=== PATIENT | male | born 1940 | race Caucasian/White ===

== ENCOUNTER 2017-05-23 21:26 | Inpatient (IN) | payer MEDICARE, OTHER ==
[~2017-05-23] VITALS: Ht 172.7 cm; Wt 95.2 kg
[~2017-05-23 21:26] MED LIST: AMLO5TAB4 PO; ASPI325T4 PO; BRIM10DR2 OP; CARV3.1238 PO; CLON-230 PO; CLOP75TA19 PO; GABA100C14 PO; GLYB2.5T2 PO; HYDR-3670 PO; ISOS30TA PO; MECLIZINE HCL25 M1 PO; QUET150T PO; RANO10002 PO; VIT1TABL65 PO; ZOLP5TAB PO
--- NOTE | 2017-05-23 22:18 | ERA ---
ER Documentation Chief Complaint Date/Time DATE: 05/23/17 TIME: 22:17 Chief Complaint BIBA RA 81 weakness, slow HR 37,HERR,light-headedness HPI The patient is a 77-year-old male, presenting to the ER because of low heart rate, dizziness intermittently for the last week, worse for the last 3 days. She had fast heart rate about 2 weeks ago when she was hospitalized at [facility] for new onset atrial fibrillation. She had a ASTON then subsequently cardioverted and discharged with Xarelto and amiodarone about a week ago. He has not felt well for the last week, worse for the last 3 days. He denies syncope, near syncope, seizure, neck pain, chest pain, complains of dyspnea, denies abdominal pain, vomiting, dysuria, diarrhea, constipation. He does not smoke nor drink Past medical history: Hypertension, diabetes mellitus, history of CVA, CAD, chronic vertigo, dyslipidemia, atrial fibrillation Past surgical history: Bilateral knee arthroplasty ROS All systems reviewed and are negative except as per history of present illness. Medications Home Meds Reported Medications Amiodarone Hcl* (Amiodarone Hcl*) 200 Mg Tablet, 200 MG PO BID, #60 TAB 05/23/17 Tamsulosin Hcl* (Tamsulosin Hcl*) 0.4 Mg Cap.er.24h, 0.4 MG PO DAILY, CAP 05/23/17 Fenofibrate Nanocrystallized* (Fenofibrate*) 145 Mg Tablet, 145 MG PO DAILY, TAB 05/23/17 [place]-3 Acid Ethyl Esters (Lovaza) 1 Gm Capsule, 1 GM PO BID, CAP 05/23/17 Duloxetine Hcl* (Duloxetine Hcl*) 30 Mg Capsule.dr, 30 MG PO DAILY, #30 CAP 05/23/17 Montelukast Sodium* (Montelukast Sodium*) 10 Mg Tablet, 10 MG PO QHS, #30 TAB 05/23/17 Esomeprazole Magnesium (Esomeprazole Magnesium) 40 Mg Capsule.dr, 40 MG PO BEFORE BREAKFAST, #30 CAP 05/23/17 Diclofenac Sodium* (Voltaren* Gel) 1% -100 Gm Gel, 2 GM TOP QID, #1 TUB 05/23/17 Glipizide* (Glipizide*) 5 Mg Tablet, 5 MG PO AC BREAKFAST, TAB 05/23/17 Calcium/Mag/D3/B12/FA/B6/Foley (Folgard Os Tablet) 1 Each Tablet, 1 EACH PO, TAB 05/23/17 Mupirocin Calcium* (Mupirocin*) 2% - 15 Gram Cream..g., 1 APPLIC TOP TID, #1 TUB 05/23/17 Cholecalciferol (Vitamin D3) 1,000 Unit Capsule, 1000 UNIT PO DAILY, CAP 05/23/17 Rivaroxaban* (Xarelto*) 15 Mg Tablet, 15 MG PO BID, TAB 05/23/17 Aspirin* (Aspirin* EC) 81 Mg Tablet.dr, 81 MG PO DAILY, TAB 05/23/17 Amlodipine Besylate* (Norvasc*) 5 Mg Tablet, 5 MG PO BID 03/13/13 Hydralazine Hcl* (Hydralazine Hcl*) 10 Mg Tablet, 10 MG PO TID 03/13/13 Ranolazine* (Ranexa*) 1,000 Mg Tab.sr.12h, 1000 MG PO BID 03/13/13 Clopidogrel Bisulfate (Plavix) 75 Mg Tablet, 75 MG PO DAILY 03/13/13 Meclizine Hcl (Meclizine Hcl) 25 Mg Tab.chew, 25 MG PO DAILY 03/13/13 Discontinued Reported Medications Brimonidine/Timolol* (Combigan*) 10 Ml Drops, 10 ML OP BID 03/13/13 Zolpidem Tartrate* (Ambien*) 5 Mg Tablet, 5 MG PO HS 03/13/13 Vit D3 & K/Berberine Hcl/Hops (Ostera Tablet) 1 Each Tablet, 1 EACH PO 03/13/13 Glyburide* (Glyburide*) 2.5 Mg Tablet, 2.5 MG PO BID 03/13/13 Clonidine Hcl (Clonidine Hcl) 0.1 Mg Tablet, 0.1 MG PO Q6 03/13/13 Quetiapine Fumarate* (Seroquel* XR) 150 Mg Tab.sr.24h, 150 MG PO DAILY 03/13/13 Carvedilol* (Coreg*) 3.125 Mg Tablet, 3.125 MG PO BID 03/13/13 Isosorbide Mononitrate* (Imdur*) 30 Mg Tab.sr.24h, 30 MG PO DAILY 2/1/13 Glyburide* (Glyburide*) 2.5 Mg Tablet, 2.5 MG PO DAILY 12/25/12 Gabapentin* (Gabapentin*) 100 Mg Capsule, 100 MG PO BID 12/25/12 Aspirin* (Aspirin*) 325 Mg Tablet, 325 MG PO DAILY 12/25/12 Allergies Allergies: Coded Allergies: No Known Allergy (Unverified , 05/23/17) PMhx/Soc History of Surgery: Yes (WANDA TOTAL KNEE REPLACEMENT 2005) Anesthesia Reaction: No Hx Neurological Disorder: Yes (CVA/TIA'S) Hx Respiratory Disorders: No Hx Cardiac Disorders: Yes (HTN, PULMONARY EDEMA) Hx Psychiatric Problems: No Hx Miscellaneous Medical Probl: Yes (vertigo with tinnitus,CAD,htn, hyperlipidemia) Hx Alcohol Use: No Hx Substance Use: No Hx Tobacco Use: No Smoking Status: Never smoker Physical Exam Vitals Vital Signs Date Time Temp Pulse Resp B/P Pulse Ox O2 Delivery O2 Flow Rate FiO2 05/23/17 23:09 2.0 05/23/17 23:07 51 22 97 Nasal Cannula 2.0 05/23/17 22:12 Nasal Cannula 2 05/23/17 21:34 98.1 32 16 130/62 98 Physical Exam Const: No acute distress. Anxious Head: Atraumatic. Eyes: Normal Conjunctiva. ENT: Normal External Ears, Nose and Mouth. Neck: Full range of motion. No meningismus. Resp: Clear to auscultation bilaterally. Cardio: Regular but bradycardic Abd: Soft, non distended, normal bowel sounds, non tender. Skin: No petechiae or rashes. Back: No midline or flank tenderness. Ext: No cyanosis, or edema. Neur: Awake and alert. No focal deficit Psych: Anxious Result Diagram: 05/23/17220405/23/172204 Results 24 hrs Laboratory Tests Test 05/23/17 22:05 05/23/17 22:23 White Blood Count 5.110^3/ul Red Blood Count 3.5010^6/ul Hemoglobin 10.1g/dl Hematocrit 32.1% Mean Corpuscular Volume 91.7fl Mean Corpuscular Hemoglobin 28.9pg Mean Corpuscular Hemoglobin Concent 31.5g/dl Red Cell Distribution Width 15.2% Platelet Count 65226^3/UL Mean Platelet Volume 10.1fl Neutrophils % 58.9% Lymphocytes % 30.0% Monocytes % 9.5% Eosinophils % 0.8% Basophils % 0.4% Nucleated Red Blood Cells % 0.0/100WBC Neutrophils # 3.010^3/ul Lymphocytes # 1.510^3/ul Monocytes # 0.510^3/ul Eosinophils # 0.010^3/ul Basophils # 0.010^3/ul Nucleated Red Blood Cells # 0.010^3/ul Prothrombin Time 20.9Sec Prothrombin Time Ratio 1.6 INR International Normalized Ratio 1.78 Activated Partial Thromboplast Time 47.4Sec Sodium Level 140mmol/L Potassium Level 6.1mmol/L Chloride Level 99mmol/L Carbon Dioxide Level 24mmol/L Anion Gap 23 Blood Urea Nitrogen 43mg/dl Creatinine 2.05mg/dl Glucose Level 166mg/dl Calcium Level 9.1mg/dl Magnesium Level 2.3mg/dl Troponin I 0.025ng/ml Thyroid Stimulating Hormone (TSH) 3.980MIU/L Bedside Glucose 169mg/dL Current Medications Medications (Trade) Dose Ordered Sig/Bobbi Route PRN Reason Start Time Stop Time Status Last Admin Dose Admin Atropine Sulfate (Atropine (Syringe)) 1 mg STK-MED ONCE .ROUTE 05/23/17 22:25 05/23/17 22:26 DC Dextrose (D50w Syringe) 100 ml ONCE ONCE IV 05/23/17 23:00 05/23/17 23:01 DC 05/23/17 23:13 Insulin Human Regular (Novolin-R) 10 unit ONCE ONCE IV 05/23/17 23:00 05/23/17 23:01 Cancel Albuterol (Proventil 0.083% (Neb)) 15 mg ONCE STAT HHN 05/23/17 22:51 05/23/17 22:58 DC 05/23/17 23:07 Sodium Polystyrene Sulfonate 30 gm 30 gm ONCE ONCE PO 05/23/17 23:00 05/23/17 23:01 DC 05/23/17 23:12 Calcium Gluconate/ Sodium Chloride (Ca Gluc/NS) 120 ml @ 60 mls/hr ONCE ONCE IVPB 05/23/17 23:00 05/24/17 00:59 DC 05/23/17 23:13 Insulin Human Regular (Humulin R) 10 unit ONCE ONCE IV 05/23/17 23:03 05/23/17 23:04 DC 05/23/17 23:21 Atropine Sulfate (Atropine) 1 mg ONCE ONCE IV 05/24/17 00:00 05/24/17 00:01 DC 05/23/17 22:25 Atropine Sulfate (Atropine) 1 mg ONCE ONCE IV 05/24/17 00:00 05/24/17 00:01 DC 05/23/17 22:31 Atropine Sulfate (Atropine) 1 mg ONCE ONCE IV 05/24/17 00:00 05/24/17 00:01 DC 05/23/17 22:37 Lorazepam (Ativan) 0.5 mg ONCE ONCE IV 05/24/17 00:30 05/24/17 00:31 DC 05/24/17 00:11 Lorazepam (Ativan) 2 mg STK-MED ONCE .ROUTE 05/24/17 00:20 05/24/17 00:21 DC Procedures/[place] [id number] Radiology Main Line: [phone] DIAGNOSTIC IMAGING REPORT Patient: CATINA SALES : 1940 Age: 77 Sex: M MR #: [id number] DOS: 05/23/17 2133 Ordering MD: GABI VARGAS DO Location: E/R Room/Bed: PROCEDURE: XR Chest. CLINICAL INDICATION: Chest pain. TECHNIQUE: Single frontal view of the chest. COMPARISON: 05/27/2013. FINDINGS: Cardiomegaly. Atherosclerotic calcifications in the thoracic aorta. Dual left lung base transcutaneous cardiac pacing pads. The lungs are clear. No signs of pleural fluid or pneumothorax are seen. The osseous structures and soft tissues are unremarkable. IMPRESSION: Cardiomegaly. RPTAT: UU Physician Re Date Time Electronically viewed and signed by Physician Re on 05/23/2017 22:46 RS/ CC: GABI VARGAS DO EKG: Read by emergency physician Rate/Rhythm: Junctional rhythm at 34 beats/min QRS, ST, T-waves: No ST elevation, no T inversion Impression: Abnormal EKG MEDICAL MAKING DECISION: The patient is a 77-year-old male, presenting with acute bradyarrhythmia due to acute hyperkalemia and acute kidney injury. Accu- Chek on arrival was 169. He was treated with atropine 0.5 mg every 5 minutes 6 with minimal response while awaiting for the blood test to come back. Potassium came back elevated at 6.1. He was immediately treated with calcium gluconate 2 g IV, albuterol 15 mg nebulizer over half an hour, 2 amp D50 IV, 10 units of Regular Insulin IV, Kayexalate 30 g p.o. for acute hyperkalemia with good response The differential diagnoses considered include but are not limited to acute kidney injury, sick sinus syndrome, cardiac arrhythmia, electrolyte imbalance, CHF, PE, ACS Critical Care: Time: 75 minutes excluding all billable procedures. Treatments/Evaluations: Close monitoring and treatment of unstable vital signs, cardiorespiratory, and neurologic status, while maintaining tight balance of fluid, respiratory, and cardiac interventions. Departure Diagnosis: Primary Impression: Hyperkalemia Additional Impressions: Bradyarrhythmia Acute kidney injury Anemia Condition: Critical Comments I discussed the findings with the patient. I discussed the patient with the on- call hospitalist Dr. Montemayor who was made aware of the lab, the treatment, the patient condition. The patient is admitted to ICU at 1150pm ALEK VASQUEZ MD May 23, 2017 22:18
[2017-05-23 22:22] LABS: BASOPHILS % 0.4 % (0.0-2.0); EOSINOPHILS % 0.8 % (0.0-7.0); HEMATOCRIT 32.1 % (42.0-52.0); HEMOGLOBIN 10.1 g/dl (14.0-18.0); LYMPHOCYTES # 1.5 10^3/ul (0.8-2.9); MEAN CORPUSCULAR HEMOGLOBIN 28.9 pg (29.0-33.0); MEAN CORPUSCULAR HGB CONC 31.5 g/dl (32.0-37.0); MEAN CORPUSCULAR VOLUME 91.7 fl (82.0-101.0); MEAN PLATELET VOLUME 10.1 fl (7.4-10.4); MONOCYTE # 0.5 10^3/ul (0.3-0.9); MONOCYTES % 9.5 % (0.0-11.0); NEUTROPHILS % 58.9 % (39.0-77.0); PLATELET COUNT 226 10^3/UL (140-415); RED CELL DISTRIBUTION WIDTH 15.2 % (11.5-14.5); WHITE BLOOD COUNT 5.1 10^3/ul (4.8-10.8)
[2017-05-23 22:24] LABS: ADD SCAN DIFF NO
[2017-05-23] MEDS ORDERED: ATROPINE 1 MG/10 ML SYRINGE ONE (22:25)
[2017-05-23 22:37] LABS: INR 1.78; PROTIME 20.9 Sec (12.2-14.2); PT RATIO 1.6
[2017-05-23 22:38] LABS: PARTIAL THROMBOPLASTIN TIME 47.4 Sec (25.0-35.0)
[2017-05-23 22:42] LABS: CALCIUM 9.1 mg/dl (8.4-10.2); CREATININE 2.05 mg/dl (0.61-1.24); MAGNESIUM 2.3 mg/dl (1.7-2.5)
--- NOTE | 2017-05-23 22:46 | RADRPT ---
PROCEDURE: XR Chest. CLINICAL INDICATION: Chest pain. TECHNIQUE: Single frontal view of the chest. COMPARISON: 05/27/2013. FINDINGS: Cardiomegaly. Atherosclerotic calcifications in the thoracic aorta. Dual left lung base transcutan eous cardiac pacing pads. The lungs are clear. No signs of pleural fluid or pneumothorax are seen. T he osseous structures and soft tissues are unremarkable. IMPRESSION: Cardiomegaly. RPTAT: UU Physician Re Date Time Electronically viewed and signed by Physician Re on 05/23/2017 22:46 RS/
[2017-05-23] MEDS ORDERED: ESOM40CA51 PO (22:48)
[2017-05-23] MEDS ORDERED: RIVA15TA PO (22:48)
[2017-05-23] MEDS ORDERED: FENO145T19 PO (22:48)
[2017-05-23] MEDS ORDERED: DULO30CA47 PO (22:48)
[2017-05-23] MEDS ORDERED: DICL100G37 TOP (22:48)
[2017-05-23] MEDS ORDERED: ASPI-664 PO (22:48)
[2017-05-23] MEDS ORDERED: GLIP5TAB13 PO (22:48)
[2017-05-23] MEDS ORDERED: CHOL10009 PO (22:48)
[2017-05-23] MEDS ORDERED: MUPI15CR9 TOP (22:48)
[2017-05-23] MEDS ORDERED: CAL1TABL PO (22:48)
[2017-05-23] MEDS ORDERED: MONT10TA24 PO (22:48)
[2017-05-23] MEDS ORDERED: OMEG1CAP2 PO (22:48)
[2017-05-23 22:50] LABS: POTASSIUM 6.1 mmol/L (3.5-5.1)
[2017-05-23] MEDS ORDERED: ALBUTEROL 0.083% (NEB) 2.5 MG/3 ML AMP HHN STA (22:51)
[2017-05-23 22:54] LABS: TROPONIN-I 0.025 ng/ml (0.00-0.12)
[2017-05-23] MEDS ORDERED: TAMS0.4C2 PO (22:55)
[2017-05-23] MEDS ORDERED: AMIO200T2 PO (22:57)
[2017-05-23] MEDS ORDERED: DEXTROSE 50% 50 ML SYRINGE IV ONE (23:00)
[2017-05-23] MEDS ORDERED: CALCIUM GLUCONATE 10% 2 GM in SOD CHLORIDE 0.9% 100 ML IVPB ONE (23:00)
[2017-05-23] MEDS ORDERED: NA POLYST SULFON 15 GM/60 ML BTL PO ONE (23:00)
[2017-05-23] MEDS ORDERED: INSULIN REGULAR 10 ML INJ IV ONE (23:00)
[2017-05-23] MEDS ORDERED: INSULIN REGULAR, HUMAN 100 UNIT/1 ML 3ML VIAL IV ONE (23:03)
[2017-05-23 23:13] LABS: THYROID STIMULATING HORMONE 3.98 MIU/L (0.465-4.680)
[2017-05-24] VITALS (18 sets, daily range): BP systolic 103–171; BP diastolic 58–100; PULSE 45–86; RESP 14–19; Ht 172.7 cm; Wt 95.2 kg
[2017-05-24] MEDS ORDERED: ATROPINE 1 MG INJ IV ONE ×3
[2017-05-24] MEDS ORDERED: LORAZEPAM 2 MG INJ ONE (00:20)
[2017-05-24] MEDS ORDERED: LORAZEPAM 2 MG INJ IV ONE (00:30)
[2017-05-24] MEDS ORDERED: ACETAMINOPHEN 650MG/20.3ML CUP PO PRN (02:00)
[2017-05-24] MEDS ORDERED: ONDANSETRON 4 MG INJ IV PRN (02:00)
[2017-05-24] MEDS ORDERED: HALOPERIDOL 5 MG INJ IV ONE (02:30)
[2017-05-24] MEDS: FISH OIL 1,000 MG CAP PO SCH ×3 (05:00→20:46)
--- NOTE | 2017-05-24 05:56 | HP ---
Date/Time of Note Date/Time of Note DATE: 05/24/17 TIME: 05:44 Assessment/Plan VTE Prophylaxis VTE Prophylaxis Intervention: other (xarelto) Lines/Catheters IV Catheter Type (from [facility]): Saline Lock Urinary Cath still in place: Yes Reason Cath still needed: other (indicate) (clincial condition) Assessment/Plan Chief Complaint/Hosp Course This is a 77 a male being admitted to the ICU floor for: #1 symptomatic bradycardia: Patient's heart rate was noted to be in the 30s. He was given atropine in the ED however there is no response. Upon receiving albuterol and insulin and glucose patient heart rate was noted to be rising and remained in the 70s and 80s upon my examination. Patient though did appear very jittery and nervous and tremulous. This likely could have been a reaction to the high-dose albuterol that he received. At the current time we will continue to monitor the patient in the ICU. Consult cardiology. Trend cardiac enzymes. Patient was on amiodarone. Will currently hold amiodarone for right now secondary to his presentation with bradycardia. Will defer further medication management to cardiology. #2 hyperkalemia: Patient presented with a potassium level 6.1. This could have been contributing as well to the patient's bradycardia. He was given albuterol insulin glucose which subsequently resulted in improvement in the patient's heart rate. Patient does have a creatinine of 2. Will consult nephrology for further evaluation. #3 hypertension: We will continue home medications. #4 history of CVA: We will continue aspirin Plavix. #5 atrial fibrillation: Patient currently is normal sinus rhythm. Will continue anti-coagulation with Xarelto. Will hold amiodarone for now. Will refer to cardiology for further management. #6 Diabetes mellitus: Put patient on insulin sliding scale. #7 DVT GI prophylaxis: Patient currently on Xarelto, Protonix Further treatment strategy will be implemented as per the clinical course Greater than 40 minutes of critical care time was spent on the history and physical assessment and plan for this patient. Problems: HPI/ROS Admit Date/Time Admit Date/Time May 24, 2017 at 02:03 Hx of Present Illness Chief complaint: Low heart rate dizziness The patient is a 77-year-old male, presenting to the ER because of low heart rate, dizziness intermittently for the last week, worse for the last 3 days. She had fast heart rate about 2 weeks ago when she was hospitalized at [facility] for new onset atrial fibrillation. She had a ASTON then subsequently cardioverted and discharged with Xarelto and amiodarone about a week ago. He has not felt well for the last week, worse for the last 3 days. He denies syncope, near syncope, seizure, neck pain, chest pain, complains of dyspnea, denies abdominal pain, vomiting, dysuria, diarrhea, constipation. Once patient arrived in the ED he was noted to have a heart rate in the 30s. He was given atropine however he did not show any response to that. Blood work came back to did show hyperkalemia. He was given albuterol as well as insulin and glucose. Upon my examination patient appears to be anxious and nervous and jittery. He states that he notices bugs crawling down his leg. His heart rate at this current time is between the 70s and 80s. Currently denies any chest pain or shortness of breath. Allergies: NKDA Occasions: See GRAYSON TAM Const: As per HPI Eyes : No pain discharge or redness or change in visual acuity ENT: No pain, sore throat, congestion, congestion, dysphagia or discharge Respiratory: Patient Cardiovascular: As per GI : no change in appetite, abdominal pain, nausea, vomiting, diarrhea, constipation, or change in the color his stool Genitourinary: No dysuria, hematuria, flank pain , discharge or CVA tenderness Musculoskeletal: No joint pain, back pain, neck pain, restricted range of motion in neck or joints Skin: No rash, bruising or hives Neuro: As per Endocrine: No polyuria, polydipsia, temperature intolerance Psych: As per HPI PMH/Family/Social Past Medical History Hypertension, diabetes mellitus, history of CVA, CAD, chronic vertigo, dyslipidemia, atrial fibrillation Past Surgical History Bilateral knee arthroplasty Family History Significant Family History: heart disease (Mom) Social History Alcohol Use: none Smoking Status: Former smoker (2 packs per day 40 years, quit 20 years ago) Drug Use: none Exam/Review of Systems Vital Signs Vitals Vital Signs Date Time Temp Pulse Resp B/P Pulse Ox O2 Delivery O2 Flow Rate FiO2 05/24/17 05:21 2.0 05/24/17 05:00 70 14 130/72 96 05/24/17 04:30 98.9 Nasal Cannula Exam Exam General: Patient appears restless and nervous at the bedside, states that he notices bugs crawling on his feet. Patient just received treatment of atropine albuterol and insulin glucose HEENT: Atraumatic, normocephalic. The pupils are equal, round and reactive. Extraocular motor are intact Neck: Supple with full range of motion. No rigidity or meningismus Chest: Nontender Lungs: Clear to auscultation bilaterally no crackles rales or wheezing Heart: Normal S1-S2, Regular rhythm and rate. No heart murmur appreciate Abdomen: Soft , nontender, nondistended , bowel sounds are present. No guarding no rebound tenderness , No masses or organomegaly. No costovertebral temporal angle mass Extremities: Normal to inspection, no edema no cyanosis Neurologic: Patient currently appears anxious and nervous he also does state that he is noticing bugs crawling down his feet. Additional Comments PROCEDURE: XR Chest. CLINICAL INDICATION: Chest pain. TECHNIQUE: Single frontal view of the chest. COMPARISON: 05/27/2013. FINDINGS: Cardiomegaly. Atherosclerotic calcifications in the thoracic aorta. Dual left lung base transcutaneous cardiac pacing pads. The lungs are clear. No signs of pleural fluid or pneumothorax are seen. The osseous structures and soft tissues are unremarkable. IMPRESSION: Cardiomegaly. RPTAT: UU Physician Re Date Time Electronically viewed and signed by Physician Re on 05/23/2017 22:46 RS/ CC: GABI VARGAS DO EKG: Rate/Rhythm: Junctional rhythm at 34 beats/min QRS, ST, T-waves: No ST elevation, no T inversion As per ED physician augmentation Labs Result Diagram: 05/23/17220405/23/172204 Medications Medications Current Medications Ondansetron HCl (Zofran Inj) 4 mg Q6H PRN IV NAUSEA AND/OR VOMITING; Start 05/24 at 02:00 Acetaminophen (Tylenol Liquid) 650 mg Q6H PRN PO PAIN LEVEL 1-3 OR FEVER; Start 05/24/17 at 02:00 Lorazepam (Ativan) 1 mg Q2H PRN IV ANXIETY; Start 05/24/17 at 02:00; Status UNV Pantoprazole (Protonix Iv) 40 mg DAILY@06 IV ; Start 05/24/17 at 06:00 Amlodipine Besylate (Norvasc) 5 mg BID PO ; Start 05/24/17 at 09:00 Aspirin (Halfprin) 81 mg DAILY PO ; Start 05/24/17 at 09:00 Clopidogrel Bisulfate (plaVIX) 75 mg DAILY PO ; Start 05/24/17 at 09:00 Duloxetine HCl (Cymbalta) 30 mg DAILY PO ; Start 05/24/17 at 09:00 Hydralazine HCl (Apresoline) 10 mg TID PO ; Start 05/24/17 at 09:00 Mupirocin (Bactroban) 1 applic TID TOP ; Start 05/24/17 at 09:00 Ranolazine (Ranexa) 1,000 mg BID PO ; Start 05/24/17 at 09:00 Rivaroxaban (Xarelto) 15 mg BID PO ; Start 05/24/17 at 09:00 Tamsulosin HCl (Flomax) 0.4 mg DAILY@21 PO ; Start 05/24/17 at 21:00 Miscellaneous Information 25 mg DAILY PO ; Start 05/24/17 at 09:00; Status UNV Fish Oil (Fish Oil) 1,000 mg BID PO ; Start 05/24/17 at 05:00 MIR IZAGUIRRE May 24, 2017 05:55
[2017-05-24] MEDS ORDERED: PANTOPRAZOLE 40 MG INJ IV SCH (06:00)
[2017-05-24 06:07] LABS: BASOPHILS % 0.4 % (0.0-2.0); EOSINOPHILS % 0.2 % (0.0-7.0); HEMATOCRIT 33.9 % (42.0-52.0); HEMOGLOBIN 10.5 g/dl (14.0-18.0); LYMPHOCYTES # 1.3 10^3/ul (0.8-2.9); LYMPHOCYTES % 22.2 % (15.0-51.0); MEAN CORPUSCULAR HEMOGLOBIN 27.9 pg (29.0-33.0); MEAN CORPUSCULAR VOLUME 89.9 fl (82.0-101.0); MEAN PLATELET VOLUME 10.1 fl (7.4-10.4); MONOCYTE # 0.5 10^3/ul (0.3-0.9); MONOCYTES % 8.5 % (0.0-11.0); NEUTROPHIL # 3.8 10^3/ul (1.6-7.5); NEUTROPHILS % 68.2 % (39.0-77.0); PLATELET COUNT 253 10^3/UL (140-415); RED BLOOD COUNT 3.77 10^6/ul (4.70-6.10); RED CELL DISTRIBUTION WIDTH 15.2 % (11.5-14.5); WHITE BLOOD COUNT 5.6 10^3/ul (4.8-10.8)
[2017-05-24 06:36] LABS: POTASSIUM 4.9 mmol/L (3.5-5.1)
[2017-05-24] MEDS ORDERED: NON-FORMULARY/PATIENT OWN MED (Esomeprazole Magnesium 40 MG) PO SCH (07:00)
[2017-05-24 08:55] LABS: CREATININE 1.69 mg/dl (0.61-1.24)
[2017-05-24] MEDS ORDERED: ASPIRIN (EC) 81 MG TAB PO SCH (09:00)
[2017-05-24] MEDS ORDERED: CLOPIDOGREL 75 MG TAB PO SCH (09:00)
[2017-05-24] MEDS ORDERED: MECLIZINE 25 MG TAB PO SCH (09:00)
[2017-05-24] MEDS ORDERED: RANOLAZINE (SR) 500 MG TAB PO SCH (09:00)
[2017-05-24] MEDS ORDERED: DULOXETINE 30 MG CAP DR PO SCH (09:00)
[2017-05-24] MEDS: AMLODIPINE 5 MG TAB PO SCH ×2 (09:26→20:46)
[2017-05-24] MEDS: MUPIROCIN 2% 15 GM CR TOP SCH ×2 (09:26→12:32)
[2017-05-24] MEDS ORDERED: LORAZEPAM 1 MG TAB PO PRN (09:30)
[2017-05-24] MEDS: RIVAROXABAN 15 MG TABLET PO SCH ×2 (10:06→20:45)
[2017-05-24 10:26] LABS: TROPONIN-I 0.024 ng/ml (0.00-0.12)
[2017-05-24 10:41] LABS: CK-MB 0.89 ng/ml (0.0-2.4)
[2017-05-24 11:26] LABS: TROPONIN-I 0.026 ng/ml (0.00-0.12)
[2017-05-24 11:37] LABS: CK-MB 0.86 ng/ml (0.0-2.4)
--- NOTE | 2017-05-24 12:00 | PN ---
Date/Time of Note Date/Time of Note DATE: 05/24/17 TIME: 11:59 Assessment/Plan VTE Prophylaxis VTE Prophylaxis Intervention: SCD's Lines/Catheters IV Catheter Type (from Nrsg): Saline Lock Urinary Cath still in place: Yes Reason Cath still needed: other (indicate) (will dc) Assessment/Plan Assessment/Plan 77 yo M admitted for symptomatic bradycardia after being started on amiodarone last week to control atrial fibrillation. PLAN tranfer to tele hold amio, HR at goal (<100) cont home meds consider cardiology consult tomorrow if HR consistently <50 off amio DVT prophx: home xarelto Subjective 24 Hr Interval Summary Free Text/Dictation Feeling well. No more hallucinations. HR in 50s Exam/Review of Systems Vital Signs Vitals Vital Signs Date Time Temp Pulse Resp B/P Pulse Ox O2 Delivery O2 Flow Rate FiO2 05/24/17 10:00 62 16 120/58 97 Nasal Cannula 2.0 05/24/17 08:00 98.1 Intake and Output 05/23/17 05/23/17 05/24/17 15:00 23:00 07:00 Output Total 450 ml Balance -450 ml Exam nad, sitting up in bed no mrg lungs clear abd soft no rashes Repeat labs reviewed Results Result Diagram: 05/24/17 0520 05/24/17 0520 Results 24 hrs Laboratory Tests Test 05/23/17 22:05 05/23/17 22:23 05/24/17 05:20 05/24/17 10:38 White Blood Count 5.1 5.6 Red Blood Count 3.50 L 3.77 L Hemoglobin 10.1 L 10.5 L Hematocrit 32.1 L 33.9 L Mean Corpuscular Volume 91.7 89.9 Mean Corpuscular Hemoglobin 28.9 L 27.9 L Mean Corpuscular Hemoglobin Concent 31.5 L 31.0 L Red Cell Distribution Width 15.2 H 15.2 H Platelet Count 226 253 Mean Platelet Volume 10.1 10.1 Neutrophils % 58.9 68.2 Lymphocytes % 30.0 22.2 Monocytes % 9.5 8.5 Eosinophils % 0.8 0.2 Basophils % 0.4 0.4 Nucleated Red Blood Cells % 0.0 0.0 Neutrophils # 3.0 3.8 Lymphocytes # 1.5 1.3 Monocytes # 0.5 0.5 Eosinophils # 0.0 0.0 Basophils # 0.0 0.0 Nucleated Red Blood Cells # 0.0 0.0 Prothrombin Time 20.9 H Prothrombin Time Ratio 1.6 INR International Normalized Ratio 1.78 Activated Partial Thromboplast Time 47.4 H Sodium Level 140 138 Potassium Level 6.1 *H 4.9 Chloride Level 99 102 Carbon Dioxide Level 24 23 Anion Gap 23 H 18 H Blood Urea Nitrogen 43 H 34 H Creatinine 2.05 H 1.69 H Glucose Level 166 150 Calcium Level 9.1 10.0 Magnesium Level 2.3 Troponin I 0.025 0.024 0.026 Thyroid Stimulating Hormone (TSH) 3.980 Bedside Glucose 169 Creatine Kinase 61 60 Creatine Kinase Index 1.5 1.4 Creatinine Kinase MB (Mass) 0.89 0.86 Medications Medications Current Medications Ondansetron HCl (Zofran Inj) 4 mg Q6H PRN IV NAUSEA AND/OR VOMITING; Start 05/24 at 02:00 Acetaminophen (Tylenol Liquid) 650 mg Q6H PRN PO PAIN LEVEL 1-3 OR FEVER; Start 05/24/17 at 02:00 Lorazepam (Ativan) 1 mg Q2H PRN PO ANXIETY; Start 05/24/17 at 09:30 Amlodipine Besylate (Norvasc) 5 mg BID PO Last administered on 05/24/17 09:26; Admin Dose 5 MG; Start 05/24/17 at 09:00 Aspirin (Halfprin) 81 mg DAILY PO Last administered on 05/24/17 09:25; Admin Dose 81 MG; Start 05/24/17 at 09:00 Clopidogrel Bisulfate (plaVIX) 75 mg DAILY PO Last administered on 05/24/17 09: 25; Admin Dose 75 MG; Start 05/24/17 at 09:00 Duloxetine HCl (Cymbalta) 30 mg DAILY PO Last administered on 05/24/17 09:26; Admin Dose 30 MG; Start 05/24/17 at 09:00 Hydralazine HCl (Apresoline) 10 mg TID PO Last administered on 05/24/17 09:25; Admin Dose 10 MG; Start 05/24/17 at 09:00 Mupirocin (Bactroban) 1 applic TID TOP Last administered on 05/24/17 09:26; Admin Dose 1 APPLIC; Start 05/24/17 at 09:00 Ranolazine (Ranexa) 1,000 mg BID PO Last administered on 05/24/17 10:06; Admin Dose 1,000 MG; Start 05/24/17 at 09:00 Rivaroxaban (Xarelto) 15 mg BID PO Last administered on 05/24/17 10:06; Admin Dose 15 MG; Start 05/24/17 at 09:00 Tamsulosin HCl (Flomax) 0.4 mg DAILY@21 PO ; Start 05/24/17 at 21:00 Meclizine HCl (Antivert) 25 mg DAILY PO Last administered on 05/24/17 09:25; Admin Dose 25 MG; Start 05/24/17 at 09:00 Fish Oil (Fish Oil) 1,000 mg BID PO Last administered on 05/24/17 09:25; Admin Dose 1,000 MG; Start 05/24/17 at 05:00 BREN JEAN MD May 24, 2017 12:00
--- NOTE | 2017-05-24 17:37 | CONS ---
Date/Time of Note Date/Time of Note DATE: 05/24/17 TIME: 17:32 Assessment/Plan Assessment/Plan Additional Assessment/Plan 1. symptomatic bradycardia - 77 yo with HTN, CAD ? parox a. 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 2 hyperkalemia: Patient presented with a potassium level 6.1. BETTER now - still marty. 3. hypertension: We will continue home medications. 4. history of CVA: We will continue aspirin Plavix. 5 h/o atrial fibrillation: Patient currently is normal sinus rhythm. Will continue anti-coagulation with Xarelto. Hold amiodarone for now with marty. 6 DVT GI prophylaxis: Patient currently on Xarelto, Protonix Further treatment strategy will be implemented as per the clinical course Greater than 40 minutes of critical care time was spent on the history and physical assessment and plan for this patient. Consultation Date/Type/Reason Admit Date/Time May 24, 2017 at 02:03 Initial Consult Date 24 HR Interval Summary Free Text/Dictation Cardiology Consult CC: bradycardia 77 yo with HTN, CAD ? parox a. 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 PMH: HTN,CAD, tachy-marty syndrome aLL: LORAZEPAM FH: HTN,DM Meds: reviewed Exam/Review of Systems Vital Signs Vitals Vital Signs Date Time Temp Pulse Resp B/P Pulse Ox O2 Delivery O2 Flow Rate FiO2 05/24/17 16:49 45 05/24/17 13:03 98.4 18 158/69 98 05/24/17 10:00 Nasal Cannula 2.0 Intake and Output 05/23/17 05/23/17 05/24/17 15:00 23:00 07:00 Output Total 450 ml Balance -450 ml Exam ROS: No fever, no chills, no nausea, no vomiting, no diarrhea/constipation No recent weight changes No chest pain, no PND, no orthopnea + dizzine with marty No thirst, no heat or cold intolerance General: WN/WD/NAD, AOx 3 HEENT: Unicetric/atraumatic/EOMI (follow commands) NECK: JVD elevated, no thyromegaly Lymph: no lymphadenopathy HEART: regular with no S3, II/ systolic murmur at apex LUNGS: Coarse sounds ABD: soft, NT, ND, +BS : Intact Neuro: non focal SKIN: chronic changes EXT: trace edema Results Result Diagram: 05/24/1751905/24/1720 Results 24 hrs Laboratory Tests Test 05/23/17 22:05 05/23/17 22:23 05/24/17 05:20 05/24/17 10:38 White Blood Count 5.1 5.6 Red Blood Count 3.50 L 3.77 L Hemoglobin 10.1 L 10.5 L Hematocrit 32.1 L 33.9 L Mean Corpuscular Volume 91.7 89.9 Mean Corpuscular Hemoglobin 28.9 L 27.9 L Mean Corpuscular Hemoglobin Concent 31.5 L 31.0 L Red Cell Distribution Width 15.2 H 15.2 H Platelet Count 226 253 Mean Platelet Volume 10.1 10.1 Neutrophils % 58.9 68.2 Lymphocytes % 30.0 22.2 Monocytes % 9.5 8.5 Eosinophils % 0.8 0.2 Basophils % 0.4 0.4 Nucleated Red Blood Cells % 0.0 0.0 Neutrophils # 3.0 3.8 Lymphocytes # 1.5 1.3 Monocytes # 0.5 0.5 Eosinophils # 0.0 0.0 Basophils # 0.0 0.0 Nucleated Red Blood Cells # 0.0 0.0 Prothrombin Time 20.9 H Prothrombin Time Ratio 1.6 INR International Normalized Ratio 1.78 Activated Partial Thromboplast Time 47.4 H Sodium Level 140 138 Potassium Level 6.1 *H 4.9 Chloride Level 99 102 Carbon Dioxide Level 24 23 Anion Gap 23 H 18 H Blood Urea Nitrogen 43 H 34 H Creatinine 2.05 H 1.69 H Glucose Level 166 150 Calcium Level 9.1 10.0 Magnesium Level 2.3 Troponin I 0.025 0.024 0.026 Thyroid Stimulating Hormone (TSH) 3.980 Bedside Glucose 169 Creatine Kinase 61 60 Creatine Kinase Index 1.5 1.4 Creatinine Kinase MB (Mass) 0.89 0.86 Medications Medications Current Medications Ondansetron HCl (Zofran Inj) 4 mg Q6H PRN IV NAUSEA AND/OR VOMITING; Start 05/24 at 02:00 Acetaminophen (Tylenol Liquid) 650 mg Q6H PRN PO PAIN LEVEL 1-3 OR FEVER; Start 05/24/17 at 02:00 Lorazepam (Ativan) 1 mg Q2H PRN PO ANXIETY; Start 05/24/17 at 09:30 Amlodipine Besylate (Norvasc) 5 mg BID PO Last administered on 05/24/17 09:26; Admin Dose 5 MG; Start 05/24/17 at 09:00 Aspirin (Halfprin) 81 mg DAILY PO Last administered on 05/24/17 09:25; Admin Dose 81 MG; Start 05/24/17 at 09:00 Clopidogrel Bisulfate (plaVIX) 75 mg DAILY PO Last administered on 05/24/17 09: 25; Admin Dose 75 MG; Start 05/24/17 at 09:00 Duloxetine HCl (Cymbalta) 30 mg DAILY PO Last administered on 05/24/17 09:26; Admin Dose 30 MG; Start 05/24/17 at 09:00 Hydralazine HCl (Apresoline) 10 mg TID PO Last administered on 05/24/17 12:55; Admin Dose 10 MG; Start 05/24/17 at 09:00 Mupirocin (Bactroban) 1 applic TID TOP Last administered on 05/24/17 12:32; Admin Dose 1 APPLIC; Start 05/24/17 at 09:00 Ranolazine (Ranexa) 1,000 mg BID PO Last administered on 05/24/17 10:06; Admin Dose 1,000 MG; Start 05/24/17 at 09:00 Rivaroxaban (Xarelto) 15 mg BID PO Last administered on 05/24/17 10:06; Admin Dose 15 MG; Start 05/24/17 at 09:00 Tamsulosin HCl (Flomax) 0.4 mg DAILY@21 PO ; Start 05/24/17 at 21:00 Meclizine HCl (Antivert) 25 mg DAILY PO Last administered on 05/24/17 09:25; Admin Dose 25 MG; Start 05/24/17 at 09:00 Fish Oil (Fish Oil) 1,000 mg BID PO Last administered on 05/24/17 09:25; Admin Dose 1,000 MG; Start 05/24/17 at 05:00 MARCELINO BOBO MD May 24, 2017 17:37
--- NOTE | 2017-05-24 18:53 | CONS ---
Date/Time of Note Date/Time of Note DATE: 05/24/17 TIME: 18:42 Assessment/Plan Assessment/Plan Additional Assessment/Plan 1. non-oliguric yan/ckd with bscr 1.5 mg/dl -etiology likely hemodynamics -renal function improved with supportive care plan -check u/a, lytes, renal us -cont treatment plan 2. hyperkalemia 2/2 yan -improved -cont low k diet 3. ckd -currently in yan -cont disease factor modification 4. anemia -monitor h/h 5. bradycardia -etiology ? hyperkalemia, ? cad -cont med/amg -f/u cardiology 6. cad -cont med/roge 5. mineral bone disorder -monitor ca, phos levels 7. htn -cont med/roge 8. h/o atrial fibrillation: Patient currently is normal sinus rhythm. -monitor Thank you for this consult. Will follow the pt with you. Consultation Date/Type/Reason Admit Date/Time May 24, 2017 at 02:03 Reason for Consultation yan Hx of Present Illness The patient is a 77-year-old male, with h/o ckd stage 3 with bscr 1.5 mg/dl who presenting to the ER because of low heart rate, dizziness intermittently for the last week, worse for the last 3 days. He was recently dxed with afib at outside hospital. Over last few days he had dizziness, weakness . He denies syncope, near syncope, seizure, neck pain, chest pain, complains of dyspnea, denies abdominal pain, vomiting, dysuria, diarrhea, constipation. Once patient arrived in the ED he was noted to have a heart rate in the 30s. He was given atropine however he did not show any response to that. Blood work came back to did show hyperkalemia. He was medically managed with improvement of k level per hpi Past Medical History Hypertension, diabetes mellitus, history of CVA, CAD, chronic vertigo, dyslipidemia, atrial fibrillation Past Surgical History Bilateral knee arthroplasty Social History Alcohol Use: none Smoking Status: Former smoker (2 packs per day 40 years, quit 20 years ago) Drug Use: none Exam/Review of Systems Vital Signs Vitals Vital Signs Date Time Temp Pulse Resp B/P Pulse Ox O2 Delivery O2 Flow Rate FiO2 05/24/17 18:18 103/62 05/24/17 17:33 98.0 53 18 98 05/24/17 10:00 Nasal Cannula 2.0 Intake and Output 05/23/17 05/23/17 05/24/17 15:00 23:00 07:00 Output Total 450 ml Balance -450 ml Exam General: nad HEENT: Atraumatic, normocephalic. The pupils are equal, round and reactive. Extraocular motor are intact Neck: Supple with full range of motion. No rigidity or meningismus Chest: Nontender Lungs: Clear to auscultation bilaterally no crackles rales or wheezing Heart: Normal S1-S2, Regular rhythm and rate. No heart murmur appreciate Abdomen: Soft , nontender, nondistended , bowel sounds are present. No guarding no rebound tenderness , No masses or organomegaly. No costovertebral temporal angle mass Extremities: Normal to inspection, no edema no cyanosis Results Result Diagram: 05/24/17 0520 05/24/17 0520 Results 24 hrs Laboratory Tests Test 05/23/17 22:05 05/23/17 22:23 05/24/17 05:20 05/24/17 10:38 White Blood Count 5.1 5.6 Red Blood Count 3.50 L 3.77 L Hemoglobin 10.1 L 10.5 L Hematocrit 32.1 L 33.9 L Mean Corpuscular Volume 91.7 89.9 Mean Corpuscular Hemoglobin 28.9 L 27.9 L Mean Corpuscular Hemoglobin Concent 31.5 L 31.0 L Red Cell Distribution Width 15.2 H 15.2 H Platelet Count 226 253 Mean Platelet Volume 10.1 10.1 Neutrophils % 58.9 68.2 Lymphocytes % 30.0 22.2 Monocytes % 9.5 8.5 Eosinophils % 0.8 0.2 Basophils % 0.4 0.4 Nucleated Red Blood Cells % 0.0 0.0 Neutrophils # 3.0 3.8 Lymphocytes # 1.5 1.3 Monocytes # 0.5 0.5 Eosinophils # 0.0 0.0 Basophils # 0.0 0.0 Nucleated Red Blood Cells # 0.0 0.0 Prothrombin Time 20.9 H Prothrombin Time Ratio 1.6 INR International Normalized Ratio 1.78 Activated Partial Thromboplast Time 47.4 H Sodium Level 140 138 Potassium Level 6.1 *H 4.9 Chloride Level 99 102 Carbon Dioxide Level 24 23 Anion Gap 23 H 18 H Blood Urea Nitrogen 43 H 34 H Creatinine 2.05 H 1.69 H Glucose Level 166 150 Calcium Level 9.1 10.0 Magnesium Level 2.3 Troponin I 0.025 0.024 0.026 Thyroid Stimulating Hormone (TSH) 3.980 Bedside Glucose 169 Creatine Kinase 61 60 Creatine Kinase Index 1.5 1.4 Creatinine Kinase MB (Mass) 0.89 0.86 Medications Medications Current Medications Ondansetron HCl (Zofran Inj) 4 mg Q6H PRN IV NAUSEA AND/OR VOMITING; Start 05/24 at 02:00 Acetaminophen (Tylenol Liquid) 650 mg Q6H PRN PO PAIN LEVEL 1-3 OR FEVER; Start 05/24/17 at 02:00 Lorazepam (Ativan) 1 mg Q2H PRN PO ANXIETY; Start 05/24/17 at 09:30 Amlodipine Besylate (Norvasc) 5 mg BID PO Last administered on 05/24/17 09:26; Admin Dose 5 MG; Start 05/24/17 at 09:00 Aspirin (Halfprin) 81 mg DAILY PO Last administered on 05/24/17 09:25; Admin Dose 81 MG; Start 05/24/17 at 09:00 Clopidogrel Bisulfate (plaVIX) 75 mg DAILY PO Last administered on 05/24/17 09: 25; Admin Dose 75 MG; Start 05/24/17 at 09:00 Duloxetine HCl (Cymbalta) 30 mg DAILY PO Last administered on 05/24/17 09:26; Admin Dose 30 MG; Start 05/24/17 at 09:00 Hydralazine HCl (Apresoline) 10 mg TID PO Last administered on 05/24/17 12:55; Admin Dose 10 MG; Start 05/24/17 at 09:00 Mupirocin (Bactroban) 1 applic TID TOP Last administered on 05/24/17 12:32; Admin Dose 1 APPLIC; Start 05/24/17 at 09:00 Ranolazine (Ranexa) 1,000 mg BID PO Last administered on 05/24/17 10:06; Admin Dose 1,000 MG; Start 05/24/17 at 09:00 Rivaroxaban (Xarelto) 15 mg BID PO Last administered on 05/24/17 10:06; Admin Dose 15 MG; Start 05/24/17 at 09:00 Tamsulosin HCl (Flomax) 0.4 mg DAILY@21 PO ; Start 05/24/17 at 21:00 Meclizine HCl (Antivert) 25 mg DAILY PO Last administered on 05/24/17 09:25; Admin Dose 25 MG; Start 05/24/17 at 09:00 Fish Oil (Fish Oil) 1,000 mg BID PO Last administered on 05/24/17 09:25; Admin Dose 1,000 MG; Start 05/24/17 at 05:00 ALDO ZHAO DO May 24, 2017 18:52
[2017-05-24] MEDS ORDERED: TAMSULOSIN (SR) 0.4 MG CAP PO SCH (21:00)
--- NOTE | 2017-05-25 08:11 | DS ---
Date/Time of Note Date/Time of Note DATE: 05/25/17 TIME: 08:10 Discharge Summary Admission/Discharge Info Admit Date/Time May 24, 2017 at 02:03 Discharge Date/Time May 24, 2017 at 21:20 Discharge Diagnosis bradycardia Patient Condition: Guarded Consults cardiology, nephrology Hx of Present Illness Chief complaint: Low heart rate dizziness The patient is a 77-year-old male, presenting to the ER because of low heart rate, dizziness intermittently for the last week, worse for the last 3 days. She had fast heart rate about 2 weeks ago when she was hospitalized at [facility] for new onset atrial fibrillation. She had a ASTON then subsequently cardioverted and discharged with Xarelto and amiodarone about a week ago. He has not felt well for the last week, worse for the last 3 days. He denies syncope, near syncope, seizure, neck pain, chest pain, complains of dyspnea, denies abdominal pain, vomiting, dysuria, diarrhea, constipation. Once patient arrived in the ED he was noted to have a heart rate in the 30s. He was given atropine however he did not show any response to that. Blood work came back to did show hyperkalemia. He was given albuterol as well as insulin and glucose. Upon my examination patient appears to be anxious and nervous and jittery. He states that he notices bugs crawling down his leg. His heart rate at this current time is between the 70s and 80s. Currently denies any chest pain or shortness of breath. Allergies: NKDA Occasions: See MAR Hospital Course This is a 77 a male being admitted to the ICU floor for: 77 yo M admitted for symptomatic bradycardia after being started on amiodarone last week to control atrial fibrillation. Amio held, HR improved to 40s/50. All other home meds continued. Of note, pt left the hospital with his at 9pm on date of admission. I was off service at the time, etymology teacher notified. unclear if AMA paperwork completed. No discharge planning/med rec done. Home Meds Reported Medications Amiodarone Hcl* (Amiodarone Hcl*) 200 Mg Tablet, 200 MG PO BID, #60 TAB 05/23/17 Tamsulosin Hcl* (Tamsulosin Hcl*) 0.4 Mg Cap.er.24h, 0.4 MG PO DAILY, CAP 05/23/17 Fenofibrate Nanocrystallized* (Fenofibrate*) 145 Mg Tablet, 145 MG PO DAILY, TAB 05/23/17 [place]-3 Acid Ethyl Esters (Lovaza) 1 Gm Capsule, 1 GM PO BID, CAP 05/23/17 Duloxetine Hcl* (Duloxetine Hcl*) 30 Mg Capsule.dr, 30 MG PO DAILY, #30 CAP 05/23/17 Montelukast Sodium* (Montelukast Sodium*) 10 Mg Tablet, 10 MG PO QHS, #30 TAB 05/23/17 Esomeprazole Magnesium (Esomeprazole Magnesium) 40 Mg Capsule.dr, 40 MG PO BEFORE BREAKFAST, #30 CAP 05/23/17 Diclofenac Sodium* (Voltaren* Gel) 1% -100 Gm Gel, 2 GM TOP QID, #1 TUB 05/23/17 Glipizide* (Glipizide*) 5 Mg Tablet, 5 MG PO AC BREAKFAST, TAB 05/23/17 Calcium/Mag/D3/B12/FA/B6/[place] (Folgard Os Tablet) 1 Each Tablet, 1 EACH PO, TAB 05/23/17 Mupirocin Calcium* (Mupirocin*) 2% - 15 Gram Cream..g., 1 APPLIC TOP TID, #1 TUB 05/23/17 Cholecalciferol (Vitamin D3) 1,000 Unit Capsule, 1000 UNIT PO DAILY, CAP 05/23/17 Rivaroxaban* (Xarelto*) 15 Mg Tablet, 15 MG PO BID, TAB 05/23/17 Aspirin* (Aspirin* EC) 81 Mg Tablet.dr, 81 MG PO DAILY, TAB 05/23/17 Amlodipine Besylate* (Norvasc*) 5 Mg Tablet, 5 MG PO BID 03/13/13 Hydralazine Hcl* (Hydralazine Hcl*) 10 Mg Tablet, 10 MG PO TID 03/13/13 Ranolazine* (Ranexa*) 1,000 Mg Tab.sr.12h, 1000 MG PO BID 03/13/13 Clopidogrel Bisulfate (Plavix) 75 Mg Tablet, 75 MG PO DAILY 03/13/13 Meclizine Hcl (Meclizine Hcl) 25 Mg Tab.chew, 25 MG PO DAILY 03/13/13 Discontinued Reported Medications Brimonidine/Timolol* (Combigan*) 10 Ml Drops, 10 ML OP BID 03/13/13 Zolpidem Tartrate* (Ambien*) 5 Mg Tablet, 5 MG PO HS 03/13/13 Vit D3 & K/[place] Hcl/Hops (Ostera Tablet) 1 Each Tablet, 1 EACH PO 03/13/13 Glyburide* (Glyburide*) 2.5 Mg Tablet, 2.5 MG PO BID 03/13/13 Clonidine Hcl (Clonidine Hcl) 0.1 Mg Tablet, 0.1 MG PO Q6 03/13/13 Quetiapine Fumarate* (Seroquel* XR) 150 Mg Tab.sr.24h, 150 MG PO DAILY 03/13/13 Carvedilol* (Coreg*) 3.125 Mg Tablet, 3.125 MG PO BID 03/13/13 Isosorbide Mononitrate* (Imdur*) 30 Mg Tab.sr.24h, 30 MG PO DAILY 12/25/12 Glyburide* (Glyburide*) 2.5 Mg Tablet, 2.5 MG PO DAILY 12/25/12 Gabapentin* (Gabapentin*) 100 Mg Capsule, 100 MG PO BID 12/25/12 Aspirin* (Aspirin*) 325 Mg Tablet, 325 MG PO DAILY 12/25/12 Primary Care Provider Rosalba Langley Time spent on discharge: < 30 minutes Pending Labs Laboratory Tests Test 05/24/17 10:38 Creatine Kinase 60IU/L (23-200) Creatine Kinase Index 1.4 Creatinine Kinase MB (Mass) 0.86ng/ml (0.0-2.4) Troponin I 0.026ng/ml (0.00-0.12) BREN JEAN MD May 25, 2017 08:10 Laboratory Tests Test 05/24/17 10:38 Creatine Kinase 60IU/L (23-200) Creatine Kinase Index 1.4 Creatinine Kinase MB (Mass) 0.86ng/ml (0.0-2.4) Troponin I 0.026ng/ml (0.00-0.12) BREN JEAN MD May 25, 2017 08:10
== END 2017-05-24 21:20 | disposition left against medical advice (07) | DRG 310 ==
LOC: E/R 21:26 → ICU 05-24 02:03 → MS4 05-24 12:25
PROVIDERS: ADMIT Family Medicine; ATTEND Family Medicine
DX: R00.1 Bradycardia, unspecified (principal); E11.22 Type 2 diabetes mellitus with diabetic chronic kidney disease; E87.5 Hyperkalemia; E78.5 Hyperlipidemia, unspecified; I48.91 Unspecified atrial fibrillation; I12.9 Hypertensive chronic kidney disease with stage 1 through stage 4 chronic kidney disease, or unspecified chronic kidney disease; N18.3 Chronic kidney disease, stage 3 (moderate); Z79.82 Long term (current) use of aspirin; Z86.73 Personal history of transient ischemic attack (TIA), and cerebral infarction without residual deficits
CPT/HCPCS: 36415; 71010; 80048; 82550; 82553; 82962; 83735; 84443; 84484; 85025; 85610; 85730; 87081; 93005; 94664; 96374; 96375; C9113; J0461; J0610; J1815; J2060

== ENCOUNTER 2017-09-14 06:31 | Inpatient (IN) | payer MEDICARE, OTHER ==
[2017-09-14] VITALS (9 sets, daily range): BP systolic 120–128; BP diastolic 58–67; PULSE 60–68; RESP 18–20; TEMP 98.3; Ht 170.2 cm; Wt 90.9 kg
[~2017-09-14] VITALS: Ht 170.2 cm; Wt 90.9 kg
[~2017-09-14 06:31] MED LIST changes: +AMIO200T2 PO; +ASPI-664 PO; -ASPI325T4 PO; -BRIM10DR2 OP; +CAL1TABL PO; -CARV3.1238 PO; +CHOL10009 PO; -CLON-230 PO; +DICL100G37 TOP; +DULO30CA47 PO; +ESOM40CA51 PO; +FENO145T19 PO; -GABA100C14 PO; +GLIP5TAB13 PO; -GLYB2.5T2 PO; -ISOS30TA PO; +MONT10TA24 PO; +MUPI15CR9 TOP; +OMEG1CAP2 PO; -QUET150T PO; +RIVA15TA PO; +TAMS0.4C2 PO; -VIT1TABL65 PO; -ZOLP5TAB PO
[2017-09-14] MEDS ORDERED: SOD CHLORIDE 0.9% 500 ML IV STA (06:41)
[2017-09-14] MEDS ORDERED: ONDANSETRON 4 MG INJ IV STA (06:41)
--- NOTE | 2017-09-14 06:56 | ERD ---
ER Documentation Chief Complaint Chief Complaint CHIKIS [id number] FROM HOME,WEAKNESS,DIZZINESS,NAUSEA HPI This is a 77-year-old male with a history of diabetes, hypertension, hyperlipidemia, significant coronary artery disease with reported blockages but not a candidate for operative intervention, congestive heart failure, previous arrhythmia on amiodarone, previous TIAs, on Plavix and Xarelto, who is presenting with worsening shortness of breath, lightheadedness and nausea, worsening over the last 3 days. The patient reports feeling more fatigued than usual and falling asleep more easily. He has not quite felt like himself. He has not fallen or lost consciousness, but he is felt very weak and lightheaded. The patient reportedly has a history of vertigo, but this is not his typical vertiginous dizziness. The patient also endorses a fever with chills at home. He has also had a productive cough. The patient denies chest pain. His shortness of breath is at baseline but worsens with any exertion such as walking down the [place] of his home. He denies abdominal pain. He denies any changes to bowel movements or urination. He does not endorse any focal deficits. He has no weakness or numbness or tingling to the face or extremities. ROS All systems reviewed and are negative except as per history of present illness. Medications Home Meds Reported Medications Amiodarone Hcl* (Amiodarone Hcl*) 200 Mg Tablet, 200 MG PO BID, #60 TAB 05/23/17 Tamsulosin Hcl* (Tamsulosin Hcl*) 0.4 Mg Cap.er.24h, 0.4 MG PO DAILY, CAP 05/23/17 Fenofibrate Nanocrystallized* (Fenofibrate*) 145 Mg Tablet, 145 MG PO DAILY, TAB 05/23/17 [place]-3 Acid Ethyl Esters (Lovaza) 1 Gm Capsule, 1 GM PO BID, CAP 05/23/17 Duloxetine Hcl* (Duloxetine Hcl*) 30 Mg Capsule.dr, 30 MG PO DAILY, #30 CAP 05/23/17 Montelukast Sodium* (Montelukast Sodium*) 10 Mg Tablet, 10 MG PO QHS, #30 TAB 05/23/17 Esomeprazole Magnesium (Esomeprazole Magnesium) 40 Mg Capsule.dr, 40 MG PO BEFORE BREAKFAST, #30 CAP 6/30/17 Diclofenac Sodium* (Voltaren* Gel) 1% -100 Gm Gel, 2 GM TOP QID, #1 TUB 05/23/17 Glipizide* (Glipizide*) 5 Mg Tablet, 5 MG PO AC BREAKFAST, TAB 05/23/17 Calcium/Mag/D3/B12/FA/B6/[place] (Folgard Os Tablet) 1 Each Tablet, 1 EACH PO, TAB 05/23/17 Mupirocin Calcium* (Mupirocin*) 2% - 15 Gram Cream..g., 1 APPLIC TOP TID, #1 TUB 05/23/17 Cholecalciferol (Vitamin D3) 1,000 Unit Capsule, 1000 UNIT PO DAILY, CAP 05/23/17 Rivaroxaban* (Xarelto*) 15 Mg Tablet, 15 MG PO BID, TAB 05/23/17 Aspirin* (Aspirin* EC) 81 Mg Tablet.dr, 81 MG PO DAILY, TAB 05/23/17 Amlodipine Besylate* (Norvasc*) 5 Mg Tablet, 5 MG PO BID 03/13/13 Hydralazine Hcl* (Hydralazine Hcl*) 10 Mg Tablet, 10 MG PO TID 03/13/13 Ranolazine* (Ranexa*) 1,000 Mg Tab.sr.12h, 1000 MG PO BID 03/13/13 Clopidogrel Bisulfate (Plavix) 75 Mg Tablet, 75 MG PO DAILY 03/13/13 Meclizine Hcl (Meclizine Hcl) 25 Mg Tab.chew, 25 MG PO DAILY 03/13/13 Allergies Allergies: Coded Allergies: lorazepam (Verified Adverse Reaction, Severe, SEVERE AGITAION, CONFUSION, HALLUCINATIONS, 05/24/17) PMhx/Soc History of Surgery: Yes (TKR) Anesthesia Reaction: No Hx Neurological Disorder: Yes (TIA) Hx Respiratory Disorders: No Hx Cardiac Disorders: Yes (HTN, HLD, DM, CAD, CHF) Hx Psychiatric Problems: No Hx Miscellaneous Medical Probl: Yes (bradycardia 2 weeks ago) Hx Alcohol Use: No Hx Substance Use: No Hx Tobacco Use: No Smoking Status: Former smoker FmHx Family History: coronary disease Physical Exam Vitals Vital Signs Date Time Temp Pulse Resp B/P Pulse Ox O2 Delivery O2 Flow Rate FiO2 09/14/17 07:24 Nasal Cannula 2.0 09/14/17 07:00 98.3 75 20 113/52 94 Nasal Cannula 5.0 09/14/17 06:38 99.1 64 18 127/59 77 Physical Exam Const: No apparent distress, well-developed, well-nourished Head: Atraumatic Eyes: Normal Conjunctiva. Extraocular movements intact. ENT: Normal External Ears, Nose and Mouth. Neck: Full range of motion. ~ No meningismus. Resp: decreased breath sounds bilaterally, bilateral rales, hypoxic to 78% on RA, 84% on 2L, 90% on 6L Cardio: Regular rate and rhythm, Harsh systolic murmus Abd: Soft, non tender, non distended. Normal bowel sounds Skin: No petechiae or rashes Back: No midline or flank tenderness Ext: No cyanosis, nonpitting BLE edema Neur: Awake and alert, oriented 4. Cranial nerves intact. No facial droop. Normal strength and sensation in all extremities. Coordination with finger to nose normal. Psych: Normal Mood and Affect Result Diagram: 09/14/17 0709/14/17 07 Results 24 hrs Laboratory Tests Test 09/14/17 07:00 09/14/17 07:11 White Blood Count 7.210^3/ul Red Blood Count 3.5510^6/ul Hemoglobin 10.1g/dl Hematocrit 30.9% Mean Corpuscular Volume 87.0fl Mean Corpuscular Hemoglobin 28.5pg Mean Corpuscular Hemoglobin Concent 32.7g/dl Red Cell Distribution Width 16.2% Platelet Count 19497^3/UL Mean Platelet Volume 10.1fl Neutrophils % 72.2% Lymphocytes % 15.7% Monocytes % 10.7% Eosinophils % 0.3% Basophils % 0.4% Nucleated Red Blood Cells % 0.0/100WBC Neutrophils # 5.210^3/ul Lymphocytes # 1.110^3/ul Monocytes # 0.810^3/ul Eosinophils # 0.010^3/ul Basophils # 0.010^3/ul Nucleated Red Blood Cells # 0.010^3/ul Sodium Level 135mmol/L Potassium Level 4.5mmol/L Chloride Level 99mmol/L Carbon Dioxide Level 23mmol/L Anion Gap 18 Blood Urea Nitrogen 38mg/dl Creatinine 2.06mg/dl Glucose Level 159mg/dl Calcium Level 8.9mg/dl Total Bilirubin 0.5mg/dl Direct Bilirubin 0.00mg/dl Indirect Bilirubin 0.5mg/dl Aspartate Amino Transf (AST/SGOT) 52IU/L Alanine Aminotransferase (ALT/SGPT) 58IU/L Alkaline Phosphatase 52IU/L Troponin I 0.061ng/ml B-Type Natriuretic Peptide 2520PG/ML Total Protein 7.8g/dl Albumin 4.2g/dl Globulin 3.60g/dl Albumin/Globulin Ratio 1.16 Lipase 23U/L Bedside Glucose 153mg/dL Current Medications Medications (Trade) Dose Ordered Sig/Bobbi Route PRN Reason Start Time Stop Time Status Last Admin Dose Admin Sodium Chloride (NS) 500 ml @ 500 mls/hr Q1H STAT IV 09/14/17 06:41 09/14/17 07:40 DC 09/14/17 07:17 Ondansetron HCl 4 mg 4 mg ONCE STAT IV 09/14/17 06:41 09/14/17 06:43 DC 09/14/17 07:17 Ceftriaxone Sodium 50 ml @ 100 mls/hr ONCE ONCE IVPB 09/14/17 08:30 09/14/17 08:59 09/14/17 08:36 Azithromycin (Zithromax 500mg/ NS (Pmx)) 250 ml @ 250 mls/hr ONCE ONCE IVPB 09/14/17 08:30 09/14/17 09:29 Ondansetron HCl (Zofran Inj) 4 mg ER BRIDGE PRN IV NAUSEA AND/OR VOMITING 09/14/17 08:30 09/15/17 08:29 Acetaminophen (Tylenol Tab) 650 mg ER BRIDGE PRN PO MILD PAIN/FEVER 09/14/17 08:30 09/15/17 08:29 Procedures/MDM MDM Patient's presentation warrants further investigation. I will complete a cardiopulmonary workup given his history. LABS The patient's blood work was obtained and reviewed. The patient seemed shows no leukocytosis or left shift. The patient is afebrile, and I do not suspect a systemic infection. The patient is anemic today, but he is around his baseline based on previous records. The patient's platelet count is unremarkable. The patient's CMP shows no signs of significant electrolyte abnormality. He has had issues with hyperkalemia previously, but he is not hyperkalemic today. The patient does have chronic kidney disease, but his creatinine appears to be increasing. His creatinine today is 2.06. It was most recently checked in May and was at 1.69. The patient does have an elevated troponin today at 0.061 , up from 0.026 in May. He also has an elevated BNP. EKG EKG read by me: Rate/Rhythm: Regular rate and rhythm at a rate of 76 Intervals: Prolonged PA interval indicating a 1st deg AV block, Normal QRS, QT less than 50% the RR interval [place]: Normal No ST or T wave changes concerning for STEMI Impression: No evidence of ischemia or arrhythmia IMAGING CXR FINDINGS: There is extensive air space disease throughout the right mid and lower lung zones consistent with pneumonia. There is mild left basilar pneumonia. The lungs are otherwise clear. The heart is mildly enlarged. There is a left-sided dual lead permanent pacemaker. There is no pleural effusion. There is no pneumothorax. IMPRESSION: 1. Extensive right mid and lower lung zone pneumonia. 2. Mild left basilar pneumonia. 3. Mild cardiomegaly. 4. Permanent pacemaker. Electronically viewed and signed by .Anand Ybarra MD, MD on 09/14/2017 07:05 TREATMENT/DISPOSITION The patient was found to have pneumonia. This does correlate with many of his symptoms, including his hypoxia and clinical exam. The patient will be started on Rocephin and azithromycin in the emergency department. This is likely what is causing his cardiac stress as well as his increasing creatinine. This will need to be monitored in the hospital. She will require admission to the hospital for his hypoxia and pneumonia. He was admitted to Dr. Kathleen from [facility] as directed per his insurance at 08:17AM. Departure Diagnosis: Primary Impression: Pneumonia Pneumonia type: due to unspecified organism Laterality: right Lung location : middle lobe of lung Qualified Code: J18.1 - Pneumonia of right middle lobe due to infectious organism Additional Impressions: Hypoxia Elevated troponin Heart failure Heart failure type: unspecified heart failure type Heart failure chronicity: unspecified heart failure chronicity Qualified Code: I50.9 - Heart failure, unspecified heart failure chronicity, unspecified heart failure type Acute kidney injury (nontraumatic) Condition: NIKKIE Pham MD Sep 14, 2017 06:56
--- NOTE | 2017-09-14 07:05 | RADRPT ---
PROCEDURE: XR Chest. CLINICAL INDICATION: Shortness of breath. TECHNIQUE: Single frontal view. COMPARISON: 05/23/2017. FINDINGS: There is extensive air space disease throughout the right mid and lower lung zones consistent with p neumonia. There is mild left basilar pneumonia. The lungs are otherwise clear. The heart is mildly enlarged. There is a left-sided dual lead permanent pacemaker. There is no pleural effusion. There is no pneumothorax. IMPRESSION: 1. Extensive right mid and lower lung zone pneumonia. 2. Mild left basilar pneumonia. 3. Mild cardiomegaly. 4. Permanent pacemaker. RPTAT: QQ .Anand Ybarra MD, MD Date Time Electronically viewed and signed by .Anand Ybarra MD, MD on 09/14/2017 07:05 .R/
[2017-09-14] MEDS ORDERED: ACETAMINOPHEN 325 MG TAB PO PRN (08:30)
[2017-09-14] MEDS ORDERED: AZITHROMYCIN 500MG/NS (PMX) 250 ML IVPB ONE (08:30)
[2017-09-14] MEDS ORDERED: ONDANSETRON 4 MG INJ IV PRN ×2 (08:30→13:30)
[2017-09-14] MEDS ORDERED: CEFTRIAXONE 1 GM/50 ML (PMX) 50 ML IVPB ONE (08:30)
[2017-09-14] MEDS ORDERED: HYDR-3672 PO (10:58)
[2017-09-14] MEDS ORDERED: CRES10 PO (10:59)
[2017-09-14] MEDS ORDERED: ERGO500037 PO (11:00)
[2017-09-14] MEDS ORDERED: ONDANSETRON 4 MG TAB PO PRN (13:30)
[2017-09-14] MEDS ORDERED: NACL 0.9% 3 ML SYG IV SCH (13:30)
[2017-09-14] MEDS ORDERED: FUROSEMIDE 20 MG TAB PO ONE (14:00)
--- NOTE | 2017-09-14 15:26 | RADRPT ---
PROCEDURE: Retroperitoneal ultrasound. CLINICAL INDICATION: Acute renal failure TECHNIQUE: Kirk scale and color doppler ultrasound images of the retroperitoneum, kidneys, urinary bladder COMPARISON: Renal ultrasound 03/15/2013 FINDINGS: Kidneys: Right length (cm) : 10.8 Left length (cm) : 10.4 Right cortical thickness: Normal. Left cortical thickness: Normal. Echogenicity: Normal bilaterally. Hydronephrosis: None. Renal calculi: None. Focal lesions: Benign appearing 8 mm cyst in the midportion of the right kidney. Benign appearing 18 mm cyst in the midportion of the left kidney. Free fluid/ascites: None. Abdominal aorta: Not visualized by the diesel inspector. Bladder: No focal lesions. Other findings: None. IMPRESSION: Single small bilateral benign appearing renal cysts. Otherwise normal appearance of both kidneys without hydronephrosis. RPTAT: AADD .Jaciel Toribio MD, MD Date Time Electronically viewed and signed by .Jaciel Toribio MD, on 09/14/2017 15:25 .B/
--- NOTE | 2017-09-14 15:26 | RADRPT ---
PROCEDURE: Retroperitoneal ultrasound. CLINICAL INDICATION: Acute renal failure TECHNIQUE: Kirk scale and color doppler ultrasound images of the retroperitoneum, kidneys, urinary bladder COMPARISON: Renal ultrasound 03/15/2013 FINDINGS: Kidneys: Right length (cm) : 10.8 Left length (cm) : 10.4 Right cortical thickness: Normal. Left cortical thickness: Normal. Echogenicity: Normal bilaterally. Hydronephrosis: None. Renal calculi: None. Focal lesions: Benign appearing 8 mm cyst in the midportion of the right kidney. Benign appearing 18 mm cyst in the midportion of the left kidney. Free fluid/ascites: None. Abdominal aorta: Not visualized by the blending kettle tender. Bladder: No focal lesions. Other findings: None. IMPRESSION: Single small bilateral benign appearing renal cysts. Otherwise normal appearance of both kidneys without hydronephrosis. RPTAT: AADD .Jaciel Toribio MD, MD Date Time Electronically viewed and signed by .Jaciel Toribio MD, on 09/14/2017 15:25 .B/
--- NOTE | 2017-09-14 15:26 | RADRPT ---
PROCEDURE: Retroperitoneal ultrasound. CLINICAL INDICATION: Acute renal failure TECHNIQUE: Kirk scale and color doppler ultrasound images of the retroperitoneum, kidneys, urinary bladder COMPARISON: Renal ultrasound 03/15/2013 FINDINGS: Kidneys: Right length (cm) : 10.8 Left length (cm) : 10.4 Right cortical thickness: Normal. Left cortical thickness: Normal. Echogenicity: Normal bilaterally. Hydronephrosis: None. Renal calculi: None. Focal lesions: Benign appearing 8 mm cyst in the midportion of the right kidney. Benign appearing 18 mm cyst in the midportion of the left kidney. Free fluid/ascites: None. Abdominal aorta: Not visualized by the vocational training director. Bladder: No focal lesions. Other findings: None. IMPRESSION: Single small bilateral benign appearing renal cysts. Otherwise normal appearance of both kidneys without hydronephrosis. RPTAT: AADD .Jaciel Toribio MD, MD Date Time Electronically viewed and signed by .Jaciel Toribio MD, on 09/14/2017 15:25 .B/
[2017-09-14] MEDS: INSULIN ASPART [NOVOLOG] 3 ML PEN SC SCH ×2 (17:09→22:10)
[2017-09-14] MEDS: DICLOFENAC SODIUM 1% GEL 100 GM TUBE TP SCH ×2 (17:36→22:10)
--- NOTE | 2017-09-14 19:42 | HP ---
Date/Time of Note Date/Time of Note DATE: 09/14/17 TIME: 19:32 Assessment/Plan VTE Prophylaxis VTE Prophylaxis Intervention: SCD's Lines/Catheters Urinary Cath still in place: No Assessment/Plan Assessment/Plan 77 yo M with multiple cardiac comorbidities here with SOB, h/o fever in setting of pulm infiltrate. Clinical scenario consistent with CAP. Given elevated BNP, reasonable to eval for acute on chronic systolic heart failure as well. Pt with Cr 2, unclear if this represents JOHN PAUL v CKD PLAN #CAP: ceftriaxone/azithro. PRN nebs #?CHF: sp lasix x 1. check TTE. tele monitoring #?JOHN PAUL: MARCELLA unremarkable. low FeNa. Consider preRenal, however also concern for CHF exacerbation chronic medical problems: #CAD/HL/HTN: cont DAPT, amio, Ranexa, statin, fibrate, fish oil, BP meds #BPH: cont flomax #vitamin D def: Cont vit D HPI/ROS Admit Date/Time Admit Date/Time Sep 14, 2017 at 08:17 Hx of Present Illness CC fever, sob progressive x 1 week HPI 77 yo M with pmhx CAD/DM/HTN/HL/CHF/arrhythmia with PM placement here with 1 week progressive SOB, fatigue, fever. Pt denies cough. No new meds. No LOC. No chest pain. PMH/Family/Social Past Medical History as per [facility] Social History lives in the community with family Smoking Status: Never smoker Exam/Review of Systems Vital Signs Vitals Vital Signs Date Time Temp Pulse Resp B/P Pulse Ox O2 Delivery O2 Flow Rate FiO2 09/14/17 17:30 98.0 62 18 128/67 98 09/14/17 15:05 Non Rebreather 12.0 Exam Exam nad, laying in bed, wearing O2 mask MMM EOMI mod air movement in all dsouza abd soft no rashes no edema moves exts freely labs notable for Cr 2 (1.7-2 previous range on file) BNP >2000 Imaging with pulm infiltrate Labs Result Diagram: 09/14/17 0700 09/14/17 0700 Medications Medications Current Medications Ondansetron HCl (Zofran Tab) 4 mg Q6H PRN PO NAUSEA AND/OR VOMITING; Start at 13:30 Ondansetron HCl (Zofran Inj) 4 mg Q6H PRN IV NAUSEA AND/OR VOMITING; Start at 13:30 Acetaminophen (Tylenol Tab) 650 mg Q6H PRN PO PAIN LEVEL 1-3 OR FEVER; Start 09/14/17 at 13:30 Acetaminophen/ Hydrocodone Bitart ([place] (5/325)) 1 tab Q6H PRN PO MODERATE PAIN LEVEL 4-6; Start 09/14/17 at 13:30 Enoxaparin Sodium 30 mg 30 mg DAILY SC ; Start 09/15/17 at 09:00 Ceftriaxone Sodium (Rocephin) 50 ml @ 100 mls/hr Q24H IVPB ; Start 09/15/17 at 08:30 Amiodarone HCl (Cordarone) 400 mg DAILY PO ; Start 09/15/17 at 09:00 Amlodipine Besylate (Norvasc) 5 mg BID PO ; Start 09/14/17 at 21:00 Aspirin (Halfprin) 81 mg DAILY PO ; Start 09/15/17 at 09:00 Clopidogrel Bisulfate (plaVIX) 75 mg DAILY PO ; Start 09/15/17 at 09:00 Diclofenac Sodium (Voltaren 1% Gel) 2 gm QID TP Last administered on t 17:36; Admin Dose 2 GM; Start 09/14/17 at 17:00 Duloxetine HCl (Cymbalta) 30 mg DAILY PO ; Start 09/15/17 at 09:00 Ergocalciferol (Drisdol) 50,000 unit Q7D PO ; Start 09/15/17 at 09:00 Fenofibrate (Tricor) 145 mg DAILY PO ; Start 09/15/17 at 09:00 Hydralazine HCl (Apresoline) 50 mg DAILY PO ; Start 09/15/17 at 09:00; Status Future Hold Montelukast Sodium (Singulair) 10 mg QHS PO ; Start 09/14/17 at 21:00 Ranolazine (Ranexa) 1,000 mg BID PO ; Start 09/14/17 at 21:00 Tamsulosin HCl (Flomax) 0.4 mg DAILY@21 PO ; Start 09/14/17 at 21:00 Pantoprazole (Protonix Tab) 40 mg DAILY@06 PO ; Start 09/15/17 at 06:00 Meclizine HCl (Antivert) 25 mg DAILY PO ; Start 09/15/17 at 09:00 Fish Oil (Fish Oil) 1 mg BID PO ; Start 09/14/17 at 21:00 Atorvastatin Calcium (Lipitor) 40 mg DAILY@ PO ; Start 09/14/17 at 21:00 Diagnostic Test (Pha) (Accu-Chek) 1 XX ; Start 09/15/17 at 02:00 Influenza Virus Vaccine (Fluzone) 0.5 ml ONCE ONCE IM* ; Start 09/16/17 at 09: 00; Stop 09/16/17 at 09:01 BREN JEAN MD Sep 14, 2017 19:42
[2017-09-14] MEDS: ALBUTEROL/IPRATROPIUM (NEB) 3 ML AMP HHN SCH (21:31)
[2017-09-14] MEDS: AMLODIPINE 5 MG TAB PO SCH (22:03)
[2017-09-14] MEDS: RANOLAZINE (SR) 500 MG TAB PO SCH (22:07)
[2017-09-14] MEDS: TAMSULOSIN (SR) 0.4 MG CAP PO SCH (22:08)
[2017-09-14] MEDS: FISH OIL 1,000 MG CAP PO SCH (22:08)
[2017-09-14] MEDS: ATORVASTATIN 40 MG TAB PO SCH (22:08)
[2017-09-14] MEDS: ACETAMINOPHEN 325 MG TAB PO PRN (22:15)
[2017-09-14] MEDS: MONTELUKAST 10 MG TAB PO SCH (22:41)
[2017-09-15] VITALS (27 sets, daily range): BP systolic 98–130; BP diastolic 52–93; PULSE 59–73; RESP 13–28
[2017-09-15] MEDS: ACCU-CHEK XX SCH (02:37)
[2017-09-15] MEDS: ACETAMINOPHEN 325 MG TAB PO PRN (06:15)
[2017-09-15] MEDS: PANTOPRAZOLE (EC) 40 MG TAB PO SCH (06:15)
[2017-09-15] MEDS: ALBUTEROL/IPRATROPIUM (NEB) 3 ML AMP HHN SCH ×4 (08:41→21:43)
[2017-09-15] MEDS ORDERED: ENOXAPARIN 30 MG/0.3 ML SYG SC SCH (09:00)
[2017-09-15] MEDS ORDERED: CALCIUM PO SCH (09:00)
[2017-09-15] MEDS ORDERED: BORON PO SCH (09:00)
[2017-09-15] MEDS ORDERED: B6 PO SCH (09:00)
[2017-09-15] MEDS ORDERED: MAG PO SCH (09:00)
[2017-09-15] MEDS ORDERED: D3 PO SCH (09:00)
[2017-09-15] MEDS ORDERED: B12 PO SCH (09:00)
[2017-09-15] MEDS ORDERED: [UNRECOGNIZED DRUG - OTHER] PO SCH (09:00)
[2017-09-15] MEDS: INSULIN ASPART [NOVOLOG] 3 ML PEN SC SCH ×3 (09:51→21:00)
[2017-09-15] MEDS: DICLOFENAC SODIUM 1% GEL 100 GM TUBE TP SCH ×4 (09:52→21:00)
[2017-09-15] MEDS: AZITHROMYCIN 250 MG TAB PO SCH (09:52)
[2017-09-15] MEDS: DULOXETINE 30 MG CAP DR PO SCH (09:53)
[2017-09-15] MEDS: ERGOCALCIFEROL 50,000 UNIT CAP PO SCH (09:53)
[2017-09-15] MEDS: CLOPIDOGREL 75 MG TAB PO SCH (09:53)
[2017-09-15] MEDS: RANOLAZINE (SR) 500 MG TAB PO SCH ×2 (09:53→20:06)
[2017-09-15] MEDS: AMIODARONE 200 MG TAB PO SCH (09:54)
[2017-09-15] MEDS: MECLIZINE 25 MG TAB PO SCH (09:57)
[2017-09-15] MEDS: FISH OIL 1,000 MG CAP PO SCH ×2 (09:59→20:15)
[2017-09-15] MEDS: ASPIRIN (EC) 81 MG TAB PO SCH (09:59)
[2017-09-15] MEDS: AMLODIPINE 5 MG TAB PO SCH ×2 (10:00→20:07)
[2017-09-15] MEDS: FENOFIBRATE 145 MG TAB PO SCH (10:00)
--- NOTE | 2017-09-15 13:50 | PN ---
Date/Time of Note Date/Time of Note DATE: 09/15/17 TIME: 13:35 Assessment/Plan VTE Prophylaxis VTE Prophylaxis Intervention: heparin Lines/Catheters IV C[facility] Type [facility]from [facility] [place] Urinary Cath still in place: No Assessment/Plan Chief Complaint/Hosp Course 77 yo M with multiple cardiac comorbidities here with fever and SOB who is being treated for CAP 1. Possible Pneumonia, likely CAP.Chest Xray with Extensive right mid and lower lung zone pneumonia-needs more investigation -Consider chest CT as my suspicion for pulmonary fibrosis is higher than normal based on patient's clinical picture, amiodarone therapy as well as chest x- ray findings. - Patient on ceftriaxone+Zithromax. C -Obtain urine Legionella -Pulmonary consult 2. Hypoxic respiratory failure,likley multifactorial with underlying CHF plus #1 -Obtain ABG/ F/u ECho to reevaluate systolic fxn, f/u chest Xray in AM. -Continue oxygen, around the clock and PRN Duoneb. 3.JOHN PAUL on CKD. Baseline cr=1.7-2.0 range. JOHN PAUL likely 2/2 hemodynamic/ nephrotoxins (lovenox+lasix). -Renal fxn stabilizing. Avoid nephrotoxins and Will monitor. -Consider nephro involvement if renal fxn worsens. 4. Diastolic CHF- Now with elevated BNP. With negative fluid balance. -f/U Echo to reevaluate systolic fxn. 5.Type2 DM-Controlled. -Continue insulin in house. 6.Coronary Artery Disease. -Continue current medical management. 7.Essential HTN. -Continue antihypertensives 8. Hyperlipidemia. -On statin/fish oil/ diet optimization. 9.BPH -cont flomax 10.Vitamin D deficiency - Cont vit D 11.Arrhythmias. -With pacemaker.On amiodarone. -Obtain TSH 12.Anemia,mild. -Obtain Iron panel Prophylaxis: Heparin/PPIs Patient was seen in collaboration with . Problems: Subjective 24 Hr Interval Summary Free Text/Dictation Patient on 100% NRB mask. He reports improvement in SOB. However, unable to tolerate saturation without O2 support.Afebrile. Exam/Review of Systems Vital Signs Vitals Vital Signs Date Time Temp Pulse Resp B/P Pulse Ox O2 Delivery O2 Flow Rate FiO2 09/15/17 13:20 67 20 94 Non Rebreather Mask 15.0 100 09/15/17 11:23 98.5 130/62 Intake and Output 09/14/17 09/14/17 09/15/17 15:00 23:00 07:00 Intake Total 650 ml 400 ml Output Total 700 ml 800 ml Balance -50 ml -400 ml Exam General: Well developed male,in mild respiratory distress. HEENT: Normocephalic, Atraumatic, No laceration or hematoma; Eyes: PEERL, Conjunctiva clear, Anicteric sclera Neck: Supple without any lymphadenopathy, nontender, no JVD, no carotid bruits, trachea midline, no thyromegaly Cardiac: S1, S2 auscultated, regular rhythm and rate, no mumurs or gallop Pulmonary: With wheezing/Rhonchi on right lobes. Mildy increased work of breathing. on 100% NRB. GI: Abdomen normal to inspection. Soft, non- distended, no masses, no rebound tenderness or guarding. Bowel sounds active on all four quadrants Genitourinary: Deferred Extremities: No cyanosis, clubbing, or edema. Pulses [2+] bilaterally. Full ROM on all four extremities. No focal weakness appreciated. Neurologic: Alert to person, place, time, and situation. Affect appropriate, intact sensation. Skin: Clean,dry, and intact. No ecchymosis, no rashes, or lesions Results Result Diagram: 09/14/17 0700 09/15/17 0715 Results 24 hrs Laboratory Tests Test 09/14/17 17:09 09/14/17 22:06 09/15/17 02:36 09/15/17 07:15 Bedside Glucose 117 198 145 Sodium Level 138 Potassium Level 4.1 Chloride Level 101 Carbon Dioxide Level 25 Anion Gap 16 Blood Urea Nitrogen 38 H Creatinine 1.77 H Glucose Level 122 Calcium Level 8.7 Test 09/15/17 08:22 09/15/17 11:53 Bedside Glucose 148 150 Medications Medications Current Medications Ondansetron HCl (Zofran Tab) 4 mg Q6H PRN PO NAUSEA AND/OR VOMITING; Start at 13:30 Ondansetron HCl (Zofran Inj) 4 mg Q6H PRN IV NAUSEA AND/OR VOMITING; Start at 13:30 Acetaminophen (Tylenol Tab) 650 mg Q6H PRN PO PAIN LEVEL 1-3 OR FEVER Last administered on 09/15/17 06:15; Admin Dose 650 MG; Start 09/14/17 at 13:30 Acetaminophen/ Hydrocodone Bitart 1 tab 1 tab Q6H PRN PO MODERATE PAIN LEVEL 4- 6; Start 09/14/17 at 13:30 Ceftriaxone Sodium (Rocephin) 50 ml @ 100 mls/hr Q24H IVPB ; Start 09/15/17 at 08:30 Amiodarone HCl (Cordarone) 400 mg DAILY PO Last administered on 09/15/17 09: 54; Admin Dose 400 MG; Start 09/15/17 at 09:00 Amlodipine Besylate (Norvasc) 5 mg BID PO Last administered on 09/15/17 10:00 ; Admin Dose 5 MG; Start 09/14/17 at 21:00 Aspirin (Halfprin) 81 mg DAILY PO Last administered on 09/15/17 09:59; Admin Dose 81 MG; Start 09/15/17 at 09:00 Clopidogrel Bisulfate (plaVIX) 75 mg DAILY PO Last administered on 09/15/17 09:53; Admin Dose 75 MG; Start 09/15/17 at 09:00 Diclofenac Sodium (Voltaren 1% Gel) 2 gm QID TP Last administered on 09:52; Admin Dose 2 GM; Start 09/14/17 at 17:00 Duloxetine HCl (Cymbalta) 30 mg DAILY PO Last administered on 09/15/17 09:53 ; Admin Dose 30 MG; Start 09/15/17 at 09:00 Ergocalciferol (Drisdol) 50,000 unit Q7D PO Last administered on 09/15/17 09: 53; Admin Dose 50,000 UNIT; Start 09/15/17 at 09:00 Fenofibrate (Tricor) 145 mg DAILY PO Last administered on 09/15/17 10:00; Admin Dose 145 MG; Start 09/15/17 at 09:00 Hydralazine HCl (Apresoline) 50 mg DAILY PO ; Start 09/15/17 at 09:00; Status Future Hold Montelukast Sodium (Singulair) 10 mg QHS PO Last administered on 09/14/17 22: 41; Admin Dose 10 MG; Start 09/14/17 at 21:00 Ranolazine (Ranexa) 1,000 mg BID PO Last administered on 09/15/17 09:53; Admin Dose 1,000 MG; Start 09/14/17 at 21:00 Tamsulosin HCl (Flomax) 0.4 mg DAILY@21 PO Last administered on 09/14/17 22: 08; Admin Dose 0.4 MG; Start 09/14/17 at 21:00 Pantoprazole (Protonix Tab) 40 mg DAILY@06 PO Last administered on 09/15/17 06:15; Admin Dose 40 MG; Start 09/15/17 at 06:00 Meclizine HCl (Antivert) 25 mg DAILY PO Last administered on 09/15/17 09:57; Admin Dose 25 MG; Start 09/15/17 at 09:00 Fish Oil (Fish Oil) 1 mg BID PO Last administered on 09/15/17 09:59; Admin Dose 1 MG; Start 09/14/17 at 21:00 Atorvastatin Calcium (Lipitor) 40 mg DAILY@21 PO Last administered on 22:08; Admin Dose 40 MG; Start 09/14/17 at 21:00 Diagnostic Test (Pha) (Accu-Chek) 1 ea 02 XX Last administered on 09/15/17 02 :37; Admin Dose 1 EA; Start 09/15/17 at 02:00 Influenza Virus Vaccine (Fluzone) 0.5 ml ONCE ONCE IM* ; Start 09/16/17 at 09: 00; Stop 09/16/17 at 09:01 Azithromycin (Zithromax) 500 mg DAILY PO Last administered on 09/15/17 09:52 ; Admin Dose 500 MG; Start 09/15/17 at 09:00; Stop 09/21/17 at 08:59 Heparin Sodium (Porcine) (Heparin (5000 Units/0.5 ml)) 5,000 unit BID SC ; Start 09/15/17 at 21:00 MANUEL VELOZ NP Sep 15, 2017 13:46
[2017-09-15] MEDS ORDERED: ALBUTEROL/IPRATROPIUM (NEB) 3 ML AMP HHN PRN (14:00)
[2017-09-15] MEDS: CEFTRIAXONE 1 GM/50 ML (PMX) 50 ML IVPB SCH (14:01)
[2017-09-15] MEDS: FUROSEMIDE 40 MG INJ IV SCH (15:35)
--- NOTE | 2017-09-15 16:02 | RADRPT ---
PROCEDURE: XR Chest. CLINICAL INDICATION: Shortness of breath. TECHNIQUE: Single frontal view. COMPARISON: 09/14/2017. FINDINGS: There is extensive air space disease throughout the right lung consistent with pneumonia, worse than seen previously. Mild left basilar pneumonia is unchanged. The lungs are otherwise clear. The heart is mildly enlarged. There is a left-sided dual lead permanent pacemaker. There is no pleural effusion. There is no pneumothorax. IMPRESSION: 1. Worse appearance of the diffuse right lung pneumonia. 2. No other change from 09/14/2017. RPTAT: QQ .Anand Ybarra MD, MD Date Time Electronically viewed and signed by .Anand Ybarra MD, MD on 09/15/2017 16:01 .R/
[2017-09-15] MEDS: TAMSULOSIN (SR) 0.4 MG CAP PO SCH (20:06)
[2017-09-15] MEDS: ATORVASTATIN 40 MG TAB PO SCH (20:06)
[2017-09-15] MEDS: MONTELUKAST 10 MG TAB PO SCH (20:06)
[2017-09-15] MEDS: HEPARIN 5,000 UNIT/0.5 ML VIAL SC SCH (23:27)
[2017-09-16] VITALS (45 sets, daily range): BP systolic 68–120; BP diastolic 43–72; PULSE 60–71; RESP 0–29
[2017-09-16] MEDS: ACETAMINOPHEN 325 MG TAB PO PRN ×2 (00:13→22:03)
[2017-09-16] MEDS: ACCU-CHEK XX SCH (02:00)
--- NOTE | 2017-09-16 04:44 | CONS ---
DATE OF ADMISSION: 09/14/2017 DATE OF CONSULTATION: TYPE OF CONSULTATION: Pulmonary. REASON FOR CONSULTATION: Shortness of breath. Thank you, ____, for this consultation. HISTORY OF PRESENT ILLNESS: This is a 77-year-old gentleman with multiple medical problems includin g coronary artery disease, congestive cardiac failure, hypertension, hyperlipidemia, presented with several-day history of increasing shortness of breath, orthopnea, PND and fevers, was found on admis humphrey to have bilateral infiltrates. Chest x-ray today demonstrating worsening right lower lobe pneu monia. The patient on nonrebreather requiring transfer to intensive care unit. PAST MEDICAL HISTORY: As above. MEDICATIONS: Per chart. SOCIAL HISTORY: Ex-smoker, no alcohol, no history of drug use. ALLERGIES: LORAZEPAM. PHYSICAL EXAMINATION: GENERAL: Elderly Hungarian gentleman, who is easily arousable, nods to questions. VITAL SIGNS: Temperature 98, pulse is 60, blood pressure 116/52, O2 saturation is 90% on nonrebreat her. NECK: Supple. No JVD or lymphadenopathy. CARDIAC: S1, S2, no added sounds or murmurs. CHEST: Bilateral rhonchi. ABDOMEN: Soft, nontender. No guarding or rebound. EXTREMITIES: No cyanosis, clubbing or edema. NEUROLOGIC: Generalized weakness. LABORATORY DATA: White count 7.2, hemoglobin 10.1, platelets of 206, BUN 38, creatinine 1.77. BNP 2520. Arterial blood gas pH 7.39, pCO2 of 41, pO2 of 51 on nonrebreather. DIAGNOSTIC DATA: Chest x-ray as above. EKG shows no acute ischemic changes. IMPRESSION AND PLAN: 1. Acute hypoxemic respiratory failure. 2. Likely community-acquired pneumonia. 3. Pulmonary edema. 4. Underlying coronary artery disease. The patient will require: 1. Continued diuresis. 2. Trial of noninvasive positive pressure ventilation. 3. Continued antibiotics for community-acquired pneumonia. 4. Cardiology consultation. 5. DVT and GI prophylaxis. Dictated By: ASTER GAMINO/ELANA Conf#: [id number] DID#: [id number]
[2017-09-16] MEDS: PANTOPRAZOLE (EC) 40 MG TAB PO SCH (06:17)
[2017-09-16] MEDS: INSULIN ASPART [NOVOLOG] 3 ML PEN SC SCH ×4 (07:35→22:09)
[2017-09-16] MEDS: CEFTRIAXONE 1 GM/50 ML (PMX) 50 ML IVPB SCH (08:42)
[2017-09-16] MEDS: RANOLAZINE (SR) 500 MG TAB PO SCH ×2 (08:43→21:00)
[2017-09-16] MEDS: FISH OIL 1,000 MG CAP PO SCH ×2 (08:43→22:03)
[2017-09-16] MEDS: AMIODARONE 200 MG TAB PO SCH (08:43)
[2017-09-16] MEDS: ASPIRIN (EC) 81 MG TAB PO SCH (08:43)
[2017-09-16] MEDS: DULOXETINE 30 MG CAP DR PO SCH (08:43)
[2017-09-16] MEDS: FENOFIBRATE 145 MG TAB PO SCH (08:43)
[2017-09-16] MEDS: CLOPIDOGREL 75 MG TAB PO SCH (08:43)
[2017-09-16] MEDS: FUROSEMIDE 40 MG INJ IV SCH (08:46)
[2017-09-16] MEDS: AZITHROMYCIN 250 MG TAB PO SCH (08:46)
[2017-09-16] MEDS: HEPARIN 5,000 UNIT/0.5 ML VIAL SC SCH ×2 (08:49→22:09)
[2017-09-16] MEDS: AMLODIPINE 5 MG TAB PO SCH ×2 (08:51→21:00)
[2017-09-16] MEDS: MECLIZINE 25 MG TAB PO SCH (08:56)
[2017-09-16] MEDS ORDERED: INFLUENZA VIRUS VACCINE 0.5 ML (DISPENSING) IM* ONE (09:00)
[2017-09-16] MEDS: DICLOFENAC SODIUM 1% GEL 100 GM TUBE TP SCH ×4 (09:00→22:10)
--- NOTE | 2017-09-16 10:52 | CONS ---
Date/Time of Note Date/Time of Note DATE: 09/16/17 TIME: 10:51 Consult Date/Type/Reason Admit Date/Time Sep 14, 2017 at 08:17 Initial Consult Date Type of Consultation: Pulmonary Subjective Patient more alert this morning. Continue supplemental O2 Via Ventimask. Remains hemodynamically stable. Objective Vital Signs Date Time Temp Pulse Resp B/P Pulse Ox O2 Delivery O2 Flow Rate FiO2 09/16/17 08:00 68 09/16/17 06:30 21 100 09/16/17 06:00 79/58 BIPAP 09/16/17 05:32 70 09/16/17 04:30 99.5 09/15/17 16:53 15.0 Intake and Output 09/15/17 09/15/17 09/16/17 15:00 23:00 07:00 Intake Total 50 ml 800 ml Output Total 103 ml 625 ml Balance 50 ml 697 ml -625 ml Exam PHYSICAL EXAMINATION: GENERAL: Elderly [place]ive[place] gentleman, who is easily arousable, nods to questions. VITAL SIGNS: As above NECK: Supple. No JVD or lymphadenopathy. CARDIAC: S1, S2, no added sounds or murmurs. CHEST: Bilateral rhonchi. ABDOMEN: Soft, nontender. No guarding or rebound. EXTREMITIES: No cyanosis, clubbing or edema. NEUROLOGIC: Generalized weakness. Results/Medications Result Diagram: 09/14/17 0700 09/16/17 0623 Results 24 hrs Chest x-ray Persistent bilateral infiltrates Laboratory Tests Test 09/15/17 11:53 09/15/17 15:20 09/15/17 17:08 09/15/17 19:26 Bedside Glucose 150 136 149 Blood Gas Specimen Source Blood arterial Arterial Blood Date Drawn 09/15/2017 3:31:32 PM Arterial Blood pH (Temp corrected) 7.399 Arterial Blood pCO2 (Temp correct) 41.8 Arterial Blood pO2 (Temp corrected) 51.3 *L Arterial Blood HCO3 25.3 Arterial Blood Base Excess 0.4 Arterial Blood Oxygen Saturation 86.1 L Star Test ACCEPTAB Arterial Blood Gas Puncture Site Left Radial Arterial Blood Carboxyhemoglobin 0.8 Arterial Blood Methemoglobin 0.3 Blood Gas A-a O2 Differential 619.9 H Oxyhemoglobin Percent 85.2 L Total Hemoglobin 9.6 L Blood Gas Temperature 37.0 Blood Gas Modality MASK - NRB FiO2 100.0 Blood Gas Critical Value Read Back RADHA ATKINS Blood Gas Notified Whom Blood Gas Notified Time 09/15/2017 3:40:09 PM Test 09/15/17 23:23 09/16/17 06:00 09/16/17 06:23 09/16/17 08:22 Bedside Glucose 138 126 Blood Gas Specimen Source Blood arterial Arterial Blood Date Drawn 09/16/2017 6:30:55 AM Arterial Blood pH (Temp corrected) 7.428 Arterial Blood pCO2 (Temp correct) 38.9 Arterial Blood pO2 (Temp corrected) 100.2 H Arterial Blood HCO3 25.1 Arterial Blood Base Excess 0.8 Arterial Blood Oxygen Saturation 96.7 Star Test ACCEPTAB Arterial Blood Gas Puncture Site Right Radial Arterial Blood Carboxyhemoglobin 0.5 Arterial Blood Methemoglobin 0.3 Blood Gas A-a O2 Differential 357.1 H Oxyhemoglobin Percent 95.9 Total Hemoglobin 9.4 L Blood Gas Temperature 37.0 Blood Gas Respiration Rate 18.0 Blood Gas Actual Respiration Rate 22 Blood Gas Modality MASK - BIPAP FiO2 70.0 Blood Gas IPAP/EPAP Ratio 16/6 Blood Gas Notified Whom [place] [employer] Blood Gas Notified Time 09/16/2017 6:43:21 AM Sodium Level 140 Potassium Level 4.4 Chloride Level 102 Carbon Dioxide Level 29 Anion Gap 13 Blood Urea Nitrogen 45 H Creatinine 2.18 H Glucose Level 118 Calcium Level 9.0 Medications Current Medications Ondansetron HCl (Zofran Tab) 4 mg Q6H PRN PO NAUSEA AND/OR VOMITING; Start at 13:30 Ondansetron HCl (Zofran Inj) 4 mg Q6H PRN IV NAUSEA AND/OR VOMITING; Start at 13:30 Acetaminophen (Tylenol Tab) 650 mg Q6H PRN PO PAIN LEVEL 1-3 OR FEVER Last administered on 09/16/17 00:13; Admin Dose 650 MG; Start 09/14/17 at 13:30 Acetaminophen/ Hydrocodone Bitart 1 tab 1 tab Q6H PRN PO MODERATE PAIN LEVEL 4- 6; Start 09/14/17 at 13:30 Ceftriaxone Sodium (Rocephin) 50 ml @ 100 mls/hr Q24H IVPB Last administered on 09/16/17 08:42; Admin Dose 100 MLS/HR; Start 09/15/17 at 08:30 Amiodarone HCl (Cordarone) 400 mg DAILY PO Last administered on 09/16/17 08: 43; Admin Dose 400 MG; Start 09/15/17 at 09:00 Amlodipine Besylate (Norvasc) 5 mg BID PO Last administered on 09/15/17 20:07 ; Admin Dose 5 MG; Start 09/14/17 at 21:00 Aspirin (Halfprin) 81 mg DAILY PO Last administered on 09/16/17 08:43; Admin Dose 81 MG; Start 09/15/17 at 09:00 Clopidogrel Bisulfate (plaVIX) 75 mg DAILY PO Last administered on 09/16/17 08:43; Admin Dose 75 MG; Start 09/15/17 at 09:00 Diclofenac Sodium (Voltaren 1% Gel) 2 gm QID TP Last administered on 14:02; Admin Dose 2 GM; Start 09/14/17 at 17:00 Duloxetine HCl (Cymbalta) 30 mg DAILY PO Last administered on 09/16/17 08:43 ; Admin Dose 30 MG; Start 09/15/17 at 09:00 Ergocalciferol (Drisdol) 50,000 unit Q7D PO Last administered on 09/15/17 09: 53; Admin Dose 50,000 UNIT; Start 09/15/17 at 09:00 Fenofibrate (Tricor) 145 mg DAILY PO Last administered on 09/16/17 08:43; Admin Dose 145 MG; Start 09/15/17 at 09:00 Hydralazine HCl (Apresoline) 50 mg DAILY PO ; Start 09/15/17 at 09:00; Status Future Hold Montelukast Sodium (Singulair) 10 mg QHS PO Last administered on 09/15/17 20: 06; Admin Dose 10 MG; Start 09/14/17 at 21:00 Ranolazine (Ranexa) 1,000 mg BID PO Last administered on 09/16/17 08:43; Admin Dose 1,000 MG; Start 09/14/17 at 21:00 Tamsulosin HCl (Flomax) 0.4 mg DAILY@21 PO Last administered on 09/15/17 20: 06; Admin Dose 0.4 MG; Start 09/14/17 at 21:00 Pantoprazole (Protonix Tab) 40 mg DAILY@06 PO Last administered on 09/16/17 06:17; Admin Dose 40 MG; Start 09/15/17 at 06:00 Meclizine HCl (Antivert) 25 mg DAILY PO Last administered on 09/16/17 08:56; Admin Dose 25 MG; Start 09/15/17 at 09:00 Atorvastatin Calcium (Lipitor) 40 mg DAILY@21 PO Last administered on 20:06; Admin Dose 40 MG; Start 09/14/17 at 21:00 Diagnostic Test (Pha) (Accu-Chek) 1 ea 02 XX Last administered on 09/15/17 02 :37; Admin Dose 1 EA; Start 09/15/17 at 02:00 Azithromycin (Zithromax) 500 mg DAILY PO Last administered on 09/16/17 08:46 ; Admin Dose 500 MG; Start 09/15/17 at 09:00; Stop 09/21/17 at 08:59 Heparin Sodium (Porcine) (Heparin (5000 Units/0.5 ml)) 5,000 unit BID SC Last administered on 09/16/17 08:49; Admin Dose 5,000 UNIT; Start 09/15/17 at 21: 00 Furosemide (Lasix) 40 mg DAILY IV Last administered on 09/16/17 08:46; Admin Dose 40 MG; Start 09/15/17 at 15:30 Fish Oil (Fish Oil) 1,000 mg BID PO ; Start 09/16/17 at 21:00 Assessment/Plan Chief Complaint/Hosp Course IMPRESSION AND PLAN: 1. Acute hypoxemic respiratory failure. 2. Likely community-acquired pneumonia. 3. Pulmonary edema. 4. Underlying coronary artery disease. The patient will require: 1. Continued diuresis. May require steroids for pneumonitis. 2. Trial of Vapotherm oxygen 3. Continued antibiotics for community-acquired pneumonia. 4. Cardiology consultation. 5. DVT and GI prophylaxis. Problems: ASTER SHAVER MD, [facility] Sep 16, 2017 10:52
[2017-09-16] MEDS ORDERED: DOCUSATE SODIUM 100 MG CAP PO PRN (11:30)
[2017-09-16] MEDS ORDERED: BISACODYL 10 MG SUPP PR PRN (11:30)
--- NOTE | 2017-09-16 11:33 | PN ---
Date/Time of Note Date/Time of Note DATE: 09/16/17 TIME: 11:29 Assessment/Plan VTE Prophylaxis VTE Prophylaxis Intervention: heparin Lines/Catheters IV C[facility] Type [facility] Saline Lock Urinary Cath still in place: No Assessment/Plan Chief Complaint/Hosp Course 77 yo M with multiple cardiac comorbidities here with fever and SOB 1. Possible Pneumonia, likely CAP.Chest Xray with Extensive right mid and lower lung zone pneumonia. -F/u chest CT as my suspicion for pulmonary fibrosis is higher than normal based on patient's clinical picture, amiodarone therapy as well as chest x-ray findings. Patient on ceftriaxone+Zithromax. -F/u BC, Resp cultures and urine Legionella 2. Hypoxic respiratory failure,likley multifactorial with underlying CHF plus #1 -Pulmonary eval greatly appreciated. -F/u ECho to reevaluate systolic fxn, f/u chest Xray, ABGs -Continue oxygen, around the clock and PRN Duoneb. 3.JOHN PAUL on CKD. Baseline cr=1.7-2.0 range. JOHN PAUL likely 2/2 hemodynamic/ nephrotoxins (lovenox+lasix).Today creatine uptrended. -Nephrology consult. - Avoid nephrotoxins and Will monitor. 4. Diastolic CHF- Now with elevated BNP. With negative fluid balance. -f/U Echo to reevaluate systolic fxn. 5.Type2 DM-Controlled. -Continue insulin in house. 6.Coronary Artery Disease. -Continue current medical management. 7.Essential HTN. -Continue antihypertensives 8. Hyperlipidemia. -On statin/fish oil/ diet optimization. 9.BPH -cont flomax 10.Vitamin D deficiency - Cont vit D 11.Arrhythmias. -With pacemaker.On amiodarone. -Obtain TSH 12.Anemia,mild, with iron deficiency -Start oral iron replacement 12.Constipation -Stool softners/PRN laxatives Prophylaxis: Heparin/PPIs >30mins Critical care time spent Continue ICU care, F/u with healthcare consultant's recs. Patient was seen in collaboration with . Problems: Subjective 24 Hr Interval Summary Free Text/Dictation Patient in ICU following desaturation requiring noninvasive pressure ventilation.Currently on 90% high flow nasal O2. Awake and reports feeling better. No pressors. Complains constipation. Exam/Review of Systems Vital Signs Vitals Vital Signs Date Time Temp Pulse Resp B/P Pulse Ox O2 Delivery O2 Flow Rate FiO2 09/16/17 10:30 70 23 99 09/16/17 10:00 120/64 Mask 09/16/17 08:00 98.5 09/16/17 05:32 70 09/15/17 16:53 15.0 Intake and Output 09/15/17 09/15/17 09/16/17 15:00 23:00 07:00 Intake Total 50 ml 800 ml Output Total 103 ml 625 ml Balance 50 ml 697 ml -625 ml Exam General: Well developed male,in mild respiratory distress. HEENT: Normocephalic, Atraumatic, No laceration or hematoma; Eyes: PEERL, Conjunctiva clear, Anicteric sclera Neck: Supple without any lymphadenopathy, nontender, no JVD, no carotid bruits, trachea midline, no thyromegaly Cardiac: S1, S2 auscultated, regular rhythm and rate, no mumurs or gallop Pulmonary: With wheezing/Rhonchi on right lobes. Mildy increased work of breathing. on 100% NRB. GI: Abdomen normal to inspection. Soft, non- distended, no masses, no rebound tenderness or guarding. Bowel sounds active on all four quadrants Genitourinary: Deferred Extremities: No cyanosis, clubbing, or edema. Pulses [2+] bilaterally. Full ROM on all four extremities. No focal weakness appreciated. Neurologic: Alert to person, place, time, and situation. Affect appropriate, intact sensation. Skin: Clean,dry, and intact. No ecchymosis, no rashes, or lesions Results Result Diagram: 09/14/17 0700 09/16/17 0623 Results 24 hrs Laboratory Tests Test 09/15/17 11:53 09/15/17 15:20 09/15/17 17:08 09/15/17 19:26 Bedside Glucose 150 136 149 Blood Gas Specimen Source Blood arterial Arterial Blood Date Drawn 09/15/2017 3:31:32 PM Arterial Blood pH (Temp corrected) 7.399 Arterial Blood pCO2 (Temp correct) 41.8 Arterial Blood pO2 (Temp corrected) 51.3 *L Arterial Blood HCO3 25.3 Arterial Blood Base Excess 0.4 Arterial Blood Oxygen Saturation 86.1 L Star Test ACCEPTAB Arterial Blood Gas Puncture Site Left Radial Arterial Blood Carboxyhemoglobin 0.8 Arterial Blood Methemoglobin 0.3 Blood Gas A-a O2 Differential 619.9 H Oxyhemoglobin Percent 85.2 L Total Hemoglobin 9.6 L Blood Gas Temperature 37.0 Blood Gas Modality MASK - NRB FiO2 100.0 Blood Gas Critical Value Read Back RADHA ATKINS Blood Gas Notified Whom Blood Gas Notified Time 09/15/2017 3:40:09 PM Test 09/15/17 23:23 09/16/17 06:00 09/16/17 06:23 09/16/17 08:22 Bedside Glucose 138 126 Blood Gas Specimen Source Blood arterial Arterial Blood Date Drawn 09/16/2017 6:30:55 AM Arterial Blood pH (Temp corrected) 7.428 Arterial Blood pCO2 (Temp correct) 38.9 Arterial Blood pO2 (Temp corrected) 100.2 H Arterial Blood HCO3 25.1 Arterial Blood Base Excess 0.8 Arterial Blood Oxygen Saturation 96.7 Star Test ACCEPTAB Arterial Blood Gas Puncture Site Right Radial Arterial Blood Carboxyhemoglobin 0.5 Arterial Blood Methemoglobin 0.3 Blood Gas A-a O2 Differential 357.1 H Oxyhemoglobin Percent 95.9 Total Hemoglobin 9.4 L Blood Gas Temperature 37.0 Blood Gas Respiration Rate 18.0 Blood Gas Actual Respiration Rate 22 Blood Gas Modality MASK - BIPAP FiO2 70.0 Blood Gas IPAP/EPAP Ratio 16/6 Blood Gas Notified Whom [facility] Blood Gas Notified Time 09/16/2017 6:43:21 AM Sodium Level 140 Potassium Level 4.4 Chloride Level 102 Carbon Dioxide Level 29 Anion Gap 13 Blood Urea Nitrogen 45 H Creatinine 2.18 H Glucose Level 118 Calcium Level 9.0 Medications Medications Current Medications Ondansetron HCl (Zofran Tab) 4 mg Q6H PRN PO NAUSEA AND/OR VOMITING; Start at 13:30 Ondansetron HCl (Zofran Inj) 4 mg Q6H PRN IV NAUSEA AND/OR VOMITING; Start at 13:30 Acetaminophen (Tylenol Tab) 650 mg Q6H PRN PO PAIN LEVEL 1-3 OR FEVER Last administered on 09/16/17t 00:13; Admin Dose 650 MG; Start 09/14/17 at 13:30 Acetaminophen/ Hydrocodone Bitart 1 tab 1 tab Q6H PRN PO MODERATE PAIN LEVEL 4- 6; Start 09/14/17 at 13:30 Ceftriaxone Sodium (Rocephin) 50 ml @ 100 mls/hr Q24H IVPB Last administered on 09/16/17 08:42; Admin Dose 100 MLS/HR; Start 09/15/17 at 08:30 Amiodarone HCl (Cordarone) 400 mg DAILY PO Last administered on 09/16/17 08: 43; Admin Dose 400 MG; Start 09/15/17 at 09:00 Amlodipine Besylate (Norvasc) 5 mg BID PO Last administered on 09/15/17 20:07 ; Admin Dose 5 MG; Start 09/14/17 at 21:00 Aspirin (Halfprin) 81 mg DAILY PO Last administered on 09/16/17 08:43; Admin Dose 81 MG; Start 09/15/17 at 09:00 Clopidogrel Bisulfate (plaVIX) 75 mg DAILY PO Last administered on 09/16/17 08:43; Admin Dose 75 MG; Start 09/15/17 at 09:00 Diclofenac Sodium (Voltaren 1% Gel) 2 gm QID TP Last administered on 14:02; Admin Dose 2 GM; Start 09/14/17 at 17:00 Duloxetine HCl (Cymbalta) 30 mg DAILY PO Last administered on 09/16/17 08:43 ; Admin Dose 30 MG; Start 09/15/17 at 09:00 Ergocalciferol (Drisdol) 50,000 unit Q7D PO Last administered on 09/15/17 09: 53; Admin Dose 50,000 UNIT; Start 09/15/17 at 09:00 Fenofibrate (Tricor) 145 mg DAILY PO Last administered on 09/16/17 08:43; Admin Dose 145 MG; Start 09/15/17 at 09:00 Hydralazine HCl (Apresoline) 50 mg DAILY PO ; Start 09/15/17 at 09:00; Status Future Hold Montelukast Sodium (Singulair) 10 mg QHS PO Last administered on 09/15/17 20: 06; Admin Dose 10 MG; Start 09/14/17 at 21:00 Ranolazine (Ranexa) 1,000 mg BID PO Last administered on 09/16/17 08:43; Admin Dose 1,000 MG; Start 09/14/17 at 21:00 Tamsulosin HCl (Flomax) 0.4 mg DAILY@21 PO Last administered on 09/15/17 20: 06; Admin Dose 0.4 MG; Start 09/14/17 at 21:00 Pantoprazole (Protonix Tab) 40 mg DAILY@06 PO Last administered on 09/16/17 06:17; Admin Dose 40 MG; Start 09/15/17 at 06:00 Meclizine HCl (Antivert) 25 mg DAILY PO Last administered on 09/16/17 08:56; Admin Dose 25 MG; Start 09/15/17 at 09:00 Atorvastatin Calcium (Lipitor) 40 mg DAILY@21 PO Last administered on 20:06; Admin Dose 40 MG; Start 09/14/17 at 21:00 Diagnostic Test (Pha) (Accu-Chek) 1 ea 02 XX Last administered on 09/15/17 02 :37; Admin Dose 1 EA; Start 09/15/17 at 02:00 Azithromycin (Zithromax) 500 mg DAILY PO Last administered on 09/16/17 08:46 ; Admin Dose 500 MG; Start 09/15/17 at 09:00; Stop 09/21/17 at 08:59 Heparin Sodium (Porcine) (Heparin (5000 Units/0.5 ml)) 5,000 unit BID SC Last administered on 09/16/17 08:49; Admin Dose 5,000 UNIT; Start 09/15/17 at 21: 00 Furosemide (Lasix) 40 mg DAILY IV Last administered on 09/16/17 08:46; Admin Dose 40 MG; Start 09/15/17 at 15:30 Fish Oil (Fish Oil) 1,000 mg BID PO ; Start 09/16/17 at 21:00 MANUEL VELOZ NP Sep 16, 2017 11:33
--- NOTE | 2017-09-16 11:47 | RADRPT ---
Echocardiogram Report Patient Name: CATINA SALES Gender: Male Date: 1940 Study Date: 15-Sep-2017 Commercial Production Editor: NENA Location: [id number] Ref. Physician: BREN JEAN Quality: Good Procedures: Transthoracic echocardiogram with complete 2D, M-Mode, and doppler examination. Indications: Congestive Heart Failure. 2D/M Mode Doppler Measurement Value Normal Ranges Measurement Value Normal Ranges AoR Diam MM 3.1 cm IRA Vmax 1.0 cm2 LA/Ao MM 1.3 IRA VTI 1.0 cm2 LA Dimen MM 4.2 cm AV Mean Vern 2.5 m/sec LVIDd 2D 5.0 3.5 - 5.6 cm AV Mean PG 27.4 mmHg LVIDs 2D 3.2 2.1 - 4.1 cm AV Peak Vern 3.4 m/sec LVPWd 2D 1.3 0.6 - 1.1 cm AV Peak PG 45.5 mmHg IVSd 2D 1.3 0.6 - 1.1 cm AV VTI 71.7 cm EDV 2D 119.1 cm3 AI Peak PG 25.8 mmHg ESV 2D 33.0 cm3 AI Peak Vern 2.5 m/sec EF 2D 65.0 50.0 - 65.0 % AI PHT 409.3 msec LVOT Diam 2.0 cm LVOT Mean Vern 0.8 m/sec LVOT Mean PG 3.2 mmHg LVOT Peak Vern 1.1 m/sec LVOT Peak PG 5.2 mmHg LVOT VTI 25.4 cm MV E Peak Vern 1.5 m/sec MV A Peak Vern 0.6 m/sec MV E/A 2.5 MV Decel Time 332 msec MV Decel Stafford 4 MV E/A 2.5 TR Peak Vern 3.0 m/sec TR Peak PG 37.0 mmHg RVSP 40.0 mmHg RA Pressure 3.0 Findings Left Ventricle: Normal left ventricular systolic function. Normal left ventricular cavity size. Mild concentric left ventricular hypertrophy. Ejection fraction is visually estimated at 55 %. Right Ventricle: Normal right ventricular size. Normal right ventricular systolic function. Left Atrium: There is mild enlargement of left atrium. Right Atrium: The right atrium is normal in size. Atrial Septum: Normal atrial septum. Mitral Valve: Mild posterior mitral leaflet calcification. Mild mitral annular calcification. Mild to moderate mitral valve regurgitation. Aortic Valve: Moderate aortic stenosis. Aortic valve Max velocity 3.37 m/sec. Max PG 45.50 mmHg. Mean PG 27.40 mmHg. Aortic valve area 1.10 cm2. Aortic cusps appear moderately restricted. Trileaflet aortic valve. Mild aortic valve regurgitation. Tricuspid Valve: Normal appearance of the tricuspid valve. Estimated peak PA systolic pressure 40 mmHg. There is mild tricuspid regurgitation. Pulmonic Valve: Normal pulmonic valve appearance. There is trace pulmonic regurgitation. Pericardium: Normal pericardium with no significant pericardial effusion. Aorta: Normal aortic root. IVC: Normal size and normal respiratory collapse consistent with normal right atrial pressure. Conclusions 1.Normal left ventricular systolic function. Normal left ventricular cavity size. Mild concentric left ventricular hypertrophy. Ejection fraction is visually estimated at 55 %. 2.There is mild enlargement of left atrium. 3.Mild posterior mitral leaflet calcification. Mild mitral annular calcification. Mild to moderate mitral valve regurgitation. 4.Moderate aortic stenosis. Aortic valve Max velocity 3.37 m/sec. Max PG 45.50 mmHg. Mean PG 27.40 mmHg. Aortic valve area 1.10 cm2. Aortic cusps appear moderately restricted. Trileaflet aortic valve. Mild aortic valve regurgitation. 5.Normal appearance of the tricuspid valve. Estimated peak PA systolic pressure 40 mmHg. There is mild tricuspid regurgitation. Electronically Signed By: Austin Lamb 16-Sep-2017 11:47:12 -0700 Patient Name: CATINA SALES Study Date: 15-Sep-2017 [id number]
--- NOTE | 2017-09-16 12:18 | RADRPT ---
PROCEDURE: XR Chest. CLINICAL INDICATION: Pneumonia TECHNIQUE: Single AP portable chest. COMPARISON: 05/27/2013 Chest x-ray FINDINGS: The cardiac silhouette is mildly enlarged. Patchy interstitial and alveolar air space opacity throug hout the lungs bilaterally greatest in the upper lobes. Dual chamber left chest pacemaker in place. Atherosclerotic calcification of the aorta. The lungs are clear without pleural effusion or focal consolidation. No pneumothorax. The osseous structures and soft tissues are unremarkable. IMPRESSION: 1. Bilateral patchy interstitial and alveolar air space disease suggestive of multifocal pneumonia v ersus pulmonary edema. Correlate clinically. RPTAT:AAJJ Alphonse Bloom Physician Date Time Electronically viewed and signed by Physician Crystal on 09/16/2017 12:17 JAMAL/
[2017-09-16] MEDS: ALBUTEROL/IPRATROPIUM (NEB) 3 ML AMP HHN SCH ×2 (13:00→17:00)
--- NOTE | 2017-09-16 16:58 | RADRPT ---
PROCEDURE: CT Chest without contrast. CLINICAL INDICATION: Hypoxic respiratory failure TECHNIQUE: CT scan of the chest without contrast was performed on a multidetector high-resolution CT scanner. Coronal and sagittal reformatted images were obtained from the axial source images. The total exam CTDI equals 16.11 mGy and the total exam DLP equals 623.86 mGy-cm. One or more of the following dose reduction techniques were used: Automated exposure control. Adjustment of the mA and/or kV according to patient size. Use of iterative reconstruction technique. COMPARISON: None FINDINGS: There are extensive ground-glass densities thickening along the bronchovascular bundles in bilateral lungs. Trace pleural effusions are present. The tracheobronchial tree is clear. There is no pneumot horax. There is mild emphysema in the lung apices. No mass lesion to suggest neoplasm is identified. The central tracheobronchial tree is clear. The mediastinum is unremarkable without evidence for mass or lymphadenopathy. Left-sided pacemaker i s in place with leads in the right heart. The vascular structures of the mediastinum are normal in c ourse and caliber. Aortic vascular calcifications and coronary artery calcifications are present. The heart size is enlarged without evidence for pericardial thickening or effusion. The axillary regions, subpectoral regions, and supraclavicular regions are all unremarkable. Imagin g obtained through the upper abdomen reveals no acute abnormality. The surrounding osseous structur es are remarkable for degenerative spondylosis of the spine. No osteolytic or osteoblastic lesion i s detected. IMPRESSION: 1. Extensive bilateral ground-glass densities and thickening of the bronchovascular bundle suggesti ng alveolar and interstitial pulmonary edema. Superimposed infection is difficult to exclude. 2. Trace bilateral pleural effusions and mild bibasilar atelectasis. 3. Mild emphysema in the lung apices. 4. Cardiomegaly. 5. Scattered aortic and coronary artery vascular calcifications. RPTAT: BB .Monika Beckman MD, Date Time Electronically viewed and signed by .Monika Beckman MD, MD on 09/16/2017 16:58 .O/
--- NOTE | 2017-09-16 17:31 | CONS ---
Date/Time of Note Date/Time of Note DATE: 09/16/17 TIME: 17:31 Assessment/Plan Assessment/Plan Chief Complaint/Hosp Course Assessment: Acute hypoxic respiratory failure - primarily due to pneumonia with component of congestive heart failure, on intermittent BiPAP per pulmonology Pneumonia - on antibiotics Acute on chronic diastolic heart failure - echocardiogram reported LVEF 55% Moderate aortic stenosis Coronary artery disease - anatomy unknown, apparently he has not been revascularized in the past Paroxysmal atrial fibrillation - currently maintained in sinus rhythm on amiodarone Permanent pacemaker - details unknown Hypertension Dyslipidemia Acute kidney injury on chronic kidney disease History of stroke Recommendations: -continue Lasix 40mg IV daily -continue outpatient aspirin 81mg and clopidogrel daily (though would consider anticoagulation instead of dual-antiplatelet therapy due to atrial fibrillation and history of stroke - defer to outpatient marketing analytics lead) -continue outpatient amiodarone 400mg daily -continue amlodipine, ranolazine -continue statin Problems: Consultation Date/Type/Reason Admit Date/Time Sep 14, 2017 at 08:17 Type of Consultation: Cardiology Reason for Consultation congestive heart failure Hx of Present Illness The patient is a 77 year-old male who presented with worsening shortness of breath and was found to have right lower lobe pneumonia. Chest imaging also suggests pulmonary edema. He has been admitted to the intensive care unit and is intermittently requiring BiPAP. His cardiac history is notable for congestive heart failure, coronary artery disease, paroxysmal atrial fibrillation, and permanent pacemaker. Unable to obtain review of systems due to patient's current condition. Past Medical History Congestive heart failure Coronary artery disease - anatomy unknown, apparently he has not been revascularized in the past Paroxysmal atrial fibrillation Permanent pacemaker - details unknown Hypertension Dyslipidemia Chronic kidney disease History of stroke Past Surgical History Past Surgical Hx: other (bilateral knee replacements) Family History Significant Family History: no pertinent family hx Social History Alcohol Use: none Smoking Status: Former smoker Drug Use: none Exam/Review of Systems Vital Signs Vitals Vital Signs Date Time Temp Pulse Resp B/P Pulse Ox O2 Delivery O2 Flow Rate FiO2 09/16/17 17:18 100.6 09/16/17 17:00 61 21 107/72 86 BIPAP High Flow 09/16/17 14:50 90 09/15/17 16:53 15.0 Intake and Output 09/15/17 09/15/17 09/16/17 15:00 23:00 07:00 Intake Total 50 ml 800 ml Output Total 103 ml 625 ml Balance 50 ml 697 ml -625 ml Exam Constitutional: alert, well developed Psych: nl mood/affect, no complaints Head: atraumatic, normocephalic Eyes: nl conjunctiva, nl lids ENMT: nl external ears & nose, nl nasal mucosa & septum Neck: non-tender, supple Respiratory: crackles/rales, diminished breath sounds Cardiovascular: regular rate and rhythm Gastrointestinal: non-tender, soft Musculoskeletal: nl extremities to inspection Extremities: No clubbing, No cyanosis, No edema Neurological: No nl mental status, No nl speech Skin: nl turgor Results Result Diagram: 09/14/17 0700 09/16/17 0623 Results 24 hrs Laboratory Tests Test 09/15/17 19:26 09/15/17 23:23 09/16/17 06:00 09/16/17 06:19 Bedside Glucose 149 138 Blood Gas Specimen Source Blood arterial Arterial Blood Date Drawn 09/16/2017 6:30:55 AM Arterial Blood pH (Temp corrected) 7.428 Arterial Blood pCO2 (Temp correct) 38.9 Arterial Blood pO2 (Temp corrected) 100.2 H Arterial Blood HCO3 25.1 Arterial Blood Base Excess 0.8 Arterial Blood Oxygen Saturation 96.7 Star Test ACCEPTAB Arterial Blood Gas Puncture Site Right Radial Arterial Blood Carboxyhemoglobin 0.5 Arterial Blood Methemoglobin 0.3 Blood Gas A-a O2 Differential 357.1 H Oxyhemoglobin Percent 95.9 Total Hemoglobin 9.4 L Blood Gas Temperature 37.0 Blood Gas Respiration Rate 18.0 Blood Gas Actual Respiration Rate 22 Blood Gas Modality MASK - BIPAP FiO2 70.0 Blood Gas IPAP/EPAP Ratio 16/6 Blood Gas Notified Whom [place] DECISION SCIENCE ANALYST Blood Gas Notified Time 09/16/2017 6:43:21 AM Thyroid Stimulating Hormone (TSH) 4.650 Test 09/16/17 06:23 09/16/17 08:22 09/16/17 14:00 Sodium Level 140 Potassium Level 4.4 Chloride Level 102 Carbon Dioxide Level 29 Anion Gap 13 Blood Urea Nitrogen 45 H Creatinine 2.18 H Glucose Level 118 Calcium Level 9.0 Bedside Glucose 126 164 Medications Medications Current Medications Ondansetron HCl (Zofran Tab) 4 mg Q6H PRN PO NAUSEA AND/OR VOMITING; Start at 13:30 Ondansetron HCl (Zofran Inj) 4 mg Q6H PRN IV NAUSEA AND/OR VOMITING; Start at 13:30 Acetaminophen (Tylenol Tab) 650 mg Q6H PRN PO PAIN LEVEL 1-3 OR FEVER Last administered on 09/16/17 00:13; Admin Dose 650 MG; Start 09/14/17 at 13:30 Acetaminophen/ Hydrocodone Bitart 1 tab 1 tab Q6H PRN PO MODERATE PAIN LEVEL 4- 6; Start 09/14/17 at 13:30 Ceftriaxone Sodium (Rocephin) 50 ml @ 100 mls/hr Q24H IVPB Last administered on 09/16/17 08:42; Admin Dose 100 MLS/HR; Start 09/15/17 at 08:30 Amiodarone HCl (Cordarone) 400 mg DAILY PO Last administered on 09/16/17 08: 43; Admin Dose 400 MG; Start 09/15/17 at 09:00 Amlodipine Besylate (Norvasc) 5 mg BID PO Last administered on 09/15/17 20:07 ; Admin Dose 5 MG; Start 09/14/17 at 21:00 Aspirin (Halfprin) 81 mg DAILY PO Last administered on 09/16/17 08:43; Admin Dose 81 MG; Start 09/15/17 at 09:00 Clopidogrel Bisulfate (plaVIX) 75 mg DAILY PO Last administered on 09/16/17 08:43; Admin Dose 75 MG; Start 09/15/17 at 09:00 Diclofenac Sodium (Voltaren 1% Gel) 2 gm QID TP Last administered on 14:02; Admin Dose 2 GM; Start 09/14/17 at 17:00 Duloxetine HCl (Cymbalta) 30 mg DAILY PO Last administered on 09/16/17 08:43 ; Admin Dose 30 MG; Start 09/15/17 at 09:00 Ergocalciferol (Drisdol) 50,000 unit Q7D PO Last administered on 09/15/17 09: 53; Admin Dose 50,000 UNIT; Start 09/15/17 at 09:00 Fenofibrate (Tricor) 145 mg DAILY PO Last administered on 09/16/17 08:43; Admin Dose 145 MG; Start 09/15/17 at 09:00 Hydralazine HCl (Apresoline) 50 mg DAILY PO ; Start 09/15/17 at 09:00; Status Future Hold Montelukast Sodium (Singulair) 10 mg QHS PO Last administered on 09/15/17 20: 06; Admin Dose 10 MG; Start 09/14/17 at 21:00 Ranolazine (Ranexa) 1,000 mg BID PO Last administered on 09/16/17 08:43; Admin Dose 1,000 MG; Start 09/14/17 at 21:00 Tamsulosin HCl (Flomax) 0.4 mg DAILY@21 PO Last administered on 09/15/17 20: 06; Admin Dose 0.4 MG; Start 09/14/17 at 21:00 Pantoprazole (Protonix Tab) 40 mg DAILY@06 PO Last administered on 09/16/17 06:17; Admin Dose 40 MG; Start 09/15/17 at 06:00 Meclizine HCl (Antivert) 25 mg DAILY PO Last administered on 09/16/17 08:56; Admin Dose 25 MG; Start 09/15/17 at 09:00 Atorvastatin Calcium (Lipitor) 40 mg DAILY@21 PO Last administered on 20:06; Admin Dose 40 MG; Start 09/14/17 at 21:00 Diagnostic Test (Pha) (Accu-Chek) 1 ea 02 XX Last administered on 09/15/17 02 :37; Admin Dose 1 EA; Start 09/15/17 at 02:00 Azithromycin (Zithromax) 500 mg DAILY PO Last administered on 09/16/17 08:46 ; Admin Dose 500 MG; Start 09/15/17 at 09:00; Stop 09/21/17 at 08:59 Heparin Sodium (Porcine) (Heparin (5000 Units/0.5 ml)) 5,000 unit BID SC Last administered on 09/16/17 08:49; Admin Dose 5,000 UNIT; Start 09/15/17 at 21: 00 Furosemide (Lasix) 40 mg DAILY IV Last administered on 09/16/17 08:46; Admin Dose 40 MG; Start 09/15/17 at 15:30 Fish Oil (Fish Oil) 1,000 mg BID PO ; Start 09/16/17 at 21:00 Ferrous Sulfate (Ferrous Sulfate (Ec)) 325 mg BID PO ; Start 09/16/17 at 21:00 Docusate Sodium (Colace) 100 mg BID PRN PO CONSTIPATION; Start 09/16/17 at 11: 30 Bisacodyl (Dulcolax Supp) 10 mg DAILY PRN ND CONSTIPATION; Start 09/16/17 at 11:30 GURMEET ARMSTRONG MD Sep 16, 2017 17:31
[2017-09-16] MEDS: TAMSULOSIN (SR) 0.4 MG CAP PO SCH (22:03)
[2017-09-16] MEDS: ATORVASTATIN 40 MG TAB PO SCH (22:03)
[2017-09-16] MEDS: MONTELUKAST 10 MG TAB PO SCH (22:03)
[2017-09-16] MEDS: FERROUS SULFATE (EC) 325 MG TAB PO SCH (22:03)
[2017-09-17] VITALS (25 sets, daily range): BP systolic 88–124; BP diastolic 41–79; PULSE 60–74; RESP 13–33
--- NOTE | 2017-09-17 01:39 | CONS ---
DATE OF ADMISSION: 09/14/2017 DATE OF CONSULTATION: NEPHROLOGY CONSULTATION REASON FOR CONSULTATION: Acute kidney injury, chronic kidney disease. PHYSICIAN REQUESTING CONSULTATION: HISTORY OF PRESENT ILLNESS: This is a 77-year-old male with a past medical history of chronic kidne y disease stage III, with a previous baseline creatinine of around 1.5 to 2.0 mg/dL, a history of hy pertension, diabetes, dyslipidemia, coronary artery disease, history of CHF, history of arrhythmia, who presents to [facility] with worsening shortness of breath, lightheadedness and nausea over the past 3 days. The patient reports feeling more fatigued than usual, and being more tired. The patient also describes worsening shortness of breath. The patient also describes a coug h. The patient, upon arrival to the emergency room, was diagnosed with pneumonia, CHF and was trans ferred to the intensive care unit. The patient, while in intensive care unit, has been receiving IV antibiotics. The patient had imaging studies including CT scan of the chest, which showed findings of possible multifocal pneumonia, interstitial edema. The patient has received diuretic therapy du ring the hospital course. In terms of the patient's renal history, upon arrival, the patient had a creatinine of 2.0 mg/dL. D uring the hospital course, the patient's creatinine has been fluctuating around 2 mg/dL. There have been no reports of any hemoptysis, hematemesis, any hematochezia. No reports of any frothy urine. PAST MEDICAL HISTORY: As stated above, history of hypertension, history of diabetes, history of chr onic kidney disease, history of arrhythmia, history of dyslipidemia, history of CHF. MEDICATIONS: The patient's medications have been reviewed. ALLERGIES: BENZODIAZEPINES. FAMILY HISTORY: Noncontributory. SOCIAL HISTORY: Does not drink, smoke or do drugs. PAST SURGICAL HISTORY: None. REVIEW OF SYSTEMS: A 14-point review of systems was conducted. Pertinent positives stated in the H PI, otherwise negative. PHYSICAL EXAMINATION: VITAL SIGNS: Blood pressure is 107/72, respirations 21, pulse 61, temperature 100.6. HEENT: Head is normocephalic. NECK: Supple. HEART: Regular rate. LUNGS: Show diminished breath sounds at base. Positive rhonchi and crackles. ABDOMEN: Soft, nontender to palpation. No rebound or guarding. EXTREMITIES: Negative for clubbing, cyanosis. Trace edema. DERMATOLOGIC: No rashes. MUSCULOSKELETAL: No joint effusions. NEUROLOGIC: Limited exam, but no obvious focal deficits. LABORATORY DATA: Shows a sodium 140, potassium 4.4, chloride 102, bicarbonate 29, BUN 45, creatinin e 2.18. Urinalysis shows a FENa of approximately 1%, no proteinuria. White count 7.2, hemoglobin 1 0.1, hematocrit of 30.9, platelet count 206. IMAGING STUDIES: As stated in HPI. ASSESSMENT AND PLAN: This is a 77-year-old male who presents with: 1. Nonoliguric acute kidney injury on top of chronic kidney disease with previous baseline creatini ne around 1.7 to 2 mg/dL. Etiology of acute kidney injury is likely due to hemodynamics. The patie nt's urinalysis was bland, no evidence of active sediment. Renal ultrasound shows no evidence of ob struction, hydronephrosis and normal renal parenchyma. At this point, would continue current treatm ent plan, continue to treat underlying sepsis with IV antibiotics. Continue current diuretic regime n. Would monitor renal function closely. Otherwise, continue supportive care, renally dose all med s, avoid nephrotoxins. 2. Anemia. We will monitor hemoglobin and hematocrit levels. 3. Mineral bone disorder. Monitor calcium and phosphorus levels. 4. Sepsis secondary to pneumonia. Continue current antibiotic regimen. 5. Acute hypoxic respiratory failure secondary to pneumonia and congestive heart failure. Continue current treatment plan. 6. Volume overload, acute congestive heart failure exacerbation. The patient is currently receivin g diuretic therapy. Follow up 2D echo. Follow up with cardiology. 7. History of coronary artery disease. Continue medical management. 8. Hypertension. Continue current blood pressure regimen. Thank you, , for this interesting consult. It will be a pleasure to follow patient with yo u throughout the hospital course. Dictated By: ALDO ROSARIO/ELANA Conf#: [id number] DID#: [id number] CC: ; LEILA CALLAHAN;*EndCC*
[2017-09-17] MEDS: ACCU-CHEK XX SCH (02:00)
[2017-09-17] MEDS ORDERED: traMADol 50 MG TAB PO PRN (06:00)
[2017-09-17] MEDS ORDERED: morphine 2 MG INJ IV PRN (06:00)
[2017-09-17] MEDS: PANTOPRAZOLE (EC) 40 MG TAB PO SCH (06:25)
[2017-09-17] MEDS: INSULIN ASPART [NOVOLOG] 3 ML PEN SC SCH ×4 (07:35→21:27)
[2017-09-17] MEDS: CEFTRIAXONE 1 GM/50 ML (PMX) 50 ML IVPB SCH (07:45)
[2017-09-17] MEDS: HYDROCODONE/APAP (5/325) TAB PO PRN (07:45)
[2017-09-17] MEDS: ALBUTEROL/IPRATROPIUM (NEB) 3 ML AMP HHN SCH ×5 (08:06→20:17)
--- NOTE | 2017-09-17 08:12 | PN ---
Date/Time of Note Date/Time of Note DATE: 09/17/17 TIME: 08:11 Assessment/Plan VTE Prophylaxis VTE Prophylaxis Intervention: heparin Lines/Catheters IV Catheter Type (from [facility]): Peripheral IV Urinary Cath still in place: No Assessment/Plan Chief Complaint/Hosp Course 77 yo M with multiple cardiac comorbidities here with fever and SOB 1. 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 -I discussed this finding with patient's pipe welder and will await further recommendations.Will discuss with cardiology regarding alternative for amiodarone once pulmonary fibrosis is ruled in. 2.Possible superimposed Pneumonia, likely CAP. -Patient on ceftriaxone+Zithromax. 3. Hypoxic respiratory failure,likley multifactorial with underlying CHF plus #1 ,#2. - f/u chest Xray, ABGs -Continue oxygen, around the clock and PRN Duoneb.Follow-up with pulmonary recommendations. 4.JOHN PAUL on CKD. Baseline cr=1.7-2.0 range. JOHN PAUL likely 2/2 hemodynamics -Follow-up with nephrology recommendations. - Avoid nephrotoxins and Will monitor. 5. Diastolic CHF. Ejection fraction 55%. -On Lasix.Follow-up with cardiology recommendations 6.Coronary Artery Disease. -Continue current medical management. 7.Essential HTN. -Continue antihypertensives 8. Hyperlipidemia. -On statin/fish oil/ diet optimization. 9.BPH -cont flomax 10.Vitamin D deficiency - Cont vit D 11.History of paroxysmal atrial fibrillation. -With pacemaker.On amiodarone-Will consider switching to alternatives if pulmonary fibrosis is diagnosed. -Defer outpatient follow-up for consider switching to systemic anticoagulation. 12.Anemia,mild, with iron deficiency -on oral iron replacement 13.Constipation -Stool softners/PRN laxatives Prophylaxis: Heparin/PPIs >30mins Critical care time spent Continue ICU care, F/u with senior market intelligence consultant's recs. Patient was seen in collaboration with . Problems: Subjective 24 Hr Interval Summary Free Text/Dictation Patient remains on high flow oxygen 35 L, 100%. Exam/Review of Systems Vital Signs Vitals Vital Signs Date Time Temp Pulse Resp B/P Pulse Ox O2 Delivery O2 Flow Rate FiO2 09/17/17 07:00 68 20 105/79 97 09/17/17 04:52 100 09/17/17 04:00 99.3 09/16/17 19:00 High Flow 09/15/17 16:53 15.0 Intake and Output 09/16/17 09/16/17 09/17/17 15:00 23:00 07:00 Intake Total 240 ml 820 ml 100 ml Output Total 675 ml 275 ml 350 ml Balance -435 ml 545 ml -250 ml Exam General: Well developed male,in mild respiratory distress. HEENT: Normocephalic, Atraumatic, No laceration or hematoma; Eyes: PEERL, Conjunctiva clear, Anicteric sclera Neck: Supple without any lymphadenopathy, nontender, no JVD, no carotid bruits, trachea midline, no thyromegaly Cardiac: S1, S2 auscultated, regular rhythm and rate, no mumurs or gallop Pulmonary: Diminished breath sound bibasilar. Patient is on high flow oxygen. GI: Abdomen normal to inspection. Soft, non- distended, no masses, no rebound tenderness or guarding. Bowel sounds active on all four quadrants Genitourinary: Deferred Extremities: No cyanosis, clubbing, or edema. Pulses [2+] bilaterally. Full ROM on all four extremities. No focal weakness appreciated. Neurologic: Alert to person, place, time, and situation. Affect appropriate, intact sensation. Skin: Clean,dry, and intact. No ecchymosis, no rashes, or lesions Results Result Diagram: 09/17/17 0543 09/17/17 0543 Results 24 hrs Laboratory Tests Test 09/16/17 08:22 09/16/17 14:00 09/16/17 17:29 09/16/17 22:01 Bedside Glucose 126 164 167 161 Test 09/17/17 03:26 09/17/17 05:43 09/17/17 07:00 Bedside Glucose 108 White Blood Count 6.4 Red Blood Count 3.06 L Hemoglobin 8.6 L Hematocrit 26.5 L Mean Corpuscular Volume 86.6 Mean Corpuscular Hemoglobin 28.1 L Mean Corpuscular Hemoglobin Concent 32.5 Red Cell Distribution Width 16.1 H Platelet Count 230 Mean Platelet Volume 9.8 Neutrophils % 73.8 Lymphocytes % 15.4 Monocytes % 8.1 Eosinophils % 1.4 Basophils % 0.5 Nucleated Red Blood Cells % 0.0 Neutrophils # 4.7 Lymphocytes # 1.0 Monocytes # 0.5 Eosinophils # 0.1 Basophils # 0.0 Nucleated Red Blood Cells # 0.0 Sodium Level 136 Potassium Level 4.4 Chloride Level 97 Carbon Dioxide Level 32 H Anion Gap 11 Blood Urea Nitrogen 57 H Creatinine 2.11 H Glucose Level 113 Calcium Level 9.0 Magnesium Level 2.2 Blood Gas Specimen Source Blood arterial Arterial Blood Date Drawn 09/17/2017 7:08:51 AM Arterial Blood pH (Temp corrected) 7.421 Arterial Blood pCO2 (Temp correct) 39.9 Arterial Blood pO2 (Temp corrected) 78.2 L Arterial Blood HCO3 25.4 Arterial Blood Base Excess 0.9 Arterial Blood Oxygen Saturation 94.4 L Star Test ACCEPTAB Arterial Blood Gas Puncture Site Left Radial Arterial Blood Carboxyhemoglobin 1.1 Arterial Blood Methemoglobin 0.3 Blood Gas A-a O2 Differential 594.9 H Oxyhemoglobin Percent 93.1 Total Hemoglobin 8.5 L Blood Gas Temperature 37.0 Blood Gas Modality HFNC FiO2 100.0 Blood Gas Notified Whom JLD Blood Gas Notified Time 09/17/2017 8:01:35 AM Medications Medications Current Medications Ondansetron HCl (Zofran Tab) 4 mg Q6H PRN PO NAUSEA AND/OR VOMITING; Start at 13:30 Ondansetron HCl (Zofran Inj) 4 mg Q6H PRN IV NAUSEA AND/OR VOMITING; Start at 13:30 Acetaminophen (Tylenol Tab) 650 mg Q6H PRN PO PAIN LEVEL 1-3 OR FEVER Last administered on 09/16/17 22:03; Admin Dose 650 MG; Start 09/14/17 at 13:30 Acetaminophen/ Hydrocodone Bitart 1 tab 1 tab Q6H PRN PO MODERATE PAIN LEVEL 4- 6 Last administered on 09/17/17 07:45; Admin Dose 1 TAB; Start 09/14/17 at 13 :30 Ceftriaxone Sodium (Rocephin) 50 ml @ 100 mls/hr Q24H IVPB Last administered on 09/17/17 07:45; Admin Dose 100 MLS/HR; Start 09/15/17 at 08:30 Amiodarone HCl (Cordarone) 400 mg DAILY PO Last administered on 09/16/17 08: 43; Admin Dose 400 MG; Start 09/15/17 at 09:00 Amlodipine Besylate (Norvasc) 5 mg BID PO Last administered on 09/15/17 20:07 ; Admin Dose 5 MG; Start 09/14/17 at 21:00 Aspirin (Halfprin) 81 mg DAILY PO Last administered on 09/16/17 08:43; Admin Dose 81 MG; Start 09/15/17 at 09:00 Clopidogrel Bisulfate (plaVIX) 75 mg DAILY PO Last administered on 09/16/17 08:43; Admin Dose 75 MG; Start 09/15/17 at 09:00 Diclofenac Sodium (Voltaren 1% Gel) 2 gm QID TP Last administered on 22:10; Admin Dose 2 GM; Start 09/14/17 at 17:00 Duloxetine HCl (Cymbalta) 30 mg DAILY PO Last administered on 09/16/17 08:43 ; Admin Dose 30 MG; Start 09/15/17 at 09:00 Ergocalciferol (Drisdol) 50,000 unit Q7D PO Last administered on 09/15/17 09: 53; Admin Dose 50,000 UNIT; Start 09/15/17 at 09:00 Fenofibrate (Tricor) 145 mg DAILY PO Last administered on 09/16/17 08:43; Admin Dose 145 MG; Start 09/15/17 at 09:00 Hydralazine HCl (Apresoline) 50 mg DAILY PO ; Start 09/15/17 at 09:00; Status Future Hold Montelukast Sodium (Singulair) 10 mg QHS PO Last administered on 09/16/17 22: 03; Admin Dose 10 MG; Start 09/14/17 at 21:00 Ranolazine (Ranexa) 1,000 mg BID PO Last administered on 09/16/17 21:00; Admin Dose 1,000 MG; Start 09/14/17 at 21:00 Tamsulosin HCl (Flomax) 0.4 mg DAILY@21 PO Last administered on 09/16/17 22: 03; Admin Dose 0.4 MG; Start 09/14/17 at 21:00 Pantoprazole (Protonix Tab) 40 mg DAILY@06 PO Last administered on 09/17/17 06:25; Admin Dose 40 MG; Start 09/15/17 at 06:00 Meclizine HCl (Antivert) 25 mg DAILY PO Last administered on 09/16/17 08:56; Admin Dose 25 MG; Start 09/15/17 at 09:00 Atorvastatin Calcium (Lipitor) 40 mg DAILY@21 PO Last administered on 22:03; Admin Dose 40 MG; Start 09/14/17 at 21:00 Diagnostic Test (Pha) (Accu-Chek) 1 ea 02 XX Last administered on 09/15/17 02 :37; Admin Dose 1 EA; Start 09/15/17 at 02:00 Azithromycin (Zithromax) 500 mg DAILY PO Last administered on 09/16/17 08:46 ; Admin Dose 500 MG; Start 09/15/17 at 09:00; Stop 09/21/17 at 08:59 Heparin Sodium (Porcine) (Heparin (5000 Units/0.5 ml)) 5,000 unit BID SC Last administered on 09/16/17 22:09; Admin Dose 5,000 UNIT; Start 09/15/17 at 21: 00 Furosemide (Lasix) 40 mg DAILY IV Last administered on 09/16/17 08:46; Admin Dose 40 MG; Start 09/15/17 at 15:30 Fish Oil (Fish Oil) 1,000 mg BID PO Last administered on 09/16/17 22:03; Admin Dose 1,000 MG; Start 09/16/17 at 21:00 Ferrous Sulfate (Ferrous Sulfate (Ec)) 325 mg BID PO Last administered on 09/16 22:03; Admin Dose 325 MG; Start 09/16/17 at 21:00 Docusate Sodium (Colace) 100 mg BID PRN PO CONSTIPATION; Start 09/16/17 at 11: 30 Bisacodyl (Dulcolax Supp) 10 mg DAILY PRN MD CONSTIPATION; Start 09/16/17 at 11:30 Morphine Sulfate (morphine) 1 mg Q4H PRN IV pain Last administered on 06:26; Admin Dose 1 MG; Start 09/17/17 at 06:00 Tramadol HCl (Ultram) 50 mg Q6H PRN PO pain; Start 09/17/17 at 06:00 MANUEL VELOZ NP Sep 17, 2017 08:12
--- NOTE | 2017-09-17 08:27 | PN ---
DATE: 09/17/2017 SUBJECTIVE: The patient overnight has been clinically stable. No other acute events noted. No hem optysis, hematemesis or hematochezia. OBJECTIVE: VITAL SIGNS: Blood pressure 105/79, respirations 20, pulse 68, temperature 99.3. INPUT AND OUTPUT: The patient had 1 liter in, 1.5 liters out. HEENT: Head is normocephalic. NECK: Supple. HEART: Regular rate. LUNGS: Show diminished breath sounds at base. ABDOMEN: Soft, nontender to palpation. No rebound, guarding. EXTREMITIES: Negative for clubbing, cyanosis. Trace edema. DERMATOLOGIC: No rashes. MUSCULOSKELETAL: No joint effusion. NEUROLOGIC: No change in exam. MEDICATIONS: The patient's medications have been reviewed. LABORATORY DATA: Shows sodium 136, potassium 4.4, chloride 97, BUN 37, creatinine 2.11. White coun t 6.4, hemoglobin 8.6, and platelet count is 16.1. ASSESSMENT AND PLAN: 1. Nonoliguric acute kidney injury on top of chronic kidney disease with previous baseline creatini ne of 1.7 to 2.0 mg/dL. Etiology of current acute kidney injury is secondary to hemodynamics. Leidy l function is fluctuating, but has been overall stable during the hospital course. The patient's ur inalysis and renal ultrasound reviewed. No evidence of active sediment and no evidence of obstructi on. At this point, continue current treatment plan, supportive care. Continue IV antibiotics, cont inue diuretic therapy, monitor renal function closely. 2. Anemia. Monitor hemoglobin and hematocrit levels. 3. Mineral bone disorder, monitor calcium and phosphorus levels. 4. Alkalosis. Etiology is possibly compensatory versus diuretic therapy. We will continue to [facility]. 5. Sepsis secondary to pneumonia. Continue current antibiotic regimen. 6. Acute hypoxemic respiratory failure secondary to pneumonia and congestive heart failure. Contin ue current treatment plan. 7. Volume overload, acute congestive heart failure exacerbation. Continue current diuretic regimen and follow up with cardiology. 8. Chronic disease. Continue medical management. 9. Hypertension. Continue current blood pressure regimen. Dictated By: ALDO ZHAO DO NR/NTS Conf#: [id number] DID#: [id number]
[2017-09-17] MEDS: DICLOFENAC SODIUM 1% GEL 100 GM TUBE TP SCH ×4 (09:00→21:27)
[2017-09-17] MEDS: AMLODIPINE 5 MG TAB PO SCH ×2 (09:00→21:00)
[2017-09-17] MEDS: MECLIZINE 25 MG TAB PO SCH (09:10)
[2017-09-17] MEDS: AMIODARONE 200 MG TAB PO SCH (09:12)
[2017-09-17] MEDS: FENOFIBRATE 145 MG TAB PO SCH (09:12)
[2017-09-17] MEDS: AZITHROMYCIN 250 MG TAB PO SCH (09:13)
[2017-09-17] MEDS: FISH OIL 1,000 MG CAP PO SCH ×2 (09:13→21:23)
[2017-09-17] MEDS: CLOPIDOGREL 75 MG TAB PO SCH (09:13)
[2017-09-17] MEDS: RANOLAZINE (SR) 500 MG TAB PO SCH (09:13)
[2017-09-17] MEDS: ASPIRIN (EC) 81 MG TAB PO SCH (09:13)
[2017-09-17] MEDS: FERROUS SULFATE (EC) 325 MG TAB PO SCH ×2 (09:13→21:23)
[2017-09-17] MEDS: HEPARIN 5,000 UNIT/0.5 ML VIAL SC SCH ×2 (09:17→21:26)
[2017-09-17] MEDS: DULOXETINE 30 MG CAP DR PO SCH (09:18)
[2017-09-17] MEDS: FUROSEMIDE 40 MG INJ IV SCH (09:19)
--- NOTE | 2017-09-17 11:37 | CONS ---
Date/Time of Note Date/Time of Note DATE: 09/17/17 TIME: 11:35 Assessment/Plan Assessment/Plan Additional Assessment/Plan Assessment recommendations; 1. Patient admitted with shortness of breath for chest x-ray findings showing diffuse pulmonary fibrosis, possibly amiodarone toxicity. 2. Difficult to rule out superimposed pneumonia. 3. Chronic renal insufficiency. Continue current treatment. Add Solu-Medrol 40 mg every 6 hours. Consider switching amiodarone to another antiarrhythmic. Obtain follow-up chest x-ray in 48 hours. Add Levaquin 250 mg IV every 4 hours. Consultation Date/Type/Reason Admit Date/Time Sep 14, 2017 at 08:17 Initial Consult Date Type of Consultation: Pulmonary/critical care 24 HR Interval Summary Free Text/Dictation Patient's condition is stable. Remains awake and alert. Eating breakfast. Denies any chest pain, fever, coughing. General exam; elderly male, awake and alert. Currently in no distress. Exam/Review of Systems Vital Signs Vitals Vital Signs Date Time Temp Pulse Resp B/P Pulse Ox O2 Delivery O2 Flow Rate FiO2 09/17/17 09:00 65 16 96/41 93 09/17/17 08:00 100.0 09/17/17 04:52 100 09/16/17 19:00 High Flow 09/15/17 16:53 15.0 Intake and Output 09/16/17 09/16/17 09/17/17 15:00 23:00 07:00 Intake Total 240 ml 820 ml 100 ml Output Total 675 ml 275 ml 350 ml Balance -435 ml 545 ml -250 ml Exam HEENT exam; supple neck, no JVD. No lymphadenopathy. Midline trachea. No thyromegaly. Patient has bilateral intraocular lens implants. Patient is edentulous and wears dentures. Chest exam; diminished but clear breath sounds. S1-S2 audible, no murmurs. Irregular rhythm. Abdomen exam; soft, nontender. Bowel sounds audible. No organomegaly. Extremity exam; no peripheral edema. [employer] exam; no focal motor deficit. Results Result Diagram: 09/17/17 0543 09/17/17 0543 Results 24 hrs Laboratory Tests Test 09/16/17 14:00 09/16/17 17:29 09/16/17 22:01 09/17/17 03:26 Bedside Glucose 164 167 161 108 Test 09/17/17 05:43 09/17/17 07:00 09/17/17 08:47 09/17/17 09:34 White Blood Count 6.4 Red Blood Count 3.06 L Hemoglobin 8.6 L Hematocrit 26.5 L Mean Corpuscular Volume 86.6 Mean Corpuscular Hemoglobin 28.1 L Mean Corpuscular Hemoglobin Concent 32.5 Red Cell Distribution Width 16.1 H Platelet Count 230 Mean Platelet Volume 9.8 Neutrophils % 73.8 Lymphocytes % 15.4 Monocytes % 8.1 Eosinophils % 1.4 Basophils % 0.5 Nucleated Red Blood Cells % 0.0 Neutrophils # 4.7 Lymphocytes # 1.0 Monocytes # 0.5 Eosinophils # 0.1 Basophils # 0.0 Nucleated Red Blood Cells # 0.0 Sodium Level 136 Potassium Level 4.4 Chloride Level 97 Carbon Dioxide Level 32 H Anion Gap 11 Blood Urea Nitrogen 57 H Creatinine 2.11 H Glucose Level 113 Calcium Level 9.0 Magnesium Level 2.2 Blood Gas Specimen Source Blood arterial Arterial Blood Date Drawn 09/17/2017 7:08:51 AM Arterial Blood pH (Temp corrected) 7.421 Arterial Blood pCO2 (Temp correct) 39.9 Arterial Blood pO2 (Temp corrected) 78.2 L Arterial Blood HCO3 25.4 Arterial Blood Base Excess 0.9 Arterial Blood Oxygen Saturation 94.4 L Star Test ACCEPTAB Arterial Blood Gas Puncture Site Left Radial Arterial Blood Carboxyhemoglobin 1.1 Arterial Blood Methemoglobin 0.3 Blood Gas A-a O2 Differential 594.9 H Oxyhemoglobin Percent 93.1 Total Hemoglobin 8.5 L Blood Gas Temperature 37.0 Blood Gas Modality HFNC FiO2 100.0 Blood Gas Notified Whom JLD Blood Gas Notified Time 09/17/2017 8:01:35 AM Lab Scanned Report REFERENCE LAB Bedside Glucose 116 Medications Medications Current Medications Ondansetron HCl (Zofran Tab) 4 mg Q6H PRN PO NAUSEA AND/OR VOMITING; Start at 13:30 Ondansetron HCl (Zofran Inj) 4 mg Q6H PRN IV NAUSEA AND/OR VOMITING; Start at 13:30 Acetaminophen (Tylenol Tab) 650 mg Q6H PRN PO PAIN LEVEL 1-3 OR FEVER Last administered on 09/16/17t 22:03; Admin Dose 650 MG; Start 09/14/17 at 13:30 Acetaminophen/ Hydrocodone Bitart 1 tab 1 tab Q6H PRN PO MODERATE PAIN LEVEL 4- 6 Last administered on 09/17/17 07:45; Admin Dose 1 TAB; Start 09/14/17 at 13 :30 Ceftriaxone Sodium (Rocephin) 50 ml @ 100 mls/hr Q24H IVPB Last administered on 09/17/17 07:45; Admin Dose 100 MLS/HR; Start 09/15/17 at 08:30 Amiodarone HCl (Cordarone) 400 mg DAILY PO Last administered on 09/17/17 09: 12; Admin Dose 400 MG; Start 09/15/17 at 09:00 Amlodipine Besylate (Norvasc) 5 mg BID PO Last administered on 09/15/17 20:07 ; Admin Dose 5 MG; Start 09/14/17 at 21:00 Aspirin (Halfprin) 81 mg DAILY PO Last administered on 09/17/17 09:13; Admin Dose 81 MG; Start 09/15/17 at 09:00 Clopidogrel Bisulfate (plaVIX) 75 mg DAILY PO Last administered on 09/17/17 09:13; Admin Dose 75 MG; Start 09/15/17 at 09:00 Diclofenac Sodium (Voltaren 1% Gel) 2 gm QID TP Last administered on 22:10; Admin Dose 2 GM; Start 09/14/17 at 17:00 Duloxetine HCl (Cymbalta) 30 mg DAILY PO Last administered on 09/17/17 09:18 ; Admin Dose 30 MG; Start 09/15/17 at 09:00 Ergocalciferol (Drisdol) 50,000 unit Q7D PO Last administered on 09/15/17 09: 53; Admin Dose 50,000 UNIT; Start 09/15/17 at 09:00 Fenofibrate (Tricor) 145 mg DAILY PO Last administered on 09/17/17 09:12; Admin Dose 145 MG; Start 09/15/17 at 09:00 Hydralazine HCl (Apresoline) 50 mg DAILY PO ; Start 09/15/17 at 09:00; Status Future Hold Montelukast Sodium (Singulair) 10 mg QHS PO Last administered on 09/16/17 22: 03; Admin Dose 10 MG; Start 09/14/17 at 21:00 Ranolazine (Ranexa) 1,000 mg BID PO Last administered on 09/17/17 09:13; Admin Dose 1,000 MG; Start 09/14/17 at 21:00 Tamsulosin HCl (Flomax) 0.4 mg DAILY@21 PO Last administered on 09/16/17 22: 03; Admin Dose 0.4 MG; Start 09/14/17 at 21:00 Pantoprazole (Protonix Tab) 40 mg DAILY@06 PO Last administered on 09/17/17 06:25; Admin Dose 40 MG; Start 09/15/17 at 06:00 Meclizine HCl (Antivert) 25 mg DAILY PO Last administered on 09/17/17 09:10; Admin Dose 25 MG; Start 09/15/17 at 09:00 Atorvastatin Calcium (Lipitor) 40 mg DAILY@21 PO Last administered on 22:03; Admin Dose 40 MG; Start 09/14/17 at 21:00 Diagnostic Test (Pha) (Accu-Chek) 1 ea 02 XX Last administered on 09/15/17 02 :37; Admin Dose 1 EA; Start 09/15/17 at 02:00 Azithromycin (Zithromax) 500 mg DAILY PO Last administered on 09/17/17 09:13 ; Admin Dose 500 MG; Start 09/15/17 at 09:00; Stop 09/21/17 at 08:59 Heparin Sodium (Porcine) (Heparin (5000 Units/0.5 ml)) 5,000 unit BID SC Last administered on 09/17/17 09:17; Admin Dose 5,000 UNIT; Start 09/15/17 at 21: 00 Furosemide (Lasix) 40 mg DAILY IV Last administered on 09/17/17 09:19; Admin Dose 40 MG; Start 09/15/17 at 15:30 Fish Oil (Fish Oil) 1,000 mg BID PO Last administered on 09/17/17 09:13; Admin Dose 1,000 MG; Start 09/16/17 at 21:00 Ferrous Sulfate (Ferrous Sulfate (Ec)) 325 mg BID PO Last administered on 09/17 09:13; Admin Dose 325 MG; Start 09/16/17 at 21:00 Docusate Sodium (Colace) 100 mg BID PRN PO CONSTIPATION; Start 09/16/17 at 11: 30 Bisacodyl (Dulcolax Supp) 10 mg DAILY PRN [place] CONSTIPATION; Start 09/16/17 at 11:30 Morphine Sulfate (morphine) 1 mg Q4H PRN IV pain Last administered on t 06:26; Admin Dose 1 MG; Start 09/17/17 at 06:00 Tramadol HCl (Ultram) 50 mg Q6H PRN PO pain; Start 09/17/17 at 06:00 MELISSA AGUERO Sep 17, 2017 11:37
[2017-09-17] MEDS: METHYLPREDNISOLONE 40 MG INJ IV SCH ×2 (12:24→17:45)
[2017-09-17] MEDS: LEVOFLOXACIN 250MG/D5W (PMX) 50 ML IVPB SCH (12:24)
--- NOTE | 2017-09-17 16:28 | RADRPT ---
PROCEDURE: XR Chest. CLINICAL INDICATION: Shortness of breath. TECHNIQUE: Single frontal view. COMPARISON: 09/16/2017. FINDINGS: There is bilateral air space disease consistent with pulmonary edema with right side worse than left side. The appearance is worse than 09/16/2017. The heart is enlarged. There is a permanent pacemaker. Calcification is present in the aorta consist ent with atherosclerosis. There is no pleural effusion. There is no pneumothorax. IMPRESSION: 1. Worsening pulmonary edema. 2. Cardiomegaly and atherosclerosis. 3. Permanent pacemaker. RPTAT: QQ .Anand Ybarra MD, MD Date Time Electronically viewed and signed by .Anand Ybarra MD, MD on 09/17/2017 16:28 .R/
--- NOTE | 2017-09-17 21:04 | CONS ---
Date/Time of Note Date/Time of Note DATE: 09/17/17 TIME: 20:57 Assessment/Plan Assessment/Plan Chief Complaint/Hosp Course Assessment: Acute hypoxic respiratory failure - primarily due pulmonary with component of congestive heart failure, on intermittent BiPAP per pulmonology Suspected pulmonary fibrosis Possible pneumonia - on antibiotics Acute on chronic diastolic heart failure - echocardiogram reported LVEF 55% Moderate aortic stenosis Coronary artery disease - anatomy unknown, apparently he has not been revascularized in the past Paroxysmal atrial fibrillation - currently sinus rhythm Permanent pacemaker - details unknown Hypertension Dyslipidemia Acute kidney injury on chronic kidney disease History of stroke Recommendations: -discontinue amiodarone due to concern for pulmonary toxicity -start sotalol 80mg Q24hr (renally dosed), monitor QT interval on telemetry and with daily EKGs -discontinue amlodipine (low blood pressures) and ranolazine (increased QT prolongation with sotalol) -continue Lasix 40mg IV daily, additional Lasix 40mg IV x 1 now -continue outpatient aspirin 81mg and clopidogrel daily (though would consider anticoagulation instead of dual-antiplatelet therapy due to atrial fibrillation and history of stroke - 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 Pulmonology concerned about pulmonary fibrosis based on imaging results. Detailed Summary Additional Comments Unable to obtain review of systems due to patient's current condition. Exam/Review of Systems Vital Signs Vitals Vital Signs Date Time Temp Pulse Resp B/P Pulse Ox O2 Delivery O2 Flow Rate FiO2 09/17/17 19:30 72 98 80 09/17/17 18:00 21 100/59 09/17/17 16:00 99.6 09/17/17 14:26 Nasal Cannula 09/15/17 16:53 15.0 Intake and Output 09/16/17 09/16/17 09/17/17 14:59 22:59 06:59 Intake Total 240 ml 820 ml 100 ml Output Total 875 ml 275 ml 350 ml Balance -635 ml 545 ml -250 ml Exam Constitutional: alert, well developed Psych: nl mood/affect, no complaints Head: atraumatic, normocephalic Eyes: nl conjunctiva, nl lids ENMT: nl external ears & nose, nl nasal mucosa & septum Neck: non-tender, supple Respiratory: crackles/rales, diminished breath sounds Cardiovascular: regular rate and rhythm Gastrointestinal: non-tender, soft Musculoskeletal: nl extremities to inspection Extremities: No clubbing, No cyanosis, No edema Neurological: No nl mental status, No nl speech Skin: nl turgor Results Result Diagram: 09/17/17 0543 09/17/17 0543 Results 24 hrs Laboratory Tests Test 09/16/17 22:01 09/17/17 03:26 09/17/17 05:43 09/17/17 07:00 Bedside Glucose 161 108 White Blood Count 6.4 Red Blood Count 3.06 L Hemoglobin 8.6 L Hematocrit 26.5 L Mean Corpuscular Volume 86.6 Mean Corpuscular Hemoglobin 28.1 L Mean Corpuscular Hemoglobin Concent 32.5 Red Cell Distribution Width 16.1 H Platelet Count 230 Mean Platelet Volume 9.8 Neutrophils % 73.8 Lymphocytes % 15.4 Monocytes % 8.1 Eosinophils % 1.4 Basophils % 0.5 Nucleated Red Blood Cells % 0.0 Neutrophils # 4.7 Lymphocytes # 1.0 Monocytes # 0.5 Eosinophils # 0.1 Basophils # 0.0 Nucleated Red Blood Cells # 0.0 Sodium Level 136 Potassium Level 4.4 Chloride Level 97 Carbon Dioxide Level 32 H Anion Gap 11 Blood Urea Nitrogen 57 H Creatinine 2.11 H Glucose Level 113 Calcium Level 9.0 Magnesium Level 2.2 Blood Gas Specimen Source Blood arterial Arterial Blood Date Drawn 09/17/2017 7:08:51 AM Arterial Blood pH (Temp corrected) 7.421 Arterial Blood pCO2 (Temp correct) 39.9 Arterial Blood pO2 (Temp corrected) 78.2 L Arterial Blood HCO3 25.4 Arterial Blood Base Excess 0.9 Arterial Blood Oxygen Saturation 94.4 L Star Test ACCEPTAB Arterial Blood Gas Puncture Site Left Radial Arterial Blood Carboxyhemoglobin 1.1 Arterial Blood Methemoglobin 0.3 Blood Gas A-a O2 Differential 594.9 H Oxyhemoglobin Percent 93.1 Total Hemoglobin 8.5 L Blood Gas Temperature 37.0 Blood Gas Modality HFNC FiO2 100.0 Blood Gas Notified Whom JLD Blood Gas Notified Time 09/17/2017 8:01:35 AM Test 09/17/17 08:47 09/17/17 09:34 09/17/17 12:07 09/17/17 17:33 Lab Scanned Report REFERENCE LAB Bedside Glucose 116 185 125 Medications Medications Current Medications Ondansetron HCl (Zofran Tab) 4 mg Q6H PRN PO NAUSEA AND/OR VOMITING; Start at 13:30 Ondansetron HCl (Zofran Inj) 4 mg Q6H PRN IV NAUSEA AND/OR VOMITING; Start at 13:30 Acetaminophen (Tylenol Tab) 650 mg Q6H PRN PO PAIN LEVEL 1-3 OR FEVER Last administered on 09/16/17 22:03; Admin Dose 650 MG; Start 09/14/17 at 13:30 Acetaminophen/ Hydrocodone Bitart 1 tab 1 tab Q6H PRN PO MODERATE PAIN LEVEL 4- 6 Last administered on 09/17/17 07:45; Admin Dose 1 TAB; Start 09/14/17 at 13 :30 Ceftriaxone Sodium (Rocephin) 50 ml @ 100 mls/hr Q24H IVPB Last administered on 09/17/17 07:45; Admin Dose 100 MLS/HR; Start 09/15/17 at 08:30 Amiodarone HCl (Cordarone) 400 mg DAILY PO Last administered on 09/17/17 09: 12; Admin Dose 400 MG; Start 09/15/17 at 09:00 Amlodipine Besylate (Norvasc) 5 mg BID PO Last administered on 09/15/17 20:07 ; Admin Dose 5 MG; Start 09/14/17 at 21:00 Aspirin (Halfprin) 81 mg DAILY PO Last administered on 09/17/17 09:13; Admin Dose 81 MG; Start 09/15/17 at 09:00 Clopidogrel Bisulfate (plaVIX) 75 mg DAILY PO Last administered on 09/17/17 09:13; Admin Dose 75 MG; Start 09/15/17 at 09:00 Diclofenac Sodium (Voltaren 1% Gel) 2 gm QID TP Last administered on 22:10; Admin Dose 2 GM; Start 09/14/17 at 17:00 Duloxetine HCl (Cymbalta) 30 mg DAILY PO Last administered on 09/17/17 09:18 ; Admin Dose 30 MG; Start 09/15/17 at 09:00 Ergocalciferol (Drisdol) 50,000 unit Q7D PO Last administered on 09/15/17 09: 53; Admin Dose 50,000 UNIT; Start 09/15/17 at 09:00 Fenofibrate (Tricor) 145 mg DAILY PO Last administered on 09/17/17 09:12; Admin Dose 145 MG; Start 09/15/17 at 09:00 Hydralazine HCl (Apresoline) 50 mg DAILY PO ; Start 09/15/17 at 09:00; Status Future Hold Montelukast Sodium (Singulair) 10 mg QHS PO Last administered on 09/16/17 22: 03; Admin Dose 10 MG; Start 09/14/17 at 21:00 Ranolazine (Ranexa) 1,000 mg BID PO Last administered on 09/17/17 09:13; Admin Dose 1,000 MG; Start 09/14/17 at 21:00 Tamsulosin HCl (Flomax) 0.4 mg DAILY@21 PO Last administered on 09/16/17 22: 03; Admin Dose 0.4 MG; Start 09/14/17 at 21:00 Pantoprazole (Protonix Tab) 40 mg DAILY@06 PO Last administered on 09/17/17 06:25; Admin Dose 40 MG; Start 09/15/17 at 06:00 Meclizine HCl (Antivert) 25 mg DAILY PO Last administered on 09/17/17 09:10; Admin Dose 25 MG; Start 09/15/17 at 09:00 Atorvastatin Calcium (Lipitor) 40 mg DAILY@21 PO Last administered on 22:03; Admin Dose 40 MG; Start 09/14/17 at 21:00 Diagnostic Test (Pha) (Accu-Chek) 1 ea 02 XX Last administered on 09/15/17 02 :37; Admin Dose 1 EA; Start 09/15/17 at 02:00 Azithromycin (Zithromax) 500 mg DAILY PO Last administered on 09/17/17 09:13 ; Admin Dose 500 MG; Start 09/15/17 at 09:00; Stop 09/21/17 at 08:59 Heparin Sodium (Porcine) (Heparin (5000 Units/0.5 ml)) 5,000 unit BID SC Last administered on 09/17/17 09:17; Admin Dose 5,000 UNIT; Start 09/15/17 at 21: 00 Furosemide (Lasix) 40 mg DAILY IV Last administered on 09/17/17 09:19; Admin Dose 40 MG; Start 09/15/17 at 15:30 Fish Oil (Fish Oil) 1,000 mg BID PO Last administered on 09/17/17 09:13; Admin Dose 1,000 MG; Start 09/16/17 at 21:00 Ferrous Sulfate (Ferrous Sulfate (Ec)) 325 mg BID PO Last administered on 09/17 09:13; Admin Dose 325 MG; Start 09/16/17 at 21:00 Docusate Sodium (Colace) 100 mg BID PRN PO CONSTIPATION; Start 09/16/17 at 11: 30 Bisacodyl (Dulcolax Supp) 10 mg DAILY PRN [place] CONSTIPATION Last administered on 09/17/17 15:46; Admin Dose 10 MG; Start 09/16/17 at 11:30 Morphine Sulfate (morphine) 1 mg Q4H PRN IV pain Last administered on 06:26; Admin Dose 1 MG; Start 09/17/17 at 06:00 Tramadol HCl (Ultram) 50 mg Q6H PRN PO pain; Start 09/17/17 at 06:00 Methylprednisolone Sodium Succinate 40 mg 40 mg Q6 IV Last administered on 17:45; Admin Dose 40 MG; Start 09/17/17 at 12:00 Levofloxacin/ Dextrose (Levaquin 250 Mg/ D5W 50 ml (Pmx)) 50 ml @ 50 mls/hr Q24H IVPB Last administered on 09/17/17 12:24; Admin Dose 50 MLS/HR; Start 09/17/17 at 12:00 GURMEET ARMSTRONG MD Sep 17, 2017 21:04
[2017-09-17] MEDS: TAMSULOSIN (SR) 0.4 MG CAP PO SCH (21:23)
[2017-09-17] MEDS: MONTELUKAST 10 MG TAB PO SCH (21:23)
[2017-09-17] MEDS: ATORVASTATIN 40 MG TAB PO SCH (21:23)
[2017-09-17] MEDS ORDERED: FUROSEMIDE 40 MG INJ IV ONE (21:30)
[2017-09-18] VITALS (28 sets, daily range): BP systolic 93–115; BP diastolic 47–65; PULSE 60–70; RESP 12–28
[2017-09-18] MEDS: METHYLPREDNISOLONE 40 MG INJ IV SCH ×4 (01:13→20:28)
[2017-09-18] MEDS: ALBUTEROL/IPRATROPIUM (NEB) 3 ML AMP HHN SCH ×4 (01:54→21:11)
[2017-09-18] MEDS: ACCU-CHEK XX SCH (04:50)
[2017-09-18] MEDS: PANTOPRAZOLE (EC) 40 MG TAB PO SCH (05:50)
--- NOTE | 2017-09-18 08:43 | PN ---
DATE: 09/18/2017 SUBJECTIVE: The patient remains in serious but stable condition, currently on BiPAP. No other acut e events overnight. No hemoptysis, hematemesis or hematochezia. OBJECTIVE: VITAL SIGNS: Blood pressure is 104/56, respiration 19, pulse 64, temperature 97.6. I's AND O'S: The patient had 3 L in, 1.7 L out. HEENT: Head is normocephalic. NECK: Supple. HEART: Regular rate. LUNGS: Show diminished breath sounds at the base. ABDOMEN: Soft, nontender to palpation. No rebound or guarding. EXTREMITIES: Negative for clubbing, cyanosis. Trace edema. DERMATOLOGIC: No rashes. MUSCULOSKELETAL: No joint effusions. NEUROLOGIC: No change in exam. MEDICATIONS: The patient's medications have been reviewed. LABORATORY DATA: Shows a white count 4.2, hemoglobin 8.9, hematocrit 27.1, platelet count is 280. Sodium 136, potassium 3.8, chloride 96, BUN 70, creatinine 2.18, glucose 2.18. The patient's chest x-ray from 09/17/2017 shows worsening pulmonary edema. ASSESSMENT AND PLAN: 1. Nonoliguric acute kidney injury on top of chronic kidney disease with previous baseline creatini ne of 1.7 to 2.0 mg/dL. Etiology of acute kidney injury is secondary to hemodynamics. The patient' s renal function has been fluctuating but overall stable. This is likely from diuretic therapy. Th e patient does have a progressive azotemia which is multifactorial secondary to hypercatabolic state , acute kidney injury, steroids. At this point, continue current treatment plan, supportive care, r enally dose all meds, monitor renal function closely on diuretic therapy. 2. Volume overload, acute congestive heart failure exacerbation. Continue diuretics. I would inte nsify Lasix 40 mg b.i.d., monitor closely. Follow up with cardiology. 3. Anemia. Monitor hemoglobin and hematocrit levels. 4. Mineral bone disorder. Monitor calcium and phosphorus levels. 5. Metabolic alkalosis. The patient is currently compensated. Continue to monitor. 6. Sepsis secondary to pneumonia. Continue current antibiotic regimen. 7. Acute hypoxemic respiratory failure secondary to congestive heart failure, pneumonia. Continue current treatment plan. Continue antibiotics, diuretics. Continue BiPAP. 8. Hypertension. Continue current pain regimen. 9. Paroxysmal atrial fibrillation, currently in sinus rhythm. Continue to monitor. Dictated By: ALDO ROSARIO/ELANA Conf#: [id number] DID#: [id number]
[2017-09-18] MEDS: MECLIZINE 25 MG TAB PO SCH (08:46)
[2017-09-18] MEDS: FISH OIL 1,000 MG CAP PO SCH ×2 (08:46→20:28)
[2017-09-18] MEDS: FENOFIBRATE 145 MG TAB PO SCH (08:46)
[2017-09-18] MEDS: AZITHROMYCIN 250 MG TAB PO SCH (08:46)
[2017-09-18] MEDS: CLOPIDOGREL 75 MG TAB PO SCH (08:46)
[2017-09-18] MEDS: SOTALOL 80 MG TAB PO SCH (08:46)
[2017-09-18] MEDS: DULOXETINE 30 MG CAP DR PO SCH (08:46)
[2017-09-18] MEDS: FERROUS SULFATE (EC) 325 MG TAB PO SCH ×2 (08:46→20:28)
[2017-09-18] MEDS: ASPIRIN (EC) 81 MG TAB PO SCH (08:46)
[2017-09-18] MEDS: CEFTRIAXONE 1 GM/50 ML (PMX) 50 ML IVPB SCH (08:47)
[2017-09-18] MEDS: DICLOFENAC SODIUM 1% GEL 100 GM TUBE TP SCH ×5 (08:47→20:30)
[2017-09-18] MEDS: HEPARIN 5,000 UNIT/0.5 ML VIAL SC SCH ×2 (08:54→20:33)
[2017-09-18] MEDS: INSULIN ASPART [NOVOLOG] 3 ML PEN SC SCH ×4 (08:55→20:32)
[2017-09-18] MEDS ORDERED: ACCU-CHEK XX SCH (09:00)
[2017-09-18] MEDS ORDERED: DEXTROSE 50% 50 ML SYRINGE IV PRN ×4 (09:00→09:30)
[2017-09-18] MEDS: FUROSEMIDE 40 MG INJ IV SCH ×2 (09:13→18:40)
--- NOTE | 2017-09-18 09:24 | PN ---
Date/Time of Note Date/Time of Note DATE: 09/18/17 TIME: 09:20 Assessment/Plan VTE Prophylaxis VTE Prophylaxis Intervention: heparin Lines/Catheters IV Catheter Type (from Nrs): Peripheral IV Urinary Cath still in place: No Assessment/Plan Chief Complaint/Hosp Course 77 yo M with multiple cardiac comorbidities here with fever and SOB 1. 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 -Pulmonary on board-Amio dcd. On steroids. 2.Possible superimposed Pneumonia, likely CAP. -Patient on ceftriaxone+Zithromax. 3. Hypoxic respiratory failure requiring non-invasive pressure ventilation, likely multifactorial with underlying CHF plus #1,#2. - f/u chest Xray, ABGs -Continue oxygen, around the clock and PRN Duoneb.Follow-up with ABGs/Xrays/ pulmonary recommendations. 4.JOHN PAUL on CKD. Baseline cr=1.7-2.0 range. JOHN PAUL likely 2/2 hemodynamics -Follow-up with nephrology recommendations. - Avoid nephrotoxins and Will monitor. 5. Acute on chronic Diastolic CHF. Ejection fraction 55%. -On Lasix.Follow-up with cardiology recommendations 5.Type2 DM. Now with hyperglycemia with steroids. -Start NPH Q12H while receiving steroids. Will start premeal if he is able to tolerate diet. - Will reassess in AM and consider insulin drip if indicated. -Continue accuchecks/ISS. 6.Coronary Artery Disease. -Continue current medical management. 7.Essential HTN. -Continue antihypertensives with parameters. 8. Hyperlipidemia. -On statin/fish oil/ diet optimization. 9.BPH -cont flomax 10.Vitamin D deficiency - Cont vit D 11.History of paroxysmal atrial fibrillation. -With pacemaker. Now on Betapace 2/2 possible amiodarone toxicity -Defer outpatient follow-up for consider switching to systemic anticoagulation. 12.Anemia,mild, with iron deficiency -on oral iron replacement 13.Constipation.Resolved -Stool softners/PRN laxatives Prophylaxis: Heparin/PPIs >30mins Critical care time spent Continue ICU care, F/u with marketing sales consultant's recs. Patient was seen in collaboration with . Problems: Subjective 24 Hr Interval Summary Free Text/Dictation On BIPAP 50%. With elevated blood sugars.On steroids. Exam/Review of Systems Vital Signs Vitals Vital Signs Date Time Temp Pulse Resp B/P Pulse Ox O2 Delivery O2 Flow Rate FiO2 09/18/17 08:00 60 09/18/17 06:00 19 104/56 100 09/18/17 05:20 100 09/18/17 04:00 97.6 09/18/17 02:05 15.0 09/17/17 14:26 Nasal Cannula Intake and Output 09/17/17 09/17/17 09/18/17 14:59 22:59 06:59 Intake Total 2780 ml 320 ml 220 ml Output Total 640 ml 765 ml 325 ml Balance 2140 ml -445 ml -105 ml Exam General: Well developed male,in mild respiratory distress. HEENT: Normocephalic, Atraumatic, No laceration or hematoma; Eyes: PEERL, Conjunctiva clear, Anicteric sclera Neck: Supple without any lymphadenopathy, nontender, no JVD, no carotid bruits, trachea midline, no thyromegaly Cardiac: S1, S2 auscultated, regular rhythm and rate, no mumurs or gallop Pulmonary: Diminished breath sound bibasilar. Patient is on high flow oxygen. GI: Abdomen normal to inspection. Soft, non- distended, no masses, no rebound tenderness or guarding. Bowel sounds active on all four quadrants Genitourinary: Deferred Extremities: No cyanosis, clubbing, or edema. Pulses [2+] bilaterally. Full ROM on all four extremities. No focal weakness appreciated. Neurologic: Alert to person, place, time, and situation. Affect appropriate, intact sensation. Skin: Clean,dry, and intact. No ecchymosis, no rashes, or lesions Results Result Diagram: 09/18/1715 09/18/1715 Results 24 hrs Laboratory Tests Test 09/17/17 09:34 09/17/17 12:07 09/17/17 17:33 09/17/17 21:18 Bedside Glucose 116 185 125 179 Test 09/18/17 05:47 09/18/17 06:15 09/18/17 08:41 Bedside Glucose 284 H 391 H White Blood Count 4.2 #L Red Blood Count 3.14 L Hemoglobin 8.9 L Hematocrit 27.1 L Mean Corpuscular Volume 86.3 Mean Corpuscular Hemoglobin 28.3 L Mean Corpuscular Hemoglobin Concent 32.8 Red Cell Distribution Width 15.9 H Platelet Count 280 # Mean Platelet Volume 10.3 Neutrophils % 84.3 H Lymphocytes % 11.2 L Monocytes % 4.0 Eosinophils % 0.0 Basophils % 0.0 Nucleated Red Blood Cells % 0.0 Neutrophils # 3.6 Lymphocytes # 0.5 L Monocytes # 0.2 L Eosinophils # 0.0 Basophils # 0.0 Nucleated Red Blood Cells # 0.0 Sodium Level 137 Potassium Level 3.8 Chloride Level 96 L Carbon Dioxide Level 25 Anion Gap 20 #H Blood Urea Nitrogen 70 H Creatinine 2.18 H Glucose Level 354 #H Calcium Level 8.7 Phosphorus Level 5.4 H Magnesium Level 2.4 Medications Medications Current Medications Ondansetron HCl (Zofran Tab) 4 mg Q6H PRN PO NAUSEA AND/OR VOMITING; Start at 13:30 Ondansetron HCl (Zofran Inj) 4 mg Q6H PRN IV NAUSEA AND/OR VOMITING; Start at 13:30 Acetaminophen (Tylenol Tab) 650 mg Q6H PRN PO PAIN LEVEL 1-3 OR FEVER Last administered on 09/16/17 22:03; Admin Dose 650 MG; Start 09/14/17 at 13:30 Acetaminophen/ Hydrocodone Bitart 1 tab 1 tab Q6H PRN PO MODERATE PAIN LEVEL 4- 6 Last administered on 09/17/17 07:45; Admin Dose 1 TAB; Start 09/14/17 at 13 :30 Ceftriaxone Sodium (Rocephin) 50 ml @ 100 mls/hr Q24H IVPB Last administered on 09/18/17 08:47; Admin Dose 100 MLS/HR; Start 09/15/17 at 08:30 Aspirin (Halfprin) 81 mg DAILY PO Last administered on 09/18/17 08:46; Admin Dose 81 MG; Start 09/15/17 at 09:00 Clopidogrel Bisulfate (plaVIX) 75 mg DAILY PO Last administered on 09/18/17 08:46; Admin Dose 75 MG; Start 09/15/17 at 09:00 Diclofenac Sodium (Voltaren 1% Gel) 2 gm QID TP Last administered on 08:47; Admin Dose 2 GM; Start 09/14/17 at 17:00 Duloxetine HCl (Cymbalta) 30 mg DAILY PO Last administered on 09/18/17 08:46 ; Admin Dose 30 MG; Start 09/15/17 at 09:00 Ergocalciferol (Drisdol) 50,000 unit Q7D PO Last administered on 09/15/17 09: 53; Admin Dose 50,000 UNIT; Start 09/15/17 at 09:00 Fenofibrate (Tricor) 145 mg DAILY PO Last administered on 09/18/17 08:46; Admin Dose 145 MG; Start 09/15/17 at 09:00 Montelukast Sodium (Singulair) 10 mg QHS PO Last administered on 09/17/17 21: 23; Admin Dose 10 MG; Start 09/14/17 at 21:00 Tamsulosin HCl (Flomax) 0.4 mg DAILY@21 PO Last administered on 09/17/17 21: 23; Admin Dose 0.4 MG; Start 09/14/17 at 21:00 Pantoprazole (Protonix Tab) 40 mg DAILY@06 PO Last administered on 09/18/17 05:50; Admin Dose 40 MG; Start 09/15/17 at 06:00 Meclizine HCl (Antivert) 25 mg DAILY PO Last administered on 09/18/17 08:46; Admin Dose 25 MG; Start 09/15/17 at 09:00 Atorvastatin Calcium (Lipitor) 40 mg DAILY@21 PO Last administered on 21:23; Admin Dose 40 MG; Start 09/14/17 at 21:00 Azithromycin (Zithromax) 500 mg DAILY PO Last administered on 09/18/17 08:46 ; Admin Dose 500 MG; Start 09/15/17 at 09:00; Stop 09/21/17 at 08:59 Heparin Sodium (Porcine) (Heparin (5000 Units/0.5 ml)) 5,000 unit BID SC Last administered on 09/18/17 08:54; Admin Dose 5,000 UNIT; Start 09/15/17 at 21: 00 Fish Oil (Fish Oil) 1,000 mg BID PO Last administered on 09/18/17 08:46; Admin Dose 1,000 MG; Start 09/16/17 at 21:00 Ferrous Sulfate (Ferrous Sulfate (Ec)) 325 mg BID PO Last administered on 09/18 08:46; Admin Dose 325 MG; Start 09/16/17 at 21:00 Docusate Sodium (Colace) 100 mg BID PRN PO CONSTIPATION; Start 09/16/17 at 11: 30 Bisacodyl (Dulcolax Supp) [address] CONSTIPATION Last administered on 09/17/17 15:46; Admin Dose 10 MG; Start 09/16/17 at 11:30 Morphine Sulfate (morphine) 1 mg Q4H PRN IV pain Last administered on 06:26; Admin Dose 1 MG; Start 09/17/17 at 06:00 Tramadol HCl (Ultram) 50 mg Q6H PRN PO pain; Start 09/17/17 at 06:00 Methylprednisolone Sodium Succinate 40 mg 40 mg Q6 IV Last administered on 05:50; Admin Dose 40 MG; Start 09/17/17 at 12:00 Levofloxacin/ Dextrose (Levaquin 250 Mg/ D5W 50 ml (Pmx)) 50 ml @ 50 mls/hr Q24H IVPB Last administered on 09/17/17 12:24; Admin Dose 50 MLS/HR; Start 09/17/17 at 12:00 Sotalol HCl (Betapace) 80 mg DAILY PO Last administered on 09/18/17 08:46; Admin Dose 80 MG; Start 09/18/17 at 09:00 Diagnostic Test (Pha) (Accu-Chek) 1 ea Q1H XX ; Start 09/18/17 at 09:00 Dextrose (D50w Syringe) 25 ml Q15M PRN IV Till BS 80 mg/dL or above x2; Start 09/18/17 at 09:00 Dextrose (D50w Syringe) 50 ml Q15M PRN IV Till BS 80 mg/dL or above x2; Start 09/18/17 at 09:00 MANUEL VELOZ NP Sep 18, 2017 09:24
[2017-09-18] MEDS ORDERED: GLUCAGON 1 MG INJ IM PRN (09:30)
[2017-09-18] MEDS ORDERED: GLUCOSE GEL 15 GRAM TUBE PO PRN ×2 (09:30)
[2017-09-18] MEDS ORDERED: GLUCOSE GEL 15 GRAM TUBE BUCCAL PRN (09:30)
[2017-09-18] MEDS ORDERED: INSULIN HUMAN REGULAR 100 UNIT in SOD CHLORIDE 0.9% 99 ML IV SCH (10:00)
--- NOTE | 2017-09-18 11:05 | CONS ---
Date/Time of Note Date/Time of Note DATE: 09/18/17 TIME: 11:02 Assessment/Plan Assessment/Plan Additional Assessment/Plan Chest x-ray showing increasing pulmonary edema. BiPAP settings; 16/6, 50% FiO2. Assessment and recommendations; next 1. 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 Patient started on Solu-Medrol yesterday. 2. Likely superimposed pneumonia as well as pulmonary edema. Patient on Levaquin day #2. 3. History of cardiac arrhythmia. 4. Chronic renal insufficiency. 5. Diabetes. Increased blood sugars due to Solu-Medrol. Patient started on insulin coverage. Continue current treatment. Agree with increasing Lasix to 40 mg IV every 12 hours. Amiodarone has been discontinued. Repeat chest x-ray in 48 hours. Consultation Date/Type/Reason Admit Date/Time Sep 14, 2017 at 08:17 Type of Consultation: Pulmonary/critical care 24 HR Interval Summary Free Text/Dictation Patient's condition is tenuous at best. Still requiring BiPAP at 50% FiO2. Patient however remains completely awake and alert and denies any shortness of breath, chest pain, wheezing or cough. General exam; elderly male, awake and alert. Currently in no distress. Exam/Review of Systems Vital Signs Vitals Vital Signs Date Time Temp Pulse Resp B/P Pulse Ox O2 Delivery O2 Flow Rate FiO2 09/18/17 09:07 61 98 50 09/18/17 09:07 15 09/18/17 09:00 99/52 09/18/17 08:00 97.5 09/18/17 02:05 15.0 09/17/17 14:26 Nasal Cannula Intake and Output 09/17/17 09/17/17 09/18/17 15:00 23:00 07:00 Intake Total 2780 ml 320 ml 220 ml Output Total 640 ml 685 ml 325 ml Balance 2140 ml -365 ml -105 ml Exam HEENT exam; supple neck, positive JVD. No lymphadenopathy. Midline trachea. No thyromegaly. Patient has a multiple carious teeth. Pupils are small bilaterally. Chest exam; scattered crackles bilaterally. S1-S2 audible, irregular rhythm. Pacemaker in left chest wall. No murmurs. Abdomen exam; soft, nondistended. No organomegaly. Bowel sounds audible. Next Extremity exam; no edema. DATA SERVICES DEVELOPER exam; no focal deficit. Results Result Diagram: 09/18/17 0615 09/18/17 0615 Results 24 hrs Laboratory Tests Test 09/17/17 12:07 09/17/17 17:33 09/17/17 21:18 09/18/17 05:47 Bedside Glucose 185 125 179 284 H Test 09/18/17 06:15 09/18/17 08:41 09/18/17 08:56 White Blood Count 4.2 #L Red Blood Count 3.14 L Hemoglobin 8.9 L Hematocrit 27.1 L Mean Corpuscular Volume 86.3 Mean Corpuscular Hemoglobin 28.3 L Mean Corpuscular Hemoglobin Concent 32.8 Red Cell Distribution Width 15.9 H Platelet Count 280 # Mean Platelet Volume 10.3 Neutrophils % 84.3 H Lymphocytes % 11.2 L Monocytes % 4.0 Eosinophils % 0.0 Basophils % 0.0 Nucleated Red Blood Cells % 0.0 Neutrophils # 3.6 Lymphocytes # 0.5 L Monocytes # 0.2 L Eosinophils # 0.0 Basophils # 0.0 Nucleated Red Blood Cells # 0.0 Sodium Level 137 Potassium Level 3.8 Chloride Level 96 L Carbon Dioxide Level 25 Anion Gap 20 #H Blood Urea Nitrogen 70 H Creatinine 2.18 H Glucose Level 354 #H Calcium Level 8.7 Phosphorus Level 5.4 H Magnesium Level 2.4 Bedside Glucose 391 H Blood Gas Specimen Source Blood arterial Arterial Blood Date Drawn 09/18/2017 9:40:51 AM Arterial Blood pH (Temp corrected) 7.381 Arterial Blood pCO2 (Temp correct) 48.5 H Arterial Blood pO2 (Temp corrected) 94.4 H Arterial Blood HCO3 28.1 H Arterial Blood Base Excess 2.5 Arterial Blood Oxygen Saturation 96.3 Star Test ACCEPTAB Arterial Blood Gas Puncture Site Right Radial Arterial Blood Carboxyhemoglobin 0.2 Arterial Blood Methemoglobin 0.3 Blood Gas A-a O2 Differential 207.5 H Oxyhemoglobin Percent 95.8 Total Hemoglobin 10.1 L Blood Gas Temperature 37.0 Blood Gas Respiration Rate 20.0 Blood Gas Actual Respiration Rate 25 Blood Gas Modality MASK - BIPAP FiO2 50.0 Blood Gas IPAP/EPAP Ratio 16/6 Blood Gas Notified Whom JLD Blood Gas Notified Time 09/18/2017 10:01:34 AM Medications Medications Current Medications Ondansetron HCl (Zofran Tab) 4 mg Q6H PRN PO NAUSEA AND/OR VOMITING; Start at 13:30 Ondansetron HCl (Zofran Inj) 4 mg Q6H PRN IV NAUSEA AND/OR VOMITING; Start at 13:30 Acetaminophen (Tylenol Tab) 650 mg Q6H PRN PO PAIN LEVEL 1-3 OR FEVER Last administered on 09/16/17 22:03; Admin Dose 650 MG; Start 09/14/17 at 13:30 Acetaminophen/ Hydrocodone Bitart 1 tab 1 tab Q6H PRN PO MODERATE PAIN LEVEL 4- 6 Last administered on 09/17/17 07:45; Admin Dose 1 TAB; Start 09/14/17 at 13 :30 Ceftriaxone Sodium (Rocephin) 50 ml @ 100 mls/hr Q24H IVPB Last administered on 09/18/17 08:47; Admin Dose 100 MLS/HR; Start 09/15/17 at 08:30 Aspirin (Halfprin) 81 mg DAILY PO Last administered on 09/18/17 08:46; Admin Dose 81 MG; Start 09/15/17 at 09:00 Clopidogrel Bisulfate (plaVIX) 75 mg DAILY PO Last administered on 09/18/17 08:46; Admin Dose 75 MG; Start 09/15/17 at 09:00 Diclofenac Sodium (Voltaren 1% Gel) 2 gm QID TP Last administered on 21:27; Admin Dose 2 GM; Start 09/14/17 at 17:00 Duloxetine HCl (Cymbalta) 30 mg DAILY PO Last administered on 09/18/17 08:46 ; Admin Dose 30 MG; Start 09/15/17 at 09:00 Ergocalciferol (Drisdol) 50,000 unit Q7D PO Last administered on 09/15/17 09: 53; Admin Dose 50,000 UNIT; Start 09/15/17 at 09:00 Fenofibrate (Tricor) 145 mg DAILY PO Last administered on 09/18/17 08:46; Admin Dose 145 MG; Start 09/15/17 at 09:00 Montelukast Sodium (Singulair) 10 mg QHS PO Last administered on 09/17/17 21: 23; Admin Dose 10 MG; Start 09/14/17 at 21:00 Tamsulosin HCl (Flomax) 0.4 mg DAILY@21 PO Last administered on 09/17/17 21: 23; Admin Dose 0.4 MG; Start 09/14/17 at 21:00 Pantoprazole (Protonix Tab) 40 mg DAILY@06 PO Last administered on 09/18/17 05:50; Admin Dose 40 MG; Start 09/15/17 at 06:00 Meclizine HCl (Antivert) 25 mg DAILY PO Last administered on 09/18/17 08:46; Admin Dose 25 MG; Start 09/15/17 at 09:00 Atorvastatin Calcium (Lipitor) 40 mg DAILY@21 PO Last administered on 21:23; Admin Dose 40 MG; Start 09/14/17 at 21:00 Azithromycin (Zithromax) 500 mg DAILY PO Last administered on 09/18/17 08:46 ; Admin Dose 500 MG; Start 09/15/17 at 09:00; Stop 09/21/17 at 08:59 Heparin Sodium (Porcine) (Heparin (5000 Units/0.5 ml)) 5,000 unit BID SC Last administered on 09/18/17 08:54; Admin Dose 5,000 UNIT; Start 09/15/17 at 21: 00 Fish Oil (Fish Oil) 1,000 mg BID PO Last administered on 09/18/17 08:46; Admin Dose 1,000 MG; Start 09/16/17 at 21:00 Ferrous Sulfate (Ferrous Sulfate (Ec)) 325 mg BID PO Last administered on 09/18 08:46; Admin Dose 325 MG; Start 09/16/17 at 21:00 Docusate Sodium (Colace) 100 mg BID PRN PO CONSTIPATION; Start 09/16/17 at 11: 30 Bisacodyl (Dulcolax Supp) 10 mg DAILY PRN [place] CONSTIPATION Last administered on 09/17/17 15:46; Admin Dose 10 MG; Start 09/16/17 at 11:30 Morphine Sulfate (morphine) 1 mg Q4H PRN IV pain Last administered on 06:26; Admin Dose 1 MG; Start 09/17/17 at 06:00 Tramadol HCl (Ultram) 50 mg Q6H PRN PO pain; Start 09/17/17 at 06:00 Methylprednisolone Sodium Succinate 40 mg 40 mg Q6 IV Last administered on 05:50; Admin Dose 40 MG; Start 09/17/17 at 12:00 Levofloxacin/ Dextrose (Levaquin 250 Mg/ D5W 50 ml (Pmx)) 50 ml @ 50 mls/hr Q24H IVPB Last administered on 09/17/17 12:24; Admin Dose 50 MLS/HR; Start 09/17/17 at 12:00 Sotalol HCl (Betapace) 80 mg DAILY PO Last administered on 09/18/17 08:46; Admin Dose 80 MG; Start 09/18/17 at 09:00 Diagnostic Test (Pha) (Accu-Chek) 1 ea 02 XX ; Start 09/19/17 at 02:00 Insulin Human NPH (Humulin N) 15 unit BID@08,20 SC ; Start 09/18/17 at 09:30 Miscellaneous Information 1 ea NOTE XX ; Start 09/18/17 at 09:30 Glucose (Glutose) 15 gm Q15M PRN PO DECREASED GLUCOSE; Start 09/18/17 at 09:30 Glucose (Glutose) 22.5 gm Q15M PRN PO DECREASED GLUCOSE; Start 09/18/17 at 09: 30 Dextrose (D50w Syringe) 25 ml Q15M PRN IV DECREASED GLUCOSE; Start 09/18/17 at 09:30 Dextrose (D50w Syringe) 50 ml Q15M PRN IV DECREASED GLUCOSE; Start 09/18/17 at 09:30 Glucagon (Glucagen) 1 mg Q15M PRN IM DECREASED GLUCOSE; Start 09/18/17 at 09: 30 Glucose (Glutose) 15 gm Q15M PRN BUCCAL DECREASED GLUCOSE; Start 09/18/17 at 09:30 MELISSA AGUERO Sep 18, 2017 11:05
[2017-09-18] MEDS: LEVOFLOXACIN 250MG/D5W (PMX) 50 ML IVPB SCH (12:22)
[2017-09-18] MEDS: NPH, HUMAN INSULIN ISOPHANE 3ML VIAL SC SCH ×2 (12:30→20:33)
--- NOTE | 2017-09-18 13:36 | RADRPT ---
Vent Rate: 60 bpm RR Interval: 0 msec CA Interval: 294 msec QRS Duration: 116 msec QT Interval: 520 msec QTC Interval: 520 msec P-R-T [place]: 0 - 52 - 47 degrees Electronic atrial pacemaker Prolonged QT Abnormal ECG Electronically Signed By: Junior Arzola [id number]
--- NOTE | 2017-09-18 13:36 | RADRPT ---
Vent Rate: 60 bpm RR Interval: 0 msec [place] Interval: 294 msec QRS Duration: 116 msec QT Interval: 520 msec QTC Interval: 520 msec P-R-T [place]: 0 - 52 - 47 degrees Electronic atrial pacemaker Prolonged QT Abnormal ECG Electronically Signed By: Junior Arzola [id number]
--- NOTE | 2017-09-18 13:36 | RADRPT ---
Vent Rate: 60 bpm RR Interval: 0 msec CO Interval: 294 msec QRS Duration: 116 msec QT Interval: 520 msec QTC Interval: 520 msec P-R-T [place]: 0 - 52 - 47 degrees Electronic atrial pacemaker Prolonged QT Abnormal ECG Electronically Signed By: Junior Arzola [id number]
--- NOTE | 2017-09-18 14:59 | CONS ---
Date/Time of Note Date/Time of Note DATE: 09/18/17 TIME: 14:57 Assessment/Plan Assessment/Plan Chief Complaint/Hosp Course Assessment: Acute hypoxic respiratory failure - primarily pulmonary with component of congestive heart failure, on intermittent BiPAP per pulmonology Suspected pulmonary fibrosis Possible pneumonia - on antibiotics Acute on chronic diastolic heart failure - echocardiogram reported LVEF 55% Moderate aortic stenosis Coronary artery disease - anatomy unknown, apparently he has not been revascularized in the past Paroxysmal atrial fibrillation - currently sinus rhythm Permanent pacemaker - details unknown Hypertension Dyslipidemia Acute kidney injury on chronic kidney disease History of stroke Recommendations: -Lasix has been increased to 40mg IV BID -amiodarone was discontinued due to concern for pulmonary toxicity -continue sotalol 80mg Q24hr (renally dosed), monitor QT interval on telemetry and with daily EKGs -continue outpatient aspirin 81mg and clopidogrel daily (though would consider anticoagulation instead of dual-antiplatelet therapy due to atrial fibrillation and history of stroke - defer to outpatient technician biological health) -continue statin Problems: Consultation Date/Type/Reason Admit Date/Time Sep 14, 2017 at 08:17 Type of Consultation: Cardiology 24 HR Interval Summary Free Text/Dictation On high flow mask. Sinus rhythm on telemetry. Detailed Summary Additional Comments Unable to obtain review of systems due to patient's current condition. Exam/Review of Systems Vital Signs Vitals Vital Signs Date Time Temp Pulse Resp B/P Pulse Ox O2 Delivery O2 Flow Rate FiO2 09/18/17 14:36 98 50 09/18/17 14:36 61 17 09/18/17 13:00 115/60 09/18/17 12:00 97.6 High Flow 09/18/17 02:05 15.0 Intake and Output 09/17/17 09/17/17 09/18/17 15:00 23:00 07:00 Intake Total 2780 ml 320 ml 220 ml Output Total 640 ml 685 ml 325 ml Balance 2140 ml -365 ml -105 ml Exam Constitutional: alert, well developed Psych: nl mood/affect, no complaints Head: atraumatic, normocephalic Eyes: nl conjunctiva, nl lids ENMT: nl external ears & nose, nl nasal mucosa & septum Neck: non-tender, supple Respiratory: crackles/rales, diminished breath sounds Cardiovascular: regular rate and rhythm Gastrointestinal: non-tender, soft Musculoskeletal: nl extremities to inspection Extremities: No clubbing, No cyanosis, No edema Neurological: No nl mental status, No nl speech Skin: nl turgor Results Result Diagram: 09/18/17 0615 09/18/17 0615 Results 24 hrs Laboratory Tests Test 09/17/17 17:33 09/17/17 21:18 09/18/17 05:47 09/18/17 06:15 Bedside Glucose 125 179 284 H White Blood Count 4.2 #L Red Blood Count 3.14 L Hemoglobin 8.9 L Hematocrit 27.1 L Mean Corpuscular Volume 86.3 Mean Corpuscular Hemoglobin 28.3 L Mean Corpuscular Hemoglobin Concent 32.8 Red Cell Distribution Width 15.9 H Platelet Count 280 # Mean Platelet Volume 10.3 Neutrophils % 84.3 H Lymphocytes % 11.2 L Monocytes % 4.0 Eosinophils % 0.0 Basophils % 0.0 Nucleated Red Blood Cells % 0.0 Neutrophils # 3.6 Lymphocytes # 0.5 L Monocytes # 0.2 L Eosinophils # 0.0 Basophils # 0.0 Nucleated Red Blood Cells # 0.0 Sodium Level 137 Potassium Level 3.8 Chloride Level 96 L Carbon Dioxide Level 25 Anion Gap 20 #H Blood Urea Nitrogen 70 H Creatinine 2.18 H Glucose Level 354 #H Calcium Level 8.7 Phosphorus Level 5.4 H Magnesium Level 2.4 Test 09/18/17 08:41 09/18/17 08:56 09/18/17 12:25 Bedside Glucose 391 H 398 H Blood Gas Specimen Source Blood arterial Arterial Blood Date Drawn 09/18/2017 9:40:51 AM Arterial Blood pH (Temp corrected) 7.381 Arterial Blood pCO2 (Temp correct) 48.5 H Arterial Blood pO2 (Temp corrected) 94.4 H Arterial Blood HCO3 28.1 H Arterial Blood Base Excess 2.5 Arterial Blood Oxygen Saturation 96.3 Star Test ACCEPTAB Arterial Blood Gas Puncture Site Right Radial Arterial Blood Carboxyhemoglobin 0.2 Arterial Blood Methemoglobin 0.3 Blood Gas A-a O2 Differential 207.5 H Oxyhemoglobin Percent 95.8 Total Hemoglobin 10.1 L Blood Gas Temperature 37.0 Blood Gas Respiration Rate 20.0 Blood Gas Actual Respiration Rate 25 Blood Gas Modality MASK - BIPAP FiO2 50.0 Blood Gas IPAP/EPAP Ratio 16/6 Blood Gas Notified Whom ABDIELD Blood Gas Notified Time 09/18/2017 10:01:34 AM Medications Medications Current Medications Ondansetron HCl (Zofran Tab) 4 mg Q6H PRN PO NAUSEA AND/OR VOMITING; Start at 13:30 Ondansetron HCl (Zofran Inj) 4 mg Q6H PRN IV NAUSEA AND/OR VOMITING; Start at 13:30 Acetaminophen (Tylenol Tab) 650 mg Q6H PRN PO PAIN LEVEL 1-3 OR FEVER Last administered on 09/16/17 22:03; Admin Dose 650 MG; Start 09/14/17 at 13:30 Acetaminophen/ Hydrocodone Bitart 1 tab 1 tab Q6H PRN PO MODERATE PAIN LEVEL 4- 6 Last administered on 09/17/17 07:45; Admin Dose 1 TAB; Start 09/14/17 at 13 :30 Ceftriaxone Sodium (Rocephin) 50 ml @ 100 mls/hr Q24H IVPB Last administered on 09/18/17 08:47; Admin Dose 100 MLS/HR; Start 09/15/17 at 08:30 Aspirin (Halfprin) 81 mg DAILY PO Last administered on 09/18/17 08:46; Admin Dose 81 MG; Start 09/15/17 at 09:00 Clopidogrel Bisulfate (plaVIX) 75 mg DAILY PO Last administered on 09/18/17 08:46; Admin Dose 75 MG; Start 09/15/17 at 09:00 Diclofenac Sodium (Voltaren 1% Gel) 2 gm QID TP Last administered on 21:27; Admin Dose 2 GM; Start 09/14/17 at 17:00 Duloxetine HCl (Cymbalta) 30 mg DAILY PO Last administered on 09/18/17 08:46 ; Admin Dose 30 MG; Start 09/15/17 at 09:00 Ergocalciferol (Drisdol) 50,000 unit Q7D PO Last administered on 09/15/17 09: 53; Admin Dose 50,000 UNIT; Start 09/15/17 at 09:00 Fenofibrate (Tricor) 145 mg DAILY PO Last administered on 09/18/17 08:46; Admin Dose 145 MG; Start 09/15/17 at 09:00 Montelukast Sodium (Singulair) 10 mg QHS PO Last administered on 09/17/17 21: 23; Admin Dose 10 MG; Start 09/14/17 at 21:00 Tamsulosin HCl (Flomax) 0.4 mg DAILY@21 PO Last administered on 09/17/17 21: 23; Admin Dose 0.4 MG; Start 09/14/17 at 21:00 Pantoprazole (Protonix Tab) 40 mg DAILY@06 PO Last administered on 09/18/17 05:50; Admin Dose 40 MG; Start 09/15/17 at 06:00 Meclizine HCl (Antivert) 25 mg DAILY PO Last administered on 09/18/17 08:46; Admin Dose 25 MG; Start 09/15/17 at 09:00 Atorvastatin Calcium (Lipitor) 40 mg DAILY@21 PO Last administered on 21:23; Admin Dose 40 MG; Start 09/14/17 at 21:00 Azithromycin (Zithromax) 500 mg DAILY PO Last administered on 09/18/17 08:46 ; Admin Dose 500 MG; Start 09/15/17 at 09:00; Stop 09/21/17 at 08:59 Heparin Sodium (Porcine) (Heparin (5000 Units/0.5 ml)) 5,000 unit BID SC Last administered on 09/18/17 08:54; Admin Dose 5,000 UNIT; Start 09/15/17 at 21: 00 Fish Oil (Fish Oil) 1,000 mg BID PO Last administered on 09/18/17 08:46; Admin Dose 1,000 MG; Start 09/16/17 at 21:00 Ferrous Sulfate (Ferrous Sulfate (Ec)) 325 mg BID PO Last administered on 09/18 08:46; Admin Dose 325 MG; Start 09/16/17 at 21:00 Docusate Sodium (Colace) 100 mg BID PRN PO CONSTIPATION; Start 09/16/17 at 11: 30 Bisacodyl (Dulcolax Supp) 10 mg DAILY PRN [place] CONSTIPATION Last administered on 09/17/17 15:46; Admin Dose 10 MG; Start 09/16/17 at 11:30 Morphine Sulfate (morphine) 1 mg Q4H PRN IV pain Last administered on 06:26; Admin Dose 1 MG; Start 09/17/17 at 06:00 Tramadol HCl (Ultram) 50 mg Q6H PRN PO pain; Start 09/17/17 at 06:00 Methylprednisolone Sodium Succinate 40 mg 40 mg Q6 IV Last administered on 12:22; Admin Dose 40 MG; Start 09/17/17 at 12:00 Levofloxacin/ Dextrose (Levaquin 250 Mg/ D5W 50 ml (Pmx)) 50 ml @ 50 mls/hr Q24H IVPB Last administered on 09/18/17 12:22; Admin Dose 50 MLS/HR; Start 09/17/17 at 12:00 Sotalol HCl (Betapace) 80 mg DAILY PO Last administered on 09/18/17 08:46; Admin Dose 80 MG; Start 09/18/17 at 09:00 Diagnostic Test (Pha) (Accu-Chek) 1 ea 02 XX ; Start 09/19/17 at 02:00 Insulin Human NPH (Humulin N) 15 unit BID@08,20 SC Last administered on 12:30; Admin Dose 15 UNIT; Start 09/18/17 at 09:30 Miscellaneous Information 1 ea NOTE XX ; Start 09/18/17 at 09:30 Glucose (Glutose) 15 gm Q15M PRN PO DECREASED GLUCOSE; Start 09/18/17 at 09:30 Glucose (Glutose) 22.5 gm Q15M PRN PO DECREASED GLUCOSE; Start 09/18/17 at 09: 30 Dextrose (D50w Syringe) 25 ml Q15M PRN IV DECREASED GLUCOSE; Start 09/18/17 at 09:30 Dextrose (D50w Syringe) 50 ml Q15M PRN IV DECREASED GLUCOSE; Start 09/18/17 at 09:30 Glucagon (Glucagen) 1 mg Q15M PRN IM DECREASED GLUCOSE; Start 09/18/17 at 09: 30 Glucose (Glutose) 15 gm Q15M PRN BUCCAL DECREASED GLUCOSE; Start 09/18/17 at 09:30 GURMEET ARMSTRONG MD Sep 18, 2017 14:59
[2017-09-18] MEDS: ATORVASTATIN 40 MG TAB PO SCH (20:28)
[2017-09-18] MEDS: TAMSULOSIN (SR) 0.4 MG CAP PO SCH (20:28)
[2017-09-18] MEDS: MONTELUKAST 10 MG TAB PO SCH (22:18)
[2017-09-19] VITALS (25 sets, daily range): BP systolic 77–120; BP diastolic 36–70; PULSE 60–63; RESP 13–24
[2017-09-19] MEDS: ACCU-CHEK XX SCH (02:00)
[2017-09-19] MEDS: METHYLPREDNISOLONE 40 MG INJ IV SCH ×4 (02:00→20:50)
[2017-09-19] MEDS: ALBUTEROL/IPRATROPIUM (NEB) 3 ML AMP HHN SCH ×4 (02:22→19:15)
[2017-09-19] MEDS: PANTOPRAZOLE (EC) 40 MG TAB PO SCH (05:59)
[2017-09-19] MEDS: FUROSEMIDE 40 MG INJ IV SCH ×2 (05:59→18:52)
--- NOTE | 2017-09-19 08:27 | PN ---
Date/Time of Note Date/Time of Note DATE: 09/19/17 TIME: 08:25 Assessment/Plan VTE Prophylaxis VTE Prophylaxis Intervention: heparin Lines/Catheters IV Catheter Type (from Nrs): Peripheral IV Assessment/Plan Chief Complaint/Hosp Course 77 yo M with multiple cardiac comorbidities here with fever and SOB 1. 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 -Pulmonary on board-Amio dcd. On steroids. 2.Possible superimposed Pneumonia, likely CAP. -Patient on ceftriaxone+Zithromax. 3. Hypoxic respiratory failure requiring non-invasive pressure ventilation, likely multifactorial with underlying CHF plus #1,#2. Slowly improving. - f/u chest Xray, ABGs -Continue oxygen-titrate per pulmo/RT, around the clock and PRN Duoneb.Follow- up with ABGs/Xrays/ pulmonary recommendations. 4.JOHN PAUL on CKD. Baseline cr=1.7-2.0 range. JOHN PAUL likely 2/2 hemodynamics -Follow-up with nephrology recommendations. - Avoid nephrotoxins and Will monitor. 5. Acute on chronic Diastolic CHF. Ejection fraction 55%. -On Lasix.Follow-up with cardiology recommendations 5.Type2 DM. Now with hyperglycemia with steroids. -Start Premeal 6 units TD, continue NPH Q12H while receiving steroids-Will titrate as indicated. -Continue accuchecks/ISS. 6.Coronary Artery Disease. -Continue current medical management. 7.Essential HTN. -Continue antihypertensives with parameters. 8. Hyperlipidemia. -On statin/fish oil/ diet optimization. 9.BPH -cont flomax 10.Vitamin D deficiency - Cont vit D 11.History of paroxysmal atrial fibrillation.No in sinus rhythm -With pacemaker. On Betapace 2/2 possible amiodarone toxicity-Today EKG with prolonged QT-Defer to cardiology. -Defer outpatient follow-up for consider switching to systemic anticoagulation. 12.Anemia,mild, with iron deficiency -on oral iron replacement Prophylaxis: Heparin/PPIs >30mins Critical care time spent Continue ICU care, F/u with business operations consultant's recs. Patient was seen in collaboration with . Problems: Subjective 24 Hr Interval Summary Free Text/Dictation Overall improving gradually with lesser Oxygen demand. currently on High flow NC with 40% Fio2,20L Exam/Review of Systems Vital Signs Vitals Vital Signs Date Time Temp Pulse Resp B/P Pulse Ox O2 Delivery O2 Flow Rate FiO2 09/19/17 07:00 63 13 115/70 98 High Flow 09/19/17 05:13 45 09/19/17 04:00 98.0 09/18/17 02:05 15.0 Intake and Output 09/18/17 09/18/17 09/19/17 14:59 22:59 06:59 Intake Total 500 ml 400 ml 400 ml Output Total 950 ml 750 ml 1100 ml Balance -450 ml -350 ml -700 ml Exam General: Well developed male,in mild respiratory distress. HEENT: Normocephalic, Atraumatic, No laceration or hematoma; Eyes: PEERL, Conjunctiva clear, Anicteric sclera Neck: Supple without any lymphadenopathy, nontender, no JVD, no carotid bruits, trachea midline, no thyromegaly Cardiac: S1, S2 auscultated, regular rhythm and rate, no mumurs or gallop Pulmonary: Diminished breath sound bibasilar. Patient is on high flow oxygen. GI: Abdomen normal to inspection. Soft, non- distended, no masses, no rebound tenderness or guarding. Bowel sounds active on all four quadrants Genitourinary: Deferred Extremities: No cyanosis, clubbing, or edema. Pulses [2+] bilaterally. Full ROM on all four extremities. No focal weakness appreciated. Neurologic: Alert to person, place, time, and situation. Affect appropriate, intact sensation. Skin: Clean,dry, and intact. No ecchymosis, no rashes, or lesions Results Result Diagram: 09/19/17 0514 09/19/17 0514 Results 24 hrs Laboratory Tests Test 09/18/17 08:41 09/18/17 08:56 09/18/17 12:25 09/18/17 17:45 Bedside Glucose 391 H 398 H 339 H Blood Gas Specimen Source Blood arterial Arterial Blood Date Drawn 09/18/2017 9:40:51 AM Arterial Blood pH (Temp corrected) 7.381 Arterial Blood pCO2 (Temp correct) 48.5 H Arterial Blood pO2 (Temp corrected) 94.4 H Arterial Blood HCO3 28.1 H Arterial Blood Base Excess 2.5 Arterial Blood Oxygen Saturation 96.3 Star Test ACCEPTAB Arterial Blood Gas Puncture Site Right Radial Arterial Blood Carboxyhemoglobin 0.2 Arterial Blood Methemoglobin 0.3 Blood Gas A-a O2 Differential 207.5 H Oxyhemoglobin Percent 95.8 Total Hemoglobin 10.1 L Blood Gas Temperature 37.0 Blood Gas Respiration Rate 20.0 Blood Gas Actual Respiration Rate 25 Blood Gas Modality MASK - BIPAP FiO2 50.0 Blood Gas IPAP/EPAP Ratio 16/6 Blood Gas Notified Whom JLD Blood Gas Notified Time 09/18/2017 10:01:34 AM Test 09/18/17 20:30 09/19/17 02:01 09/19/17 05:14 Bedside Glucose 393 H 366 H White Blood Count 6.9 # Red Blood Count 3.16 L Hemoglobin 8.6 L Hematocrit 26.8 L Mean Corpuscular Volume 84.8 Mean Corpuscular Hemoglobin 27.2 L Mean Corpuscular Hemoglobin Concent 32.1 Red Cell Distribution Width 15.4 H Platelet Count 315 Mean Platelet Volume 10.3 Neutrophils % 86.7 H Lymphocytes % 7.2 L Monocytes % 5.4 Eosinophils % 0.0 Basophils % 0.0 Nucleated Red Blood Cells % 0.0 Neutrophils # 6.0 Lymphocytes # 0.5 L Monocytes # 0.4 Eosinophils # 0.0 Basophils # 0.0 Nucleated Red Blood Cells # 0.0 Sodium Level 136 Potassium Level 3.5 Chloride Level 93 L Carbon Dioxide Level 31 Anion Gap 16 Blood Urea Nitrogen 89 H Creatinine 2.13 H Glucose Level 293 H Calcium Level 8.6 Phosphorus Level 3.5 Magnesium Level 2.5 Medications Medications Current Medications Ondansetron HCl (Zofran Tab) 4 mg Q6H PRN PO NAUSEA AND/OR VOMITING; Start at 13:30 Ondansetron HCl (Zofran Inj) 4 mg Q6H PRN IV NAUSEA AND/OR VOMITING; Start at 13:30 Acetaminophen (Tylenol Tab) 650 mg Q6H PRN PO PAIN LEVEL 1-3 OR FEVER Last administered on 09/16/17 22:03; Admin Dose 650 MG; Start 09/14/17 at 13:30 Acetaminophen/ Hydrocodone Bitart 1 tab 1 tab Q6H PRN PO MODERATE PAIN LEVEL 4- 6 Last administered on 09/17/17 07:45; Admin Dose 1 TAB; Start 09/14/17 at 13 :30 Ceftriaxone Sodium (Rocephin) 50 ml @ 100 mls/hr Q24H IVPB Last administered on 09/18/17 08:47; Admin Dose 100 MLS/HR; Start 09/15/17 at 08:30 Aspirin (Halfprin) 81 mg DAILY PO Last administered on 09/18/17 08:46; Admin Dose 81 MG; Start 09/15/17 at 09:00 Clopidogrel Bisulfate (plaVIX) 75 mg DAILY PO Last administered on 09/18/17 08:46; Admin Dose 75 MG; Start 09/15/17 at 09:00 Diclofenac Sodium (Voltaren 1% Gel) 2 gm QID TP Last administered on 20:30; Admin Dose 2 GM; Start 09/14/17 at 17:00 Duloxetine HCl (Cymbalta) 30 mg DAILY PO Last administered on 09/18/17 08:46 ; Admin Dose 30 MG; Start 09/15/17 at 09:00 Ergocalciferol (Drisdol) 50,000 unit Q7D PO Last administered on 09/15/17 09: 53; Admin Dose 50,000 UNIT; Start 09/15/17 at 09:00 Fenofibrate (Tricor) 145 mg DAILY PO Last administered on 09/18/17 08:46; Admin Dose 145 MG; Start 09/15/17 at 09:00 Montelukast Sodium (Singulair) 10 mg QHS PO Last administered on 09/18/17 22: 18; Admin Dose 10 MG; Start 09/14/17 at 21:00 Tamsulosin HCl (Flomax) 0.4 mg DAILY@21 PO Last administered on 09/18/17 20: 28; Admin Dose 0.4 MG; Start 09/14/17 at 21:00 Pantoprazole (Protonix Tab) 40 mg DAILY@06 PO Last administered on 09/19/17 05:59; Admin Dose 40 MG; Start 09/15/17 at 06:00 Meclizine HCl (Antivert) 25 mg DAILY PO Last administered on 09/18/17 08:46; Admin Dose 25 MG; Start 09/15/17 at 09:00 Atorvastatin Calcium (Lipitor) 40 mg DAILY@21 PO Last administered on 20:28; Admin Dose 40 MG; Start 09/14/17 at 21:00 Azithromycin (Zithromax) 500 mg DAILY PO Last administered on 09/18/17 08:46 ; Admin Dose 500 MG; Start 09/15/17 at 09:00; Stop 09/21/17 at 08:59 Heparin Sodium (Porcine) (Heparin (5000 Units/0.5 ml)) 5,000 unit BID SC Last administered on 09/18/17 20:33; Admin Dose 5,000 UNIT; Start 09/15/17 at 21: 00 Fish Oil (Fish Oil) 1,000 mg BID PO Last administered on 09/18/17 20:28; Admin Dose 1,000 MG; Start 09/16/17 at 21:00 Ferrous Sulfate (Ferrous Sulfate (Ec)) 325 mg BID PO Last administered on 09/18 20:28; Admin Dose 325 MG; Start 09/16/17 at 21:00 Docusate Sodium (Colace) 100 mg BID PRN PO CONSTIPATION; Start 09/16/17 at 11: 30 Bisacodyl (Dulcolax Supp) 10 mg DAILY PRN [place] CONSTIPATION Last administered on 09/17/17 15:46; Admin Dose 10 MG; Start 09/16/17 at 11:30 Morphine Sulfate (morphine) 1 mg Q4H PRN IV pain Last administered on 06:26; Admin Dose 1 MG; Start 09/17/17 at 06:00 Tramadol HCl 50 mg 50 mg Q6H PRN PO pain; Start 09/17/17 at 06:00 Levofloxacin/ Dextrose (Levaquin 250 Mg/ D5W 50 ml (Pmx)) 50 ml @ 50 mls/hr Q24H IVPB Last administered on 09/18/17 12:22; Admin Dose 50 MLS/HR; Start 09/17/17 at 12:00 Sotalol HCl (Betapace) 80 mg DAILY PO Last administered on 09/18/17 08:46; Admin Dose 80 MG; Start 09/18/17 at 09:00 Diagnostic Test (Pha) (Accu-Chek) 1 ea 02 XX Last administered on 09/19/17 02 :00; Admin Dose 1 EA; Start 09/19/17 at 02:00 Insulin Human NPH (Humulin N) 15 unit BID@08,20 SC Last administered on 20:33; Admin Dose 15 UNIT; Start 09/18/17 at 09:30 Miscellaneous Information 1 ea NOTE XX ; Start 09/18/17 at 09:30 Glucose (Glutose) 15 gm Q15M PRN PO DECREASED GLUCOSE; Start 09/18/17 at 09:30 Glucose (Glutose) 22.5 gm Q15M PRN PO DECREASED GLUCOSE; Start 09/18/17 at 09: 30 Dextrose (D50w Syringe) 25 ml Q15M PRN IV DECREASED GLUCOSE; Start 09/18/17 at 09:30 Dextrose (D50w Syringe) 50 ml Q15M PRN IV DECREASED GLUCOSE; Start 09/18/17 at 09:30 Glucagon (Glucagen) 1 mg Q15M PRN IM DECREASED GLUCOSE; Start 09/18/17 at 09: 30 Glucose (Glutose) 15 gm Q15M PRN BUCCAL DECREASED GLUCOSE; Start 09/18/17 at 09:30 Methylprednisolone Sodium Succinate (Solu-Medrol) 40 mg Q6H IV Last administered on 09/19/17 02:00; Admin Dose 40 MG; Start 09/18/17 at 20:00 MANUEL VELOZ NP Sep 19, 2017 08:27 MANUEL VELOZ NP Sep 19, 2017 08:27
[2017-09-19] MEDS: HEPARIN 5,000 UNIT/0.5 ML VIAL SC SCH ×2 (08:43→20:54)
[2017-09-19] MEDS: INSULIN ASPART [NOVOLOG] 3 ML PEN SC SCH ×7 (08:43→20:55)
[2017-09-19] MEDS: CEFTRIAXONE 1 GM/50 ML (PMX) 50 ML IVPB SCH (08:45)
[2017-09-19] MEDS: NPH, HUMAN INSULIN ISOPHANE 3ML VIAL SC SCH (08:45)
[2017-09-19] MEDS: DULOXETINE 30 MG CAP DR PO SCH (08:45)
[2017-09-19] MEDS: FENOFIBRATE 145 MG TAB PO SCH (08:45)
[2017-09-19] MEDS: FERROUS SULFATE (EC) 325 MG TAB PO SCH ×2 (08:45→20:50)
[2017-09-19] MEDS: FISH OIL 1,000 MG CAP PO SCH ×2 (08:45→20:50)
[2017-09-19] MEDS: SOTALOL 80 MG TAB PO SCH (08:46)
[2017-09-19] MEDS: MECLIZINE 25 MG TAB PO SCH (08:46)
[2017-09-19] MEDS: CLOPIDOGREL 75 MG TAB PO SCH (08:46)
[2017-09-19] MEDS: AZITHROMYCIN 250 MG TAB PO SCH (08:46)
[2017-09-19] MEDS: ASPIRIN (EC) 81 MG TAB PO SCH (08:46)
--- NOTE | 2017-09-19 08:50 | RADRPT ---
PROCEDURE: XR Chest. CLINICAL INDICATION: Shortness of breath. TECHNIQUE: Single frontal view. COMPARISON: 09/17/2017. FINDINGS: There is bilateral air space disease consistent with pulmonary edema with right worse than left. The heart is enlarged. There is a left-sided dual lead permanent pacemaker. Calcification is present in the aorta consistent with atherosclerosis. There is no pleural effusion. There is no pneumothorax. IMPRESSION: 1. No change from 09/17/2017. RPTAT: QQ .Anand Ybarra MD, Date Time Electronically viewed and signed by .Anand Ybarra MD, on 09/19/2017 08:50 .R/
[2017-09-19] MEDS: DICLOFENAC SODIUM 1% GEL 100 GM TUBE TP SCH ×4 (09:00→21:06)
--- NOTE | 2017-09-19 09:20 | CONS ---
Date/Time of Note Date/Time of Note DATE: 09/19/17 TIME: 09:17 Assessment/Plan Assessment/Plan Additional Assessment/Plan Chest x-ray was reviewed from today which is showing improvement in bilateral pulmonary edema. Next Assessment recommendations; 1. 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 Patient off amiodarone now. Started on Solu-Medrol today is day #3. 2. Possibly mild superimposed pneumonia with interval improvement in chest x- ray today. 3. Diabetes. 4. Cardiac arrhythmia, status post pacemaker placement in the past. 5. Chronic renal insufficiency. 6. Anemia. Continue current treatment. Patient responding well to current treatment regimen. Consultation Date/Type/Reason Admit Date/Time Sep 14, 2017 at 08:17 Type of Consultation: Pulmonary/critical care 24 HR Interval Summary Free Text/Dictation Patient's condition is stable. Requiring decreased oxygen for O2 saturation maintenance. Patient denies any chest pain, wheezing, coughing or sputum production. General exam; elderly male, awake and alert. Currently no distress. On 30% Ventimask. Exam/Review of Systems Vital Signs Vitals Vital Signs Date Time Temp Pulse Resp B/P Pulse Ox O2 Delivery O2 Flow Rate FiO2 09/19/17 08:25 14 98 40 09/19/17 08:00 97.5 60 113/64 High Flow 09/18/17 02:05 15.0 Intake and Output 09/18/17 09/18/17 09/19/17 15:00 23:00 07:00 Intake Total 500 ml 400 ml 450 ml Output Total 950 ml 850 ml 1400 ml Balance -450 ml -450 ml -950 ml Exam HEENT exam; supple neck, no JVD. No lymphadenopathy. Midline trachea. No thyromegaly. Patient does have carious teeth. Chest exam; diminished but clear breath sound. S1-S2 audible, irregular rhythm. Pacemaker in left chest wall. Abdomen exam; soft, nontender. No organomegaly. Bowel sounds audible. Extremity exam; no peripheral edema. 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 Results Result Diagram: 09/19/17 0514 09/19/17 0514 Results 24 hrs Laboratory Tests Test 09/18/17 12:25 09/18/17 17:45 09/18/17 20:30 09/19/17 02:01 Bedside Glucose 398 H 339 H 393 H 366 H Test 09/19/17 05:14 09/19/17 08:35 White Blood Count 6.9 # Red Blood Count 3.16 L Hemoglobin 8.6 L Hematocrit 26.8 L Mean Corpuscular Volume 84.8 Mean Corpuscular Hemoglobin 27.2 L Mean Corpuscular Hemoglobin Concent 32.1 Red Cell Distribution Width 15.4 H Platelet Count 315 Mean Platelet Volume 10.3 Neutrophils % 86.7 H Lymphocytes % 7.2 L Monocytes % 5.4 Eosinophils % 0.0 Basophils % 0.0 Nucleated Red Blood Cells % 0.0 Neutrophils # 6.0 Lymphocytes # 0.5 L Monocytes # 0.4 Eosinophils # 0.0 Basophils # 0.0 Nucleated Red Blood Cells # 0.0 Sodium Level 136 Potassium Level 3.5 Chloride Level 93 L Carbon Dioxide Level 31 Anion Gap 16 Blood Urea Nitrogen 89 H Creatinine 2.13 H Glucose Level 293 H Calcium Level 8.6 Phosphorus Level 3.5 Magnesium Level 2.5 Bedside Glucose 261 H Medications Medications Current Medications Ondansetron HCl (Zofran Tab) 4 mg Q6H PRN PO NAUSEA AND/OR VOMITING; Start at 13:30 Ondansetron HCl (Zofran Inj) 4 mg Q6H PRN IV NAUSEA AND/OR VOMITING; Start at 13:30 Acetaminophen (Tylenol Tab) 650 mg Q6H PRN PO PAIN LEVEL 1-3 OR FEVER Last administered on 09/16/17 22:03; Admin Dose 650 MG; Start 09/14/17 at 13:30 Acetaminophen/ Hydrocodone Bitart 1 tab 1 tab Q6H PRN PO MODERATE PAIN LEVEL 4- 6 Last administered on 09/17/17 07:45; Admin Dose 1 TAB; Start 09/14/17 at 13 :30 Ceftriaxone Sodium (Rocephin) 50 ml @ 100 mls/hr Q24H IVPB Last administered on 09/19/17 08:45; Admin Dose 100 MLS/HR; Start 09/15/17 at 08:30 Aspirin (Halfprin) 81 mg DAILY PO Last administered on 09/19/17 08:46; Admin Dose 81 MG; Start 09/15/17 at 09:00 Clopidogrel Bisulfate (plaVIX) 75 mg DAILY PO Last administered on 09/19/17 08:46; Admin Dose 75 MG; Start 09/15/17 at 09:00 Diclofenac Sodium (Voltaren 1% Gel) 2 gm QID TP Last administered on 20:30; Admin Dose 2 GM; Start 09/14/17 at 17:00 Duloxetine HCl (Cymbalta) 30 mg DAILY PO Last administered on 09/19/17 08:45 ; Admin Dose 30 MG; Start 09/15/17 at 09:00 Ergocalciferol (Drisdol) 50,000 unit Q7D PO Last administered on 09/15/17 09: 53; Admin Dose 50,000 UNIT; Start 09/15/17 at 09:00 Fenofibrate (Tricor) 145 mg DAILY PO Last administered on 09/19/17 08:45; Admin Dose 145 MG; Start 09/15/17 at 09:00 Montelukast Sodium (Singulair) 10 mg QHS PO Last administered on 09/18/17 22: 18; Admin Dose 10 MG; Start 09/14/17 at 21:00 Tamsulosin HCl (Flomax) 0.4 mg DAILY@21 PO Last administered on 09/18/17 20: 28; Admin Dose 0.4 MG; Start 09/14/17 at 21:00 Pantoprazole (Protonix Tab) 40 mg DAILY@06 PO Last administered on 09/19/17 05:59; Admin Dose 40 MG; Start 09/15/17 at 06:00 Meclizine HCl (Antivert) 25 mg DAILY PO Last administered on 09/19/17 08:46; Admin Dose 25 MG; Start 09/15/17 at 09:00 Atorvastatin Calcium (Lipitor) 40 mg DAILY@21 PO Last administered on 20:28; Admin Dose 40 MG; Start 09/14/17 at 21:00 Azithromycin (Zithromax) 500 mg DAILY PO Last administered on 09/19/17 08:46 ; Admin Dose 500 MG; Start 09/15/17 at 09:00; Stop 09/21/17 at 08:59 Heparin Sodium (Porcine) (Heparin (5000 Units/0.5 ml)) 5,000 unit BID SC Last administered on 09/19/17 08:43; Admin Dose 5,000 UNIT; Start 09/15/17 at 21: 00 Fish Oil (Fish Oil) 1,000 mg BID PO Last administered on 09/19/17 08:45; Admin Dose 1,000 MG; Start 09/16/17 at 21:00 Ferrous Sulfate (Ferrous Sulfate (Ec)) 325 mg BID PO Last administered on 09/19 08:45; Admin Dose 325 MG; Start 09/16/17 at 21:00 Docusate Sodium (Colace) 100 mg BID PRN PO CONSTIPATION; Start 09/16/17 at 11: 30 Bisacodyl (Dulcolax Supp) 10 mg DAILY PRN [place] CONSTIPATION Last administered on 09/17/17 15:46; Admin Dose 10 MG; Start 09/16/17 at 11:30 Morphine Sulfate (morphine) 1 mg Q4H PRN IV pain Last administered on 06:26; Admin Dose 1 MG; Start 09/17/17 at 06:00 Tramadol HCl 50 mg 50 mg Q6H PRN PO pain; Start 09/17/17 at 06:00 Levofloxacin/ Dextrose (Levaquin 250 Mg/ D5W 50 ml (Pmx)) 50 ml @ 50 mls/hr Q24H IVPB Last administered on 09/18/17 12:22; Admin Dose 50 MLS/HR; Start 09/17/17 at 12:00 Sotalol HCl (Betapace) 80 mg DAILY PO Last administered on 09/19/17 08:46; Admin Dose 80 MG; Start 09/18/17 at 09:00 Diagnostic Test (Pha) (Accu-Chek) 1 ea 02 XX Last administered on 09/19/17 02 :00; Admin Dose 1 EA; Start 09/19/17 at 02:00 Insulin Human NPH (Humulin N) 15 unit BID@08,20 SC Last administered on 08:45; Admin Dose 15 UNIT; Start 09/18/17 at 09:30 Miscellaneous Information 1 ea NOTE XX ; Start 09/18/17 at 09:30 Glucose (Glutose) 15 gm Q15M PRN PO DECREASED GLUCOSE; Start 09/18/17 at 09:30 Glucose (Glutose) 22.5 gm Q15M PRN PO DECREASED GLUCOSE; Start 09/18/17 at 09: 30 Dextrose (D50w Syringe) 25 ml Q15M PRN IV DECREASED GLUCOSE; Start 09/18/17 at 09:30 Dextrose (D50w Syringe) 50 ml Q15M PRN IV DECREASED GLUCOSE; Start 09/18/17 at 09:30 Glucagon (Glucagen) 1 mg Q15M PRN IM DECREASED GLUCOSE; Start 09/18/17 at 09: 30 Glucose (Glutose) 15 gm Q15M PRN BUCCAL DECREASED GLUCOSE; Start 09/18/17 at 09:30 Methylprednisolone Sodium Succinate (Solu-Medrol) 40 mg Q6H IV Last administered on 09/19/17 08:46; Admin Dose 40 MG; Start 09/18/17 at 20:00 MELISSA AGUERO Sep 19, 2017 09:20
--- NOTE | 2017-09-19 10:33 | PN ---
DATE: 09/19/2017 SUBJECTIVE: The patient is stable, no acute events overnight. No hemoptysis, hematemesis, hematoch ezia. OBJECTIVE: VITAL SIGNS: Blood pressure is 115/70, pulse 63, respirations 13. INTAKE AND OUTPUT: The patient had 1.3 L in, 2.8 L out. HEENT: Head is normocephalic. NECK: Supple. HEART: Regular rate. LUNGS: Show diminished breath sounds at base. Positive crackles. ABDOMEN: Soft, nontender to palpation. No rebound or guarding. EXTREMITIES: Negative for clubbing, cyanosis. Trace edema. DERMATOLOGIC: No rashes. MUSCULOSKELETAL: No joint effusions. NEUROLOGIC: No change in exam. MEDICATIONS: The patient's medications have been reviewed. LABORATORY DATA: Shows a white count of 6.9, hemoglobin 8.6, hematocrit 26.8, platelet count 315. Sodium 136, potassium 3.9, chloride 93, BUN 89, creatinine 2.13. The patient's cultures have been r eviewed. ASSESSMENT AND PLAN: 1. Nonoliguric acute kidney injury on top of chronic kidney disease with previous baseline creatini ne 1.7 to 2.0 mg/dL. The etiology of acute kidney injury is secondary to hemodynamics. Renal funct ion has been fluctuating but overall stable, near baseline. The patient does have progressive azote dianna which is multifactorial due to hypermetabolic state, acute kidney injury and steroids. At this point, continue current treatment plan. Continue current diuretic regimen, monitor renal function c losely. 2. Acute congestive heart failure exacerbation. Continue current medical management. Follow up [facility]ology. 3. Anemia. Monitor hemoglobin and hematocrit levels. 4. Mineral bone disorder. Monitor calcium and phosphorus levels. 5. Metabolic alkalosis, compensated. Continue to monitor. 6. Sepsis secondary to pneumonia. Continue current antibiotic regimen. 7. Acute hypoxemic respiratory failure secondary to pneumonia and congestive heart failure. Contin ue current treatment plan. Continue diuretics and antibiotics. 8. Hypertension. Continue current blood pressure regimen. 9. Paroxysmal atrial fibrillation, currently in sinus rhythm. Continue to monitor. 10. 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 The patient is currently off amiodaron e, on steroids. Follow up with pulmonary. Dictated By: ALDO ROSARIO/ELANA Conf#: [id number] [facility]#: [id number]
[2017-09-19] MEDS: LEVOFLOXACIN 250MG/D5W (PMX) 50 ML IVPB SCH (12:38)
--- NOTE | 2017-09-19 13:49 | RADRPT ---
Vent Rate: 60 bpm RR Interval: 0 msec AR Interval: 302 msec QRS Duration: 112 msec QT Interval: 512 msec QTC Interval: 512 msec P-R-T [place]: 0 - 37 - 43 degrees Electronic atrial pacemaker Prolonged QT Abnormal ECG Electronically Signed By: Junior Arzola [id number]
--- NOTE | 2017-09-19 13:49 | RADRPT ---
Vent Rate: 60 bpm RR Interval: 0 msec [place] Interval: 302 msec QRS Duration: 112 msec QT Interval: 512 msec QTC Interval: 512 msec P-R-T [place]: 0 - 37 - 43 degrees Electronic atrial pacemaker Prolonged QT Abnormal ECG Electronically Signed By: Junior Arzola [id number]
--- NOTE | 2017-09-19 13:49 | RADRPT ---
Vent Rate: 60 bpm RR Interval: 0 msec [place] Interval: 302 msec QRS Duration: 112 msec QT Interval: 512 msec QTC Interval: 512 msec P-R-T [place]: 0 - 37 - 43 degrees Electronic atrial pacemaker Prolonged QT Abnormal ECG Electronically Signed By: Junior Arzola [id number]
--- NOTE | 2017-09-19 15:03 | CONS ---
Date/Time of Note Date/Time of Note DATE: 09/19/17 TIME: 15:00 Assessment/Plan Assessment/Plan Chief Complaint/Hosp Course Assessment: Acute hypoxic respiratory failure - primarily pulmonary with component of congestive heart failure, improving Suspected pulmonary fibrosis - amiodarone was discontinued due to concern for pulmonary toxicity Possible pneumonia - on antibiotics Acute on chronic diastolic heart failure - echocardiogram reported LVEF 55% Moderate aortic stenosis Coronary artery disease - anatomy unknown, apparently he has not been revascularized in the past Paroxysmal atrial fibrillation - currently sinus rhythm Permanent pacemaker - details unknown Hypertension Dyslipidemia Acute kidney injury on chronic kidney disease History of stroke Recommendations: -continue Lasix 40mg IV BID -continue sotalol 80mg Q24hr (renally dosed), monitor QT interval on telemetry and with daily EKGs -continue outpatient aspirin 81mg and clopidogrel daily (though would consider anticoagulation instead of dual-antiplatelet therapy due to atrial fibrillation and history of stroke - defer to outpatient director of corporate strategy) -continue statin Problems: Consultation Date/Type/Reason Admit Date/Time Sep 14, 2017 at 08:17 Type of Consultation: Cardiology 24 HR Interval Summary Free Text/Dictation Respiratory status improving. Remains in sinus rhythm. QT interval prolonged, but stable. Detailed Summary Additional Comments 14 point review of systems without changes. Exam/Review of Systems Vital Signs Vitals Vital Signs Date Time Temp Pulse Resp B/P Pulse Ox O2 Delivery O2 Flow Rate FiO2 09/19/17 13:52 60 18 99 35 09/19/17 12:00 97.7 116/60 High Flow 09/19/17 11:16 Intake and Output 09/18/17 09/18/17 09/19/17 15:00 23:00 07:00 Intake Total 500 ml 400 ml 450 ml Output Total 950 ml 850 ml 1400 ml Balance -450 ml -450 ml -950 ml Exam Constitutional: alert, well developed Psych: nl mood/affect, no complaints Head: atraumatic, normocephalic Eyes: nl conjunctiva, nl lids ENMT: nl external ears & nose, nl nasal mucosa & septum Neck: non-tender, supple Respiratory: crackles/rales, diminished breath sounds Cardiovascular: regular rate and rhythm Gastrointestinal: non-tender, soft Musculoskeletal: nl extremities to inspection Extremities: No clubbing, No cyanosis, No edema Neurological: No nl mental status, No nl speech Skin: nl turgor Results Result Diagram: 09/19/17 0514 09/19/17 0514 Results 24 hrs Laboratory Tests Test 09/18/17 17:45 09/18/17 20:30 09/19/17 02:01 09/19/17 05:14 Bedside Glucose 339 H 393 H 366 H White Blood Count 6.9 # Red Blood Count 3.16 L Hemoglobin 8.6 L Hematocrit 26.8 L Mean Corpuscular Volume 84.8 Mean Corpuscular Hemoglobin 27.2 L Mean Corpuscular Hemoglobin Concent 32.1 Red Cell Distribution Width 15.4 H Platelet Count 315 Mean Platelet Volume 10.3 Neutrophils % 86.7 H Lymphocytes % 7.2 L Monocytes % 5.4 Eosinophils % 0.0 Basophils % 0.0 Nucleated Red Blood Cells % 0.0 Neutrophils # 6.0 Lymphocytes # 0.5 L Monocytes # 0.4 Eosinophils # 0.0 Basophils # 0.0 Nucleated Red Blood Cells # 0.0 Sodium Level 136 Potassium Level 3.5 Chloride Level 93 L Carbon Dioxide Level 31 Anion Gap 16 Blood Urea Nitrogen 89 H Creatinine 2.13 H Glucose Level 293 H Calcium Level 8.6 Phosphorus Level 3.5 Magnesium Level 2.5 Test 09/19/17 08:35 09/19/17 11:46 09/19/17 11:53 Bedside Glucose 261 H 254 H Lab Scanned Report REFERENCE LAB Medications Medications Current Medications Ondansetron HCl (Zofran Tab) 4 mg Q6H PRN PO NAUSEA AND/OR VOMITING; Start at 13:30 Ondansetron HCl (Zofran Inj) 4 mg Q6H PRN IV NAUSEA AND/OR VOMITING; Start at 13:30 Acetaminophen (Tylenol Tab) 650 mg Q6H PRN PO PAIN LEVEL 1-3 OR FEVER Last administered on 09/16/17 22:03; Admin Dose 650 MG; Start 09/14/17 at 13:30 Acetaminophen/ Hydrocodone Bitart 1 tab 1 tab Q6H PRN PO MODERATE PAIN LEVEL 4- 6 Last administered on 09/17/17 07:45; Admin Dose 1 TAB; Start 09/14/17 at 13 :30 Ceftriaxone Sodium (Rocephin) 50 ml @ 100 mls/hr Q24H IVPB Last administered on 09/19/17 08:45; Admin Dose 100 MLS/HR; Start 09/15/17 at 08:30 Aspirin (Halfprin) 81 mg DAILY PO Last administered on 09/19/17 08:46; Admin Dose 81 MG; Start 09/15/17 at 09:00 Clopidogrel Bisulfate (plaVIX) 75 mg DAILY PO Last administered on 09/19/17 08:46; Admin Dose 75 MG; Start 09/15/17 at 09:00 Diclofenac Sodium (Voltaren 1% Gel) 2 gm QID TP Last administered on 20:30; Admin Dose 2 GM; Start 09/14/17 at 17:00 Duloxetine HCl (Cymbalta) 30 mg DAILY PO Last administered on 09/19/17 08:45 ; Admin Dose 30 MG; Start 09/15/17 at 09:00 Ergocalciferol (Drisdol) 50,000 unit Q7D PO Last administered on 09/15/17 09: 53; Admin Dose 50,000 UNIT; Start 09/15/17 at 09:00 Fenofibrate (Tricor) 145 mg DAILY PO Last administered on 09/19/17 08:45; Admin Dose 145 MG; Start 09/15/17 at 09:00 Montelukast Sodium (Singulair) 10 mg QHS PO Last administered on 09/18/17 22: 18; Admin Dose 10 MG; Start 09/14/17 at 21:00 Tamsulosin HCl (Flomax) 0.4 mg DAILY@21 PO Last administered on 09/18/17 20: 28; Admin Dose 0.4 MG; Start 09/14/17 at 21:00 Pantoprazole (Protonix Tab) 40 mg DAILY@06 PO Last administered on 09/19/17 05:59; Admin Dose 40 MG; Start 09/15/17 at 06:00 Meclizine HCl (Antivert) 25 mg DAILY PO Last administered on 09/19/17 08:46; Admin Dose 25 MG; Start 09/15/17 at 09:00 Atorvastatin Calcium (Lipitor) 40 mg DAILY@21 PO Last administered on 20:28; Admin Dose 40 MG; Start 09/14/17 at 21:00 Azithromycin (Zithromax) 500 mg DAILY PO Last administered on 09/19/17 08:46 ; Admin Dose 500 MG; Start 09/15/17 at 09:00; Stop 09/21/17 at 08:59 Heparin Sodium (Porcine) (Heparin (5000 Units/0.5 ml)) 5,000 unit BID SC Last administered on 09/19/17 08:43; Admin Dose 5,000 UNIT; Start 09/15/17 at 21: 00 Fish Oil (Fish Oil) 1,000 mg BID PO Last administered on 09/19/17 08:45; Admin Dose 1,000 MG; Start 09/16/17 at 21:00 Ferrous Sulfate (Ferrous Sulfate (Ec)) 325 mg BID PO Last administered on 09/19 08:45; Admin Dose 325 MG; Start 09/16/17 at 21:00 Docusate Sodium (Colace) 100 mg BID PRN PO CONSTIPATION; Start 09/16/17 at 11: 30 Bisacodyl (Dulcolax Supp) 10 mg DAILY PRN [place] CONSTIPATION Last administered on 09/17/17 15:46; Admin Dose 10 MG; Start 09/16/17 at 11:30 Morphine Sulfate (morphine) 1 mg Q4H PRN IV pain Last administered on 06:26; Admin Dose 1 MG; Start 09/17/17 at 06:00 Tramadol HCl 50 mg 50 mg Q6H PRN PO pain; Start 09/17/17 at 06:00 Levofloxacin/ Dextrose (Levaquin 250 Mg/ D5W 50 ml (Pmx)) 50 ml @ 50 mls/hr Q24H IVPB Last administered on 09/19/17 12:38; Admin Dose 50 MLS/HR; Start 09/17/17 at 12:00 Sotalol HCl (Betapace) 80 mg DAILY PO Last administered on 09/19/17 08:46; Admin Dose 80 MG; Start 09/18/17 at 09:00 Diagnostic Test (Pha) (Accu-Chek) 1 ea 02 XX Last administered on 09/19/17 02 :00; Admin Dose 1 EA; Start 09/19/17 at 02:00 Insulin Human NPH (Humulin N) 15 unit BID@08,20 SC Last administered on 08:45; Admin Dose 15 UNIT; Start 09/18/17 at 09:30 Miscellaneous Information 1 ea NOTE XX ; Start 09/18/17 at 09:30 Glucose (Glutose) 15 gm Q15M PRN PO DECREASED GLUCOSE; Start 09/18/17 at 09:30 Glucose (Glutose) 22.5 gm Q15M PRN PO DECREASED GLUCOSE; Start 09/18/17 at 09: 30 Dextrose (D50w Syringe) 25 ml Q15M PRN IV DECREASED GLUCOSE; Start 09/18/17 at 09:30 Dextrose (D50w Syringe) 50 ml Q15M PRN IV DECREASED GLUCOSE; Start 09/18/17 at 09:30 Glucagon (Glucagen) 1 mg Q15M PRN IM DECREASED GLUCOSE; Start 09/18/17 at 09: 30 Glucose (Glutose) 15 gm Q15M PRN BUCCAL DECREASED GLUCOSE; Start 09/18/17 at 09:30 Methylprednisolone Sodium Succinate (Solu-Medrol) 40 mg Q6H IV Last administered on 09/19/17 08:46; Admin Dose 40 MG; Start 09/18/17 at 20:00 GURMEET ARMSTRONG MD Sep 19, 2017 15:03
[2017-09-19] MEDS: MONTELUKAST 10 MG TAB PO SCH (20:50)
[2017-09-19] MEDS: TAMSULOSIN (SR) 0.4 MG CAP PO SCH (20:50)
[2017-09-19] MEDS: ATORVASTATIN 40 MG TAB PO SCH (20:50)
[2017-09-19] MEDS: INSULIN GLARGINE [LANtus] 3 ML PEN SC SCH (21:05)
[2017-09-20] VITALS (35 sets, daily range): BP systolic 92–137; BP diastolic 49–101; PULSE 60–71; RESP 12–25
[2017-09-20] MEDS: ALBUTEROL/IPRATROPIUM (NEB) 3 ML AMP HHN SCH ×4 (01:11→19:39)
[2017-09-20] MEDS ORDERED: INSULIN ASPART [NOVOLOG] 3 ML PEN SC ONE (01:30)
[2017-09-20] MEDS: ACCU-CHEK XX SCH ×2 (01:35→01:36)
[2017-09-20] MEDS: METHYLPREDNISOLONE 40 MG INJ IV SCH ×4 (01:48→21:51)
[2017-09-20] MEDS ORDERED: ACCU-CHEK XX SCH ×2 (02:00)
[2017-09-20] MEDS: FUROSEMIDE 40 MG INJ IV SCH ×2 (05:44→17:53)
[2017-09-20] MEDS: PANTOPRAZOLE (EC) 40 MG TAB PO SCH (05:44)
--- NOTE | 2017-09-20 07:48 | CONS ---
Date/Time of Note Date/Time of Note DATE: 09/20/17 TIME: 07:46 Assessment/Plan Assessment/Plan Additional Assessment/Plan Assessment and recommendations; 1. 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 Patient has been taken off amiodarone. Today is day #4 of Solu-Medrol. 2. Significant clinical interval improvement. 3. History of diabetes, chronic mild renal insufficiency, and anemia. Continue current treatment. Obtain follow-up chest x-ray in 24 hours. Consultation Date/Type/Reason Admit Date/Time Sep 14, 2017 at 08:17 Type of Consultation: Pulmonary critical care 24 HR Interval Summary Free Text/Dictation Patient's condition is gradually improving. He reports significantly decreased shortness of breath. Denies any chest pain, wheezing, cough or sputum production. General exam; elderly male, awake and alert. Currently in no distress. Exam/Review of Systems Vital Signs Vitals Vital Signs Date Time Temp Pulse Resp B/P Pulse Ox O2 Delivery O2 Flow Rate FiO2 09/20/17 06:00 64 14 130/72 95 High Flow 09/20/17 05:00 40 09/20/17 04:00 98.0 09/19/17 11:16 Intake and Output 09/19/17 09/19/17 09/20/17 15:00 23:00 07:00 Intake Total 700 ml 450 ml 250 ml Output Total 1275 ml 1200 ml 1800 ml Balance -575 ml -750 ml -1550 ml Exam HEENT exam; supple neck, no JVD. No lymphadenopathy. Midline trachea. No thyromegaly. Patient is edentulous and wears dentures. Has bilateral intraocular lens implants. Chest exam; diminished but clear breath sounds. S1-S2 audible, no murmurs. Irregular rhythm. Pacemaker in place. Abdomen exam; soft, nontender. No organomegaly. Bowel sounds audible. Extremity exam; no peripheral edema. No clubbing. [employer] exam; no focal deficit. Results Result Diagram: 09/20/17 0605 09/20/1705 Results 24 hrs Laboratory Tests Test 09/19/17 08:35 09/19/17 11:46 09/19/17 11:53 09/19/17 18:02 Bedside Glucose 261 H 254 H 393 H Lab Scanned Report REFERENCE LAB Test 09/19/17 20:53 09/20/17 01:24 09/20/17 05:44 09/20/17 06:05 Bedside Glucose 358 H 305 H 190 White Blood Count 6.9 Red Blood Count 3.31 L Hemoglobin 9.3 L Hematocrit 27.9 L Mean Corpuscular Volume 84.3 Mean Corpuscular Hemoglobin 28.1 L Mean Corpuscular Hemoglobin Concent 33.3 Red Cell Distribution Width 15.1 H Platelet Count 355 Mean Platelet Volume 10.3 Neutrophils % 85.2 H Lymphocytes % 8.6 L Monocytes % 5.5 Eosinophils % 0.0 Basophils % 0.0 Nucleated Red Blood Cells % 0.0 Neutrophils # 5.9 Lymphocytes # 0.6 L Monocytes # 0.4 Eosinophils # 0.0 Basophils # 0.0 Nucleated Red Blood Cells # 0.0 Sodium Level 139 Potassium Level 3.4 L Chloride Level 92 L Carbon Dioxide Level 35 H Anion Gap 15 Blood Urea Nitrogen 77 H Creatinine 2.05 H Glucose Level 193 # Calcium Level 8.7 Phosphorus Level 3.4 Magnesium Level 2.4 Medications Medications Current Medications Ondansetron HCl (Zofran Tab) 4 mg Q6H PRN PO NAUSEA AND/OR VOMITING; Start at 13:30 Ondansetron HCl (Zofran Inj) 4 mg Q6H PRN IV NAUSEA AND/OR VOMITING; Start at 13:30 Acetaminophen (Tylenol Tab) 650 mg Q6H PRN PO PAIN LEVEL 1-3 OR FEVER Last administered on 09/16/17 22:03; Admin Dose 650 MG; Start 09/14/17 at 13:30 Acetaminophen/ Hydrocodone Bitart 1 tab 1 tab Q6H PRN PO MODERATE PAIN LEVEL 4- 6 Last administered on 09/17/17 07:45; Admin Dose 1 TAB; Start 09/14/17 at 13 :30 Ceftriaxone Sodium (Rocephin) 50 ml @ 100 mls/hr Q24H IVPB Last administered on 09/19/17 08:45; Admin Dose 100 MLS/HR; Start 09/15/17 at 08:30 Aspirin (Halfprin) 81 mg DAILY PO Last administered on 09/19/17 08:46; Admin Dose 81 MG; Start 09/15/17 at 09:00 Clopidogrel Bisulfate (plaVIX) 75 mg DAILY PO Last administered on 09/19/17 08:46; Admin Dose 75 MG; Start 09/15/17 at 09:00 Diclofenac Sodium (Voltaren 1% Gel) 2 gm QID TP Last administered on 21:06; Admin Dose 2 GM; Start 09/14/17 at 17:00 Duloxetine HCl (Cymbalta) 30 mg DAILY PO Last administered on 09/19/17 08:45 ; Admin Dose 30 MG; Start 09/15/17 at 09:00 Ergocalciferol (Drisdol) 50,000 unit Q7D PO Last administered on 09/15/17 09: 53; Admin Dose 50,000 UNIT; Start 09/15/17 at 09:00 Fenofibrate (Tricor) 145 mg DAILY PO Last administered on 09/19/17 08:45; Admin Dose 145 MG; Start 09/15/17 at 09:00 Montelukast Sodium (Singulair) 10 mg QHS PO Last administered on 09/19/17 20: 50; Admin Dose 10 MG; Start 09/14/17 at 21:00 Tamsulosin HCl (Flomax) 0.4 mg DAILY@21 PO Last administered on 09/19/17 20: 50; Admin Dose 0.4 MG; Start 09/14/17 at 21:00 Pantoprazole (Protonix Tab) 40 mg DAILY@06 PO Last administered on 09/20/17 05:44; Admin Dose 40 MG; Start 09/15/17 at 06:00 Meclizine HCl (Antivert) 25 mg DAILY PO Last administered on 09/19/17 08:46; Admin Dose 25 MG; Start 09/15/17 at 09:00 Atorvastatin Calcium (Lipitor) 40 mg DAILY@21 PO Last administered on 20:50; Admin Dose 40 MG; Start 09/14/17 at 21:00 Azithromycin (Zithromax) 500 mg DAILY PO Last administered on 09/19/17 08:46 ; Admin Dose 500 MG; Start 09/15/17 at 09:00; Stop 09/21/17 at 08:59 Heparin Sodium (Porcine) (Heparin (5000 Units/0.5 ml)) 5,000 unit BID SC Last administered on 09/19/17 20:54; Admin Dose 5,000 UNIT; Start 09/15/17 at 21: 00 Fish Oil (Fish Oil) 1,000 mg BID PO Last administered on 09/19/17 20:50; Admin Dose 1,000 MG; Start 09/16/17 at 21:00 Ferrous Sulfate (Ferrous Sulfate (Ec)) 325 mg BID PO Last administered on 09/19 20:50; Admin Dose 325 MG; Start 09/16/17 at 21:00 Docusate Sodium (Colace) 100 mg BID PRN PO CONSTIPATION; Start 09/16/17 at 11: 30 Bisacodyl (Dulcolax Supp) 10 mg DAILY PRN [place] CONSTIPATION Last administered on 09/17/17 15:46; Admin Dose 10 MG; Start 09/16/17 at 11:30 Morphine Sulfate (morphine) 1 mg Q4H PRN IV pain Last administered on 06:26; Admin Dose 1 MG; Start 09/17/17 at 06:00 Tramadol HCl 50 mg 50 mg Q6H PRN PO pain; Start 09/17/17 at 06:00 Levofloxacin/ Dextrose (Levaquin 250 Mg/ D5W 50 ml (Pmx)) 50 ml @ 50 mls/hr Q24H IVPB Last administered on 09/19/17 12:38; Admin Dose 50 MLS/HR; Start 09/17/17 at 12:00 Sotalol HCl (Betapace) 80 mg DAILY PO Last administered on 09/19/17 08:46; Admin Dose 80 MG; Start 09/18/17 at 09:00 Diagnostic Test (Pha) (Accu-Chek) 1 ea 02 XX Last administered on 09/19/17 02 :00; Admin Dose 1 EA; Start 09/19/17 at 02:00 Miscellaneous Information 1 ea NOTE XX ; Start 09/18/17 at 09:30 Glucose (Glutose) 15 gm Q15M PRN PO DECREASED GLUCOSE; Start 09/18/17 at 09:30 Glucose (Glutose) 22.5 gm Q15M PRN PO DECREASED GLUCOSE; Start 09/18/17 at 09: 30 Dextrose (D50w Syringe) 25 ml Q15M PRN IV DECREASED GLUCOSE; Start 09/18/17 at 09:30 Dextrose (D50w Syringe) 50 ml Q15M PRN IV DECREASED GLUCOSE; Start 09/18/17 at 09:30 Glucagon (Glucagen) 1 mg Q15M PRN IM DECREASED GLUCOSE; Start 09/18/17 at 09: 30 Glucose (Glutose) 15 gm Q15M PRN BUCCAL DECREASED GLUCOSE; Start 09/18/17 at 09:30 Methylprednisolone Sodium Succinate (Solu-Medrol) 40 mg Q6H IV Last administered on 09/20/17 01:48; Admin Dose 40 MG; Start 09/18/17 at 20:00 Insulin Glargine (Lantus) 25 unit DAILY@20 SC Last administered on 09/19/17 21:05; Admin Dose 25 UNIT; Start 09/19/17 at 21:00 Diagnostic Test (Pha) (Accu-Chek) XX ; Start 09/20/17 at 02:00 MELISSA AGUERO Sep 20, 2017 07:48
[2017-09-20] MEDS: MECLIZINE 25 MG TAB PO SCH (08:19)
[2017-09-20] MEDS: DICLOFENAC SODIUM 1% GEL 100 GM TUBE TP SCH ×4 (08:19→21:51)
[2017-09-20] MEDS: FENOFIBRATE 145 MG TAB PO SCH (08:19)
[2017-09-20] MEDS: ASPIRIN (EC) 81 MG TAB PO SCH (08:19)
[2017-09-20] MEDS: CEFTRIAXONE 1 GM/50 ML (PMX) 50 ML IVPB SCH (08:19)
[2017-09-20] MEDS: AZITHROMYCIN 250 MG TAB PO SCH (08:19)
[2017-09-20] MEDS: SOTALOL 80 MG TAB PO SCH (08:19)
[2017-09-20] MEDS: FISH OIL 1,000 MG CAP PO SCH ×3 (08:19→20:50)
[2017-09-20] MEDS: CLOPIDOGREL 75 MG TAB PO SCH (08:19)
[2017-09-20] MEDS: DULOXETINE 30 MG CAP DR PO SCH (08:19)
[2017-09-20] MEDS: FERROUS SULFATE (EC) 325 MG TAB PO SCH ×2 (08:19→20:51)
[2017-09-20] MEDS: INSULIN ASPART [NOVOLOG] 3 ML PEN SC SCH ×7 (08:22→20:40)
[2017-09-20] MEDS: HEPARIN 5,000 UNIT/0.5 ML VIAL SC SCH ×2 (08:24→20:56)
--- NOTE | 2017-09-20 08:27 | CONS ---
Date/Time of Note Date/Time of Note DATE: 09/20/17 TIME: 08:25 Consult Date/Type/Reason Admit Date/Time Sep 14, 2017 at 08:17 Initial Consult Date Type of Consultation: Pulmonary critical care Subjective The patient is stable, no acute events overnight. No hemoptysis, hematemesis, hematochezia. tolerating diuresis decreased dyspnea is noted. poc reviewed with dr. arnold OBJECTIVE: HEENT: Head is normocephalic. NECK: Supple. HEART: Regular rate. LUNGS: Show diminished breath sounds at base. Positive crackles. ABDOMEN: Soft, nontender to palpation. No rebound or guarding. EXTREMITIES: Negative for clubbing, cyanosis. Trace edema. DERMATOLOGIC: No rashes. MUSCULOSKELETAL: No joint effusions. NEUROLOGIC: No change in exam. MEDICATIONS: The patient's medications have been reviewed. Objective Vital Signs Date Time Temp Pulse Resp B/P Pulse Ox O2 Delivery O2 Flow Rate FiO2 09/20/17 08:00 65 13 94 40 09/20/17 06:00 130/72 High Flow 09/20/17 04:00 98.0 09/19/17 11:16 Intake and Output 09/19/17 09/19/17 09/20/17 15:00 23:00 07:00 Intake Total 700 ml 450 ml 250 ml Output Total 1275 ml 1200 ml 1800 ml Balance -575 ml -750 ml -1550 ml Results/Medications Result Diagram: 09/20/17 0609/20/17 0605 Results 24 hrs Laboratory Tests Test 09/19/17 08:35 09/19/17 11:46 09/19/17 11:53 09/19/17 18:02 Bedside Glucose 261 H 254 H 393 H Lab Scanned Report REFERENCE LAB Test 09/19/17 20:53 09/20/17 01:24 09/20/17 05:44 09/20/17 06:05 Bedside Glucose 358 H 305 H 190 White Blood Count 6.9 Red Blood Count 3.31 L Hemoglobin 9.3 L Hematocrit 27.9 L Mean Corpuscular Volume 84.3 Mean Corpuscular Hemoglobin 28.1 L Mean Corpuscular Hemoglobin Concent 33.3 Red Cell Distribution Width 15.1 H Platelet Count 355 Mean Platelet Volume 10.3 Neutrophils % 85.2 H Lymphocytes % 8.6 L Monocytes % 5.5 Eosinophils % 0.0 Basophils % 0.0 Nucleated Red Blood Cells % 0.0 Neutrophils # 5.9 Lymphocytes # 0.6 L Monocytes # 0.4 Eosinophils # 0.0 Basophils # 0.0 Nucleated Red Blood Cells # 0.0 Sodium Level 139 Potassium Level 3.4 L Chloride Level 92 L Carbon Dioxide Level 35 H Anion Gap 15 Blood Urea Nitrogen 77 H Creatinine 2.05 H Glucose Level 193 # Calcium Level 8.7 Phosphorus Level 3.4 Magnesium Level 2.4 Test 09/20/17 08:08 Bedside Glucose 184 Medications Current Medications Ondansetron HCl (Zofran Tab) 4 mg Q6H PRN PO NAUSEA AND/OR VOMITING; Start at 13:30 Ondansetron HCl (Zofran Inj) 4 mg Q6H PRN IV NAUSEA AND/OR VOMITING; Start at 13:30 Acetaminophen (Tylenol Tab) 650 mg Q6H PRN PO PAIN LEVEL 1-3 OR FEVER Last administered on 09/16/17 22:03; Admin Dose 650 MG; Start 09/14/17 at 13:30 Acetaminophen/ Hydrocodone Bitart 1 tab 1 tab Q6H PRN PO MODERATE PAIN LEVEL 4- 6 Last administered on 09/17/17 07:45; Admin Dose 1 TAB; Start 09/14/17 at 13 :30 Ceftriaxone Sodium (Rocephin) 50 ml @ 100 mls/hr Q24H IVPB Last administered on 09/19/17 08:45; Admin Dose 100 MLS/HR; Start 09/15/17 at 08:30 Aspirin (Halfprin) 81 mg DAILY PO Last administered on 09/19/17 08:46; Admin Dose 81 MG; Start 09/15/17 at 09:00 Clopidogrel Bisulfate (plaVIX) 75 mg DAILY PO Last administered on 09/19/17 08:46; Admin Dose 75 MG; Start 09/15/17 at 09:00 Diclofenac Sodium (Voltaren 1% Gel) 2 gm QID TP Last administered on 21:06; Admin Dose 2 GM; Start 09/14/17 at 17:00 Duloxetine HCl (Cymbalta) 30 mg DAILY PO Last administered on 09/19/17 08:45 ; Admin Dose 30 MG; Start 09/15/17 at 09:00 Ergocalciferol (Drisdol) 50,000 unit Q7D PO Last administered on 09/15/17 09: 53; Admin Dose 50,000 UNIT; Start 09/15/17 at 09:00 Fenofibrate (Tricor) 145 mg DAILY PO Last administered on 09/19/17 08:45; Admin Dose 145 MG; Start 09/15/17 at 09:00 Montelukast Sodium (Singulair) 10 mg QHS PO Last administered on 09/19/17 20: 50; Admin Dose 10 MG; Start 09/14/17 at 21:00 Tamsulosin HCl (Flomax) 0.4 mg DAILY@21 PO Last administered on 09/19/17 20: 50; Admin Dose 0.4 MG; Start 09/14/17 at 21:00 Pantoprazole (Protonix Tab) 40 mg DAILY@06 PO Last administered on 09/20/17 05:44; Admin Dose 40 MG; Start 09/15/17 at 06:00 Meclizine HCl (Antivert) 25 mg DAILY PO Last administered on 09/19/17 08:46; Admin Dose 25 MG; Start 09/15/17 at 09:00 Atorvastatin Calcium (Lipitor) 40 mg DAILY@21 PO Last administered on 20:50; Admin Dose 40 MG; Start 09/14/17 at 21:00 Azithromycin (Zithromax) 500 mg DAILY PO Last administered on 09/19/17 08:46 ; Admin Dose 500 MG; Start 09/15/17 at 09:00; Stop 09/21/17 at 08:59 Heparin Sodium (Porcine) (Heparin (5000 Units/0.5 ml)) 5,000 unit BID SC Last administered on 09/19/17 20:54; Admin Dose 5,000 UNIT; Start 09/15/17 at 21: 00 Fish Oil (Fish Oil) 1,000 mg BID PO Last administered on 09/19/17 20:50; Admin Dose 1,000 MG; Start 09/16/17 at 21:00 Ferrous Sulfate (Ferrous Sulfate (Ec)) 325 mg BID PO Last administered on 09/19 20:50; Admin Dose 325 MG; Start 09/16/17 at 21:00 Docusate Sodium (Colace) 100 mg BID PRN PO CONSTIPATION; Start 09/16/17 at 11: 30 Bisacodyl (Dulcolax Supp) 10 mg DAILY PRN [place] CONSTIPATION Last administered on 09/17/17 15:46; Admin Dose 10 MG; Start 09/16/17 at 11:30 Morphine Sulfate (morphine) 1 mg Q4H PRN IV pain Last administered on 06:26; Admin Dose 1 MG; Start 09/17/17 at 06:00 Tramadol HCl 50 mg 50 mg Q6H PRN PO pain; Start 09/17/17 at 06:00 Levofloxacin/ Dextrose (Levaquin 250 Mg/ D5W 50 ml (Pmx)) 50 ml @ 50 mls/hr Q24H IVPB Last administered on 09/19/17 12:38; Admin Dose 50 MLS/HR; Start 09/17/17 at 12:00 Sotalol HCl (Betapace) 80 mg DAILY PO Last administered on 09/19/17 08:46; Admin Dose 80 MG; Start 09/18/17 at 09:00 Diagnostic Test (Pha) (Accu-Chek) 1 ea 02 XX Last administered on 09/19/17 02 :00; Admin Dose 1 EA; Start 09/19/17 at 02:00 Miscellaneous Information 1 ea NOTE XX ; Start 09/18/17 at 09:30 Glucose (Glutose) 15 gm Q15M PRN PO DECREASED GLUCOSE; Start 09/18/17 at 09:30 Glucose (Glutose) 22.5 gm Q15M PRN PO DECREASED GLUCOSE; Start 09/18/17 at 09: 30 Dextrose (D50w Syringe) 25 ml Q15M PRN IV DECREASED GLUCOSE; Start 09/18/17 at 09:30 Dextrose (D50w Syringe) 50 ml Q15M PRN IV DECREASED GLUCOSE; Start 09/18/17 at 09:30 Glucagon (Glucagen) 1 mg Q15M PRN IM DECREASED GLUCOSE; Start 09/18/17 at 09: 30 Glucose (Glutose) 15 gm Q15M PRN BUCCAL DECREASED GLUCOSE; Start 09/18/17 at 09:30 Methylprednisolone Sodium Succinate (Solu-Medrol) 40 mg Q6H IV Last administered on 09/20/17 01:48; Admin Dose 40 MG; Start 09/18/17 at 20:00 Insulin Glargine (Lantus) 25 unit DAILY@20 SC Last administered on 09/19/17t 21:05; Admin Dose 25 UNIT; Start 09/19/17 at 21:00 Diagnostic Test (Pha) (Accu-Chek) 1 02 XX ; Start 09/20/17 at 02:00 Assessment/Plan Chief Complaint/Hosp Course ASSESSMENT AND PLAN: 1. Nonoliguric acute kidney injury on top of chronic kidney disease with previous baseline creatinine 1.7 to 2.0 mg/dL. The etiology of acute kidney injury is secondary to hemodynamics. Renal function has been fluctuating but overall stable, near baseline. The patient has had some azotemia which is multifactorial due to hypermetabolic state, acute kidney injury and steroids. At this point, continue current treatment plan. Continue current diuretic regimen, monitor renal function closely. Will need to tolerate some azotemia to achieve euvolemia. 2. Acute congestive heart failure exacerbation. Continue current medical management. Follow up with cardiology. 3. Anemia. Monitor hemoglobin and hematocrit levels. 4. Mineral bone disorder. Monitor calcium and phosphorus levels. 5. Metabolic alkalosis, compensated. Continue to monitor. 6. Sepsis secondary to pneumonia. Continue current antibiotic regimen. 7. Acute hypoxemic respiratory failure secondary to pneumonia and congestive heart failure. Continue current treatment plan. Continue diuretics and antibiotics. 8. Hypertension. Continue current blood pressure regimen. 9. Paroxysmal atrial fibrillation, currently in sinus rhythm. Continue to monitor. 10. 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 The patient is currently off amiodarone, on steroids. Follow up with pulmonary. Problems: KAMINI GONZALEZ MD Sep 20, 2017 08:27
--- NOTE | 2017-09-20 09:01 | PN ---
Date/Time of Note Date/Time of Note DATE: 09/20/17 TIME: 08:52 Assessment/Plan VTE Prophylaxis VTE Prophylaxis Intervention: heparin Lines/Catheters IV Catheter Type (from [facility]): Peripheral IV Reason Cath still needed: other (indicate) (Initiating bladder training get this discontinued) Assessment/Plan Problems: (1) Paroxysmal atrial fibrillation Status: Chronic Comment: She has been transitioned from amiodarone over to sotalol as per cardiology. Concur with proceeding with this. (2) Hyperlipidemia associated with type 2 diabetes mellitus Status: Chronic Comment: Sinew combination statin with fish oil for the mixed hyperlipidemia (3) Essential hypertension Status: Chronic Comment: Adequate control (4) BPH (benign prostatic hyperplasia) Status: Chronic Comment: At the present time the patient has a Swartz catheter. Will start on bladder training with a plan to discontinue the Swartz by tomorrow. Continue with tamsulosin add in finasteride. Qualifiers: Lower urinary tract symptom presence: symptoms present Lower urinary tract symptom detail: unspecified Qualified Code: N40.1 - Benign prostatic hyperplasia with lower urinary tract symptoms, symptom details unspecified (5) Community acquired pneumonia Status: Acute Comment: Patient has had CT scan performed. Continue antibiotics. However the patient is improved to the point where were looking at the possibility of being able to move out of the intensive care unit. I have a question for pulmonary about whether or not they wish to continue with the parenteral steroids Qualifiers: Laterality: right Lung location: middle lobe of lung Qualified Code: J18.1 - Community acquired pneumonia of right middle lobe of lung (6) Diabetes mellitus type 2 in obese Status: Chronic Comment: Adequate control (7) Chronic kidney disease, stage III (moderate) Status: Chronic Comment: Review of the records indicates that he has had variable renal function and this is relatively stable over the last several years. (8) Iron deficiency anemia Status: Chronic Comment: Replace parenterally for expeditious treatment. He will need an outpatient evaluation for this. Qualifiers: Iron deficiency anemia type: unspecified iron deficiency Qualified Code: D50.9 - Iron deficiency anemia, unspecified iron deficiency anemia type (9) Aortic stenosis, moderate Status: Chronic Comment: Noted. Careful with afterload reduction agents (10) Diastolic dysfunction with acute on chronic heart failure Status: Chronic Comment: Noted. The sotalol will actually have double duty in the setting (11) Hypoxia Status: Acute Comment: As per pulmonary again the question about 1 to taper the steroids Subjective 24 Hr Interval Summary Free Text/Dictation [id number] gentleman lying in bed. Using translation he indicates he has improved. He is not at the state where he was before he got ill. Constitutional: no complaints (Denies fevers chills or sweats) Respiratory: cough (Cough is reduced), shortness of breath (Shortness of breath is still present but improved) Cardiovascular: no complaints Gastrointestinal: no complaints Genitourinary: no complaints (Please note he has a Swartz catheter in) Neurologic: no complaints Exam/Review of Systems Vital Signs Vitals Vital Signs Date Time Temp Pulse Resp B/P Pulse Ox O2 Delivery O2 Flow Rate FiO2 09/20/17 08:00 65 13 94 40 09/20/17 06:00 130/72 High Flow 09/20/17 04:00 98.0 09/19/17 11:16 Intake and Output 09/19/17 09/19/17 09/20/17 15:00 23:00 07:00 Intake Total 700 ml 450 ml 250 ml Output Total 1275 ml 1200 ml 1800 ml Balance -575 ml -750 ml -1550 ml Exam Constitutional: alert, oriented Neck: non-tender, supple Respiratory: clear to auscultation, normal air movement Cardiovascular: murmurs/extra sounds (Murmur consistent with aortic stenosis with decreased carotid upstrokes), nl pulses, regular rate and rhythm Gastrointestinal: nl liver, spleen, non-tender, soft Results Result Diagram: 09/20/17 0609/20/17 06 Results 24 hrs Laboratory Tests Test 09/19/17 11:46 09/19/17 11:53 09/19/17 18:02 09/19/17 20:53 Lab Scanned Report REFERENCE LAB Bedside Glucose 254 H 393 H 358 H Test 09/20/17 01:24 09/20/17 05:44 09/20/17 06:05 09/20/17 08:08 Bedside Glucose 305 H 190 184 White Blood Count 6.9 Red Blood Count 3.31 L Hemoglobin 9.3 L Hematocrit 27.9 L Mean Corpuscular Volume 84.3 Mean Corpuscular Hemoglobin 28.1 L Mean Corpuscular Hemoglobin Concent 33.3 Red Cell Distribution Width 15.1 H Platelet Count 355 Mean Platelet Volume 10.3 Neutrophils % 85.2 H Lymphocytes % 8.6 L Monocytes % 5.5 Eosinophils % 0.0 Basophils % 0.0 Nucleated Red Blood Cells % 0.0 Neutrophils # 5.9 Lymphocytes # 0.6 L Monocytes # 0.4 Eosinophils # 0.0 Basophils # 0.0 Nucleated Red Blood Cells # 0.0 Sodium Level 139 Potassium Level 3.4 L Chloride Level 92 L Carbon Dioxide Level 35 H Anion Gap 15 Blood Urea Nitrogen 77 H Creatinine 2.05 H Glucose Level 193 # Calcium Level 8.7 Phosphorus Level 3.4 Magnesium Level 2.4 Medications Medications Current Medications Ondansetron HCl (Zofran Tab) 4 mg Q6H PRN PO NAUSEA AND/OR VOMITING; Start at 13:30 Ondansetron HCl (Zofran Inj) 4 mg Q6H PRN IV NAUSEA AND/OR VOMITING; Start at 13:30 Acetaminophen (Tylenol Tab) 650 mg Q6H PRN PO PAIN LEVEL 1-3 OR FEVER Last administered on 09/16/17 22:03; Admin Dose 650 MG; Start 09/14/17 at 13:30 Acetaminophen/ Hydrocodone Bitart 1 tab 1 tab Q6H PRN PO MODERATE PAIN LEVEL 4- 6 Last administered on 09/17/17 07:45; Admin Dose 1 TAB; Start 09/14/17 at 13 :30 Ceftriaxone Sodium (Rocephin) 50 ml @ 100 mls/hr Q24H IVPB Last administered on 09/20/17 08:19; Admin Dose 100 MLS/HR; Start 09/15/17 at 08:30 Aspirin (Halfprin) 81 mg DAILY PO Last administered on 09/20/17 08:19; Admin Dose 81 MG; Start 09/15/17 at 09:00 Clopidogrel Bisulfate (plaVIX) 75 mg DAILY PO Last administered on 09/20/17 08:19; Admin Dose 75 MG; Start 09/15/17 at 09:00 Diclofenac Sodium (Voltaren 1% Gel) 2 gm QID TP Last administered on 08:19; Admin Dose 2 GM; Start 09/14/17 at 17:00 Duloxetine HCl (Cymbalta) 30 mg DAILY PO Last administered on 09/20/17 08:19 ; Admin Dose 30 MG; Start 09/15/17 at 09:00 Ergocalciferol (Drisdol) 50,000 unit Q7D PO Last administered on 09/15/17 09: 53; Admin Dose 50,000 UNIT; Start 09/15/17 at 09:00 Fenofibrate (Tricor) 145 mg DAILY PO Last administered on 09/20/17 08:19; Admin Dose 145 MG; Start 09/15/17 at 09:00 Montelukast Sodium (Singulair) 10 mg QHS PO Last administered on 09/19/17 20: 50; Admin Dose 10 MG; Start 09/14/17 at 21:00 Tamsulosin HCl (Flomax) 0.4 mg DAILY@21 PO Last administered on 09/19/17 20: 50; Admin Dose 0.4 MG; Start 09/14/17 at 21:00 Pantoprazole (Protonix Tab) 40 mg DAILY@06 PO Last administered on 09/20/17 05:44; Admin Dose 40 MG; Start 09/15/17 at 06:00 Meclizine HCl (Antivert) 25 mg DAILY PO Last administered on 09/20/17 08:19; Admin Dose 25 MG; Start 09/15/17 at 09:00 Atorvastatin Calcium (Lipitor) 40 mg DAILY@21 PO Last administered on 20:50; Admin Dose 40 MG; Start 09/14/17 at 21:00 Azithromycin (Zithromax) 500 mg DAILY PO Last administered on 09/20/17 08:19 ; Admin Dose 500 MG; Start 09/15/17 at 09:00; Stop 09/21/17 at 08:59 Heparin Sodium (Porcine) (Heparin (5000 Units/0.5 ml)) 5,000 unit BID SC Last administered on 09/20/17 08:24; Admin Dose 5,000 UNIT; Start 09/15/17 at 21: 00 Fish Oil (Fish Oil) 1,000 mg BID PO Last administered on 09/20/17 08:19; Admin Dose 1,000 MG; Start 09/16/17 at 21:00 Ferrous Sulfate (Ferrous Sulfate (Ec)) 325 mg BID PO Last administered on 09/20 08:19; Admin Dose 325 MG; Start 09/16/17 at 21:00 Docusate Sodium (Colace) 100 mg BID PRN PO CONSTIPATION; Start 09/16/17 at 11: 30 Bisacodyl (Dulcolax Supp) 10 mg DAILY PRN [place] CONSTIPATION Last administered on 09/17/17 15:46; Admin Dose 10 MG; Start 09/16/17 at 11:30 Morphine Sulfate (morphine) 1 mg Q4H PRN IV pain Last administered on 06:26; Admin Dose 1 MG; Start 09/17/17 at 06:00 Tramadol HCl 50 mg 50 mg Q6H PRN PO pain; Start 09/17/17 at 06:00 Levofloxacin/ Dextrose (Levaquin 250 Mg/ D5W 50 ml (Pmx)) 50 ml @ 50 mls/hr Q24H IVPB Last administered on 09/19/17 12:38; Admin Dose 50 MLS/HR; Start 09/17/17 at 12:00 Sotalol HCl (Betapace) 80 mg DAILY PO Last administered on 09/20/17 08:19; Admin Dose 80 MG; Start 09/18/17 at 09:00 Diagnostic Test (Pha) (Accu-Chek) 1 ea 02 XX Last administered on 09/19/17 02 :00; Admin Dose 1 EA; Start 09/19/17 at 02:00 Miscellaneous Information 1 ea NOTE XX ; Start 09/18/17 at 09:30 Glucose (Glutose) 15 gm Q15M PRN PO DECREASED GLUCOSE; Start 09/18/17 at 09:30 Glucose (Glutose) 22.5 gm Q15M PRN PO DECREASED GLUCOSE; Start 09/18/17 at 09: 30 Dextrose (D50w Syringe) 25 ml Q15M PRN IV DECREASED GLUCOSE; Start 09/18/17 at 09:30 Dextrose (D50w Syringe) 50 ml Q15M PRN IV DECREASED GLUCOSE; Start 09/18/17 at 09:30 Glucagon (Glucagen) 1 mg Q15M PRN IM DECREASED GLUCOSE; Start 09/18/17 at 09: 30 Glucose (Glutose) 15 gm Q15M PRN BUCCAL DECREASED GLUCOSE; Start 09/18/17 at 09:30 Methylprednisolone Sodium Succinate (Solu-Medrol) 40 mg Q6H IV Last administered on 09/20/17 08:19; Admin Dose 40 MG; Start 09/18/17 at 20:00 Insulin Glargine (Lantus) 25 unit DAILY@20 SC Last administered on 09/19/17t 21:05; Admin Dose 25 UNIT; Start 09/19/17 at 21:00 Diagnostic Test (Pha) (Accu-Chek) 1 XX ; Start 09/20/17 at 02:00 ELIAS BELTRE MD Sep 20, 2017 09:01
[2017-09-20] MEDS: FINASTERIDE 5 MG TAB PO SCH (09:59)
[2017-09-20] MEDS: SOD FERRIC GLUC COMPLX 125 MG in SOD CHLORIDE 0.9% 100 ML IVPB SCH (10:48)
[2017-09-20] MEDS ORDERED: POTASSIUM CHLORIDE (SR) 20 MEQ TAB PO STA (11:57)
[2017-09-20] MEDS: LEVOFLOXACIN 250MG/D5W (PMX) 50 ML IVPB SCH (12:13)
--- NOTE | 2017-09-20 12:55 | RADRPT ---
Vent Rate: 61 bpm RR Interval: 0 msec [place] Interval: 256 msec QRS Duration: 114 msec QT Interval: 520 msec QTC Interval: 523 msec P-R-T [place]: 64 - 28 - 36 degrees Electronic atrial pacemaker Prolonged QT Abnormal ECG Electronically Signed By: Felipe Richardson [id number]
--- NOTE | 2017-09-20 12:55 | RADRPT ---
Vent Rate: 61 bpm RR Interval: 0 msec [place] Interval: 256 msec QRS Duration: 114 msec QT Interval: 520 msec QTC Interval: 523 msec P-R-T [place]: 64 - 28 - 36 degrees Electronic atrial pacemaker Prolonged QT Abnormal ECG Electronically Signed By: Felipe Richardson [id number]
--- NOTE | 2017-09-20 12:55 | RADRPT ---
Vent Rate: 61 bpm RR Interval: 0 msec [place] Interval: 256 msec QRS Duration: 114 msec QT Interval: 520 msec QTC Interval: 523 msec P-R-T [place]: 64 - 28 - 36 degrees Electronic atrial pacemaker Prolonged QT Abnormal ECG Electronically Signed By: Felipe Richardson [id number]
--- NOTE | 2017-09-20 20:22 | CONS ---
Date/Time of Note Date/Time of Note DATE: 09/20/17 TIME: 20:20 Assessment/Plan Assessment/Plan Chief Complaint/Hosp Course Assessment: Acute hypoxic respiratory failure - primarily pulmonary with component of congestive heart failure, improving Suspected pulmonary fibrosis - amiodarone was discontinued due to concern for pulmonary toxicity Possible pneumonia - on antibiotics Acute on chronic diastolic heart failure - echocardiogram reported LVEF 55% Moderate aortic stenosis Coronary artery disease - anatomy unknown, apparently he has not been revascularized in the past Paroxysmal atrial fibrillation - currently sinus rhythm Permanent pacemaker - details unknown Hypertension Dyslipidemia Acute kidney injury on chronic kidney disease History of stroke Recommendations: -continue Lasix 40mg IV BID -continue sotalol 80mg Q24hr (renally dosed), QT interval stable for three days after starting -continue outpatient aspirin 81mg and clopidogrel daily (though would consider anticoagulation instead of dual-antiplatelet therapy due to atrial fibrillation and history of stroke - 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 Remains in sinus rhythm. QT interval prolonged, but stable. Detailed Summary Additional Comments 14 point review of systems without changes. Exam/Review of Systems Vital Signs Vitals Vital Signs Date Time Temp Pulse Resp B/P Pulse Ox O2 Delivery O2 Flow Rate FiO2 09/20/17 20:00 97.7 60 16 110/59 94 High Flow 09/20/17 19:40 40 09/19/17 11:16 Intake and Output 09/19/17 09/19/17 09/20/17 15:00 23:00 07:00 Intake Total 700 ml 450 ml 250 ml Output Total 1275 ml 1200 ml 1800 ml Balance -575 ml -750 ml -1550 ml Exam Constitutional: alert, well developed Psych: nl mood/affect, no complaints Head: atraumatic, normocephalic Eyes: nl conjunctiva, nl lids ENMT: nl external ears & nose, nl nasal mucosa & septum Neck: non-tender, supple Respiratory: crackles/rales, diminished breath sounds Cardiovascular: regular rate and rhythm Gastrointestinal: non-tender, soft Musculoskeletal: nl extremities to inspection Extremities: No clubbing, No cyanosis, No edema Neurological: No nl mental status, No nl speech Skin: nl turgor Results Result Diagram: 09/20/17 0605 09/20/1705 Results 24 hrs Laboratory Tests Test 09/19/17 20:53 09/20/17 01:24 09/20/17 05:44 09/20/17 06:05 Bedside Glucose 358 H 305 H 190 White Blood Count 6.9 Red Blood Count 3.31 L Hemoglobin 9.3 L Hematocrit 27.9 L Mean Corpuscular Volume 84.3 Mean Corpuscular Hemoglobin 28.1 L Mean Corpuscular Hemoglobin Concent 33.3 Red Cell Distribution Width 15.1 H Platelet Count 355 Mean Platelet Volume 10.3 Neutrophils % 85.2 H Lymphocytes % 8.6 L Monocytes % 5.5 Eosinophils % 0.0 Basophils % 0.0 Nucleated Red Blood Cells % 0.0 Neutrophils # 5.9 Lymphocytes # 0.6 L Monocytes # 0.4 Eosinophils # 0.0 Basophils # 0.0 Nucleated Red Blood Cells # 0.0 Sodium Level 139 Potassium Level 3.4 L Chloride Level 92 L Carbon Dioxide Level 35 H Anion Gap 15 Blood Urea Nitrogen 77 H Creatinine 2.05 H Glucose Level 193 # Calcium Level 8.7 Phosphorus Level 3.4 Magnesium Level 2.4 Hepatitis B Surface Antigen NEGATIVE Hepatitis C Antibody NEGATIVE Test 09/20/17 08:08 09/20/17 11:36 09/20/17 16:41 Bedside Glucose 184 202 223 H Medications Medications Current Medications Ondansetron HCl (Zofran Tab) 4 mg Q6H PRN PO NAUSEA AND/OR VOMITING; Start at 13:30 Ondansetron HCl (Zofran Inj) 4 mg Q6H PRN IV NAUSEA AND/OR VOMITING; Start at 13:30 Acetaminophen (Tylenol Tab) 650 mg Q6H PRN PO PAIN LEVEL 1-3 OR FEVER Last administered on 09/16/17 22:03; Admin Dose 650 MG; Start 09/14/17 at 13:30 Acetaminophen/ Hydrocodone Bitart 1 tab 1 tab Q6H PRN PO MODERATE PAIN LEVEL 4- 6 Last administered on 09/17/17 07:45; Admin Dose 1 TAB; Start 09/14/17 at 13 :30 Ceftriaxone Sodium (Rocephin) 50 ml @ 100 mls/hr Q24H IVPB Last administered on 09/20/17 08:19; Admin Dose 100 MLS/HR; Start 09/15/17 at 08:30 Aspirin (Halfprin) 81 mg DAILY PO Last administered on 09/20/17 08:19; Admin Dose 81 MG; Start 09/15/17 at 09:00 Clopidogrel Bisulfate (plaVIX) 75 mg DAILY PO Last administered on 09/20/17 08:19; Admin Dose 75 MG; Start 09/15/17 at 09:00 Diclofenac Sodium (Voltaren 1% Gel) 2 gm QID TP Last administered on 16:41; Admin Dose 2 GM; Start 09/14/17 at 17:00 Duloxetine HCl (Cymbalta) 30 mg DAILY PO Last administered on 09/20/17 08:19 ; Admin Dose 30 MG; Start 09/15/17 at 09:00 Ergocalciferol (Drisdol) 50,000 unit Q7D PO Last administered on 09/15/17 09: 53; Admin Dose 50,000 UNIT; Start 09/15/17 at 09:00 Fenofibrate (Tricor) 145 mg DAILY PO Last administered on 09/20/17 08:19; Admin Dose 145 MG; Start 09/15/17 at 09:00 Montelukast Sodium (Singulair) 10 mg QHS PO Last administered on 09/19/17 20: 50; Admin Dose 10 MG; Start 09/14/17 at 21:00 Tamsulosin HCl (Flomax) 0.4 mg DAILY@21 PO Last administered on 09/19/17 20: 50; Admin Dose 0.4 MG; Start 09/14/17 at 21:00 Pantoprazole (Protonix Tab) 40 mg DAILY@06 PO Last administered on 09/20/17 05:44; Admin Dose 40 MG; Start 09/15/17 at 06:00 Meclizine HCl (Antivert) 25 mg DAILY PO Last administered on 09/20/17 08:19; Admin Dose 25 MG; Start 09/15/17 at 09:00 Atorvastatin Calcium (Lipitor) 40 mg DAILY@21 PO Last administered on 20:50; Admin Dose 40 MG; Start 09/14/17 at 21:00 Heparin Sodium (Porcine) (Heparin (5000 Units/0.5 ml)) 5,000 unit BID SC Last administered on 09/20/17 08:24; Admin Dose 5,000 UNIT; Start 09/15/17 at 21: 00 Ferrous Sulfate (Ferrous Sulfate (Ec)) 325 mg BID PO Last administered on 09/20 08:19; Admin Dose 325 MG; Start 09/16/17 at 21:00 Docusate Sodium (Colace) 100 mg BID PRN PO CONSTIPATION; Start 09/16/17 at 11: 30 Bisacodyl (Dulcolax Supp) 10 mg DAILY PRN [place] CONSTIPATION Last administered on 09/17/17 15:46; Admin Dose 10 MG; Start 09/16/17 at 11:30 Morphine Sulfate (morphine) 1 mg Q4H PRN IV pain Last administered on 06:26; Admin Dose 1 MG; Start 09/17/17 at 06:00 Tramadol HCl 50 mg 50 mg Q6H PRN PO pain; Start 09/17/17 at 06:00 Levofloxacin/ Dextrose (Levaquin 250 Mg/ D5W 50 ml (Pmx)) 50 ml @ 50 mls/hr Q24H IVPB Last administered on 09/20/17 12:13; Admin Dose 50 MLS/HR; Start 09/17/17 at 12:00 Sotalol HCl (Betapace) 80 mg DAILY PO Last administered on 09/20/17 08:19; Admin Dose 80 MG; Start 09/18/17 at 09:00 Diagnostic Test (Pha) (Accu-Chek) 1 ea 02 XX Last administered on 09/19/17 02 :00; Admin Dose 1 EA; Start 09/19/17 at 02:00 Miscellaneous Information 1 ea NOTE XX ; Start 09/18/17 at 09:30 Glucose (Glutose) 15 gm Q15M PRN PO DECREASED GLUCOSE; Start 09/18/17 at 09:30 Glucose (Glutose) 22.5 gm Q15M PRN PO DECREASED GLUCOSE; Start 09/18/17 at 09: 30 Dextrose (D50w Syringe) 25 ml Q15M PRN IV DECREASED GLUCOSE; Start 09/18/17 at 09:30 Dextrose (D50w Syringe) 50 ml Q15M PRN IV DECREASED GLUCOSE; Start 09/18/17 at 09:30 Glucagon (Glucagen) 1 mg Q15M PRN IM DECREASED GLUCOSE; Start 09/18/17 at 09: 30 Glucose (Glutose) 15 gm Q15M PRN BUCCAL DECREASED GLUCOSE; Start 09/18/17 at 09:30 Insulin Glargine (Lantus) 25 unit DAILY@20 SC Last administered on 09/19/17 21:05; Admin Dose 25 UNIT; Start 09/19/17 at 21:00 Diagnostic Test (Pha) (Accu-Chek) 1 ea 02 XX ; Start 09/20/17 at 02:00 Fish Oil (Fish Oil) 2,000 mg BID PO Last administered on 09/20/17 09:58; Admin Dose 1,000 MG; Start 09/20/17 at 09:00 Methylprednisolone Sodium Succinate 40 mg 40 mg Q8 IV Last administered on 14:56; Admin Dose 40 MG; Start 09/20/17 at 14:00 Ferric Sodium Gluconate Complex/ Sodium Chloride (Ferrlecit/NS) 110 ml @ 100 mls/hr Q24H IVPB Last administered on 09/20/17 10:48; Admin Dose 100 MLS/HR; Start 09/20/17 at 09:00; Stop 09/22/17 at 10:05 Finasteride (Proscar) 5 mg DAILY PO Last administered on 09/20/17 09:59; Admin Dose 5 MG; Start 09/20/17 at 09:00 GURMEET ARMSTRONG MD Sep 20, 2017 20:22
[2017-09-20] MEDS: INSULIN GLARGINE [LANtus] 3 ML PEN SC SCH (20:39)
[2017-09-20] MEDS: MONTELUKAST 10 MG TAB PO SCH (20:50)
[2017-09-20] MEDS: ATORVASTATIN 40 MG TAB PO SCH (20:51)
[2017-09-20] MEDS: TAMSULOSIN (SR) 0.4 MG CAP PO SCH (20:51)
[2017-09-21] VITALS (59 sets, daily range): BP systolic 93–140; BP diastolic 55–82; PULSE 58–81; RESP 9–25
[2017-09-21] MEDS: ALBUTEROL/IPRATROPIUM (NEB) 3 ML AMP HHN SCH ×4 (01:32→19:27)
[2017-09-21] MEDS: ACCU-CHEK XX SCH ×2 (02:00)
[2017-09-21] MEDS: FUROSEMIDE 40 MG INJ IV SCH ×2 (05:32→17:44)
[2017-09-21] MEDS: METHYLPREDNISOLONE 40 MG INJ IV SCH ×2 (05:32→13:21)
[2017-09-21] MEDS: PANTOPRAZOLE (EC) 40 MG TAB PO SCH (05:32)
--- NOTE | 2017-09-21 07:20 | RADRPT ---
PROCEDURE: XR Chest. CLINICAL INDICATION: Shortness of breath. TECHNIQUE: Single frontal view. COMPARISON: 09/19/2017. FINDINGS: There is bilateral air space disease consistent with pulmonary edema, slightly improved. The heart is enlarged. There is a left-sided dual lead permanent pacemaker. Calcification is present in the aorta consistent with atherosclerosis. There is no pleural effusion. There is no pneumothorax. There are degenerative changes of the right glenohumeral joint. IMPRESSION: 1. Slightly improved appearance of the lungs. 2. No other change from 09/19/2017. RPTAT: QQ .Anand Ybarra MD, MD Date Time Electronically viewed and signed by .Anand Ybarra MD, on 09/21/2017 07:19 .R/
[2017-09-21] MEDS: INSULIN ASPART [NOVOLOG] 3 ML PEN SC SCH ×7 (07:31→21:10)
[2017-09-21] MEDS: CEFTRIAXONE 1 GM/50 ML (PMX) 50 ML IVPB SCH (08:16)
[2017-09-21] MEDS: DULOXETINE 30 MG CAP DR PO SCH (08:35)
[2017-09-21] MEDS: ASPIRIN (EC) 81 MG TAB PO SCH (08:35)
[2017-09-21] MEDS: FINASTERIDE 5 MG TAB PO SCH (08:35)
[2017-09-21] MEDS: FERROUS SULFATE (EC) 325 MG TAB PO SCH ×2 (08:35→21:07)
[2017-09-21] MEDS: CLOPIDOGREL 75 MG TAB PO SCH (08:35)
[2017-09-21] MEDS: FISH OIL 1,000 MG CAP PO SCH ×2 (08:35→21:07)
[2017-09-21] MEDS: FENOFIBRATE 145 MG TAB PO SCH (08:36)
[2017-09-21] MEDS: SOTALOL 80 MG TAB PO SCH (08:36)
[2017-09-21] MEDS: MECLIZINE 25 MG TAB PO SCH (08:36)
[2017-09-21] MEDS: DICLOFENAC SODIUM 1% GEL 100 GM TUBE TP SCH ×4 (08:37→21:18)
[2017-09-21] MEDS: HEPARIN 5,000 UNIT/0.5 ML VIAL SC SCH ×2 (08:44→21:09)
--- NOTE | 2017-09-21 08:45 | PN ---
Date/Time of Note Date/Time of Note DATE: 09/21/17 TIME: 08:41 Assessment/Plan VTE Prophylaxis VTE Prophylaxis Intervention: heparin Lines/Catheters IV [facility]ter Type (from [facility]): Peripheral IV Urinary Cath still in place: No Assessment/Plan Problems: (1) Community acquired pneumonia Status: Acute Comment: Remains on antibiotics and is improving slowly. He still on high flow oxygen to transfer out of the ICU is not quite yet ready. However he is improving. Adjustment of the dosage of the steroids as per pulmonary. Qualifiers: Laterality: right Lung location: middle lobe of lung Qualified Code: J18.1 - Community acquired pneumonia of right middle lobe of lung (2) BPH (benign prostatic hyperplasia) Status: Chronic Comment: Check postvoid residual Qualifiers: Lower urinary tract symptom presence: symptoms present Lower urinary tract symptom detail: unspecified Qualified Code: N40.1 - Benign prostatic hyperplasia with lower urinary tract symptoms, symptom details unspecified (3) Essential hypertension Status: Chronic Comment: Adequate control (4) Hyperlipidemia associated with type 2 diabetes mellitus Status: Chronic Comment: Remains on statin therapy and stable (5) Paroxysmal atrial fibrillation Status: Chronic Comment: Presently in sinus rhythm (6) Diabetes mellitus type 2 in obese Status: Chronic Comment: Adequate control. Dosage of medicines will need to be adjusted as the steroids come down (7) Chronic kidney disease, stage III (moderate) Status: Chronic Comment: Stable, and at baseline (8) Aortic stenosis, moderate Status: Chronic Comment: Noted. Subjective 24 Hr Interval Summary Free Text/Dictation Patient reports he is feeling better. He is complaining of tiredness and weakness. He was up to chair yesterday Constitutional: no complaints (Denies fevers chills or sweats) Respiratory: cough (Cough is improved), shortness of breath Cardiovascular: no complaints Gastrointestinal: no complaints Exam/Review of Systems Vital Signs Vitals Vital Signs Date Time Temp Pulse Resp B/P Pulse Ox O2 Delivery O2 Flow Rate FiO2 09/21/17 07:00 97.7 60 12 106/82 94 High Flow 09/21/17 05:00 40 09/19/17 11:16 Intake and Output 09/20/17 09/20/17 09/21/17 15:00 23:00 07:00 Intake Total 860 ml 260 ml 160 ml Output Total 820 ml 870 ml 1720 ml Balance 40 ml -610 ml -1560 ml Exam Constitutional: alert, oriented Neck: non-tender, supple Respiratory: crackles/rales Cardiovascular: murmurs/extra sounds, nl pulses, regular rate and rhythm Results Result Diagram: 09/21/17 0545 09/21/17 0545 Results 24 hrs Laboratory Tests Test 09/20/17 11:36 09/20/17 16:41 09/20/17 20:36 09/21/17 02:37 Bedside Glucose 202 223 H 207 153 Test 09/21/17 05:45 09/21/17 07:29 White Blood Count 8.5 # Red Blood Count 3.69 L Hemoglobin 10.3 L Hematocrit 31.4 L Mean Corpuscular Volume 85.1 Mean Corpuscular Hemoglobin 27.9 L Mean Corpuscular Hemoglobin Concent 32.8 Red Cell Distribution Width 15.6 H Platelet Count 425 H Mean Platelet Volume 10.4 Neutrophils % 80.3 H Lymphocytes % 11.5 L Monocytes % 6.7 Eosinophils % 0.0 Basophils % 0.1 Nucleated Red Blood Cells % 0.0 Neutrophils # 6.8 Lymphocytes # 1.0 Monocytes # 0.6 Eosinophils # 0.0 Basophils # 0.0 Nucleated Red Blood Cells # 0.0 Sodium Level 142 Potassium Level 4.0 Chloride Level 96 L Carbon Dioxide Level 37 H Anion Gap 13 Blood Urea Nitrogen 74 H Creatinine 1.75 H Glucose Level 157 Calcium Level 9.2 Total Bilirubin 0.2 Direct Bilirubin 0.00 Indirect Bilirubin 0.2 Aspartate Amino Transf (AST/SGOT) 55 H Alanine Aminotransferase (ALT/SGPT) 64 Alkaline Phosphatase 71 Total Protein 7.1 Albumin 3.3 Globulin 3.80 H Albumin/Globulin Ratio 0.86 Bedside Glucose 165 Medications Medications Current Medications Ondansetron HCl (Zofran Tab) 4 mg Q6H PRN PO NAUSEA AND/OR VOMITING; Start at 13:30 Ondansetron HCl (Zofran Inj) 4 mg Q6H PRN IV NAUSEA AND/OR VOMITING; Start at 13:30 Acetaminophen (Tylenol Tab) 650 mg Q6H PRN PO PAIN LEVEL 1-3 OR FEVER Last administered on 09/16/17t 22:03; Admin Dose 650 MG; Start 09/14/17 at 13:30 Acetaminophen/ Hydrocodone Bitart 1 tab 1 tab Q6H PRN PO MODERATE PAIN LEVEL 4- 6 Last administered on 09/17/17 07:45; Admin Dose 1 TAB; Start 09/14/17 at 13 :30 Ceftriaxone Sodium (Rocephin) 50 ml @ 100 mls/hr Q24H IVPB Last administered on 09/21/17 08:16; Admin Dose 100 MLS/HR; Start 09/15/17 at 08:30 Aspirin (Halfprin) 81 mg DAILY PO Last administered on 09/20/17 08:19; Admin Dose 81 MG; Start 09/15/17 at 09:00 Clopidogrel Bisulfate (plaVIX) 75 mg DAILY PO Last administered on 09/20/17 08:19; Admin Dose 75 MG; Start 09/15/17 at 09:00 Diclofenac Sodium (Voltaren 1% Gel) 2 gm QID TP Last administered on 21:51; Admin Dose 2 GM; Start 09/14/17 at 17:00 Duloxetine HCl (Cymbalta) 30 mg DAILY PO Last administered on 09/20/17 08:19 ; Admin Dose 30 MG; Start 09/15/17 at 09:00 Ergocalciferol (Drisdol) 50,000 unit Q7D PO Last administered on 09/15/17 09: 53; Admin Dose 50,000 UNIT; Start 09/15/17 at 09:00 Fenofibrate (Tricor) 145 mg DAILY PO Last administered on 09/20/17 08:19; Admin Dose 145 MG; Start 09/15/17 at 09:00 Montelukast Sodium (Singulair) 10 mg QHS PO Last administered on 09/20/17 20: 50; Admin Dose 10 MG; Start 09/14/17 at 21:00 Tamsulosin HCl (Flomax) 0.4 mg DAILY@21 PO Last administered on 09/20/17 20: 51; Admin Dose 0.4 MG; Start 09/14/17 at 21:00 Pantoprazole (Protonix Tab) 40 mg DAILY@06 PO Last administered on 09/21/17 05:32; Admin Dose 40 MG; Start 09/15/17 at 06:00 Meclizine HCl (Antivert) 25 mg DAILY PO Last administered on 09/20/17 08:19; Admin Dose 25 MG; Start 09/15/17 at 09:00 Atorvastatin Calcium (Lipitor) 40 mg DAILY@21 PO Last administered on 20:51; Admin Dose 40 MG; Start 09/14/17 at 21:00 Heparin Sodium (Porcine) (Heparin (5000 Units/0.5 ml)) 5,000 unit BID SC Last administered on 09/20/17 20:56; Admin Dose 5,000 UNIT; Start 09/15/17 at 21: 00 Ferrous Sulfate (Ferrous Sulfate (Ec)) 325 mg BID PO Last administered on 09/20 20:51; Admin Dose 325 MG; Start 09/16/17 at 21:00 Docusate Sodium (Colace) 100 mg BID PRN PO CONSTIPATION; Start 09/16/17 at 11: 30 Bisacodyl (Dulcolax Supp) 10 mg DAILY PRN [place] CONSTIPATION Last administered on 09/17/17 15:46; Admin Dose 10 MG; Start 09/16/17 at 11:30 Morphine Sulfate (morphine) 1 mg Q4H PRN IV pain Last administered on 06:26; Admin Dose 1 MG; Start 09/17/17 at 06:00 Tramadol HCl 50 mg 50 mg Q6H PRN PO pain; Start 09/17/17 at 06:00 Levofloxacin/ Dextrose (Levaquin 250 Mg/ D5W 50 ml (Pmx)) 50 ml @ 50 mls/hr Q24H IVPB Last administered on 09/20/17 12:13; Admin Dose 50 MLS/HR; Start 09/17/17 at 12:00 Sotalol HCl (Betapace) 80 mg DAILY PO Last administered on 09/20/17 08:19; Admin Dose 80 MG; Start 09/18/17 at 09:00 Diagnostic Test (Pha) (Accu-Chek) 1 ea 02 XX Last administered on 09/19/17 02 :00; Admin Dose 1 EA; Start 09/19/17 at 02:00 Miscellaneous Information 1 ea NOTE XX ; Start 09/18/17 at 09:30 Glucose (Glutose) 15 gm Q15M PRN PO DECREASED GLUCOSE; Start 09/18/17 at 09:30 Glucose (Glutose) 22.5 gm Q15M PRN PO DECREASED GLUCOSE; Start 09/18/17 at 09: 30 Dextrose (D50w Syringe) 25 ml Q15M PRN IV DECREASED GLUCOSE; Start 09/18/17 at 09:30 Dextrose (D50w Syringe) 50 ml Q15M PRN IV DECREASED GLUCOSE; Start 09/18/17 at 09:30 Glucagon (Glucagen) 1 mg Q15M PRN IM DECREASED GLUCOSE; Start 09/18/17 at 09: 30 Glucose (Glutose) 15 gm Q15M PRN BUCCAL DECREASED GLUCOSE; Start 09/18/17 at 09:30 Insulin Glargine (Lantus) 25 unit DAILY@20 SC Last administered on 09/20/17 20:39; Admin Dose 25 UNIT; Start 09/19/17 at 21:00 Diagnostic Test (Pha) (Accu-Chek) 1 ea 02 XX ; Start 09/20/17 at 02:00 Fish Oil (Fish Oil) 2,000 mg BID PO Last administered on 09/20/17 20:50; Admin Dose 2,000 MG; Start 09/20/17 at 09:00 Methylprednisolone Sodium Succinate 40 mg 40 mg Q8 IV Last administered on 05:32; Admin Dose 40 MG; Start 09/20/17 at 14:00 Ferric Sodium Gluconate Complex/ Sodium Chloride (Ferrlecit/NS) 110 ml @ 100 mls/hr Q24H IVPB Last administered on 09/20/17 10:48; Admin Dose 100 MLS/HR; Start 09/20/17 at 09:00; Stop 09/22/17 at 10:05 Finasteride (Proscar) 5 mg DAILY PO Last administered on 09/20/17 09:59; Admin Dose 5 MG; Start 09/20/17 at 09:00 ELIAS BELTRE MD Sep 21, 2017 08:45
[2017-09-21] MEDS: SOD FERRIC GLUC COMPLX 125 MG in SOD CHLORIDE 0.9% 100 ML IVPB SCH ×2 (09:00→10:04)
--- NOTE | 2017-09-21 10:06 | CONS ---
Date/Time of Note Date/Time of Note DATE: 09/21/17 TIME: 10:04 Assessment/Plan Assessment/Plan Additional Assessment/Plan Chest x-ray was reviewed from today which is showing continued improvement in bilateral infiltrates. Assessment recommendations; 1. Patient admitted with hypoxemic respiratory failure due to likely underlying pulmonary fibrosis with superimposed pneumonia and some element of pulmonary edema. Patient is significantly improved clinically as well as radiologically. 2. Renal insufficiency. With continually improving serum creatinine. 3. Chronic atrial fibrillation. Continue current treatment. Consultation Date/Type/Reason Admit Date/Time Sep 14, 2017 at 08:17 Type of Consultation: Pulmonary/critical care 24 HR Interval Summary Free Text/Dictation Patient's condition is continually improving. Remains completely awake alert. Denies any shortness of breath, chest pain, wheezing. Patient has been weaned down to high flow oxygen. General exam; elderly male, awake alert, currently no distress. Exam/Review of Systems Vital Signs Vitals Vital Signs Date Time Temp Pulse Resp B/P Pulse Ox O2 Delivery O2 Flow Rate FiO2 09/21/17 09:00 60 13 98/55 94 High Flow 09/21/17 07:00 97.7 09/21/17 05:00 40 09/19/17 11:16 Intake and Output 09/20/17 09/20/17 09/21/17 15:00 23:00 07:00 Intake Total 860 ml 260 ml 160 ml Output Total 820 ml 870 ml 1720 ml Balance 40 ml -610 ml -1560 ml Exam HEENT exam; supple neck, no JVD. No lymphadenopathy. Midline trachea. No thyromegaly. Pharynx clear. Patient is edentulous and wears dentures. Has bilateral intraocular lens implants. Chest exam; diminished but clear breath sound. S1-S2 audible, irregular rhythm. Pacemaker in place. Abdomen exam; soft, nontender. No organomegaly. Bowel sounds audible. Extremity exam; no peripheral edema. No clubbing. [employer] exam; no focal deficit. Results Result Diagram: 09/21/17 0545 09/21/17 0545 Results 24 hrs Laboratory Tests Test 09/20/17 11:36 09/20/17 16:41 09/20/17 20:36 09/21/17 02:37 Bedside Glucose 202 223 H 207 153 Test 09/21/17 05:45 09/21/17 07:29 White Blood Count 8.5 # Red Blood Count 3.69 L Hemoglobin 10.3 L Hematocrit 31.4 L Mean Corpuscular Volume 85.1 Mean Corpuscular Hemoglobin 27.9 L Mean Corpuscular Hemoglobin Concent 32.8 Red Cell Distribution Width 15.6 H Platelet Count 425 H Mean Platelet Volume 10.4 Neutrophils % 80.3 H Lymphocytes % 11.5 L Monocytes % 6.7 Eosinophils % 0.0 Basophils % 0.1 Nucleated Red Blood Cells % 0.0 Neutrophils # 6.8 Lymphocytes # 1.0 Monocytes # 0.6 Eosinophils # 0.0 Basophils # 0.0 Nucleated Red Blood Cells # 0.0 Sodium Level 142 Potassium Level 4.0 Chloride Level 96 L Carbon Dioxide Level 37 H Anion Gap 13 Blood Urea Nitrogen 74 H Creatinine 1.75 H Glucose Level 157 Calcium Level 9.2 Total Bilirubin 0.2 Direct Bilirubin 0.00 Indirect Bilirubin 0.2 Aspartate Amino Transf (AST/SGOT) 55 H Alanine Aminotransferase (ALT/SGPT) 64 Alkaline Phosphatase 71 Total Protein 7.1 Albumin 3.3 Globulin 3.80 H Albumin/Globulin Ratio 0.86 Bedside Glucose 165 Medications Medications Current Medications Ondansetron HCl (Zofran Tab) 4 mg Q6H PRN PO NAUSEA AND/OR VOMITING; Start at 13:30 Ondansetron HCl (Zofran Inj) 4 mg Q6H PRN IV NAUSEA AND/OR VOMITING; Start at 13:30 Acetaminophen (Tylenol Tab) 650 mg Q6H PRN PO PAIN LEVEL 1-3 OR FEVER Last administered on 09/16/17 22:03; Admin Dose 650 MG; Start 09/14/17 at 13:30 Acetaminophen/ Hydrocodone Bitart 1 tab 1 tab Q6H PRN PO MODERATE PAIN LEVEL 4- 6 Last administered on 09/17/17 07:45; Admin Dose 1 TAB; Start 09/14/17 at 13 :30 Ceftriaxone Sodium (Rocephin) 50 ml @ 100 mls/hr Q24H IVPB Last administered on 09/21/17 08:16; Admin Dose 100 MLS/HR; Start 09/15/17 at 08:30 Aspirin (Halfprin) 81 mg DAILY PO Last administered on 09/21/17 08:35; Admin Dose 81 MG; Start 09/15/17 at 09:00 Clopidogrel Bisulfate (plaVIX) 75 mg DAILY PO Last administered on 09/21/17 08:35; Admin Dose 75 MG; Start 09/15/17 at 09:00 Diclofenac Sodium (Voltaren 1% Gel) 2 gm QID TP Last administered on 08:37; Admin Dose 2 GM; Start 09/14/17 at 17:00 Duloxetine HCl (Cymbalta) 30 mg DAILY PO Last administered on 09/21/17 08:35 ; Admin Dose 30 MG; Start 09/15/17 at 09:00 Ergocalciferol (Drisdol) 50,000 unit Q7D PO Last administered on 09/15/17 09: 53; Admin Dose 50,000 UNIT; Start 09/15/17 at 09:00 Fenofibrate (Tricor) 145 mg DAILY PO Last administered on 09/21/17 08:36; Admin Dose 145 MG; Start 09/15/17 at 09:00 Montelukast Sodium (Singulair) 10 mg QHS PO Last administered on 09/20/17 20: 50; Admin Dose 10 MG; Start 09/14/17 at 21:00 Tamsulosin HCl (Flomax) 0.4 mg DAILY@21 PO Last administered on 09/20/17 20: 51; Admin Dose 0.4 MG; Start 09/14/17 at 21:00 Pantoprazole (Protonix Tab) 40 mg DAILY@06 PO Last administered on 09/21/17 05:32; Admin Dose 40 MG; Start 09/15/17 at 06:00 Meclizine HCl (Antivert) 25 mg DAILY PO Last administered on 09/21/17 08:36; Admin Dose 25 MG; Start 09/15/17 at 09:00 Atorvastatin Calcium (Lipitor) 40 mg DAILY@21 PO Last administered on 20:51; Admin Dose 40 MG; Start 09/14/17 at 21:00 Heparin Sodium (Porcine) (Heparin (5000 Units/0.5 ml)) 5,000 unit BID SC Last administered on 09/21/17 08:44; Admin Dose 5,000 UNIT; Start 09/15/17 at 21: 00 Ferrous Sulfate (Ferrous Sulfate (Ec)) 325 mg BID PO Last administered on 09/21 08:35; Admin Dose 325 MG; Start 09/16/17 at 21:00 Docusate Sodium (Colace) 100 mg BID PRN PO CONSTIPATION; Start 09/16/17 at 11: 30 Bisacodyl (Dulcolax Supp) 10 mg DAILY PRN [place] CONSTIPATION Last administered on 09/17/17 15:46; Admin Dose 10 MG; Start 09/16/17 at 11:30 Morphine Sulfate (morphine) 1 mg Q4H PRN IV pain Last administered on 06:26; Admin Dose 1 MG; Start 09/17/17 at 06:00 Tramadol HCl 50 mg 50 mg Q6H PRN PO pain; Start 09/17/17 at 06:00 Levofloxacin/ Dextrose (Levaquin 250 Mg/ D5W 50 ml (Pmx)) 50 ml @ 50 mls/hr Q24H IVPB Last administered on 09/20/17 12:13; Admin Dose 50 MLS/HR; Start 09/17/17 at 12:00 Sotalol HCl (Betapace) 80 mg DAILY PO Last administered on 09/21/17 08:36; Admin Dose 80 MG; Start 09/18/17 at 09:00 Diagnostic Test (Pha) (Accu-Chek) 1 ea 02 XX Last administered on 09/19/17 02 :00; Admin Dose 1 EA; Start 09/19/17 at 02:00 Miscellaneous Information 1 ea NOTE XX ; Start 09/18/17 at 09:30 Glucose (Glutose) 15 gm Q15M PRN PO DECREASED GLUCOSE; Start 09/18/17 at 09:30 Glucose (Glutose) 22.5 gm Q15M PRN PO DECREASED GLUCOSE; Start 09/18/17 at 09: 30 Dextrose (D50w Syringe) 25 ml Q15M PRN IV DECREASED GLUCOSE; Start 09/18/17 at 09:30 Dextrose (D50w Syringe) 50 ml Q15M PRN IV DECREASED GLUCOSE; Start 09/18/17 at 09:30 Glucagon (Glucagen) 1 mg Q15M PRN IM DECREASED GLUCOSE; Start 09/18/17 at 09: 30 Glucose (Glutose) 15 gm Q15M PRN BUCCAL DECREASED GLUCOSE; Start 09/18/17 at 09:30 Insulin Glargine (Lantus) 25 unit DAILY@20 SC Last administered on 09/20/17 20:39; Admin Dose 25 UNIT; Start 09/19/17 at 21:00 Diagnostic Test (Pha) (Accu-Chek) 1 ea 02 XX ; Start 09/20/17 at 02:00 Fish Oil (Fish Oil) 2,000 mg BID PO Last administered on 09/21/17 08:35; Admin Dose 2,000 MG; Start 09/20/17 at 09:00 Methylprednisolone Sodium Succinate 40 mg 40 mg Q8 IV Last administered on 05:32; Admin Dose 40 MG; Start 09/20/17 at 14:00 Ferric Sodium Gluconate Complex/ Sodium Chloride (Ferrlecit/NS) 110 ml @ 100 mls/hr Q24H IVPB Last administered on 09/20/17 10:48; Admin Dose 100 MLS/HR; Start 09/20/17 at 09:00; Stop 09/22/17 at 10:05 Finasteride (Proscar) 5 mg DAILY PO Last administered on 09/21/17 08:35; Admin Dose 5 MG; Start 09/20/17 at 09:00 MELISSA AGUERO Sep 21, 2017 10:06
--- NOTE | 2017-09-21 11:28 | CONS ---
Date/Time of Note Date/Time of Note DATE: 09/21/17 TIME: 11:27 Consult Date/Type/Reason Admit Date/Time Sep 14, 2017 at 08:17 Type of Consultation: neph Subjective The patient is stable, no acute events overnight. No hemoptysis, hematemesis, hematochezia. continues good uo. tolerating diuresis decreased dyspnea is noted. poc reviewed with dr. arnold and daughter OBJECTIVE: HEENT: Head is normocephalic. NECK: Supple. HEART: Regular rate. LUNGS: Show diminished breath sounds at base. Positive crackles. ABDOMEN: Soft, nontender to palpation. No rebound or guarding. EXTREMITIES: Negative for clubbing, cyanosis. Trace edema. DERMATOLOGIC: No rashes. MUSCULOSKELETAL: No joint effusions. NEUROLOGIC: No change in exam. MEDICATIONS: The patient's medications have been reviewed. Objective Vital Signs Date Time Temp Pulse Resp B/P Pulse Ox O2 Delivery O2 Flow Rate FiO2 09/21/17 11:00 60 14 115/65 94 09/21/17 10:00 High Flow 09/21/17 07:00 97.7 09/21/17 05:00 40 09/19/17 11:16 Intake and Output 09/20/17 09/20/17 09/21/17 15:00 23:00 07:00 Intake Total 860 ml 260 ml 160 ml Output Total 820 ml 870 ml 1720 ml Balance 40 ml -610 ml -1560 ml Results/Medications Result Diagram: 09/21/17 0545 09/21/17 0545 Results 24 hrs Laboratory Tests Test 09/20/17 11:36 09/20/17 16:41 09/20/17 20:36 09/21/17 02:37 Bedside Glucose 202 223 H 207 153 Test 09/21/17 05:45 09/21/17 07:29 White Blood Count 8.5 # Red Blood Count 3.69 L Hemoglobin 10.3 L Hematocrit 31.4 L Mean Corpuscular Volume 85.1 Mean Corpuscular Hemoglobin 27.9 L Mean Corpuscular Hemoglobin Concent 32.8 Red Cell Distribution Width 15.6 H Platelet Count 425 H Mean Platelet Volume 10.4 Neutrophils % 80.3 H Lymphocytes % 11.5 L Monocytes % 6.7 Eosinophils % 0.0 Basophils % 0.1 Nucleated Red Blood Cells % 0.0 Neutrophils # 6.8 Lymphocytes # 1.0 Monocytes # 0.6 Eosinophils # 0.0 Basophils # 0.0 Nucleated Red Blood Cells # 0.0 Sodium Level 142 Potassium Level 4.0 Chloride Level 96 L Carbon Dioxide Level 37 H Anion Gap 13 Blood Urea Nitrogen 74 H Creatinine 1.75 H Glucose Level 157 Calcium Level 9.2 Total Bilirubin 0.2 Direct Bilirubin 0.00 Indirect Bilirubin 0.2 Aspartate Amino Transf (AST/SGOT) 55 H Alanine Aminotransferase (ALT/SGPT) 64 Alkaline Phosphatase 71 Total Protein 7.1 Albumin 3.3 Globulin 3.80 H Albumin/Globulin Ratio 0.86 Bedside Glucose 165 Medications Current Medications Ondansetron HCl (Zofran Tab) 4 mg Q6H PRN PO NAUSEA AND/OR VOMITING; Start at 13:30 Ondansetron HCl (Zofran Inj) 4 mg Q6H PRN IV NAUSEA AND/OR VOMITING; Start at 13:30 Acetaminophen (Tylenol Tab) 650 mg Q6H PRN PO PAIN LEVEL 1-3 OR FEVER Last administered on 09/16/17 22:03; Admin Dose 650 MG; Start 09/14/17 at 13:30 Acetaminophen/ Hydrocodone Bitart 1 tab 1 tab Q6H PRN PO MODERATE PAIN LEVEL 4- 6 Last administered on 09/17/17 07:45; Admin Dose 1 TAB; Start 09/14/17 at 13 :30 Ceftriaxone Sodium (Rocephin) 50 ml @ 100 mls/hr Q24H IVPB Last administered on 09/21/17 08:16; Admin Dose 100 MLS/HR; Start 09/15/17 at 08:30 Aspirin (Halfprin) 81 mg DAILY PO Last administered on 09/21/17 08:35; Admin Dose 81 MG; Start 09/15/17 at 09:00 Clopidogrel Bisulfate (plaVIX) 75 mg DAILY PO Last administered on 09/21/17 08:35; Admin Dose 75 MG; Start 09/15/17 at 09:00 Diclofenac Sodium (Voltaren 1% Gel) 2 gm QID TP Last administered on 08:37; Admin Dose 2 GM; Start 09/14/17 at 17:00 Duloxetine HCl (Cymbalta) 30 mg DAILY PO Last administered on 09/21/17 08:35 ; Admin Dose 30 MG; Start 09/15/17 at 09:00 Ergocalciferol (Drisdol) 50,000 unit Q7D PO Last administered on 09/15/17 09: 53; Admin Dose 50,000 UNIT; Start 09/15/17 at 09:00 Fenofibrate (Tricor) 145 mg DAILY PO Last administered on 09/21/17 08:36; Admin Dose 145 MG; Start 09/15/17 at 09:00 Montelukast Sodium (Singulair) 10 mg QHS PO Last administered on 09/20/17 20: 50; Admin Dose 10 MG; Start 09/14/17 at 21:00 Tamsulosin HCl (Flomax) 0.4 mg DAILY@21 PO Last administered on 09/20/17 20: 51; Admin Dose 0.4 MG; Start 09/14/17 at 21:00 Pantoprazole (Protonix Tab) 40 mg DAILY@06 PO Last administered on 09/21/17 05:32; Admin Dose 40 MG; Start 09/15/17 at 06:00 Meclizine HCl (Antivert) 25 mg DAILY PO Last administered on 09/21/17 08:36; Admin Dose 25 MG; Start 09/15/17 at 09:00 Atorvastatin Calcium (Lipitor) 40 mg DAILY@21 PO Last administered on 20:51; Admin Dose 40 MG; Start 09/14/17 at 21:00 Heparin Sodium (Porcine) (Heparin (5000 Units/0.5 ml)) 5,000 unit BID SC Last administered on 09/21/17 08:44; Admin Dose 5,000 UNIT; Start 09/15/17 at 21: 00 Ferrous Sulfate (Ferrous Sulfate (Ec)) 325 mg BID PO Last administered on 09/21 08:35; Admin Dose 325 MG; Start 09/16/17 at 21:00 Docusate Sodium (Colace) 100 mg BID PRN PO CONSTIPATION; Start 09/16/17 at 11: 30 Bisacodyl (Dulcolax Supp) 10 mg DAILY PRN [place] CONSTIPATION Last administered on 09/17/17 15:46; Admin Dose 10 MG; Start 09/16/17 at 11:30 Morphine Sulfate (morphine) 1 mg Q4H PRN IV pain Last administered on 06:26; Admin Dose 1 MG; Start 09/17/17 at 06:00 Tramadol HCl 50 mg 50 mg Q6H PRN PO pain; Start 09/17/17 at 06:00 Levofloxacin/ Dextrose (Levaquin 250 Mg/ D5W 50 ml (Pmx)) 50 ml @ 50 mls/hr Q24H IVPB Last administered on 09/20/17 12:13; Admin Dose 50 MLS/HR; Start 09/17/17 at 12:00 Sotalol HCl (Betapace) 80 mg DAILY PO Last administered on 09/21/17 08:36; Admin Dose 80 MG; Start 09/18/17 at 09:00 Diagnostic Test (Pha) (Accu-Chek) 1 ea 02 XX Last administered on 09/19/17 02 :00; Admin Dose 1 EA; Start 09/19/17 at 02:00 Miscellaneous Information 1 ea NOTE XX ; Start 09/18/17 at 09:30 Glucose (Glutose) 15 gm Q15M PRN PO DECREASED GLUCOSE; Start 09/18/17 at 09:30 Glucose (Glutose) 22.5 gm Q15M PRN PO DECREASED GLUCOSE; Start 09/18/17 at 09: 30 Dextrose (D50w Syringe) 25 ml Q15M PRN IV DECREASED GLUCOSE; Start 09/18/17 at 09:30 Dextrose (D50w Syringe) 50 ml Q15M PRN IV DECREASED GLUCOSE; Start 09/18/17 at 09:30 Glucagon (Glucagen) 1 mg Q15M PRN IM DECREASED GLUCOSE; Start 09/18/17 at 09: 30 Glucose (Glutose) 15 gm Q15M PRN BUCCAL DECREASED GLUCOSE; Start 09/18/17 at 09:30 Insulin Glargine (Lantus) 25 unit DAILY@20 SC Last administered on 09/20/17 20:39; Admin Dose 25 UNIT; Start 09/19/17 at 21:00 Diagnostic Test (Pha) (Accu-Chek) 1 ea 02 XX ; Start 09/20/17 at 02:00 Fish Oil (Fish Oil) 2,000 mg BID PO Last administered on 09/21/17 08:35; Admin Dose 2,000 MG; Start 09/20/17 at 09:00 Methylprednisolone Sodium Succinate 40 mg 40 mg Q8 IV Last administered on 05:32; Admin Dose 40 MG; Start 09/20/17 at 14:00 Ferric Sodium Gluconate Complex/ Sodium Chloride (Ferrlecit/NS) 110 ml @ 100 mls/hr Q24H IVPB Last administered on 09/21/17 10:04; Admin Dose 100 MLS/HR; Start 09/20/17 at 09:00; Stop 09/22/17 at 10:05 Finasteride (Proscar) 5 mg DAILY PO Last administered on 09/21/17 08:35; Admin Dose 5 MG; Start 09/20/17 at 09:00 Assessment/Plan Chief Complaint/Hosp Course ASSESSMENT AND PLAN: 1. Nonoliguric acute kidney injury on top of chronic kidney disease with previous baseline creatinine 1.7 to 2.0 mg/dL. The etiology of acute kidney injury is secondary to hemodynamics. Renal function has been fluctuating but overall stable, near baseline. The patient has had some azotemia which is multifactorial due to hypermetabolic state, acute kidney injury and steroid and now near baseline. At this point, continue current treatment plan. Continue current diuretic regimen, monitor renal function closely. Will need to tolerate some azotemia to achieve euvolemia. 2. Acute congestive heart failure exacerbation. Continue current medical management. Follow up with cardiology. 3. Anemia. Monitor hemoglobin and hematocrit levels. 4. Mineral bone disorder. Monitor calcium and phosphorus levels. 5. Metabolic alkalosis, compensated. Continue to monitor. 6. Sepsis secondary to pneumonia. Continue current antibiotic regimen. 7. Acute hypoxemic respiratory failure secondary to pneumonia and congestive heart failure. Continue current treatment plan. Continue diuretics and antibiotics. 8. Hypertension. Continue current blood pressure regimen. 9. Paroxysmal atrial fibrillation, currently in sinus rhythm. Continue to monitor. 10. 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 The patient is currently off amiodarone, on steroids. Follow up with pulmonary. Problems: KAMINI GONZALEZ MD Sep 21, 2017 11:28
[2017-09-21] MEDS: LEVOFLOXACIN 250MG/D5W (PMX) 50 ML IVPB SCH (11:54)
--- NOTE | 2017-09-21 18:09 | CONS ---
Date/Time of Note Date/Time of Note DATE: 09/21/17 TIME: 18:09 Assessment/Plan Assessment/Plan Chief Complaint/Hosp Course Assessment: Acute hypoxic respiratory failure - primarily pulmonary with component of congestive heart failure, improving Suspected pulmonary fibrosis - amiodarone was discontinued due to concern for pulmonary toxicity Possible pneumonia - on antibiotics Acute on chronic diastolic heart failure - echocardiogram reported LVEF 55% Moderate aortic stenosis Coronary artery disease - anatomy unknown, apparently he has not been revascularized in the past Paroxysmal atrial fibrillation - currently sinus rhythm Permanent pacemaker - details unknown Hypertension Dyslipidemia Acute kidney injury on chronic kidney disease History of stroke Recommendations: -continue Lasix 40mg IV BID -continue sotalol 80mg Q24hr (renally dosed), QT interval was stable for three days after starting -continue outpatient aspirin 81mg and clopidogrel daily (though would consider anticoagulation instead of dual-antiplatelet therapy due to atrial fibrillation and history of stroke - defer to outpatient players [employer] representative) -continue statin Problems: Consultation Date/Type/Reason Admit Date/Time Sep 14, 2017 at 08:17 Type of Consultation: Cardiology 24 HR Interval Summary Free Text/Dictation No acute events. Overall improving. Detailed Summary Additional Comments 14 point review of systems without changes. Exam/Review of Systems Vital Signs Vitals Vital Signs Date Time Temp Pulse Resp B/P Pulse Ox O2 Delivery O2 Flow Rate FiO2 09/21/17 17:05 66 21 105/61 97 High Flow 09/21/17 16:00 97.9 09/21/17 13:59 30 09/19/17 11:16 Intake and Output 09/20/17 09/20/17 09/21/17 15:00 23:00 07:00 Intake Total 860 ml 260 ml 160 ml Output Total 820 ml 870 ml 1720 ml Balance 40 ml -610 ml -1560 ml Exam Constitutional: alert, well developed Psych: nl mood/affect, no complaints Head: atraumatic, normocephalic Eyes: nl conjunctiva, nl lids ENMT: nl external ears & nose, nl nasal mucosa & septum Neck: non-tender, supple Respiratory: crackles/rales, diminished breath sounds Cardiovascular: regular rate and rhythm Gastrointestinal: non-tender, soft Musculoskeletal: nl extremities to inspection Extremities: No clubbing, No cyanosis, No edema Neurological: No nl mental status, No nl speech Skin: nl turgor Results Result Diagram: 09/21/17 0545 09/21/17 0545 Results 24 hrs Laboratory Tests Test 09/20/17 20:36 09/21/17 02:37 09/21/17 05:45 09/21/17 07:29 Bedside Glucose 207 153 165 White Blood Count 8.5 # Red Blood Count 3.69 L Hemoglobin 10.3 L Hematocrit 31.4 L Mean Corpuscular Volume 85.1 Mean Corpuscular Hemoglobin 27.9 L Mean Corpuscular Hemoglobin Concent 32.8 Red Cell Distribution Width 15.6 H Platelet Count 425 H Mean Platelet Volume 10.4 Neutrophils % 80.3 H Lymphocytes % 11.5 L Monocytes % 6.7 Eosinophils % 0.0 Basophils % 0.1 Nucleated Red Blood Cells % 0.0 Neutrophils # 6.8 Lymphocytes # 1.0 Monocytes # 0.6 Eosinophils # 0.0 Basophils # 0.0 Nucleated Red Blood Cells # 0.0 Sodium Level 142 Potassium Level 4.0 Chloride Level 96 L Carbon Dioxide Level 37 H Anion Gap 13 Blood Urea Nitrogen 74 H Creatinine 1.75 H Glucose Level 157 Calcium Level 9.2 Total Bilirubin 0.2 Direct Bilirubin 0.00 Indirect Bilirubin 0.2 Aspartate Amino Transf (AST/SGOT) 55 H Alanine Aminotransferase (ALT/SGPT) 64 Alkaline Phosphatase 71 Total Protein 7.1 Albumin 3.3 Globulin 3.80 H Albumin/Globulin Ratio 0.86 Test 09/21/17 11:49 09/21/17 16:36 Bedside Glucose 256 H 239 H Medications Medications Current Medications Ondansetron HCl (Zofran Tab) 4 mg Q6H PRN PO NAUSEA AND/OR VOMITING; Start at 13:30 Ondansetron HCl (Zofran Inj) 4 mg Q6H PRN IV NAUSEA AND/OR VOMITING; Start at 13:30 Acetaminophen (Tylenol Tab) 650 mg Q6H PRN PO PAIN LEVEL 1-3 OR FEVER Last administered on 09/16/17 22:03; Admin Dose 650 MG; Start 09/14/17 at 13:30 Acetaminophen/ Hydrocodone Bitart 1 tab 1 tab Q6H PRN PO MODERATE PAIN LEVEL 4- 6 Last administered on 09/17/17 07:45; Admin Dose 1 TAB; Start 09/14/17 at 13 :30 Ceftriaxone Sodium (Rocephin) 50 ml @ 100 mls/hr Q24H IVPB Last administered on 09/21/17 08:16; Admin Dose 100 MLS/HR; Start 09/15/17 at 08:30 Aspirin (Halfprin) 81 mg DAILY PO Last administered on 09/21/17 08:35; Admin Dose 81 MG; Start 09/15/17 at 09:00 Clopidogrel Bisulfate (plaVIX) 75 mg DAILY PO Last administered on 09/21/17 08:35; Admin Dose 75 MG; Start 09/15/17 at 09:00 Diclofenac Sodium (Voltaren 1% Gel) 2 gm QID TP Last administered on 16:37; Admin Dose 2 GM; Start 09/14/17 at 17:00 Duloxetine HCl (Cymbalta) 30 mg DAILY PO Last administered on 09/21/17 08:35 ; Admin Dose 30 MG; Start 09/15/17 at 09:00 Ergocalciferol (Drisdol) 50,000 unit Q7D PO Last administered on 09/15/17 09: 53; Admin Dose 50,000 UNIT; Start 09/15/17 at 09:00 Fenofibrate (Tricor) 145 mg DAILY PO Last administered on 09/21/17 08:36; Admin Dose 145 MG; Start 09/15/17 at 09:00 Montelukast Sodium (Singulair) 10 mg QHS PO Last administered on 09/20/17 20: 50; Admin Dose 10 MG; Start 09/14/17 at 21:00 Tamsulosin HCl (Flomax) 0.4 mg DAILY@21 PO Last administered on 09/20/17 20: 51; Admin Dose 0.4 MG; Start 09/14/17 at 21:00 Pantoprazole (Protonix Tab) 40 mg DAILY@06 PO Last administered on 09/21/17 05:32; Admin Dose 40 MG; Start 09/15/17 at 06:00 Meclizine HCl (Antivert) 25 mg DAILY PO Last administered on 09/21/17 08:36; Admin Dose 25 MG; Start 09/15/17 at 09:00 Atorvastatin Calcium (Lipitor) 40 mg DAILY@21 PO Last administered on 20:51; Admin Dose 40 MG; Start 09/14/17 at 21:00 Heparin Sodium (Porcine) (Heparin (5000 Units/0.5 ml)) 5,000 unit BID SC Last administered on 09/21/17 08:44; Admin Dose 5,000 UNIT; Start 09/15/17 at 21: 00 Ferrous Sulfate (Ferrous Sulfate (Ec)) 325 mg BID PO Last administered on 09/21 08:35; Admin Dose 325 MG; Start 09/16/17 at 21:00 Docusate Sodium (Colace) 100 mg BID PRN PO CONSTIPATION; Start 09/16/17 at 11: 30 Bisacodyl (Dulcolax Supp) 10 mg DAILY PRN [place] CONSTIPATION Last administered on 09/17/17 15:46; Admin Dose 10 MG; Start 09/16/17 at 11:30 Morphine Sulfate (morphine) 1 mg Q4H PRN IV pain Last administered on 06:26; Admin Dose 1 MG; Start 09/17/17 at 06:00 Tramadol HCl 50 mg 50 mg Q6H PRN PO pain; Start 09/17/17 at 06:00 Levofloxacin/ Dextrose (Levaquin 250 Mg/ D5W 50 ml (Pmx)) 50 ml @ 50 mls/hr Q24H IVPB Last administered on 09/21/17 11:54; Admin Dose 50 MLS/HR; Start 09/17/17 at 12:00 Sotalol HCl (Betapace) 80 mg DAILY PO Last administered on 09/21/17 08:36; Admin Dose 80 MG; Start 09/18/17 at 09:00 Diagnostic Test (Pha) (Accu-Chek) 1 ea 02 XX Last administered on 09/19/17 02 :00; Admin Dose 1 EA; Start 09/19/17 at 02:00 Miscellaneous Information 1 ea NOTE XX ; Start 09/18/17 at 09:30 Glucose (Glutose) 15 gm Q15M PRN PO DECREASED GLUCOSE; Start 09/18/17 at 09:30 Glucose (Glutose) 22.5 gm Q15M PRN PO DECREASED GLUCOSE; Start 09/18/17 at 09: 30 Dextrose (D50w Syringe) 25 ml Q15M PRN IV DECREASED GLUCOSE; Start 09/18/17 at 09:30 Dextrose (D50w Syringe) 50 ml Q15M PRN IV DECREASED GLUCOSE; Start 09/18/17 at 09:30 Glucagon (Glucagen) 1 mg Q15M PRN IM DECREASED GLUCOSE; Start 09/18/17 at 09: 30 Glucose (Glutose) 15 gm Q15M PRN BUCCAL DECREASED GLUCOSE; Start 09/18/17 at 09:30 Insulin Glargine (Lantus) 25 unit DAILY@20 SC Last administered on 09/20/17 20:39; Admin Dose 25 UNIT; Start 09/19/17 at 21:00 Diagnostic Test (Pha) (Accu-Chek) 1 ea 02 XX ; Start 09/20/17 at 02:00 Fish Oil (Fish Oil) 2,000 mg BID PO Last administered on 09/21/17 08:35; Admin Dose 2,000 MG; Start 09/20/17 at 09:00 Methylprednisolone Sodium Succinate 40 mg 40 mg Q8 IV Last administered on 13:21; Admin Dose 40 MG; Start 09/20/17 at 14:00 Ferric Sodium Gluconate Complex/ Sodium Chloride (Ferrlecit/NS) 110 ml @ 100 mls/hr Q24H IVPB Last administered on 09/21/17 10:04; Admin Dose 100 MLS/HR; Start 09/20/17 at 09:00; Stop 09/22/17 at 10:05 Finasteride (Proscar) 5 mg DAILY PO Last administered on 09/21/17 08:35; Admin Dose 5 MG; Start 09/20/17 at 09:00 GURMEET ARMSTRONG MD Sep 21, 2017 18:09
[2017-09-21] MEDS: ATORVASTATIN 40 MG TAB PO SCH (21:07)
[2017-09-21] MEDS: MONTELUKAST 10 MG TAB PO SCH (21:07)
[2017-09-21] MEDS: TAMSULOSIN (SR) 0.4 MG CAP PO SCH (21:07)
[2017-09-21] MEDS: INSULIN GLARGINE [LANtus] 3 ML PEN SC SCH (21:11)
[2017-09-22] VITALS (39 sets, daily range): BP systolic 73–127; BP diastolic 49–76; PULSE 59–66; RESP 10–20
[2017-09-22] MEDS: METHYLPREDNISOLONE 40 MG INJ IV SCH ×2 (00:48→05:32)
[2017-09-22] MEDS: ALBUTEROL/IPRATROPIUM (NEB) 3 ML AMP HHN SCH ×4 (01:21→19:45)
[2017-09-22] MEDS: ACCU-CHEK XX SCH ×2 (01:58)
[2017-09-22] MEDS: FUROSEMIDE 40 MG INJ IV SCH ×2 (05:33→17:27)
[2017-09-22] MEDS: PANTOPRAZOLE (EC) 40 MG TAB PO SCH (05:33)
[2017-09-22] MEDS: CEFTRIAXONE 1 GM/50 ML (PMX) 50 ML IVPB SCH (08:46)
[2017-09-22] MEDS: FENOFIBRATE 145 MG TAB PO SCH (08:47)
[2017-09-22] MEDS: HYDROCODONE/APAP (5/325) TAB PO PRN (08:47)
[2017-09-22] MEDS: SOTALOL 80 MG TAB PO SCH (08:47)
[2017-09-22] MEDS: DULOXETINE 30 MG CAP DR PO SCH (08:47)
[2017-09-22] MEDS: MECLIZINE 25 MG TAB PO SCH (08:47)
[2017-09-22] MEDS: ASPIRIN (EC) 81 MG TAB PO SCH (08:47)
[2017-09-22] MEDS: FISH OIL 1,000 MG CAP PO SCH ×2 (08:47→21:04)
[2017-09-22] MEDS: CLOPIDOGREL 75 MG TAB PO SCH (08:47)
[2017-09-22] MEDS: DICLOFENAC SODIUM 1% GEL 100 GM TUBE TP SCH ×4 (08:48→21:10)
[2017-09-22] MEDS: FERROUS SULFATE (EC) 325 MG TAB PO SCH ×2 (08:48→21:04)
[2017-09-22] MEDS: FINASTERIDE 5 MG TAB PO SCH (08:48)
--- NOTE | 2017-09-22 08:51 | PN ---
Date/Time of Note Date/Time of Note DATE: 09/22/17 TIME: 08:47 Assessment/Plan VTE Prophylaxis VTE Prophylaxis Intervention: heparin Lines/Catheters IV Catheter Type (from [facility]): Peripheral IV Urinary Cath still in place: No Assessment/Plan Chief Complaint/Hosp Course 77 yo M with multiple cardiac comorbidities here with fever and SOB 1. 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 Improved radiographic imaging. -Pulmonary on board-Amio dcd. On steroids-consider tapering. 2.Possible superimposed Pneumonia, likely CAP. Clinically improved. -Patient on ceftriaxone+Zithromax. 3. Hypoxic respiratory failure requiring non-invasive pressure ventilation, likely multifactorial with underlying CHF plus #1,#2. Improved. Off BiPAP, tolerates on 4 L nasal cannula. -Continue around the clock and PRN Duoneb. 4.JOHN PAUL on CKD. Baseline cr=1.7-2.0 range. JOHN PAUL likely 2/2 hemodynamics. renal fxn stabilized. -Follow-up with nephrology recommendations. - Avoid nephrotoxins and Will monitor. 5. Acute on chronic Diastolic CHF. Ejection fraction 55%. Euvolemic. -On Lasix.Follow-up with cardiology recommendations 5.Type2 DM. Hyperglycemia with steroids. -Continue premeals 10+ uptitrate Lantus to 30. Deescalate ISS to MILD once steroids are tapered off. 6.Coronary Artery Disease. -Continue current medical management. 7.Essential HTN. -Continue antihypertensives with parameters. 8. Hyperlipidemia. -On statin/fish oil/ diet optimization. 9.BPH -cont flomax 10.Vitamin D deficiency - Cont vit D 11.History of paroxysmal atrial fibrillation.No in sinus rhythm -With pacemaker. On Betapace 2/2 possible amiodarone toxicity -Defer outpatient follow-up for consider switching to systemic anticoagulation. 12.Anemia,mild, with iron deficiency -on oral iron replacement Prophylaxis: Heparin/PPIs >30mins Critical care time spent Transfer to telemetry. Encourage ambulation and incentive spirometry. PT evaluation and treatment. We will continue to monitor patient for continued need of oxygen. Patient was seen in collaboration with DR. aKthleen. Problems: Subjective 24 Hr Interval Summary Free Text/Dictation Patient with clinical improvement and with lesser o2 demands. Only he is saturating adequately on 4 L nasal cannula. Exam/Review of Systems Vital Signs Vitals Vital Signs Date Time Temp Pulse Resp B/P Pulse Ox O2 Delivery O2 Flow Rate FiO2 09/22/17 07:36 98 40 09/22/17 07:33 60 12 09/22/17 06:00 127/73 09/22/17 04:00 98.1 High Flow Nasal Cannula 09/19/17 11:16 Intake and Output 09/21/17 09/21/17 09/22/17 15:00 23:00 07:00 Intake Total 530 ml 240 ml 100 ml Output Total 675 ml 775 ml 1025 ml Balance -145 ml -535 ml -925 ml Exam General: Well developed male, not in acute distress. HEENT: Normocephalic, Atraumatic, No laceration or hematoma; Eyes: PEERL, Conjunctiva clear, Anicteric sclera Neck: Supple without any lymphadenopathy, nontender, no JVD, no carotid bruits, trachea midline, no thyromegaly Cardiac: S1, S2 auscultated, regular rhythm and rate, no mumurs or gallop Pulmonary: Diminished breath sound bibasilar. No adventitious breath sounds. GI: Abdomen normal to inspection. Soft, non- distended, no masses, no rebound tenderness or guarding. Bowel sounds active on all four quadrants Genitourinary: Deferred Extremities: No cyanosis, clubbing, or edema. Pulses [2+] bilaterally. Full ROM on all four extremities. No focal weakness appreciated. Neurologic: Alert to person, place, time, and situation. Affect appropriate, intact sensation. Skin: Clean,dry, and intact. No ecchymosis, no rashes, or lesions Results Result Diagram: 09/21/17 0545 09/21/17 0545 Results 24 hrs Laboratory Tests Test 09/21/17 11:49 09/21/17 16:36 09/21/17 19:49 09/22/17 01:55 Bedside Glucose 256 H 239 H 240 H 195 Medications Medications Current Medications Ondansetron HCl (Zofran Tab) 4 mg Q6H PRN PO NAUSEA AND/OR VOMITING; Start at 13:30 Ondansetron HCl (Zofran Inj) 4 mg Q6H PRN IV NAUSEA AND/OR VOMITING; Start at 13:30 Acetaminophen (Tylenol Tab) 650 mg Q6H PRN PO PAIN LEVEL 1-3 OR FEVER Last administered on 09/16/17 22:03; Admin Dose 650 MG; Start 09/14/17 at 13:30 Acetaminophen/ Hydrocodone Bitart 1 tab 1 tab Q6H PRN PO MODERATE PAIN LEVEL 4- 6 Last administered on 09/17/17 07:45; Admin Dose 1 TAB; Start 09/14/17 at 13 :30 Ceftriaxone Sodium (Rocephin) 50 ml @ 100 mls/hr Q24H IVPB Last administered on 09/21/17 08:16; Admin Dose 100 MLS/HR; Start 09/15/17 at 08:30 Aspirin (Halfprin) 81 mg DAILY PO Last administered on 09/21/17 08:35; Admin Dose 81 MG; Start 09/15/17 at 09:00 Clopidogrel Bisulfate (plaVIX) 75 mg DAILY PO Last administered on 09/21/17 08:35; Admin Dose 75 MG; Start 09/15/17 at 09:00 Diclofenac Sodium (Voltaren 1% Gel) 2 gm QID TP Last administered on 21:18; Admin Dose 2 GM; Start 09/14/17 at 17:00 Duloxetine HCl (Cymbalta) 30 mg DAILY PO Last administered on 09/21/17 08:35 ; Admin Dose 30 MG; Start 09/15/17 at 09:00 Ergocalciferol (Drisdol) 50,000 unit Q7D PO Last administered on 09/15/17 09: 53; Admin Dose 50,000 UNIT; Start 09/15/17 at 09:00 Fenofibrate (Tricor) 145 mg DAILY PO Last administered on 09/21/17 08:36; Admin Dose 145 MG; Start 09/15/17 at 09:00 Montelukast Sodium (Singulair) 10 mg QHS PO Last administered on 09/21/17 21: 07; Admin Dose 10 MG; Start 09/14/17 at 21:00 Tamsulosin HCl (Flomax) 0.4 mg DAILY@21 PO Last administered on 09/21/17 21: 07; Admin Dose 0.4 MG; Start 09/14/17 at 21:00 Pantoprazole (Protonix Tab) 40 mg DAILY@06 PO Last administered on 09/22/17 05:33; Admin Dose 40 MG; Start 09/15/17 at 06:00 Meclizine HCl (Antivert) 25 mg DAILY PO Last administered on 09/21/17 08:36; Admin Dose 25 MG; Start 09/15/17 at 09:00 Atorvastatin Calcium (Lipitor) 40 mg DAILY@21 PO Last administered on 21:07; Admin Dose 40 MG; Start 09/14/17 at 21:00 Heparin Sodium (Porcine) (Heparin (5000 Units/0.5 ml)) 5,000 unit BID SC Last administered on 09/21/17 21:09; Admin Dose 5,000 UNIT; Start 09/15/17 at 21: 00 Ferrous Sulfate (Ferrous Sulfate (Ec)) 325 mg BID PO Last administered on 09/21 21:07; Admin Dose 325 MG; Start 09/16/17 at 21:00 Docusate Sodium (Colace) 100 mg BID PRN PO CONSTIPATION; Start 09/16/17 at 11: 30 Bisacodyl (Dulcolax Supp) 10 mg DAILY PRN [place] CONSTIPATION Last administered on 09/17/17 15:46; Admin Dose 10 MG; Start 09/16/17 at 11:30 Morphine Sulfate (morphine) 1 mg Q4H PRN IV pain Last administered on 06:26; Admin Dose 1 MG; Start 09/17/17 at 06:00 Tramadol HCl 50 mg 50 mg Q6H PRN PO pain; Start 09/17/17 at 06:00 Levofloxacin/ Dextrose (Levaquin 250 Mg/ D5W 50 ml (Pmx)) 50 ml @ 50 mls/hr Q24H IVPB Last administered on 09/21/17 11:54; Admin Dose 50 MLS/HR; Start 09/17/17 at 12:00 Sotalol HCl (Betapace) 80 mg DAILY PO Last administered on 09/21/17 08:36; Admin Dose 80 MG; Start 09/18/17 at 09:00 Diagnostic Test (Pha) (Accu-Chek) 1 ea 02 XX Last administered on 09/19/17 02 :00; Admin Dose 1 EA; Start 09/19/17 at 02:00 Miscellaneous Information 1 ea NOTE XX ; Start 09/18/17 at 09:30 Glucose (Glutose) 15 gm Q15M PRN PO DECREASED GLUCOSE; Start 09/18/17 at 09:30 Glucose (Glutose) 22.5 gm Q15M PRN PO DECREASED GLUCOSE; Start 09/18/17 at 09: 30 Dextrose (D50w Syringe) 25 ml Q15M PRN IV DECREASED GLUCOSE; Start 09/18/17 at 09:30 Dextrose (D50w Syringe) 50 ml Q15M PRN IV DECREASED GLUCOSE; Start 09/18/17 at 09:30 Glucagon (Glucagen) 1 mg Q15M PRN IM DECREASED GLUCOSE; Start 09/18/17 at 09: 30 Glucose (Glutose) 15 gm Q15M PRN BUCCAL DECREASED GLUCOSE; Start 09/18/17 at 09:30 Insulin Glargine (Lantus) 25 unit DAILY@20 SC Last administered on 09/21/17 21:11; Admin Dose 25 UNIT; Start 09/19/17 at 21:00 Diagnostic Test (Pha) (Accu-Chek) 1 ea 02 XX ; Start 09/20/17 at 02:00 Fish Oil (Fish Oil) 2,000 mg BID PO Last administered on 09/21/17 21:07; Admin Dose 2,000 MG; Start 09/20/17 at 09:00 Methylprednisolone Sodium Succinate 40 mg 40 mg Q8 IV Last administered on 05:32; Admin Dose 40 MG; Start 09/20/17 at 14:00 Ferric Sodium Gluconate Complex/ Sodium Chloride (Ferrlecit/NS) 110 ml @ 100 mls/hr Q24H IVPB Last administered on 09/21/17 10:04; Admin Dose 100 MLS/HR; Start 09/20/17 at 09:00; Stop 09/22/17 at 10:05 Finasteride (Proscar) 5 mg DAILY PO Last administered on 09/21/17 08:35; Admin Dose 5 MG; Start 09/20/17 at 09:00 MANUEL VELOZ NP Sep 22, 2017 08:51
[2017-09-22] MEDS: INSULIN ASPART [NOVOLOG] 3 ML PEN SC SCH ×7 (08:53→21:20)
[2017-09-22] MEDS: ERGOCALCIFEROL 50,000 UNIT CAP PO SCH (09:00)
[2017-09-22] MEDS: HEPARIN 5,000 UNIT/0.5 ML VIAL SC SCH ×2 (09:21→21:28)
--- NOTE | 2017-09-22 09:23 | PN ---
DATE: 09/22/2017 SUBJECTIVE: The patient is stable. Still remains on high flow oxygen in serious condition. No oth er acute events noted. No hemoptysis, hematemesis or hematochezia. OBJECTIVE: VITAL SIGNS: Blood pressure is 127/73, respirations 13, pulse 59, temperature 98.6. HEENT: Head is normocephalic. NECK: Supple. HEART: Regular rate. LUNGS: Show diminished breath sounds at base. Positive crackles. ABDOMEN: Soft, nontender to palpation, rebound or guarding. EXTREMITIES: Negative for clubbing or cyanosis. Trace edema. DERMATOLOGIC: No rashes. MUSCULOSKELETAL: No joint effusions. NEUROLOGIC: No change in exam. MEDICATIONS: The patient's medications have been reviewed. LABORATORY DATA: From 08/26/2017 is currently pending. ASSESSMENT AND PLAN: 1. Nonoliguric acute kidney injury with a previous baseline creatinine 1.7 to 2.0 mg/dL. Etiology of acute kidney injury is secondary to hemodynamics. The patient's renal function appears to be imp roving, returning back to baseline. At this point, continue current treatment plan, supportive care , renally dose all medications, monitor closely on diuretic therapy. 2. Acute congestive heart failure exacerbation. Continue diuretic therapy, continue medical manage ment. Follow up with cardiology. 3. Anemia. Monitor hemoglobin and hematocrit levels. 4. Mineral bone disorder. Monitor calcium and phosphorus levels. 5. Acute hypoxemic respiratory failure secondary to pneumonia and congestive heart failure. Contin ue current treatment plan. Continue diuretics and antibiotics. 6. Sepsis secondary to pneumonia. Continue current antibiotic therapy. 7. Hypertension. Continue current blood pressure regimen. 8. Paroxysmal atrial fibrillation, currently in sinus rhythm. Continue to monitor. 9. 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 Con tinue steroids. Follow up with pulmonary. Dictated By: ALDO ROSARIO/ELANA Conf#: [id number] DID#: [id number]
[2017-09-22] MEDS: SOD FERRIC GLUC COMPLX 125 MG in SOD CHLORIDE 0.9% 100 ML IVPB SCH (10:18)
--- NOTE | 2017-09-22 11:50 | CONS ---
Date/Time of Note Date/Time of Note DATE: 09/22/17 TIME: 11:47 Assessment/Plan Assessment/Plan Additional Assessment/Plan Assessment and recommendations; 1. 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 2. Chronic atrial fibrillation. 3. Chronic mild renal insufficiency. 4. History of pacemaker placement. Discontinue Solu-Medrol. Start prednisone 30 mg a day. Patient can be transferred to telemetry unit. Continue other supportive measures. Obtain follow-up chest x-ray in 24 hours. Consultation Date/Type/Reason Admit Date/Time Sep 14, 2017 at 08:17 Type of Consultation: Pulmonary/critical care 24 HR Interval Summary Free Text/Dictation Patient's condition is continually improving. There is continued improvement in symptoms of shortness of breath. Patient also requiring markedly decreased FiO2 for O2 saturation maintenance. Currently switched over to 4 L nasal cannula from high flow nasal cannula. General exam; elderly male, sitting in a chair by bedside awake and alert. Currently no distress. Exam/Review of Systems Vital Signs Vitals Vital Signs Date Time Temp Pulse Resp B/P Pulse Ox O2 Delivery O2 Flow Rate FiO2 09/22/17 09:00 64 19 101/66 73 09/22/17 08:00 97.9 09/22/17 07:36 40 09/22/17 07:00 High Flow 10.0 Intake and Output 09/21/17 09/21/17 09/22/17 15:00 23:00 07:00 Intake Total 530 ml 240 ml 100 ml Output Total 675 ml 775 ml 1025 ml Balance -145 ml -535 ml -925 ml Exam HEENT exam; supple neck, no JVD. No lymphadenopathy. Midline trachea. No thyromegaly. Patient has bilateral intraocular lens implants. Patient is edentulous and wears dentures. Chest exam; diminished but clear breath sound. S1-S2 audible, irregular rhythm. Pacemaker in left chest wall. There is a very soft systolic ejection murmur grade 1/6 without any interval change. Abdomen exam; soft, nontender. No organomegaly. Bowel sounds audible. Extremity exam; no peripheral edema. No clubbing. [employer] exam; no focal deficit. Results Result Diagram: 09/21/1745 09/21/17 0545 Results 24 hrs Laboratory Tests Test 09/21/17 11:49 09/21/17 16:36 09/21/17 19:49 09/22/17 01:55 Bedside Glucose 256 H 239 H 240 H 195 Test 09/22/17 08:45 Bedside Glucose 163 Medications Medications Current Medications Ondansetron HCl (Zofran Tab) 4 mg Q6H PRN PO NAUSEA AND/OR VOMITING; Start at 13:30 Ondansetron HCl (Zofran Inj) 4 mg Q6H PRN IV NAUSEA AND/OR VOMITING; Start at 13:30 Acetaminophen (Tylenol Tab) 650 mg Q6H PRN PO PAIN LEVEL 1-3 OR FEVER Last administered on 09/16/17 22:03; Admin Dose 650 MG; Start 09/14/17 at 13:30 Acetaminophen/ Hydrocodone Bitart 1 tab 1 tab Q6H PRN PO MODERATE PAIN LEVEL 4- 6 Last administered on 09/22/17 08:47; Admin Dose 1 TAB; Start 09/14/17 at 13 :30 Ceftriaxone Sodium (Rocephin) 50 ml @ 100 mls/hr Q24H IVPB Last administered on 09/22/17 08:46; Admin Dose 100 MLS/HR; Start 09/15/17 at 08:30 Aspirin (Halfprin) 81 mg DAILY PO Last administered on 09/22/17 08:47; Admin Dose 81 MG; Start 09/15/17 at 09:00 Clopidogrel Bisulfate (plaVIX) 75 mg DAILY PO Last administered on 09/22/17 08:47; Admin Dose 75 MG; Start 09/15/17 at 09:00 Diclofenac Sodium (Voltaren 1% Gel) 2 gm QID TP Last administered on 08:48; Admin Dose 2 GM; Start 09/14/17 at 17:00 Duloxetine HCl (Cymbalta) 30 mg DAILY PO Last administered on 09/22/17 08:47 ; Admin Dose 30 MG; Start 09/15/17 at 09:00 Ergocalciferol (Drisdol) 50,000 unit Q7D PO Last administered on 09/15/17 09: 53; Admin Dose 50,000 UNIT; Start 09/15/17 at 09:00 Fenofibrate (Tricor) 145 mg DAILY PO Last administered on 09/22/17 08:47; Admin Dose 145 MG; Start 09/15/17 at 09:00 Montelukast Sodium (Singulair) 10 mg QHS PO Last administered on 09/21/17 21: 07; Admin Dose 10 MG; Start 09/14/17 at 21:00 Tamsulosin HCl (Flomax) 0.4 mg DAILY@21 PO Last administered on 09/21/17 21: 07; Admin Dose 0.4 MG; Start 09/14/17 at 21:00 Pantoprazole (Protonix Tab) 40 mg DAILY@06 PO Last administered on 09/22/17 05:33; Admin Dose 40 MG; Start 09/15/17 at 06:00 Meclizine HCl (Antivert) 25 mg DAILY PO Last administered on 09/22/17 08:47; Admin Dose 25 MG; Start 09/15/17 at 09:00 Atorvastatin Calcium (Lipitor) 40 mg DAILY@21 PO Last administered on 21:07; Admin Dose 40 MG; Start 09/14/17 at 21:00 Heparin Sodium (Porcine) (Heparin (5000 Units/0.5 ml)) 5,000 unit BID SC Last administered on 09/22/17 09:21; Admin Dose 5,000 UNIT; Start 09/15/17 at 21: 00 Ferrous Sulfate (Ferrous Sulfate (Ec)) 325 mg BID PO Last administered on 09/22 08:48; Admin Dose 325 MG; Start 09/16/17 at 21:00 Docusate Sodium (Colace) 100 mg BID PRN PO CONSTIPATION; Start 09/16/17 at 11: 30 Bisacodyl (Dulcolax Supp) 10 mg DAILY PRN [place] CONSTIPATION Last administered on 09/17/17 15:46; Admin Dose 10 MG; Start 09/16/17 at 11:30 Morphine Sulfate (morphine) 1 mg Q4H PRN IV pain Last administered on 06:26; Admin Dose 1 MG; Start 09/17/17 at 06:00 Tramadol HCl 50 mg 50 mg Q6H PRN PO pain; Start 09/17/17 at 06:00 Levofloxacin/ Dextrose (Levaquin 250 Mg/ D5W 50 ml (Pmx)) 50 ml @ 50 mls/hr Q24H IVPB Last administered on 09/21/17 11:54; Admin Dose 50 MLS/HR; Start 09/17/17 at 12:00 Sotalol HCl (Betapace) 80 mg DAILY PO Last administered on 09/22/17 08:47; Admin Dose 80 MG; Start 09/18/17 at 09:00 Diagnostic Test (Pha) (Accu-Chek) 1 ea 02 XX Last administered on 09/19/17 02 :00; Admin Dose 1 EA; Start 09/19/17 at 02:00 Miscellaneous Information 1 ea NOTE XX ; Start 09/18/17 at 09:30 Glucose (Glutose) 15 gm Q15M PRN PO DECREASED GLUCOSE; Start 09/18/17 at 09:30 Glucose (Glutose) 22.5 gm Q15M PRN PO DECREASED GLUCOSE; Start 09/18/17 at 09: 30 Dextrose (D50w Syringe) 25 ml Q15M PRN IV DECREASED GLUCOSE; Start 09/18/17 at 09:30 Dextrose (D50w Syringe) 50 ml Q15M PRN IV DECREASED GLUCOSE; Start 09/18/17 at 09:30 Glucagon (Glucagen) 1 mg Q15M PRN IM DECREASED GLUCOSE; Start 09/18/17 at 09: 30 Glucose (Glutose) 15 gm Q15M PRN BUCCAL DECREASED GLUCOSE; Start 09/18/17 at 09:30 Diagnostic Test (Pha) (Accu-Chek) 1 ea 02 XX ; Start 09/20/17 at 02:00 Fish Oil (Fish Oil) 2,000 mg BID PO Last administered on 09/22/17 08:47; Admin Dose 2,000 MG; Start 09/20/17 at 09:00 Methylprednisolone Sodium Succinate (Solu-Medrol) 40 mg Q8 IV Last administered on 09/22/17 05:32; Admin Dose 40 MG; Start 09/20/17 at 14:00 Finasteride (Proscar) 5 mg DAILY PO Last administered on 09/22/17 08:48; Admin Dose 5 MG; Start 09/20/17 at 09:00 Insulin Glargine (Lantus) 30 unit DAILY@20 SC ; Start 09/22/17 at 20:00 MELISSA AGUERO Sep 22, 2017 11:50
[2017-09-22] MEDS: LEVOFLOXACIN 250MG/D5W (PMX) 50 ML IVPB SCH (12:21)
[2017-09-22] MEDS ORDERED: INSULIN GLARGINE [LANtus] 3 ML PEN SC SCH (20:00)
[2017-09-22] MEDS: TAMSULOSIN (SR) 0.4 MG CAP PO SCH (21:03)
[2017-09-22] MEDS: ATORVASTATIN 40 MG TAB PO SCH (21:03)
[2017-09-22] MEDS: MONTELUKAST 10 MG TAB PO SCH (21:03)
[2017-09-23] VITALS (12 sets, daily range): BP systolic 102–112; BP diastolic 56–66; PULSE 60–85; RESP 15–20
[2017-09-23] MEDS: ACCU-CHEK XX SCH ×2 (02:00)
[2017-09-23] MEDS: ALBUTEROL/IPRATROPIUM (NEB) 3 ML AMP HHN SCH ×4 (02:14→20:49)
[2017-09-23] MEDS: LEVOFLOXACIN 250 MG TAB PO SCH (06:18)
[2017-09-23] MEDS: PANTOPRAZOLE (EC) 40 MG TAB PO SCH (06:18)
[2017-09-23] MEDS: HYDROCODONE/APAP (5/325) TAB PO PRN (06:23)
[2017-09-23] MEDS: FUROSEMIDE 40 MG INJ IV SCH (06:23)
[2017-09-23] MEDS: INSULIN ASPART [NOVOLOG] 3 ML PEN SC SCH ×5 (07:55→20:18)
[2017-09-23] MEDS: CEFTRIAXONE 1 GM/50 ML (PMX) 50 ML IVPB SCH (08:32)
[2017-09-23] MEDS: CLOPIDOGREL 75 MG TAB PO SCH (08:33)
[2017-09-23] MEDS: HEPARIN 5,000 UNIT/0.5 ML VIAL SC SCH ×2 (08:33→20:19)
[2017-09-23] MEDS: SOTALOL 80 MG TAB PO SCH (08:34)
[2017-09-23] MEDS: FISH OIL 1,000 MG CAP PO SCH ×2 (08:34→20:13)
[2017-09-23] MEDS: DULOXETINE 30 MG CAP DR PO SCH (08:35)
[2017-09-23] MEDS: predniSONE 10 MG TAB PO SCH (08:35)
[2017-09-23] MEDS: FENOFIBRATE 145 MG TAB PO SCH (08:35)
[2017-09-23] MEDS: ASPIRIN (EC) 81 MG TAB PO SCH (08:35)
[2017-09-23] MEDS: MECLIZINE 25 MG TAB PO SCH (08:35)
[2017-09-23] MEDS: FINASTERIDE 5 MG TAB PO SCH (08:35)
[2017-09-23] MEDS: DICLOFENAC SODIUM 1% GEL 100 GM TUBE TP SCH ×4 (08:36→20:23)
[2017-09-23] MEDS: FERROUS SULFATE (EC) 325 MG TAB PO SCH ×2 (08:36→20:13)
--- NOTE | 2017-09-23 08:54 | RADRPT ---
PROCEDURE: XR Chest. CLINICAL INDICATION: Shortness of breath. TECHNIQUE: Single frontal view. COMPARISON: 09/21/2017. FINDINGS: Bilateral air space disease consistent with pulmonary edema is slightly improved. The heart is enlarged. There is a left-sided dual lead permanent pacemaker. Calcification is present in the aorta consistent with atherosclerosis. There is no pleural effusion. There is no pneumothorax. There are degenerative changes of the right glenohumeral joint. IMPRESSION: 1. Further improvement in the pulmonary edema. 2. No other change from 09/21/2017. RPTAT: QQ .Anand Ybarra MD, MD Date Time Electronically viewed and signed by .Anand Ybarra MD, MD on 09/23/2017 08:54 .R/
--- NOTE | 2017-09-23 09:17 | PN ---
DATE: 09/23/2017 SUBJECTIVE: The patient is stable. No events overnight. No fevers, chills, nausea, vomiting. The patient was transferred from ICU to telemetry. OBJECTIVE: VITAL SIGNS: Blood pressure is 112/66, temperature 97.8, pulse 84, respirations 16. HEENT: Head is normocephalic. NECK: Supple. HEART: Regular rate. LUNGS: Show diminished breath sounds at the base. ABDOMEN: Soft, nontender to palpation. No rebound or guarding. EXTREMITIES: Negative for clubbing, cyanosis. No edema. DERMATOLOGIC: No rashes. MUSCULOSKELETAL: No joint effusions. NEUROLOGIC: No change in exam. MEDICATIONS: Reviewed. LABORATORY DATA: From 09/23/2017 shows a white count 9.5, hemoglobin 10.3, platelet count 399. ASSESSMENT AND PLAN: 1. Nonoliguric acute kidney injury with a baseline creatinine 1.72 to 2.0 mg/dL. Etiology of acute kidney injury is secondary to hemodynamics. Renal function appears to be slowly returning back to baseline. At this point, continue current treatment plan, supportive care, renally dose all meds. Monitor renal function closely on diuretic therapy. 2. Acute congestive heart failure exacerbation. Continue current medical management. Continue diu retic therapy. Follow up with cardiology. 3. Anemia. Monitor hemoglobin and hematocrit levels. 4. Mineral bone disorder. Monitor calcium and phosphorus levels. 5. Acute hypoxemic respiratory failure secondary to pneumonia and congestive heart failure. Contin ue current treatment plan. Continue diuretic therapy, antibiotics. 6. Sepsis secondary to pneumonia. Continue current antibiotic regimen. 7. Hypertension. Continue current blood pressure regimen. 8. Paroxysmal atrial fibrillation, currently in sinus rhythm. Continue to monitor. 9. History of pulmonary fibrosis. Continue current medical management. Follow up with pulmonary. Dictated By: ALDO ROSARIO/ELANA Conf#: [id number] DID#: [id number]
--- NOTE | 2017-09-23 10:00 | PN ---
Date/Time of Note Date/Time of Note DATE: 09/23/17 TIME: 09:42 Assessment/Plan VTE Prophylaxis VTE Prophylaxis Intervention: heparin Lines/Catheters IV Catheter Type (from [facility] Urinary Cath still in place: No Assessment/Plan Chief Complaint/Hosp Course 77 yo M with multiple cardiac comorbidities here with fever and SOB 1. 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 Improved radiographic imaging. -Pulmonary on board-Amio dcd. On low-dose steroids which is tapering. 2.Possible superimposed Pneumonia, likely CAP. Clinically improved. -Patient on ceftriaxone. 3.Hypoxic respiratory failure requiring non-invasive pressure ventilation, likely multifactorial with underlying CHF plus #1,#2. Improved. Off BiPAP, tolerates on 4 L nasal cannula. -Continue around the clock and PRN Duoneb. 4.JOHN PAUL on CKD. Baseline cr=1.7-2.0 range. JOHN PAUL likely 2/2 hemodynamics. renal fxn stabilized. -Follow-up with nephrology recommendations. - Avoid nephrotoxins and Will monitor. 5. Acute on chronic Diastolic CHF. Ejection fraction 55%. Euvolemic. -On Lasix.Follow-up with cardiology recommendations 5.Type2 DM. Patient is now on steroids tapering and her blood glucose is now going into borderline low. -De-escalate insulin Lantus to 24 units. Stop pre-meal aspart and switch patient to mild ISS. 6.Coronary Artery Disease. -Continue current medical management. 7.Essential HTN. -Continue antihypertensives with parameters. 8. Hyperlipidemia. -On statin/fish oil/ diet optimization. 9.BPH -cont flomax 10.Vitamin D deficiency - Cont vit D 11.History of paroxysmal atrial fibrillation.No in sinus rhythm -With pacemaker. On Betapace 2/2 possible amiodarone toxicity -Defer outpatient follow-up for consider switching to systemic anticoagulation. 12.Anemia,mild, with iron deficiency -on oral iron replacement Prophylaxis: Heparin/PPIs Encourage ambulation and incentive spirometry. PT evaluation and treatment. We will continue to monitor patient for continued need of oxygen. Patient was seen in collaboration with DR. Kathleen. Problems: Subjective 24 Hr Interval Summary Free Text/Dictation Overall, patient doing well. He denied any shortness of breath, chest pain, palpitation. Patient remains afebrile. He is on 4 L oxygen via nasal cannula without any respiratory distress. Exam/Review of Systems Vital Signs Vitals Vital Signs Date Time Temp Pulse Resp B/P Pulse Ox O2 Delivery O2 Flow Rate FiO2 09/23/17 08:26 67 18 94 Nasal Cannula 3.0 09/23/17 07:30 97.8 112/66 09/22/17 07:36 40 Intake and Output 09/22/17 09/22/17 09/23/17 15:00 23:00 07:00 Intake Total 340 ml 250 ml Output Total 1450 ml 850 ml Balance -1110 ml -600 ml Exam General: Well developed male, not in acute distress. HEENT: Normocephalic, Atraumatic, No laceration or hematoma; Eyes: PEERL, Conjunctiva clear, Anicteric sclera Neck: Supple without any lymphadenopathy, nontender, no JVD, no carotid bruits, trachea midline, no thyromegaly Cardiac: S1, S2 auscultated, regular rhythm and rate, no mumurs or gallop Pulmonary: Diminished breath sound bibasilar. No adventitious breath sounds. GI: Abdomen normal to inspection. Soft, non- distended, no masses, no rebound tenderness or guarding. Bowel sounds active on all four quadrants Genitourinary: Deferred Extremities: No cyanosis, clubbing, or edema. Pulses [2+] bilaterally. Full ROM on all four extremities. No focal weakness appreciated. Neurologic: Alert to person, place, time, and situation. Affect appropriate, intact sensation. Skin: Clean,dry, and intact. No ecchymosis, no rashes, or lesions Results Result Diagram: 09/23/17 0652 09/23/17 0652 Results 24 hrs Laboratory Tests Test 09/22/17 12:18 09/22/17 17:20 09/22/17 20:59 09/23/17 02:13 Bedside Glucose 214 256 H 222 H 134 Test 09/23/17 06:52 09/23/17 08:17 White Blood Count 9.5 Red Blood Count 3.69 L Hemoglobin 10.3 L Hematocrit 31.9 L Mean Corpuscular Volume 86.4 Mean Corpuscular Hemoglobin 27.9 L Mean Corpuscular Hemoglobin Concent 32.3 Red Cell Distribution Width 15.9 H Platelet Count 399 Mean Platelet Volume 10.0 Neutrophils % 69.5 Lymphocytes % 17.6 Monocytes % 7.6 Eosinophils % 0.5 Basophils % 0.3 Nucleated Red Blood Cells % 0.0 Neutrophils # 6.6 Lymphocytes # 1.7 Monocytes # 0.7 Eosinophils # 0.1 Basophils # 0.0 Nucleated Red Blood Cells # 0.0 Sodium Level 139 Potassium Level 3.4 L Chloride Level 95 L Carbon Dioxide Level 38 H Anion Gap 9 Blood Urea Nitrogen 89 H Creatinine 2.35 H Glucose Level 82 Calcium Level 8.6 Phosphorus Level 3.9 Magnesium Level 2.4 Bedside Glucose 82 Medications Medications Current Medications Ondansetron HCl (Zofran Tab) 4 mg Q6H PRN PO NAUSEA AND/OR VOMITING; Start at 13:30 Ondansetron HCl (Zofran Inj) 4 mg Q6H PRN IV NAUSEA AND/OR VOMITING; Start at 13:30 Acetaminophen (Tylenol Tab) 650 mg Q6H PRN PO PAIN LEVEL 1-3 OR FEVER Last administered on 09/16/17 22:03; Admin Dose 650 MG; Start 09/14/17 at 13:30 Acetaminophen/ Hydrocodone Bitart 1 tab 1 tab Q6H PRN PO MODERATE PAIN LEVEL 4- 6 Last administered on 09/23/17 06:23; Admin Dose 1 TAB; Start 09/14/17 at 13 :30 Ceftriaxone Sodium (Rocephin) 50 ml @ 100 mls/hr Q24H IVPB Last administered on 09/23/17 08:32; Admin Dose 100 MLS/HR; Start 09/15/17 at 08:30 Aspirin (Halfprin) 81 mg DAILY PO Last administered on 09/23/17 08:35; Admin Dose 81 MG; Start 09/15/17 at 09:00 Clopidogrel Bisulfate (plaVIX) 75 mg DAILY PO Last administered on 09/23/17 08:33; Admin Dose 75 MG; Start 09/15/17 at 09:00 Diclofenac Sodium (Voltaren 1% Gel) 2 gm QID TP Last administered on 08:36; Admin Dose 2 GM; Start 09/14/17 at 17:00 Duloxetine HCl (Cymbalta) 30 mg DAILY PO Last administered on 09/23/17 08:35 ; Admin Dose 30 MG; Start 09/15/17 at 09:00 Ergocalciferol (Drisdol) 50,000 unit Q7D PO Last administered on 09/22/17 09: 00; Admin Dose 50,000 UNIT; Start 09/15/17 at 09:00 Fenofibrate (Tricor) 145 mg DAILY PO Last administered on 09/23/17 08:35; Admin Dose 145 MG; Start 09/15/17 at 09:00 Montelukast Sodium (Singulair) 10 mg QHS PO Last administered on 09/22/17 21: 03; Admin Dose 10 MG; Start 09/14/17 at 21:00 Tamsulosin HCl (Flomax) 0.4 mg DAILY@21 PO Last administered on 09/22/17 21: 03; Admin Dose 0.4 MG; Start 09/14/17 at 21:00 Pantoprazole (Protonix Tab) 40 mg DAILY@06 PO Last administered on 09/23/17 06:18; Admin Dose 40 MG; Start 09/15/17 at 06:00 Meclizine HCl (Antivert) 25 mg DAILY PO Last administered on 09/23/17 08:35; Admin Dose 25 MG; Start 09/15/17 at 09:00 Atorvastatin Calcium (Lipitor) 40 mg DAILY@21 PO Last administered on 21:03; Admin Dose 40 MG; Start 09/14/17 at 21:00 Heparin Sodium (Porcine) (Heparin (5000 Units/0.5 ml)) 5,000 unit BID SC Last administered on 09/23/17 08:33; Admin Dose 5,000 UNIT; Start 09/15/17 at 21: 00 Ferrous Sulfate (Ferrous Sulfate (Ec)) 325 mg BID PO Last administered on 09/23 08:36; Admin Dose 325 MG; Start 09/16/17 at 21:00 Docusate Sodium (Colace) 100 mg BID PRN PO CONSTIPATION; Start 09/16/17 at 11: 30 Bisacodyl (Dulcolax Supp) 10 mg DAILY PRN [place] CONSTIPATION Last administered on 09/17/17 15:46; Admin Dose 10 MG; Start 09/16/17 at 11:30 Morphine Sulfate (morphine) 1 mg Q4H PRN IV pain Last administered on 06:26; Admin Dose 1 MG; Start 09/17/17 at 06:00 Tramadol HCl (Ultram) 50 mg Q6H PRN PO pain; Start 09/17/17 at 06:00 Sotalol HCl (Betapace) 80 mg DAILY PO Last administered on 09/23/17 08:34; Admin Dose 80 MG; Start 09/18/17 at 09:00 Diagnostic Test (Pha) (Accu-Chek) 1 ea 02 XX Last administered on 09/19/17 02 :00; Admin Dose 1 EA; Start 09/19/17 at 02:00 Miscellaneous Information 1 ea NOTE XX ; Start 09/18/17 at 09:30 Glucose (Glutose) 15 gm Q15M PRN PO DECREASED GLUCOSE; Start 09/18/17 at 09:30 Glucose (Glutose) 22.5 gm Q15M PRN PO DECREASED GLUCOSE; Start 09/18/17 at 09: 30 Dextrose (D50w Syringe) 25 ml Q15M PRN IV DECREASED GLUCOSE; Start 09/18/17 at 09:30 Dextrose (D50w Syringe) 50 ml Q15M PRN IV DECREASED GLUCOSE; Start 09/18/17 at 09:30 Glucagon (Glucagen) 1 mg Q15M PRN IM DECREASED GLUCOSE; Start 09/18/17 at 09: 30 Glucose (Glutose) 15 gm Q15M PRN BUCCAL DECREASED GLUCOSE; Start 09/18/17 at 09:30 Diagnostic Test (Pha) (Accu-Chek) 1 ea 02 XX ; Start 09/20/17 at 02:00 Fish Oil (Fish Oil) 2,000 mg BID PO Last administered on 09/23/17 08:34; Admin Dose 2,000 MG; Start 09/20/17 at 09:00 Finasteride (Proscar) 5 mg DAILY PO Last administered on 09/23/17 08:35; Admin Dose 5 MG; Start 09/20/17 at 09:00 Insulin Glargine (Lantus) 30 unit DAILY@20 SC Last administered on 09/22/17 21:07; Admin Dose 30 UNIT; Start 09/22/17 at 20:00 Prednisone (Prednisone) 30 mg DAILY PO Last administered on 09/23/17 08:35; Admin Dose 30 MG; Start 09/23/17 at 09:00 Levofloxacin (Levaquin) 250 mg DAILY@06 PO Last administered on 09/23/17t 06: 18; Admin Dose 250 MG; Start 09/23/17 at 06:00 MANUEL VELOZ NP Sep 23, 2017 10:00
--- NOTE | 2017-09-23 11:20 | CONS ---
Date/Time of Note Date/Time of Note DATE: 09/23/17 TIME: 11:18 Consult Date/Type/Reason Admit Date/Time Sep 14, 2017 at 08:17 Type of Consultation: Pulmonary/critical care Subjective Patient comfortable no new events per Objective Vital Signs Date Time Temp Pulse Resp B/P Pulse Ox O2 Delivery O2 Flow Rate FiO2 09/23/17 10:47 97.7 60 17 103/61 95 09/23/17 08:26 Nasal Cannula 3.0 09/22/17 07:36 40 Intake and Output 09/22/17 09/22/17 09/23/17 15:00 23:00 07:00 Intake Total 340 ml 250 ml Output Total 1450 ml 850 ml Balance -1110 ml -600 ml Exam PHYSICAL EXAMINATION GENERAL: Elderly gentleman, comfortable on nasal cannula oxygen VITAL SIGNS: see below. HEENT: Pupils equal, round, and reactive to light. Tracheostomy site clean and intact. CARDIAC: S1, S2, 1/6 systolic ejection murmur CHEST: Diminished air entry bilaterally. ABDOMEN: Mildly distended. Bowel sounds present no guarding or rebound EXTREMITIES: No cyanosis, clubbing edema +1 NEUROLOGIC: Generalized weakness Results/Medications Result Diagram: 09/23/17 0652 09/23/17 0652 Results 24 hrs Laboratory Tests Test 09/22/17 12:18 09/22/17 17:20 09/22/17 20:59 09/23/17 02:13 Bedside Glucose 214 256 H 222 H 134 Test 09/23/17 06:52 09/23/17 08:17 White Blood Count 9.5 Red Blood Count 3.69 L Hemoglobin 10.3 L Hematocrit 31.9 L Mean Corpuscular Volume 86.4 Mean Corpuscular Hemoglobin 27.9 L Mean Corpuscular Hemoglobin Concent 32.3 Red Cell Distribution Width 15.9 H Platelet Count 399 Mean Platelet Volume 10.0 Neutrophils % 69.5 Lymphocytes % 17.6 Monocytes % 7.6 Eosinophils % 0.5 Basophils % 0.3 Nucleated Red Blood Cells % 0.0 Neutrophils # 6.6 Lymphocytes # 1.7 Monocytes # 0.7 Eosinophils # 0.1 Basophils # 0.0 Nucleated Red Blood Cells # 0.0 Sodium Level 139 Potassium Level 3.4 L Chloride Level 95 L Carbon Dioxide Level 38 H Anion Gap 9 Blood Urea Nitrogen 89 H Creatinine 2.35 H Glucose Level 82 Calcium Level 8.6 Phosphorus Level 3.9 Magnesium Level 2.4 Bedside Glucose 82 Medications Current Medications Ondansetron HCl (Zofran Tab) 4 mg Q6H PRN PO NAUSEA AND/OR VOMITING; Start at 13:30 Ondansetron HCl (Zofran Inj) 4 mg Q6H PRN IV NAUSEA AND/OR VOMITING; Start at 13:30 Acetaminophen (Tylenol Tab) 650 mg Q6H PRN PO PAIN LEVEL 1-3 OR FEVER Last administered on 09/16/17 22:03; Admin Dose 650 MG; Start 09/14/17 at 13:30 Acetaminophen/ Hydrocodone Bitart 1 tab 1 tab Q6H PRN PO MODERATE PAIN LEVEL 4- 6 Last administered on 09/23/17 06:23; Admin Dose 1 TAB; Start 09/14/17 at 13 :30 Ceftriaxone Sodium (Rocephin) 50 ml @ 100 mls/hr Q24H IVPB Last administered on 09/23/17 08:32; Admin Dose 100 MLS/HR; Start 09/15/17 at 08:30 Aspirin (Halfprin) 81 mg DAILY PO Last administered on 09/23/17 08:35; Admin Dose 81 MG; Start 09/15/17 at 09:00 Clopidogrel Bisulfate (plaVIX) 75 mg DAILY PO Last administered on 09/23/17 08:33; Admin Dose 75 MG; Start 09/15/17 at 09:00 Diclofenac Sodium (Voltaren 1% Gel) 2 gm QID TP Last administered on 08:36; Admin Dose 2 GM; Start 09/14/17 at 17:00 Duloxetine HCl (Cymbalta) 30 mg DAILY PO Last administered on 09/23/17 08:35 ; Admin Dose 30 MG; Start 09/15/17 at 09:00 Ergocalciferol (Drisdol) 50,000 unit Q7D PO Last administered on 09/22/17 09: 00; Admin Dose 50,000 UNIT; Start 09/15/17 at 09:00 Fenofibrate (Tricor) 145 mg DAILY PO Last administered on 09/23/17 08:35; Admin Dose 145 MG; Start 09/15/17 at 09:00 Montelukast Sodium (Singulair) 10 mg QHS PO Last administered on 09/22/17 21: 03; Admin Dose 10 MG; Start 09/14/17 at 21:00 Tamsulosin HCl (Flomax) 0.4 mg DAILY@21 PO Last administered on 09/22/17 21: 03; Admin Dose 0.4 MG; Start 09/14/17 at 21:00 Pantoprazole (Protonix Tab) 40 mg DAILY@06 PO Last administered on 09/23/17 06:18; Admin Dose 40 MG; Start 09/15/17 at 06:00 Meclizine HCl (Antivert) 25 mg DAILY PO Last administered on 09/23/17 08:35; Admin Dose 25 MG; Start 09/15/17 at 09:00 Atorvastatin Calcium (Lipitor) 40 mg DAILY@21 PO Last administered on 21:03; Admin Dose 40 MG; Start 09/14/17 at 21:00 Heparin Sodium (Porcine) (Heparin (5000 Units/0.5 ml)) 5,000 unit BID SC Last administered on 09/23/17 08:33; Admin Dose 5,000 UNIT; Start 09/15/17 at 21: 00 Ferrous Sulfate (Ferrous Sulfate (Ec)) 325 mg BID PO Last administered on 09/23 08:36; Admin Dose 325 MG; Start 09/16/17 at 21:00 Docusate Sodium (Colace) 100 mg BID PRN PO CONSTIPATION; Start 09/16/17 at 11: 30 Bisacodyl (Dulcolax Supp) 10 mg DAILY PRN [place] CONSTIPATION Last administered on 09/17/17 15:46; Admin Dose 10 MG; Start 09/16/17 at 11:30 Morphine Sulfate (morphine) 1 mg Q4H PRN IV pain Last administered on 06:26; Admin Dose 1 MG; Start 09/17/17 at 06:00 Tramadol HCl (Ultram) 50 mg Q6H PRN PO pain; Start 09/17/17 at 06:00 Sotalol HCl (Betapace) 80 mg DAILY PO Last administered on 09/23/17 08:34; Admin Dose 80 MG; Start 09/18/17 at 09:00 Diagnostic Test (Pha) (Accu-Chek) 1 ea 02 XX Last administered on 09/19/17 02 :00; Admin Dose 1 EA; Start 09/19/17 at 02:00 Miscellaneous Information 1 ea NOTE XX ; Start 09/18/17 at 09:30 Glucose (Glutose) 15 gm Q15M PRN PO DECREASED GLUCOSE; Start 09/18/17 at 09:30 Glucose (Glutose) 22.5 gm Q15M PRN PO DECREASED GLUCOSE; Start 09/18/17 at 09: 30 Dextrose (D50w Syringe) 25 ml Q15M PRN IV DECREASED GLUCOSE; Start 09/18/17 at 09:30 Dextrose (D50w Syringe) 50 ml Q15M PRN IV DECREASED GLUCOSE; Start 09/18/17 at 09:30 Glucagon (Glucagen) 1 mg Q15M PRN IM DECREASED GLUCOSE; Start 09/18/17 at 09: 30 Glucose (Glutose) 15 gm Q15M PRN BUCCAL DECREASED GLUCOSE; Start 09/18/17 at 09:30 Diagnostic Test (Pha) (Accu-Chek) 1 ea 02 XX ; Start 09/20/17 at 02:00 Fish Oil (Fish Oil) 2,000 mg BID PO Last administered on 09/23/17 08:34; Admin Dose 2,000 MG; Start 09/20/17 at 09:00 Finasteride (Proscar) 5 mg DAILY PO Last administered on 09/23/17 08:35; Admin Dose 5 MG; Start 09/20/17 at 09:00 Prednisone (Prednisone) 30 mg DAILY PO Last administered on 09/23/17 08:35; Admin Dose 30 MG; Start 09/23/17 at 09:00 Levofloxacin (Levaquin) 250 mg DAILY@06 PO Last administered on 09/23/17 06: 18; Admin Dose 250 MG; Start 09/23/17 at 06:00 Insulin Glargine (Lantus) 24 unit DAILY@20 SC ; Start 09/23/17 at 20:00 Assessment/Plan Chief Complaint/Hosp Course IMPRESSION AND PLAN: 1. Acute hypoxemic respiratory failure. Amiodarone toxicity improving hypoxemia 2. Possible component of continue quad pneumonia 3. Pulmonary edema. 4. Underlying coronary artery disease. 5. Chronic renal insufficiency The patient will require: 1. Steroid taper 2. Oxygen 3. ID recommendations 4. Cardiology consultation. 5. DVT and GI prophylaxis. DC planning. Problems: ASTER SHAVER MD, [facility] Sep 23, 2017 11:20
--- NOTE | 2017-09-23 14:43 | RADRPT ---
Vent Rate: 89 bpm RR Interval: 0 msec AR Interval: 0 msec QRS Duration: 200 msec QT Interval: 512 msec QTC Interval: 622 msec P-R-T [place]: 78 - -73 - 74 degrees Electronic ventricular pacemaker Electronically Signed By: Issa Cuevas [id number]
--- NOTE | 2017-09-23 14:43 | RADRPT ---
Vent Rate: 89 bpm RR Interval: 0 msec MT Interval: 0 msec QRS Duration: 200 msec QT Interval: 512 msec QTC Interval: 622 msec P-R-T [place]: 78 - -73 - 74 degrees Electronic ventricular pacemaker Electronically Signed By: Issa Cuevas [id number]
--- NOTE | 2017-09-23 14:43 | RADRPT ---
Vent Rate: 89 bpm RR Interval: 0 msec [place] Interval: 0 msec QRS Duration: 200 msec QT Interval: 512 msec QTC Interval: 622 msec P-R-T [place]: 78 - -73 - 74 degrees Electronic ventricular pacemaker Electronically Signed By: Issa Cuevas [id number]
--- NOTE | 2017-09-23 16:08 | CONS ---
Date/Time of Note Date/Time of Note DATE: 09/23/17 TIME: 16:07 Assessment/Plan Assessment/Plan Chief Complaint/Hosp Course Assessment: Acute hypoxic respiratory failure - primarily pulmonary with component of congestive heart failure, improving Suspected pulmonary fibrosis - amiodarone was discontinued due to concern for pulmonary toxicity Possible pneumonia - on antibiotics Acute on chronic diastolic heart failure - echocardiogram reported LVEF 55% Moderate aortic stenosis Coronary artery disease - anatomy unknown, apparently he has not been revascularized in the past Paroxysmal atrial fibrillation - currently sinus rhythm Permanent pacemaker - details unknown Hypertension Dyslipidemia Acute kidney injury on chronic kidney disease History of stroke Recommendations: -change Lasix to 40mg PO BID -continue sotalol 80mg Q24hr (renally dosed) -continue outpatient aspirin 81mg and clopidogrel daily (though would consider anticoagulation instead of dual-antiplatelet therapy due to atrial fibrillation and history of stroke - defer to outpatient blend technician) -continue statin Problems: Consultation Date/Type/Reason Admit Date/Time Sep 14, 2017 at 08:17 Type of Consultation: Cardiology 24 HR Interval Summary Free Text/Dictation Has been transferred out of ICU. Shortness of breath much improved. Detailed Summary Additional Comments 14 point review of systems without changes. Exam/Review of Systems Vital Signs Vitals Vital Signs Date Time Temp Pulse Resp B/P Pulse Ox O2 Delivery O2 Flow Rate FiO2 09/23/17 15:49 20 87 Room Air 09/23/17 15:09 98.2 62 110/65 09/23/17 13:46 3.0 09/22/17 07:36 40 Intake and Output 09/22/17 09/22/17 09/23/17 14:59 22:59 06:59 Intake Total 340 ml 250 ml Output Total 1200 ml 250 ml 850 ml Balance -860 ml -250 ml -600 ml Exam Constitutional: alert, well developed Psych: nl mood/affect, no complaints Head: atraumatic, normocephalic Eyes: nl conjunctiva, nl lids ENMT: nl external ears & nose, nl nasal mucosa & septum Neck: non-tender, supple Respiratory: crackles/rales, diminished breath sounds Cardiovascular: regular rate and rhythm Gastrointestinal: non-tender, soft Musculoskeletal: nl extremities to inspection Extremities: No clubbing, No cyanosis, No edema Neurological: No nl mental status, No nl speech Skin: nl turgor Results Result Diagram: 09/23/17 0652 09/23/17 0652 Results 24 hrs Laboratory Tests Test 09/22/17 17:20 09/22/17 20:59 09/23/17 02:13 09/23/17 06:52 Bedside Glucose 256 H 222 H 134 White Blood Count 9.5 Red Blood Count 3.69 L Hemoglobin 10.3 L Hematocrit 31.9 L Mean Corpuscular Volume 86.4 Mean Corpuscular Hemoglobin 27.9 L Mean Corpuscular Hemoglobin Concent 32.3 Red Cell Distribution Width 15.9 H Platelet Count 399 Mean Platelet Volume 10.0 Neutrophils % 69.5 Lymphocytes % 17.6 Monocytes % 7.6 Eosinophils % 0.5 Basophils % 0.3 Nucleated Red Blood Cells % 0.0 Neutrophils # 6.6 Lymphocytes # 1.7 Monocytes # 0.7 Eosinophils # 0.1 Basophils # 0.0 Nucleated Red Blood Cells # 0.0 Sodium Level 139 Potassium Level 3.4 L Chloride Level 95 L Carbon Dioxide Level 38 H Anion Gap 9 Blood Urea Nitrogen 89 H Creatinine 2.35 H Glucose Level 82 Calcium Level 8.6 Phosphorus Level 3.9 Magnesium Level 2.4 Test 09/23/17 08:17 09/23/17 12:12 09/23/17 13:50 Bedside Glucose 82 117 Blood Gas Specimen Source Blood arterial Arterial Blood Date Drawn 09/23/2017 2:50:12 PM Arterial Blood pH (Temp corrected) 7.454 H Arterial Blood pCO2 (Temp correct) 46.0 H Arterial Blood pO2 (Temp corrected) 56.1 L Arterial Blood HCO3 31.5 H Arterial Blood Base Excess 6.8 H Arterial Blood Oxygen Saturation 87.9 L Star Test ACCEPTAB Arterial Blood Gas Puncture Site Left Radial Arterial Blood Carboxyhemoglobin 0.4 Arterial Blood Methemoglobin 0.1 Blood Gas A-a O2 Differential 38.5 H Oxyhemoglobin Percent 87.5 L Total Hemoglobin 9.5 L Blood Gas Temperature 37.0 Blood Gas Modality ROOM AIR FiO2 21.0 Blood Gas Notified Whom ABDIELD Blood Gas Notified Time 09/23/2017 2:56:57 PM Medications Medications Current Medications Ondansetron HCl (Zofran Tab) 4 mg Q6H PRN PO NAUSEA AND/OR VOMITING; Start at 13:30 Ondansetron HCl (Zofran Inj) 4 mg Q6H PRN IV NAUSEA AND/OR VOMITING; Start at 13:30 Acetaminophen (Tylenol Tab) 650 mg Q6H PRN PO PAIN LEVEL 1-3 OR FEVER Last administered on 09/16/17 22:03; Admin Dose 650 MG; Start 09/14/17 at 13:30 Acetaminophen/ Hydrocodone Bitart 1 tab 1 tab Q6H PRN PO MODERATE PAIN LEVEL 4- 6 Last administered on 09/23/17 06:23; Admin Dose 1 TAB; Start 09/14/17 at 13 :30 Ceftriaxone Sodium (Rocephin) 50 ml @ 100 mls/hr Q24H IVPB Last administered on 09/23/17 08:32; Admin Dose 100 MLS/HR; Start 09/15/17 at 08:30 Aspirin (Halfprin) 81 mg DAILY PO Last administered on 09/23/17 08:35; Admin Dose 81 MG; Start 09/15/17 at 09:00 Clopidogrel Bisulfate (plaVIX) 75 mg DAILY PO Last administered on 09/23/17 08:33; Admin Dose 75 MG; Start 09/15/17 at 09:00 Diclofenac Sodium (Voltaren 1% Gel) 2 gm QID TP Last administered on 13:35; Admin Dose 2 GM; Start 09/14/17 at 17:00 Duloxetine HCl (Cymbalta) 30 mg DAILY PO Last administered on 09/23/17 08:35 ; Admin Dose 30 MG; Start 09/15/17 at 09:00 Ergocalciferol (Drisdol) 50,000 unit Q7D PO Last administered on 09/22/17 09: 00; Admin Dose 50,000 UNIT; Start 09/15/17 at 09:00 Fenofibrate (Tricor) 145 mg DAILY PO Last administered on 09/23/17 08:35; Admin Dose 145 MG; Start 09/15/17 at 09:00 Montelukast Sodium (Singulair) 10 mg QHS PO Last administered on 09/22/17 21: 03; Admin Dose 10 MG; Start 09/14/17 at 21:00 Tamsulosin HCl (Flomax) 0.4 mg DAILY@21 PO Last administered on 09/22/17 21: 03; Admin Dose 0.4 MG; Start 09/14/17 at 21:00 Pantoprazole (Protonix Tab) 40 mg DAILY@06 PO Last administered on 09/23/17 06:18; Admin Dose 40 MG; Start 09/15/17 at 06:00 Meclizine HCl (Antivert) 25 mg DAILY PO Last administered on 09/23/17 08:35; Admin Dose 25 MG; Start 09/15/17 at 09:00 Atorvastatin Calcium (Lipitor) 40 mg DAILY@21 PO Last administered on 21:03; Admin Dose 40 MG; Start 09/14/17 at 21:00 Heparin Sodium (Porcine) (Heparin (5000 Units/0.5 ml)) 5,000 unit BID SC Last administered on 09/23/17 08:33; Admin Dose 5,000 UNIT; Start 09/15/17 at 21: 00 Ferrous Sulfate (Ferrous Sulfate (Ec)) 325 mg BID PO Last administered on 09/23 08:36; Admin Dose 325 MG; Start 09/16/17 at 21:00 Docusate Sodium (Colace) 100 mg BID PRN PO CONSTIPATION; Start 09/16/17 at 11: 30 Bisacodyl (Dulcolax Supp) 10 mg DAILY PRN [place] CONSTIPATION Last administered on 09/17/17 15:46; Admin Dose 10 MG; Start 09/16/17 at 11:30 Morphine Sulfate (morphine) 1 mg Q4H PRN IV pain Last administered on 06:26; Admin Dose 1 MG; Start 09/17/17 at 06:00 Tramadol HCl (Ultram) 50 mg Q6H PRN PO pain; Start 09/17/17 at 06:00 Sotalol HCl (Betapace) 80 mg DAILY PO Last administered on 09/23/17 08:34; Admin Dose 80 MG; Start 09/18/17 at 09:00 Diagnostic Test (Pha) (Accu-Chek) 1 ea 02 XX Last administered on 09/19/17 02 :00; Admin Dose 1 EA; Start 09/19/17 at 02:00 Miscellaneous Information 1 ea NOTE XX ; Start 09/18/17 at 09:30 Glucose (Glutose) 15 gm Q15M PRN PO DECREASED GLUCOSE; Start 09/18/17 at 09:30 Glucose (Glutose) 22.5 gm Q15M PRN PO DECREASED GLUCOSE; Start 09/18/17 at 09: 30 Dextrose (D50w Syringe) 25 ml Q15M PRN IV DECREASED GLUCOSE; Start 09/18/17 at 09:30 Dextrose (D50w Syringe) 50 ml Q15M PRN IV DECREASED GLUCOSE; Start 09/18/17 at 09:30 Glucagon (Glucagen) 1 mg Q15M PRN IM DECREASED GLUCOSE; Start 09/18/17 at 09: 30 Glucose (Glutose) 15 gm Q15M PRN BUCCAL DECREASED GLUCOSE; Start 09/18/17 at 09:30 Diagnostic Test (Pha) (Accu-Chek) 1 ea 02 XX ; Start 09/20/17 at 02:00 Fish Oil (Fish Oil) 2,000 mg BID PO Last administered on 09/23/17 08:34; Admin Dose 2,000 MG; Start 09/20/17 at 09:00 Finasteride (Proscar) 5 mg DAILY PO Last administered on 09/23/17 08:35; Admin Dose 5 MG; Start 09/20/17 at 09:00 Prednisone (Prednisone) 30 mg DAILY PO Last administered on 09/23/17 08:35; Admin Dose 30 MG; Start 09/23/17 at 09:00 Levofloxacin (Levaquin) 250 mg DAILY@06 PO Last administered on 09/23/17 06: 18; Admin Dose 250 MG; Start 09/23/17 at 06:00 Insulin Glargine (Lantus) 24 unit DAILY@20 SC ; Start 09/23/17 at 20:00 GURMEET ARMSTRONG MD Sep 23, 2017 16:08
[2017-09-23] MEDS: FUROSEMIDE 40 MG TAB PO SCH (17:34)
[2017-09-23] MEDS ORDERED: INSULIN GLARGINE [LANtus] 3 ML PEN SC SCH (20:00)
[2017-09-23] MEDS: MONTELUKAST 10 MG TAB PO SCH (20:13)
[2017-09-23] MEDS: TAMSULOSIN (SR) 0.4 MG CAP PO SCH (20:13)
[2017-09-23] MEDS: ATORVASTATIN 40 MG TAB PO SCH (20:13)
[2017-09-24] VITALS (9 sets, daily range): BP systolic 109–139; BP diastolic 56–72; PULSE 60–63; RESP 16–20
[2017-09-24] MEDS: ACCU-CHEK XX SCH (01:43)
[2017-09-24] MEDS: ALBUTEROL/IPRATROPIUM (NEB) 3 ML AMP HHN SCH ×3 (02:37→13:06)
[2017-09-24] MEDS: FUROSEMIDE 40 MG TAB PO SCH (05:43)
[2017-09-24] MEDS: PANTOPRAZOLE (EC) 40 MG TAB PO SCH (05:43)
[2017-09-24] MEDS: LEVOFLOXACIN 250 MG TAB PO SCH (05:43)
[2017-09-24] MEDS: INSULIN ASPART [NOVOLOG] 3 ML PEN SC SCH ×2 (07:55→11:50)
[2017-09-24] MEDS: FINASTERIDE 5 MG TAB PO SCH (08:24)
[2017-09-24] MEDS: CLOPIDOGREL 75 MG TAB PO SCH (08:24)
[2017-09-24] MEDS: FENOFIBRATE 145 MG TAB PO SCH (08:24)
[2017-09-24] MEDS: FISH OIL 1,000 MG CAP PO SCH (08:24)
[2017-09-24] MEDS: FERROUS SULFATE (EC) 325 MG TAB PO SCH (08:24)
[2017-09-24] MEDS: DULOXETINE 30 MG CAP DR PO SCH (08:24)
[2017-09-24] MEDS: SOTALOL 80 MG TAB PO SCH (08:25)
[2017-09-24] MEDS: predniSONE 10 MG TAB PO SCH (08:25)
[2017-09-24] MEDS: MECLIZINE 25 MG TAB PO SCH (08:25)
[2017-09-24] MEDS: CEFTRIAXONE 1 GM/50 ML (PMX) 50 ML IVPB SCH (08:26)
[2017-09-24] MEDS: HEPARIN 5,000 UNIT/0.5 ML VIAL SC SCH (08:27)
[2017-09-24] MEDS: DICLOFENAC SODIUM 1% GEL 100 GM TUBE TP SCH ×2 (08:28→11:51)
[2017-09-24] MEDS: ASPIRIN (EC) 81 MG TAB PO SCH (08:29)
--- NOTE | 2017-09-24 09:29 | PDOCDIS ---
Discharge Instructions CONDITION Patient Condition: Stable HOME CARE INSTRUCTIONS: Special Diet: carb control FOLLOW UP/APPOINTMENTS Follow-up Plan 1.Follow up with primary care physician in 1 week If you don't have one please let someone know, we can give you resources that may help you pick one. You may also call your insurance company to assign one to you. Review your medication list with your nurse before leaving and if you need new prescriptions please let your nurse know. I may have made changes to your home medications or given you new prescriptions, please let your primary doctor know as well. Stay compliant with your medications and report any side effects to your PCP or pharmacist. Return to the ER if you have any concerns and cannot reach your doctors or call your insurance company, they usually have a nurse that can help you. 2. Call 911 or go to the nearest emergency room if experiencing loss of consciousness, dizziness, chest pain, shortness of breath, vomiting/abdominal pain, speech difficulties, motor weakness or any unusual symptoms. 3. Follow-up with Dr. Jennings in his clinic in 2 weeks. [id number] [facility] [address] [place] [address] Office 4. Follow-up with in his clinic in 2 weeks. [id number] [facility] [address] [place] [address] Office MANUEL VELOZ NP Sep 24, 2017 09:29
--- NOTE | 2017-09-24 09:29 | PDOCDIS ---
Discharge Instructions CONDITION Patient Condition: Stable HOME CARE INSTRUCTIONS: Special Diet: carb control FOLLOW UP/APPOINTMENTS Follow-up Plan 1.Follow up with primary care physician in 1 week If you don't have one please let someone know, we can give you resources that may help you pick one. You may also call your insurance company to assign one to you. Review your medication list with your nurse before leaving and if you need new prescriptions please let your nurse know. I may have made changes to your home medications or given you new prescriptions, please let your primary doctor know as well. Stay compliant with your medications and report any side effects to your PCP or pharmacist. Return to the ER if you have any concerns and cannot reach your doctors or call your insurance company, they usually have a nurse that can help you. 2. Call 911 or go to the nearest emergency room if experiencing loss of consciousness, dizziness, chest pain, shortness of breath, vomiting/abdominal pain, speech difficulties, motor weakness or any unusual symptoms. 3. Follow-up with Dr. Jennings in his clinic in 2 weeks. [id number] [facility] [address] [place] [address] Office 4. Follow-up with in his clinic in 2 weeks. [id number] [facility] [address] [place] [address] Office MANUEL VELOZ NP Sep 24, 2017 09:29
--- NOTE | 2017-09-24 09:29 | PDOCDIS ---
Discharge Instructions CONDITION Patient Condition: Stable HOME CARE INSTRUCTIONS: Special Diet: carb control FOLLOW UP/APPOINTMENTS Follow-up Plan 1.Follow up with primary care physician in 1 week If you don't have one please let someone know, we can give you resources that may help you pick one. You may also call your insurance company to assign one to you. Review your medication list with your nurse before leaving and if you need new prescriptions please let your nurse know. I may have made changes to your home medications or given you new prescriptions, please let your primary doctor know as well. Stay compliant with your medications and report any side effects to your PCP or pharmacist. Return to the ER if you have any concerns and cannot reach your doctors or call your insurance company, they usually have a nurse that can help you. 2. Call 911 or go to the nearest emergency room if experiencing loss of consciousness, dizziness, chest pain, shortness of breath, vomiting/abdominal pain, speech difficulties, motor weakness or any unusual symptoms. 3. Follow-up with Dr. Jennings in his clinic in 2 weeks. [id number] [facility] [address] [place] [address] Office 4. Follow-up with in his clinic in 2 weeks. [id number] [facility] [address] [place] [address] Office MANUEL VELOZ NP Sep 24, 2017 09:29
[2017-09-24] MEDS ORDERED: FER325 PO (09:36)
[2017-09-24] MEDS ORDERED: SOTA80TA18 PO (09:36)
[2017-09-24] MEDS ORDERED: ALBU8.5H3 INH (09:39)
[2017-09-24] MEDS ORDERED: PRED20TA PO (09:39)
[2017-09-24] MEDS ORDERED: OXYGEN MC (09:39)
[2017-09-24] MEDS ORDERED: FURO40TA4 PO (09:47)
--- NOTE | 2017-09-24 10:21 | DS ---
Date/Time of Note Date/Time of Note DATE: 09/24/17 TIME: 09:42 Discharge Summary Admission/Discharge Info Admit Date/Time Sep 14, 2017 at 08:17 Discharge Date/Time Discharge Diagnosis Acute hypoxic respiratory failure multifactorial, pulmonary fibrosis/ superimposed pneumonia/congestive heart failure Suspected pulmonary fibrosis - amiodarone was discontinued due to concern for pulmonary toxicity. sotalol 80mg Q24hr (renally dosed). Recommended outpatient pulmonary follow-up. Possible pneumonia -treated with antibiotics Acute on chronic diastolic heart failure -echo with LVEF 55% Moderate aortic stenosis Coronary artery disease Paroxysmal atrial fibrillation-on dual antiplatelet, patient would be benefited with systemic anticoagulation secondary to history of stroke. This is deferred for outpatient cardiology discussion with Dr. Syed Permanent pacemaker Hypertension Dyslipidemia Acute kidney injury on chronic kidney disease-recommended outpatient nephrology follow-up. History of stroke Vitamin D deficiency BPH Consults Shelby Veloz,RESHMA/Dr. Kathleen, internal medicine/hospitalist , pulmonary Dr. Jennings, nephrology Dr. Cuevas, cardiology Procedures 09/14/2017. Chest x-ray. IMPRESSION: 1. Extensive right mid and lower lung zone pneumonia. 2. Mild left basilar pneumonia. 3. Mild cardiomegaly. 4. Permanent pacemaker. 09/16/2017. CT chest without contrast. IMPRESSION: 1. Extensive bilateral ground-glass densities and thickening of the bronchovascular bundle suggesting alveolar and interstitial pulmonary edema. Superimposed infection is difficult to exclude. 2. Trace bilateral pleural effusions and mild bibasilar atelectasis. 3. Mild emphysema in the lung apices. 4. Cardiomegaly. 5. Scattered aortic and coronary artery vascular calcifications. 09/21/2017. Repeat chest x-ray. IMPRESSION: 1. Slightly improved appearance of the lungs. 09/23/2017. Chest x-ray. IMPRESSION: 1. Further improvement in the pulmonary edema. Hospital Course The patient is a 77 year-old [place] male with hx of congestive heart failure, coronary artery disease, chronic kidney disease with baseline creatinine 2.0, paroxysmal atrial fibrillation, and permanent pacemaker. who presented with worsening shortness of breath and was found to have right lower lobe pneumonia and was admitted at [facility]. On presentation, patient also had pulmonary edema. Patient was initially admitted to telemetry, however he found to have hypoxic respiratory failure [id number] nonrebreather mask and he was transferred to the intensive care unit and is intermittently requiring BiPAP. Patient was treated with noninvasive pressure ventilation, bronchodilators, IV antibiotics for possible superimposed pneumonia. He was followed up with pulmonary medicine. Patient's follow-up CT scan of the chest was concerning for possible diffuse pulmonary fibrosis, most likely secondary to amiodarone toxicity. Patient had cardiology evaluation. Amiodarone was discontinued and patient was continued on sotalol 80mg Q24hr (renally dosed). Patient was also followed up with bunk house worker for underlying acute on chronic kidney disease. His renal function was monitored closely and remained at baseline. A repeat echocardiogram showed ejection fraction 55% with moderate aortic stenosis. Patient was continued on Lasix 40 mg IV twice daily. He was also treated with Solu-Medrol. Patient's symptoms improved clinically as well as with radiographic findings. He was able to tolerate 2-4 L of oxygen via nasal cannula. At this time, patient admitting diagnosis of Acute hypoxic respiratory failure found to be multifactorial with pulmonary fibrosis/ superimposed pneumonia/congestive heart failurepatient was continued on aspirin and Plavix, though he would have benefited from anticoagulation instead of dual antiplatelet therapy due to atrial fibrillation history of stroke. However, this was deferred to outpatient airfreight loading supervisor for discussion at a later point after discharge. He was continued on statin. Patient was then thereafter transferred back to the telemetry. He was then evaluated by physical therapy. Recommendation was a front wheeled walker upon discharge. Patient was able to tolerate tolerate diet and activities well. He did not have any positive cultures. Repeat chest x-ray with stable appearance and improvement in pulmonary edema. At this time, patient is feeling back to his baseline. Patient required continued need of oxygen 2 L via nasal cannula continuously. His vital signs and labs remain within acceptable range. Patient is medically stable for discharge with outpatient pulmonary, cardiology and nephrology follow-up. Disposition: Discharged home with home oxygen. As mentioned earlier, patient to follow-up with his primary care provider, airfreight loading supervisor, bunk house worker and pulmonary. Patient was given prescription for newly added medications. All home medications reviewed with patient and he verbalized discharge instructions. I have also faxed a copy of discharge summary to patient's PCP, . Approximately 60 minutes was spent in coordinating the discharge on this patient. Patient was seen in collaboration with Dr. Kathleen. Home Meds Active Scripts Furosemide* (Furosemide*) 40 Mg Tablet, 40 MG PO BID DIURETICS, #60 TAB Prov:SHELBY VELOZ NP 09/24/17 Home Oxygen* (Home Oxygen*) 1 Each Dme, 1 EACH MC DIRECTED, #1 DME 0 Refills Home oxygen 2 L per nasal cannula continuously. Prov:SHELBY VELOZ NP 09/24/17 Albuterol Sulfate* (Proair HFA*) 8.5 Gm Hfa.aer.ad, 2 PUFF INH Q4H Y for WHEEZING AND SOB, #1 INHALER Prov:SHELBY VELOZ NP 09/24/17 Prednisone* (Prednisone*) 20 Mg Tab, 20 MG PO DAILY, #3 TAB Start 09/28/2017 Last dose 09/30/2017 Prov:SHELBY VELOZ NP 09/24/17 Prednisone* (Prednisone*) 20 Mg Tab, 20 MG PO DAILY for 3 Days, #3 TAB First dose 09/25/2017, last dose 09/27/2017. Prov:SHELBY VELOZ NP 09/24/17 Sotalol HCl (Betapace) 80 Mg Tablet, 80 MG PO DAILY, #30 TAB Prov:SHELBY VELOZ NP 09/24/17 Ferrous Sulfate* (Ferrous Sulfate*) 325 Mg Tabec, 325 MG PO BID, #90 TAB Prov:SHELBY VELOZ NP 09/24/17 Reported Medications Ergocalciferol (Vitamin D2) (VITAMIN D2) 50,000 Unit Capsule, 73123 UNIT PO Q7D , CAP 09/14/17 Rosuvastatin Calcium* (Crestor*) 10 Mg Tablet, 10 MG PO DAILY, #30 TAB 09/14/17 Tamsulosin Hcl* (Tamsulosin Hcl*) 0.4 Mg Cap.er.24h, 0.4 MG PO DAILY, CAP 05/23/17 Fenofibrate Nanocrystallized* (Fenofibrate*) 145 Mg Tablet, 145 MG PO DAILY, TAB 05/23/17 [place]-3 Acid Ethyl Esters (Lovaza) 1 Gm Capsule, 1 GM PO BID, CAP 05/23/17 Duloxetine Hcl* (Duloxetine Hcl*) 30 Mg Capsule.dr, 30 MG PO DAILY, #30 CAP 05/23/17 Montelukast Sodium* (Montelukast Sodium*) 10 Mg Tablet, 10 MG PO QHS, #30 TAB 05/23/17 Esomeprazole Magnesium (Esomeprazole Magnesium) 40 Mg Capsule.dr, 40 MG PO BEFORE BREAKFAST, #30 CAP 05/23/17 Diclofenac Sodium* (Voltaren* Gel) 1% -100 Gm Gel, 2 GM TOP QID, #1 TUB 05/23/17 Glipizide* (Glipizide*) 5 Mg Tablet, 5 MG PO AC BREAKFAST, TAB 05/23/17 Calcium/Mag/D3/B12/FA/B6/[place] (Folgard Os Tablet) 1 Each Tablet, 1 EACH PO DAILY, TAB 05/23/17 Aspirin* (Aspirin* EC) 81 Mg Tablet.dr, 81 MG PO DAILY, TAB 05/23/17 Clopidogrel Bisulfate (Plavix) 75 Mg Tablet, 75 MG PO DAILY 03/13/13 Meclizine Hcl (Meclizine Hcl) 25 Mg Tab.chew, 25 MG PO DAILY 03/13/13 Discontinued Reported Medications Hydralazine Hcl* (Hydralazine Hcl*) 50 Mg Tab, 50 MG PO DAILY, #60 TAB 09/14/17 Amiodarone Hcl* (Amiodarone Hcl*) 200 Mg Tablet, 400 MG PO DAILY, #60 TAB 05/23/17 Mupirocin Calcium* (Mupirocin*) 2% - 15 Gram Cream..g., 1 APPLIC TOP TID, #1 TUB 05/23/17 Amlodipine Besylate* (Norvasc*) 5 Mg Tablet, 5 MG PO BID 03/13/13 Ranolazine* (Ranexa*) 1,000 Mg Tab.sr.12h, 1000 MG PO BID 03/13/13 Follow-up Plan 1.Follow up with primary care physician in 1 week If you don't have one please let someone know, we can give you resources that may help you pick one. You may also call your insurance company to assign one to you. Review your medication list with your nurse before leaving and if you need new prescriptions please let your nurse know. I may have made changes to your home medications or given you new prescriptions, please let your primary doctor know as well. Stay compliant with your medications and report any side effects to your PCP or pharmacist. Return to the ER if you have any concerns and cannot reach your doctors or call your insurance company, they usually have a nurse that can help you. 2. Call 911 or go to the nearest emergency room if experiencing loss of consciousness, dizziness, chest pain, shortness of breath, vomiting/abdominal pain, speech difficulties, motor weakness or any unusual symptoms. 3. Follow-up with Dr. Jennings in his clinic in 2 weeks. [id number] [facility] [address] [place] [address] Office 4. Follow-up with in his clinic in 2 weeks. [address] [facility] [address] [place] [address] Office Primary Care Provider Rosalba Langley Pending Labs Laboratory Tests Test 09/23/17 12:12 09/23/17 13:50 09/23/17 17:28 09/23/17 19:56 Bedside Glucose 117mg/dL (70-220) 315mg/dL (70-220) 271mg/dL (70-220) Blood Gas Specimen Source Blood arterial Arterial Blood Date Drawn 09/23/2017 2:50:12 PM Arterial Blood pH (Temp corrected) 7.454 (7.350-7.450) Arterial Blood pCO2 (Temp correct) 46.0mmhg (35-45) Arterial Blood pO2 (Temp corrected) 56.1mmHG (80-90.0) Arterial Blood HCO3 31.5mmol/L (22.0-26.0) Arterial Blood Base Excess 6.8mmol/L (-3.0-3) Arterial Blood Oxygen Saturation 87.9mmHG (95.0-100.0) Star Test ACCEPTAB Arterial Blood Gas Puncture Site Left Radial Arterial Blood Carboxyhemoglobin 0.4% (0.0-3.0) Arterial Blood Methemoglobin 0.1% (0.0-1.5) Blood Gas A-a O2 Differential 38.5mmHg (7.0-24.0) Oxyhemoglobin Percent 87.5% (93.0-99.0) Total Hemoglobin 9.5g/dl (12.0-18.0) Blood Gas Temperature 37.0C Blood Gas Modality ROOM AIR FiO2 21.0% Blood Gas Notified Whom LANDY Blood Gas Notified Time 09/23/2017 2:56:57 PM Test 09/24/17 01:42 09/24/17 06:59 09/24/17 07:52 Bedside Glucose 180mg/dL (70-220) 99mg/dL (70-220) Sodium Level 140mmol/L (135-144) Potassium Level 3.8mmol/L (3.5-5.1) Chloride Level 97mmol/L (97-110) Carbon Dioxide Level 38mmol/L (21-31) Anion Gap 9 (8-16) Blood Urea Nitrogen 81mg/dl (7-20) Creatinine 2.05mg/dl (0.61-1.24) Glucose Level 103mg/dl (70-220) Calcium Level 8.6mg/dl (8.4-10.2) Phosphorus Level 3.4mg/dl (2.5-4.9) Magnesium Level 2.4mg/dl (1.7-2.5) SHELBY VELOZ NP Sep 24, 2017 09:52
--- NOTE | 2017-09-24 10:21 | DS ---
Date/Time of Note Date/Time of Note DATE: 09/24/17 TIME: 09:42 Discharge Summary Admission/Discharge Info Admit Date/Time Sep 14, 2017 at 08:17 Discharge Date/Time Discharge Diagnosis Acute hypoxic respiratory failure multifactorial, pulmonary fibrosis/ superimposed pneumonia/congestive heart failure Suspected pulmonary fibrosis - amiodarone was discontinued due to concern for pulmonary toxicity. sotalol 80mg Q24hr (renally dosed). Recommended outpatient pulmonary follow-up. Possible pneumonia -treated with antibiotics Acute on chronic diastolic heart failure -echo with LVEF 55% Moderate aortic stenosis Coronary artery disease Paroxysmal atrial fibrillation-on dual antiplatelet, patient would be benefited with systemic anticoagulation secondary to history of stroke. This is deferred for outpatient cardiology discussion with Dr. Syed Permanent pacemaker Hypertension Dyslipidemia Acute kidney injury on chronic kidney disease-recommended outpatient nephrology follow-up. History of stroke Vitamin D deficiency BPH Consults Shelby Veloz,RESHMA/Dr. Kathleen, internal medicine/hospitalist , pulmonary Dr. Jennings, nephrology Dr. Cuevas, cardiology Procedures 09/14/2017. Chest x-ray. IMPRESSION: 1. Extensive right mid and lower lung zone pneumonia. 2. Mild left basilar pneumonia. 3. Mild cardiomegaly. 4. Permanent pacemaker. 09/16/2017. CT chest without contrast. IMPRESSION: 1. Extensive bilateral ground-glass densities and thickening of the bronchovascular bundle suggesting alveolar and interstitial pulmonary edema. Superimposed infection is difficult to exclude. 2. Trace bilateral pleural effusions and mild bibasilar atelectasis. 3. Mild emphysema in the lung apices. 4. Cardiomegaly. 5. Scattered aortic and coronary artery vascular calcifications. 09/21/2017. Repeat chest x-ray. IMPRESSION: 1. Slightly improved appearance of the lungs. 09/23/2017. Chest x-ray. IMPRESSION: 1. Further improvement in the pulmonary edema. Hospital Course The patient is a 77 year-old [place] male with hx of congestive heart failure, coronary artery disease, chronic kidney disease with baseline creatinine 2.0, paroxysmal atrial fibrillation, and permanent pacemaker. who presented with worsening shortness of breath and was found to have right lower lobe pneumonia and was admitted at [facility]. On presentation, patient also had pulmonary edema. Patient was initially admitted to telemetry, however he found to have hypoxic respiratory failure [id number]% nonrebreather mask and he was transferred to the intensive care unit and is intermittently requiring BiPAP. Patient was treated with noninvasive pressure ventilation, bronchodilators, IV antibiotics for possible superimposed pneumonia. He was followed up with pulmonary medicine. Patient's follow-up CT scan of the chest was concerning for possible diffuse pulmonary fibrosis, most likely secondary to amiodarone toxicity. Patient had cardiology evaluation. Amiodarone was discontinued and patient was continued on sotalol 80mg Q24hr (renally dosed). Patient was also followed up with scrummaster for underlying acute on chronic kidney disease. His renal function was monitored closely and remained at baseline. A repeat echocardiogram showed ejection fraction 55% with moderate aortic stenosis. Patient was continued on Lasix 40 mg IV twice daily. He was also treated with Solu-Medrol. Patient's symptoms improved clinically as well as with radiographic findings. He was able to tolerate 2-4 L of oxygen via nasal cannula. At this time, patient admitting diagnosis of Acute hypoxic respiratory failure found to be multifactorial with pulmonary fibrosis/ superimposed pneumonia/congestive heart failurepatient was continued on aspirin and Plavix, though he would have benefited from anticoagulation instead of dual antiplatelet therapy due to atrial fibrillation history of stroke. However, this was deferred to outpatient child & adolescent psychiatrist for discussion at a later point after discharge. He was continued on statin. Patient was then thereafter transferred back to the telemetry. He was then evaluated by physical therapy. Recommendation was a front wheeled walker upon discharge. Patient was able to tolerate tolerate diet and activities well. He did not have any positive cultures. Repeat chest x-ray with stable appearance and improvement in pulmonary edema. At this time, patient is feeling back to his baseline. Patient required continued need of oxygen 2 L via nasal cannula continuously. His vital signs and labs remain within acceptable range. Patient is medically stable for discharge with outpatient pulmonary, cardiology and nephrology follow-up. Disposition: Discharged home with home oxygen. As mentioned earlier, patient to follow-up with his primary care provider, child & adolescent psychiatrist, scrummaster and pulmonary. Patient was given prescription for newly added medications. All home medications reviewed with patient and he verbalized discharge instructions. I have also faxed a copy of discharge summary to patient's PCP, . Approximately 60 minutes was spent in coordinating the discharge on this patient. Patient was seen in collaboration with Dr. Kathleen. Home Meds Active Scripts Furosemide* (Furosemide*) 40 Mg Tablet, 40 MG PO BID DIURETICS, #60 TAB Prov:SHELBY VELOZ NP 09/24/17 Home Oxygen* (Home Oxygen*) 1 Each Dme, 1 EACH MC DIRECTED, #1 DME 0 Refills Home oxygen 2 L per nasal cannula continuously. Prov:SHELBY VELOZ NP 09/24/17 Albuterol Sulfate* (Proair HFA*) 8.5 Gm Hfa.aer.ad, 2 PUFF INH Q4H Y for WHEEZING AND SOB, #1 INHALER Prov:SHELBY VELOZ NP 09/24/17 Prednisone* (Prednisone*) 20 Mg Tab, 20 MG PO DAILY, #3 TAB Start 09/28/2017 Last dose 09/30/2017 Prov:SHELBY VELOZ NP 09/24/17 Prednisone* (Prednisone*) 20 Mg Tab, 20 MG PO DAILY for 3 Days, #3 TAB First dose 09/25/2017, last dose 09/27/2017. Prov:SHELBY VELOZ NP 09/24/17 Sotalol HCl (Betapace) 80 Mg Tablet, 80 MG PO DAILY, #30 TAB Prov:SHELBY VELOZ NP 09/24/17 Ferrous Sulfate* (Ferrous Sulfate*) 325 Mg Tabec, 325 MG PO BID, #90 TAB Prov:SHELBY VELOZ NP 09/24/17 Reported Medications Ergocalciferol (Vitamin D2) (VITAMIN D2) 50,000 Unit Capsule, 60320 UNIT PO Q7D , CAP 09/14/17 Rosuvastatin Calcium* (Crestor*) 10 Mg Tablet, 10 MG PO DAILY, #30 TAB 09/14/17 Tamsulosin Hcl* (Tamsulosin Hcl*) 0.4 Mg Cap.er.24h, 0.4 MG PO DAILY, CAP 05/23/17 Fenofibrate Nanocrystallized* (Fenofibrate*) 145 Mg Tablet, 145 MG PO DAILY, TAB 05/23/17 [place]-3 Acid Ethyl Esters (Lovaza) 1 Gm Capsule, 1 GM PO BID, CAP 05/23/17 Duloxetine Hcl* (Duloxetine Hcl*) 30 Mg Capsule.dr, 30 MG PO DAILY, #30 CAP 05/23/17 Montelukast Sodium* (Montelukast Sodium*) 10 Mg Tablet, 10 MG PO QHS, #30 TAB 05/23/17 Esomeprazole Magnesium (Esomeprazole Magnesium) 40 Mg Capsule.dr, 40 MG PO BEFORE BREAKFAST, #30 CAP 05/23/17 Diclofenac Sodium* (Voltaren* Gel) 1% -100 Gm Gel, 2 GM TOP QID, #1 TUB 05/23/17 Glipizide* (Glipizide*) 5 Mg Tablet, 5 MG PO AC BREAKFAST, TAB 05/23/17 Calcium/Mag/D3/B12/FA/B6/[place] (Folgard Os Tablet) 1 Each Tablet, 1 EACH PO DAILY, TAB 05/23/17 Aspirin* (Aspirin* EC) 81 Mg Tablet.dr, 81 MG PO DAILY, TAB 05/23/17 Clopidogrel Bisulfate (Plavix) 75 Mg Tablet, 75 MG PO DAILY 03/13/13 Meclizine Hcl (Meclizine Hcl) 25 Mg Tab.chew, 25 MG PO DAILY 03/13/13 Discontinued Reported Medications Hydralazine Hcl* (Hydralazine Hcl*) 50 Mg Tab, 50 MG PO DAILY, #60 TAB 09/14/17 Amiodarone Hcl* (Amiodarone Hcl*) 200 Mg Tablet, 400 MG PO DAILY, #60 TAB 05/23/17 Mupirocin Calcium* (Mupirocin*) 2% - 15 Gram Cream..g., 1 APPLIC TOP TID, #1 TUB 05/23/17 Amlodipine Besylate* (Norvasc*) 5 Mg Tablet, 5 MG PO BID 03/13/13 Ranolazine* (Ranexa*) 1,000 Mg Tab.sr.12h, 1000 MG PO BID 03/13/13 Follow-up Plan 1.Follow up with primary care physician in 1 week If you don't have one please let someone know, we can give you resources that may help you pick one. You may also call your insurance company to assign one to you. Review your medication list with your nurse before leaving and if you need new prescriptions please let your nurse know. I may have made changes to your home medications or given you new prescriptions, please let your primary doctor know as well. Stay compliant with your medications and report any side effects to your PCP or pharmacist. Return to the ER if you have any concerns and cannot reach your doctors or call your insurance company, they usually have a nurse that can help you. 2. Call 911 or go to the nearest emergency room if experiencing loss of consciousness, dizziness, chest pain, shortness of breath, vomiting/abdominal pain, speech difficulties, motor weakness or any unusual symptoms. 3. Follow-up with Dr. Jennings in his clinic in 2 weeks. [address] [facility] [address] [place] [address] Office 4. Follow-up with in his clinic in [address] [facility] [address] [place] [address] Office Primary Care Provider Rosalba Langley Pending Labs Laboratory Tests Test 09/23/17 12:12 09/23/17 13:50 09/23/17 17:28 09/23/17 19:56 Bedside Glucose 117mg/dL (70-220) 315mg/dL (70-220) 271mg/dL (70-220) Blood Gas Specimen Source Blood arterial Arterial Blood Date Drawn 09/23/2017 2:50:12 PM Arterial Blood pH (Temp corrected) 7.454 (7.350-7.450) Arterial Blood pCO2 (Temp correct) 46.0mmhg (35-45) Arterial Blood pO2 (Temp corrected) 56.1mmHG (80-90.0) Arterial Blood HCO3 31.5mmol/L (22.0-26.0) Arterial Blood Base Excess 6.8mmol/L (-3.0-3) Arterial Blood Oxygen Saturation 87.9mmHG (95.0-100.0) Star Test ACCEPTAB Arterial Blood Gas Puncture Site Left Radial Arterial Blood Carboxyhemoglobin 0.4% (0.0-3.0) Arterial Blood Methemoglobin 0.1% (0.0-1.5) Blood Gas A-a O2 Differential 38.5mmHg (7.0-24.0) Oxyhemoglobin Percent 87.5% (93.0-99.0) Total Hemoglobin 9.5g/dl (12.0-18.0) Blood Gas Temperature 37.0C Blood Gas Modality ROOM AIR FiO2 21.0% Blood Gas Notified Whom LANDY Blood Gas Notified Time 09/23/2017 2:56:57 PM Test 09/24/17 01:42 09/24/17 06:59 09/24/17 07:52 Bedside Glucose 180mg/dL (70-220) 99mg/dL (70-220) Sodium Level 140mmol/L (135-144) Potassium Level 3.8mmol/L (3.5-5.1) Chloride Level 97mmol/L (97-110) Carbon Dioxide Level 38mmol/L (21-31) Anion Gap 9 (8-16) Blood Urea Nitrogen 81mg/dl (7-20) Creatinine 2.05mg/dl (0.61-1.24) Glucose Level 103mg/dl (70-220) Calcium Level 8.6mg/dl (8.4-10.2) Phosphorus Level 3.4mg/dl (2.5-4.9) Magnesium Level 2.4mg/dl (1.7-2.5) SHELBY VELOZ NP Sep 24, 2017 09:52
--- NOTE | 2017-09-24 10:21 | DS ---
Date/Time of Note Date/Time of Note DATE: 09/24/17 TIME: 09:42 Discharge Summary Admission/Discharge Info Admit Date/Time Sep 14, 2017 at 08:17 Discharge Date/Time Discharge Diagnosis Acute hypoxic respiratory failure multifactorial, pulmonary fibrosis/ superimposed pneumonia/congestive heart failure Suspected pulmonary fibrosis - amiodarone was discontinued due to concern for pulmonary toxicity. sotalol 80mg Q24hr (renally dosed). Recommended outpatient pulmonary follow-up. Possible pneumonia -treated with antibiotics Acute on chronic diastolic heart failure -echo with LVEF 55% Moderate aortic stenosis Coronary artery disease Paroxysmal atrial fibrillation-on dual antiplatelet, patient would be benefited with systemic anticoagulation secondary to history of stroke. This is deferred for outpatient cardiology discussion with Dr. Syed Permanent pacemaker Hypertension Dyslipidemia Acute kidney injury on chronic kidney disease-recommended outpatient nephrology follow-up. History of stroke Vitamin D deficiency BPH Consults Shelby Veloz,RESHMA/Dr. Kathleen, internal medicine/hospitalist , pulmonary Dr. Jennings, nephrology Dr. Cuevas, cardiology Procedures 09/14/2017. Chest x-ray. IMPRESSION: 1. Extensive right mid and lower lung zone pneumonia. 2. Mild left basilar pneumonia. 3. Mild cardiomegaly. 4. Permanent pacemaker. 09/16/2017. CT chest without contrast. IMPRESSION: 1. Extensive bilateral ground-glass densities and thickening of the bronchovascular bundle suggesting alveolar and interstitial pulmonary edema. Superimposed infection is difficult to exclude. 2. Trace bilateral pleural effusions and mild bibasilar atelectasis. 3. Mild emphysema in the lung apices. 4. Cardiomegaly. 5. Scattered aortic and coronary artery vascular calcifications. 09/21/2017. Repeat chest x-ray. IMPRESSION: 1. Slightly improved appearance of the lungs. 09/23/2017. Chest x-ray. IMPRESSION: 1. Further improvement in the pulmonary edema. Hospital Course The patient is a 77 year-old Afghan male with hx of congestive heart failure, coronary artery disease, chronic kidney disease with baseline creatinine 2.0, paroxysmal atrial fibrillation, and permanent pacemaker. who presented with worsening shortness of breath and was found to have right lower lobe pneumonia and was admitted at [facility]. On presentation, patient also had pulmonary edema. Patient was initially admitted to telemetry, however he found to have hypoxic respiratory failure [id number] nonrebreather mask and he was transferred to the intensive care unit and is intermittently requiring BiPAP. Patient was treated with noninvasive pressure ventilation, bronchodilators, IV antibiotics for possible superimposed pneumonia. He was followed up with pulmonary medicine. Patient's follow-up CT scan of the chest was concerning for possible diffuse pulmonary fibrosis, most likely secondary to amiodarone toxicity. Patient had cardiology evaluation. Amiodarone was discontinued and patient was continued on sotalol 80mg Q24hr (renally dosed). Patient was also followed up with staff air tactical officer for underlying acute on chronic kidney disease. His renal function was monitored closely and remained at baseline. A repeat echocardiogram showed ejection fraction 55% with moderate aortic stenosis. Patient was continued on Lasix 40 mg IV twice daily. He was also treated with Solu-Medrol. Patient's symptoms improved clinically as well as with radiographic findings. He was able to tolerate 2-4 L of oxygen via nasal cannula. At this time, patient admitting diagnosis of Acute hypoxic respiratory failure found to be multifactorial with pulmonary fibrosis/ superimposed pneumonia/congestive heart failurepatient was continued on aspirin and Plavix, though he would have benefited from anticoagulation instead of dual antiplatelet therapy due to atrial fibrillation history of stroke. However, this was deferred to outpatient web developer programmer for discussion at a later point after discharge. He was continued on statin. Patient was then thereafter transferred back to the telemetry. He was then evaluated by physical therapy. Recommendation was a front wheeled walker upon discharge. Patient was able to tolerate tolerate diet and activities well. He did not have any positive cultures. Repeat chest x-ray with stable appearance and improvement in pulmonary edema. At this time, patient is feeling back to his baseline. Patient required continued need of oxygen 2 L via nasal cannula continuously. His vital signs and labs remain within acceptable range. Patient is medically stable for discharge with outpatient pulmonary, cardiology and nephrology follow-up. Disposition: Discharged home with home oxygen. As mentioned earlier, patient to follow-up with his primary care provider, web developer programmer, staff air tactical officer and pulmonary. Patient was given prescription for newly added medications. All home medications reviewed with patient and he verbalized discharge instructions. I have also faxed a copy of discharge summary to patient's PCP, . Approximately 60 minutes was spent in coordinating the discharge on this patient. Patient was seen in collaboration with Dr. Kathleen. Home Meds Active Scripts Furosemide* (Furosemide*) 40 Mg Tablet, 40 MG PO BID DIURETICS, #60 TAB Prov:SHELBY VELOZ NP 09/24/17 Home Oxygen* (Home Oxygen*) 1 Each Dme, 1 EACH MC DIRECTED, #1 DME 0 Refills Home oxygen 2 L per nasal cannula continuously. Prov:SHELBY VELOZ NP 09/24/17 Albuterol Sulfate* (Proair HFA*) 8.5 Gm Hfa.aer.ad, 2 PUFF INH Q4H Y for WHEEZING AND SOB, #1 INHALER Prov:SHELBY VELOZ NP 09/24/17 Prednisone* (Prednisone*) 20 Mg Tab, 20 MG PO DAILY, #3 TAB Start 09/28/2017 Last dose 09/30/2017 Prov:SHELBY VELOZ NP 09/24/17 Prednisone* (Prednisone*) 20 Mg Tab, 20 MG PO DAILY for 3 Days, #3 TAB First dose 09/25/2017, last dose 09/27/2017. Prov:SHELBY VELOZ NP 09/24/17 Sotalol HCl (Betapace) 80 Mg Tablet, 80 MG PO DAILY, #30 TAB Prov:SHELBY VELOZ NP 09/24/17 Ferrous Sulfate* (Ferrous Sulfate*) 325 Mg Tabec, 325 MG PO BID, #90 TAB Prov:SHELBY VELOZ NP 09/24/17 Reported Medications Ergocalciferol (Vitamin D2) (VITAMIN D2) 50,000 Unit Capsule, 24680 UNIT PO Q7D , CAP 09/14/17 Rosuvastatin Calcium* (Crestor*) 10 Mg Tablet, 10 MG PO DAILY, #30 TAB 09/14/17 Tamsulosin Hcl* (Tamsulosin Hcl*) 0.4 Mg Cap.er.24h, 0.4 MG PO DAILY, CAP 05/23/17 Fenofibrate Nanocrystallized* (Fenofibrate*) 145 Mg Tablet, 145 MG PO DAILY, TAB 05/23/17 [place]-3 Acid Ethyl Esters (Lovaza) 1 Gm Capsule, 1 GM PO BID, CAP 05/23/17 Duloxetine Hcl* (Duloxetine Hcl*) 30 Mg Capsule.dr, 30 MG PO DAILY, #30 CAP 05/23/17 Montelukast Sodium* (Montelukast Sodium*) 10 Mg Tablet, 10 MG PO QHS, #30 TAB 05/23/17 Esomeprazole Magnesium (Esomeprazole Magnesium) 40 Mg Capsule.dr, 40 MG PO BEFORE BREAKFAST, #30 CAP 05/23/17 Diclofenac Sodium* (Voltaren* Gel) 1% -100 Gm Gel, 2 GM TOP QID, #1 TUB 05/23/17 Glipizide* (Glipizide*) 5 Mg Tablet, 5 MG PO AC BREAKFAST, TAB 05/23/17 Calcium/Mag/D3/B12/FA/B6/[place] (Folgard Os Tablet) 1 Each Tablet, 1 EACH PO DAILY, TAB 05/23/17 Aspirin* (Aspirin* EC) 81 Mg Tablet.dr, 81 MG PO DAILY, TAB 05/23/17 Clopidogrel Bisulfate (Plavix) 75 Mg Tablet, 75 MG PO DAILY 03/13/13 Meclizine Hcl (Meclizine Hcl) 25 Mg Tab.chew, 25 MG PO DAILY 03/13/13 Discontinued Reported Medications Hydralazine Hcl* (Hydralazine Hcl*) 50 Mg Tab, 50 MG PO DAILY, #60 TAB 09/14/17 Amiodarone Hcl* (Amiodarone Hcl*) 200 Mg Tablet, 400 MG PO DAILY, #60 TAB 05/23/17 Mupirocin Calcium* (Mupirocin*) 2% - 15 Gram Cream..g., 1 APPLIC TOP TID, #1 TUB 05/23/17 Amlodipine Besylate* (Norvasc*) 5 Mg Tablet, 5 MG PO BID 03/13/13 Ranolazine* (Ranexa*) 1,000 Mg Tab.sr.12h, 1000 MG PO BID 03/13/13 Follow-up Plan 1.Follow up with primary care physician in 1 week If you don't have one please let someone know, we can give you resources that may help you pick one. You may also call your insurance company to assign one to you. Review your medication list with your nurse before leaving and if you need new prescriptions please let your nurse know. I may have made changes to your home medications or given you new prescriptions, please let your primary doctor know as well. Stay compliant with your medications and report any side effects to your PCP or pharmacist. Return to the ER if you have any concerns and cannot reach your doctors or call your insurance company, they usually have a nurse that can help you. 2. Call 911 or go to the nearest emergency room if experiencing loss of consciousness, dizziness, chest pain, shortness of breath, vomiting/abdominal pain, speech difficulties, motor weakness or any unusual symptoms. 3. Follow-up with Dr. Jennings in his clinic in 2 weeks. [id number] [facility] [address] [place] [address] Office 4. Follow-up with in his clinic in 2 weeks. [address] [facility] [address] [place] [address] Office Primary Care Provider Rosalba Langley Pending Labs Laboratory Tests Test 09/23/17 12:12 09/23/17 13:50 09/23/17 17:28 09/23/17 19:56 Bedside Glucose 117mg/dL (70-220) 315mg/dL (70-220) 271mg/dL (70-220) Blood Gas Specimen Source Blood arterial Arterial Blood Date Drawn 09/23/2017 2:50:12 PM Arterial Blood pH (Temp corrected) 7.454 (7.350-7.450) Arterial Blood pCO2 (Temp correct) 46.0mmhg (35-45) Arterial Blood pO2 (Temp corrected) 56.1mmHG (80-90.0) Arterial Blood HCO3 31.5mmol/L (22.0-26.0) Arterial Blood Base Excess 6.8mmol/L (-3.0-3) Arterial Blood Oxygen Saturation 87.9mmHG (95.0-100.0) Star Test ACCEPTAB Arterial Blood Gas Puncture Site Left Radial Arterial Blood Carboxyhemoglobin 0.4% (0.0-3.0) Arterial Blood Methemoglobin 0.1% (0.0-1.5) Blood Gas A-a O2 Differential 38.5mmHg (7.0-24.0) Oxyhemoglobin Percent 87.5% (93.0-99.0) Total Hemoglobin 9.5g/dl (12.0-18.0) Blood Gas Temperature 37.0C Blood Gas Modality ROOM AIR FiO2 21.0% Blood Gas Notified Whom LANDY Blood Gas Notified Time 09/23/2017 2:56:57 PM Test 09/24/17 01:42 09/24/17 06:59 09/24/17 07:52 Bedside Glucose 180mg/dL (70-220) 99mg/dL (70-220) Sodium Level 140mmol/L (135-144) Potassium Level 3.8mmol/L (3.5-5.1) Chloride Level 97mmol/L (97-110) Carbon Dioxide Level 38mmol/L (21-31) Anion Gap 9 (8-16) Blood Urea Nitrogen 81mg/dl (7-20) Creatinine 2.05mg/dl (0.61-1.24) Glucose Level 103mg/dl (70-220) Calcium Level 8.6mg/dl (8.4-10.2) Phosphorus Level 3.4mg/dl (2.5-4.9) Magnesium Level 2.4mg/dl (1.7-2.5) SHELBY VELOZ NP Sep 24, 2017 09:52
--- NOTE | 2017-09-24 13:53 | PN ---
DATE: 09/24/2017 SUBJECTIVE: The patient is stable. No events overnight. No fevers, chills, nausea, vomiting. OBJECTIVE: VITAL SIGNS: Blood pressure is 126/71, respirations 16, pulse 60, temperature 97.7. HEENT: Head is normocephalic. NECK: Supple. HEART: Regular rate. LUNGS: Show diminished breath sounds at base. ABDOMEN: Soft, nontender to palpation without rebound or guarding. EXTREMITIES: Negative for clubbing, cyanosis, edema. DERMATOLOGIC: No rashes. MUSCULOSKELETAL: No joint effusions. NEUROLOGIC: No change in exam. MEDICATIONS: The patient's medications have been reviewed. LABORATORY DATA: Shows sodium 140, potassium 3.8, chloride 97, bicarbonate 38, BUN 81, creatinine 2 .05. ASSESSMENT AND PLAN: 1. Nonoliguric acute kidney injury with a baseline creatinine of 1.7 2.0 mg/dL. Etiology of acute kidney injury is secondary to hemodynamics. Renal function has returned to baseline. Continue curr ent treatment plan, supportive care, renally dose all meds. 2. Acute congestive heart failure exacerbation. Continue current medical management. Continue diu retic therapy. 3. Anemia. Monitor hemoglobin and hematocrit levels. 4. Mineral bone disorder. Monitor calcium and phosphorus levels. 5. Acute hypoxemic respiratory failure secondary to pneumonia or congestive heart failure. Continu e current treatment plan. 6. Sepsis secondary to pneumonia. The patient has completed and antibiotic course. 7. Hypertension. Continue current blood pressure regimen. 8. Paroxysmal atrial fibrillation, currently in sinus rhythm. 9. History of pulmonary fibrosis. Dictated By: ALDO ROSARIO/ELANA Conf#: [id number] DID#: [id number]
== END 2017-09-24 16:21 | disposition home health service (06) | DRG 917 ==
LOC: E/R 06:31 → MS4 08:17 → ICU 09-15 17:51 → TEL 09-22 15:50
PROVIDERS: ADMIT Internal Medicine; ATTEND Internal Medicine
PROC: 5A09357 Assistance with Respiratory Ventilation, Less than 24 Consecutive Hours, Continuous Positive Airway Pressure (ICD-10-PCS; principal; 2017-09-14)
DX: T46.2X5A Adverse effect of other antidysrhythmic drugs, initial encounter (principal); J96.01 Acute respiratory failure with hypoxia; I50.23 Acute on chronic systolic (congestive) heart failure; A41.9 Sepsis, unspecified organism; N17.9 Acute kidney failure, unspecified; J18.9 Pneumonia, unspecified organism; J81.1 Chronic pulmonary edema; N18.3 Chronic kidney disease, stage 3 (moderate); I50.33 Acute on chronic diastolic (congestive) heart failure; I13.0 Hypertensive heart and chronic kidney disease with heart failure and stage 1 through stage 4 chronic kidney disease, or unspecified chronic kidney disease; E87.3 Alkalosis; E11.22 Type 2 diabetes mellitus with diabetic chronic kidney disease; I48.0 Paroxysmal atrial fibrillation; J84.10 Pulmonary fibrosis, unspecified; E83.9 Disorder of mineral metabolism, unspecified; D64.9 Anemia, unspecified; I35.0 Nonrheumatic aortic (valve) stenosis; I49.9 Cardiac arrhythmia, unspecified; I25.10 Atherosclerotic heart disease of native coronary artery without angina pectoris; J70.3 Chronic drug-induced interstitial lung disorders; N40.0 Benign prostatic hyperplasia without lower urinary tract symptoms; E78.5 Hyperlipidemia, unspecified; E55.9 Vitamin D deficiency, unspecified; Y95 Nosocomial condition; R91.8 Other nonspecific abnormal finding of lung field; D50.9 Iron deficiency anemia, unspecified; Z86.73 Personal history of transient ischemic attack (TIA), and cerebral infarction without residual deficits; Z95.0 Presence of cardiac pacemaker
CPT/HCPCS: 36415; 36600; 71010; 71250; 76775; 80048; 80053; 81003; 82540; 82803; 82962; 83036; 83540; 83690; 83735; 83880; 84100; 84155; 84300; 84443; 84484; 85025; 86803; 87040; 87081; 87275; 87276; 87279; 87280; 87340; 87400; 87449; 90686; 93005; 93306; 94640; 94660; 94664; 96374; 96375; 97110; 97116; 97162; J0456; J0696; J1644; J1650; J1815; J1940; J1956; J2270; J2405; J2916; J2920; J7040; J7512

== ENCOUNTER 2017-09-27 21:09 | Emergency (ER) | payer MEDICARE, OTHER ==
[~2017-09-27] VITALS: Ht 172.7 cm; Wt 90.9 kg
[~2017-09-27 21:09] MED LIST changes: +ALBU8.5H3 INH; -AMIO200T2 PO; -AMLO5TAB4 PO; -CHOL10009 PO; +CRES10 PO; +ERGO500037 PO; +FER325 PO; +FURO40TA4 PO; -HYDR-3670 PO; -MUPI15CR9 TOP; +OXYGEN MC; +PRED20TA PO; -RANO10002 PO; -RIVA15TA PO; +SOTA80TA18 PO
[2017-09-27 21:15] VITALS: Ht 172.7 cm; Wt 90.9 kg
[2017-09-27] MEDS ORDERED: SOD CHLORIDE 0.9% 1,000 ML IV STA (21:22)
--- NOTE | 2017-09-27 21:25 | ERD ---
ER Documentation Chief Complaint Chief Complaint BIBA RA39,HIGH BS 419@HOME,C/O CHEST PRESSURE PAIN,HX PNEUMONIA HPI This is a 77-year-old male with a history of diabetes, hypertension, hyperlipidemia, significant coronary artery disease with reported blockages but not a candidate for operative intervention, congestive heart failure, previous arrhythmia on amiodarone, previous TIAs, on Plavix and Xarelto, recent admission for pneumonia and heart failure, discharged 5 days ago, now presenting with concerns of elevated blood sugar today. The patient was sent home on steroids, and he reports having trouble controlling his blood sugar. He was reportedly over 400 today, which was concerning to the patient's family. The patient's family and the patient wanted him checked in the emergency department. The patient has a secondary complaint of chest pressure, but he reports that he has had this since his previous admission. It is unchanged since discharge. He feels that it is associated with his congestion from his reported pneumonia. The patient denies any associated sweating, lightheadedness , dizziness, diaphoresis, radicular pains, nausea, vomiting. The patient denies feeling sick recently. The patient denies fever or chills. The patient has had no headache or vision changes. The patient does not endorse neck or back pain. The patient denies abdominal pain or changes to bowel movements or urination. The patient has had no focal deficits. The patient has had no weakness or numbness or tingling to the face or extremities. ROS All systems reviewed and are negative except as per history of present illness. Medications Home Meds Active Scripts Furosemide* (Furosemide*) 40 Mg Tablet, 40 MG PO BID DIURETICS, #60 TAB Prov:MANUEL VELOZ NP 09/24/17 Home Oxygen* (Home Oxygen*) 1 Each Dme, 1 EACH MC DIRECTED, #1 DME 0 Refills Home oxygen 2 L per nasal cannula continuously. Prov:MANUEL VELOZ NP 09/24/17 Albuterol Sulfate* (Proair HFA*) 8.5 Gm Hfa.aer.ad, 2 PUFF INH Q4H Y for WHEEZING AND SOB, #1 INHALER Prov:MANUEL VELOZ NP 09/24/17 Prednisone* (Prednisone*) 20 Mg Tab, 20 MG PO DAILY, #3 TAB Start 09/28/2017 Last dose 09/30/2017 Prov:MANUEL VELOZ VJean-Pierre UTILIZATION REVIEW SPECIALIST 09/24/17 Prednisone* (Prednisone*) 20 Mg Tab, 20 MG PO DAILY for 3 Days, #3 TAB First dose 09/25/2017, last dose 09/27/2017. Prov:MANUEL VELOZ VJean-Pierre UTILIZATION REVIEW SPECIALIST 09/24/17 Sotalol HCl (Betapace) 80 Mg Tablet, 80 MG PO DAILY, #30 TAB Prov:MANUEL VELOZ VJean-Pierre UTILIZATION REVIEW SPECIALIST 09/24/17 Ferrous Sulfate* (Ferrous Sulfate*) 325 Mg Tabec, 325 MG PO BID, #90 TAB Prov:MANUEL VELOZ VJean-Pierre UTILIZATION REVIEW SPECIALIST 09/24/17 Reported Medications Ergocalciferol (Vitamin D2) (VITAMIN D2) 50,000 Unit Capsule, 48983 UNIT PO Q7D , CAP 09/14/17 Rosuvastatin Calcium* (Crestor*) 10 Mg Tablet, 10 MG PO DAILY, #30 TAB 09/14/17 Tamsulosin Hcl* (Tamsulosin Hcl*) 0.4 Mg Cap.er.24h, 0.4 MG PO DAILY, CAP 05/23/17 Fenofibrate Nanocrystallized* (Fenofibrate*) 145 Mg Tablet, 145 MG PO DAILY, TAB 05/23/17 [place]-3 Acid Ethyl Esters (Lovaza) 1 Gm Capsule, 1 GM PO BID, CAP 05/23/17 Duloxetine Hcl* (Duloxetine Hcl*) 30 Mg Capsule.dr, 30 MG PO DAILY, #30 CAP 05/23/17 Montelukast Sodium* (Montelukast Sodium*) 10 Mg Tablet, 10 MG PO QHS, #30 TAB 05/23/17 Esomeprazole Magnesium (Esomeprazole Magnesium) 40 Mg Capsule.dr, 40 MG PO BEFORE BREAKFAST, #30 CAP 05/23/17 Diclofenac Sodium* (Voltaren* Gel) 1% -100 Gm Gel, 2 GM TOP QID, #1 TUB 05/23/17 Glipizide* (Glipizide*) 5 Mg Tablet, 5 MG PO AC BREAKFAST, TAB 05/23/17 Calcium/Mag/D3/B12/FA/B6/[place] (Folgard Os Tablet) 1 Each Tablet, 1 EACH PO DAILY, TAB 05/23/17 Aspirin* (Aspirin* EC) 81 Mg Tablet.dr, 81 MG PO DAILY, TAB 05/23/17 Clopidogrel Bisulfate (Plavix) 75 Mg Tablet, 75 MG PO DAILY 03/13/13 Meclizine Hcl (Meclizine Hcl) 25 Mg Tab.chew, 25 MG PO DAILY 03/13/13 Discontinued Reported Medications Hydralazine Hcl* (Hydralazine Hcl*) 50 Mg Tab, 50 MG PO DAILY, #60 TAB 09/14/17 Amiodarone Hcl* (Amiodarone Hcl*) 200 Mg Tablet, 400 MG PO DAILY, #60 TAB 05/23/17 Mupirocin Calcium* (Mupirocin*) 2% - 15 Gram Cream..g., 1 APPLIC TOP TID, #1 TUB 05/23/17 Amlodipine Besylate* (Norvasc*) 5 Mg Tablet, 5 MG PO BID 03/13/13 Ranolazine* (Ranexa*) 1,000 Mg Tab.sr.12h, 1000 MG PO BID 03/13/13 Allergies Allergies: Coded Allergies: lorazepam (Verified Adverse Reaction, Severe, SEVERE AGITAION, CONFUSION, HALLUCINATIONS, 09/14/17) PMhx/Soc History of Surgery: Yes (KNEE SURGERY) Anesthesia Reaction: No Hx Neurological Disorder: No Hx Respiratory Disorders: Yes (PNA) Hx Cardiac Disorders: Yes (CHF, HTN, sp PACEMAKER, CAD, HLD, DM) Hx Psychiatric Problems: No Hx Miscellaneous Medical Probl: No Hx Alcohol Use: No Hx Substance Use: No Hx Tobacco Use: No FmHx Family History: diabetes, No coronary disease Physical Exam Vitals Vital Signs Date Time Temp Pulse Resp B/P Pulse Ox O2 Delivery O2 Flow Rate FiO2 09/28/17 01:59 98.0 60 16 127/77 95 Room Air 09/27/17 23:05 98.0 66 16 133/66 95 Room Air 09/27/17 21:44 98.7 60 18 116/64 95 Room Air 09/27/17 21:15 98.7 61 18 110/59 98 Physical Exam Const: No apparent distress, well-developed, well-nourished Head: Atraumatic Eyes: Normal Conjunctiva. Extraocular movements intact. ENT: Normal External Ears, Nose and Mouth. Neck: Full range of motion. ~ No meningismus. Resp: Clear to auscultation bilaterally Cardio: Regular rate and rhythm, no murmurs Abd: Soft, non tender, non distended. Normal bowel sounds Skin: No petechiae or rashes Back: No midline or flank tenderness Ext: No cyanosis, or edema Neur: Awake and alert, oriented 4. Cranial nerves intact. No facial droop. Normal strength and sensation in all extremities. Coordination with finger to nose normal. Psych: Normal Mood and Affect Result Diagram: 09/27/17212309/27/172123 Results 24 hrs Laboratory Tests Test 09/27/17 21:22 09/27/17 21:24 09/28/17 00:14 Bedside Glucose 339mg/dL 197mg/dL White Blood Count 7.910^3/ul Red Blood Count 3.8010^6/ul Hemoglobin 10.7g/dl Hematocrit 34.0% Mean Corpuscular Volume 89.5fl Mean Corpuscular Hemoglobin 28.2pg Mean Corpuscular Hemoglobin Concent 31.5g/dl Red Cell Distribution Width 16.6% Platelet Count 29866^3/UL Mean Platelet Volume 11.2fl Neutrophils % 78.0% Lymphocytes % 14.2% Monocytes % 6.3% Eosinophils % 0.0% Basophils % 0.1% Nucleated Red Blood Cells % 0.0/100WBC Neutrophils # 6.210^3/ul Lymphocytes # 1.110^3/ul Monocytes # 0.510^3/ul Eosinophils # 0.010^3/ul Basophils # 0.010^3/ul Nucleated Red Blood Cells # 0.010^3/ul Prothrombin Time 12.7Sec Prothrombin Time Ratio 1.0 INR International Normalized Ratio 0.95 Sodium Level 135mmol/L Potassium Level 4.9mmol/L Chloride Level 94mmol/L Carbon Dioxide Level 31mmol/L Anion Gap 15 Blood Urea Nitrogen 65mg/dl Creatinine 1.79mg/dl Glucose Level 320mg/dl Calcium Level 8.7mg/dl Troponin I 0.046ng/ml B-Type Natriuretic Peptide 1900PG/ML Current Medications Medications (Trade) Dose Ordered Sig/Bobbi Route PRN Reason Start Time Stop Time Status Last Admin Dose Admin Sodium Chloride (NS) 1,000 ml @ 1,000 mls/hr Q1H STAT IV 09/27/17 21:22 09/27/17 22:21 DC 09/27/17 21:26 Procedures/MDM MDM The patient's presentation warrants further investigation. The patient is here for evaluation of his blood sugar. He does not show signs of DKA, but this and other metabolic etiologies will be evaluated. The patient is endorsing a chest pressure that is unchanged since prior to discharge. A cardiac workup will also be performed. LABS The patient's blood work was obtained and reviewed. The patient's CBC shows no leukocytosis or left shift. The patient is afebrile and does not appear systemically ill. I do not suspect a systemic infection. The patient is mildly anemic today, but this may be monitored as an outpatient. His reading today is actually an improvement. The patient's platelet count is unremarkable. The patient's CMP shows no an elevated BUN and Cr, but again improved since discharge from the hospital last week. The patient's sugar was 320 with no AG or evidence of DKA. Doni 0.046, BNP 1900 both elevated but significantly improved. Repeat BS 197. EKG EKG read by me: Rate/Rhythm: Regular rate and rhythm at a rate of 60 bpm Intervals: Normal QRS and QTc. Prolonged IN interval indicating a first-degree AV block. Raysal: Normal Impression: No evidence of acute ischemia IMAGING CXR FINDINGS: There is mild to moderate cardiomegaly. There is mild pulmonary vascular congestion. A left chest cardiac device and leads are noted. The osseous structures are unremarkable. IMPRESSION: No acute findings. Electronically viewed and signed by .Gianluca Peterson MD, MD on 09/28/2017 00:43 TREATMENT/DISPOSITION The patient was given a liter of IV fluids for his sugar. I would be hesitant to give anymore as he does have heart failure with a tenous fluid balance. The patient is only on glipizide reportedly. The patient was instructed to follow up with his primary doctor to discuss the need for subsequent therapies at home , such as insulin, to utilize while the patient is still on steroids. The patient's blood sugar dropped to 197 with fluids only. The patient does have elevations in his troponin and BNP, but these too are improved. Admission versus discharge was discussed, and the patient was adamant about not staying in the hospital. He felt fine and had no symptoms change today. He would not have come to the hospital if it weren't for his family concern for his blood sugar. Shared decision making was enacted. The patient is understanding of his elevated cardiac markers and will follow up with his doctor in 1-3 days. The patient will return to the ER for any symptoms of ACS. At this time, I feel that the patient stable for discharge. He will need follow -up with his primary care physician in 1-3 days. He will be given strict precautions with which to return to the emergency department. The patient's blood pressure was elevated at greater than 120/80 while in the emergency department. The patient was otherwise stable with no evidence of hypertensive urgency or emergency. The patient will require reevaluation of his blood pressure in 2-3 days, but this may be completed by a primary care physician as an outpatient. He does not require admission for blood pressure control. Departure Diagnosis: Primary Impression: Hyperglycemia Additional Impressions: CHF (congestive heart failure) Congestive heart failure type: unspecified congestive heart failure type Congestive heart failure chronicity: chronic Qualified Code: I50.9 - Chronic congestive heart failure, unspecified congestive heart failure type CKD (chronic kidney disease) Chronic kidney disease stage: unspecified stage Qualified Code: N18.9 - Chronic kidney disease, unspecified CKD stage Condition: Stable NIKKIE BLAKE MD Sep 27, 2017 21:25
--- NOTE | 2017-09-28 00:43 | RADRPT ---
PROCEDURE: XR Chest. CLINICAL INDICATION: Chest pain TECHNIQUE: AP Portable chest. COMPARISON: 05/27/2013 FINDINGS: There is mild to moderate cardiomegaly. There is mild pulmonary vascular congestion. A left chest c ardiac device and leads are noted. The osseous structures are unremarkable. IMPRESSION: No acute findings. RPTAT: HIKT .Gianluca Peterson MD, MD Date Time Electronically viewed and signed by .Gianluca Peterson MD, on 09/28/2017 00:43 .T/
[2017-09-28 01:59] VITALS: BP 127/77; PULSE 60; RESP 16; TEMP 98
== END 2017-09-28 01:16 | disposition home or self-care (01) ==
LOC: E/R 21:09
DX: E11.65 Type 2 diabetes mellitus with hyperglycemia (principal); E11.22 Type 2 diabetes mellitus with diabetic chronic kidney disease; N18.9 Chronic kidney disease, unspecified; I12.9 Hypertensive chronic kidney disease with stage 1 through stage 4 chronic kidney disease, or unspecified chronic kidney disease; I25.10 Atherosclerotic heart disease of native coronary artery without angina pectoris; I50.9 Heart failure, unspecified; Z95.0 Presence of cardiac pacemaker; Z79.82 Long term (current) use of aspirin; Z79.84 Long term (current) use of oral hypoglycemic drugs
CPT/HCPCS: 36415; 71010; 80048; 82962; 83880; 84484; 85025; 85610; 93005; 99285; J7030

== ENCOUNTER 2018-09-18 01:18 | Observation (INO) | END 2018-09-19 18:30 | disposition home or self-care (01) ==